=== PATIENT | female | born 1955 | race Caucasian/White ===

== ENCOUNTER → 2018-04-10 14:07 | Outpatient (CLI) | payer BC, SELFPAY ==
--- NOTE | 2018-04-10 14:14 | XR_ITS ---
XR hip LT 2-3V w/pelvis HISTORY: Left hip pain ITS.REASON: LUMBAGO WITH LT SCIATICA ORDERING PHYSICIAN: Todd Peter MD PATIENT AGE: 62 years COMPARISON: 04/30/2013 FINDINGS: There has been prior left hip replacement with a bipolar prosthesis present which is in good position. No evidence of dislocation or acute fracture. There is osteitis pubis and there is incidental note made of mild osteoarthritis of the right hip. 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
--- NOTE | 2018-04-10 14:14 | XR_ITS ---
EXAM: XR lumbar spine min 4V HISTORY: Low back pain ITS.REASON: LUMBAGO WITH LT SCIATICA ORDERING PHYSICIAN: Todd Peter MD PATIENT AGE: 62 years COMPARISON: None FINDINGS: Mild lower lumbar scoliosis convex right. Multilevel degenerative disc disease with endplate hypertrophic changes. There is degenerative disc disease from T9 to L5. There is mild anterolisthesis of L4 on L5 of 4 mm. Endplate osteophytes are present at multiple levels most prominent in the lower thoracic and upper lumbar spine. No fracture or dislocation. No lytic or blastic change. Incidental vascular calcification. Facet arthritic changes noted at L4-5 and L5-S1 IMPRESSION: Multilevel lumbar spondylosis with degenerative disc disease and scoliosis and mild facet arthritic change No acute fracture
== END ==
PROVIDERS: PCP Family Medicine; Visit Provider Family Medicine
DX: M54.42 Lumbago with sciatica, left side (principal)
CPT/HCPCS: 72110; 73502

== ENCOUNTER → 2018-10-21 13:02 | Outpatient (POV) | payer BC, SELFPAY ==
[2018-10-21 13:19] VITALS: BP 180/98; PULSE 87; O2SAT 98
--- NOTE | 2018-10-21 13:51 | HMH.PMCON ---
Assessment and Plan (1) Back pain Current visit: Yes Status: Chronic Category: Medical Code(s): M54.9 - Dorsalgia, unspecified - Assessment and plan all Dx Assessment and Plan for all problems:: Patient is uninterested in any options we can give her. we were unable to obtain an ORT from her. Patient is currently on [place] 7.5 mg 1 p.o. 3 times daily and tramadol 50 mg 1 p.o. 3 times daily. Patient is on a low-dose opioid regimen I do believe that this will be appropriate to continue. If patient has worsening back pains I do believe that an MRI may be warranted. Patient is continuing to work and therefore is staying as functional as possible. This note was dictated using voice recognition software and may contain errors or omissions HPI - Data of Consult Consult date: 10/21/18 Requesting Physician: Monika Hines APRN Primary Care Provider: Todd Peter MD - Consult Narrative Reason for consult: Back pain History of present illness: Ms. Muniz is a 62 year old female presents today for consultation in regards to her low back pain and medication management. Patient states she has increased pain and with activity and nothing decreases her pain. She states that every joint and bone hurts in her body. Patient does not have any recent MRI imaging. Patient states that she is on Lortab and tramadol and this is what makes her able to function. States that it takes the edge off. Patient is also on meloxicam. Patient states injections do not help her however she is never had any spinal injections which she states that she is not interested in. patient states she will not participate in physical therapy it is a waste of her time. When asked for medication list patient stated that that is our job to obtain. Patient also did not completely fill out the paperwork. She rates her pain a 5 out of 10. CC: Monika Hines APRN [facility] History I have reviewed the patient's past medical history: Yes Medical History: Reports:: Hypertension - *Social History Smoking Status: Current every day smoker Tobacco Type: cigarettes Alcohol Intake: never Occupational Status: other Housing: house - Psychiatric History Expresses thoughts of harming self/others: None Suicide Plan Description: No Plan *Family Hx:: Unable to obtain Review of Systems - Review of Systems ROS General: no recent weight change, no fever, no sleep disturbances Respiratory: no cough, no shortness of air, no recurring pulmonary infections Cardiovascular/Peripheral Vascular: No chest pain, No palpitations, no edema, no shortness of breath. Gastrointestinal: no incontinence, normal bowel movements reported Genitourinary: no incontinence Musculoskeletal: Back pain Psychiatric: normal mood/ affect Neurological: [denies weakness in extremities], [denies balance issues] Meds Allergies Allergy/AdvReac Type Severity Reaction Status Date / Time No Known Allergies Allergy Unverified 10/09/17 14:28 Objective Vital signs: Pulse BP Pulse Ox 87 180/98 H 98 10/21/18 13:19 10/21/18 13:19 10/21/18 13:19 Narrative: Physical Exam General: Alert and oriented x3, no acute distress, pleasant and cooperative, [on room air] Lungs: Resps E/U, Symmetrical chest expansion, Eyes: PERRL Musculoskeletal: Flexion and extension of lumbar spine somewhat guarded secondary to pain, deep tendon reflexes normal, strength in upper and lower extremities [5/5], slightly antalgic gait noted Neurological: speech clear, riprap placer equal, no gross sensory deficits
--- NOTE | 2018-10-21 13:55 | P.CONS_ITS ---
Assessment and Plan (1) Back pain Current visit: Yes Status: Chronic Category: Medical Code(s): M54.9 - Dorsalgia, unspecified - Assessment and plan all Dx Assessment and Plan for all problems:: Patient is uninterested in any options we can give her. we were unable to obtain an ORT from her. Patient is currently on [place] 7.5 mg 1 p.o. 3 times daily and tramadol 50 mg 1 p.o. 3 times daily. Patient is on a low-dose opioid regimen I do believe that this will be appropriate to continue. If patient has worsening back pains I do believe that an MRI may be warranted. Patient is continuing to work and therefore is staying as functional as possible. This note was dictated using voice recognition software and may contain errors or omissions HPI - Data of Consult Consult date: 10/21/18 Requesting Physician: Monika Hines APRN Primary Care Provider: Todd Peter MD - Consult Narrative Reason for consult: Back pain History of present illness: Ms. Muniz is a 62 year old female presents today for consultation in regards to her low back pain and medication management. Patient states she has increased pain and with activity and nothing decreases her pain. She states that every joint and bone hurts in her body. Patient does not have any recent MRI imaging. Patient states that she is on Lortab and tramadol and this is what makes her able to function. States that it takes the edge off. Patient is also on meloxicam. Patient states injections do not help her however she is never had any spinal injections which she states that she is not interested in. patient states she will not participate in physical therapy it is a waste of her time. When asked for medication list patient stated that that is our job to obtain. Patient also did not completely fill out the paperwork. She rates her pain a 5 out of 10. CC: Monika Hines APRN [facility] History I have reviewed the patient's past medical history: Yes Medical History: Reports:: Hypertension - *Social History Smoking Status: Current every day smoker Tobacco Type: cigarettes Alcohol Intake: never Occupational Status: other Housing: house - Psychiatric History Expresses thoughts of harming self/others: None Suicide Plan Description: No Plan *Family Hx:: Unable to obtain Review of Systems - Review of Systems ROS General: no recent weight change, no fever, no sleep disturbances Respiratory: no cough, no shortness of air, no recurring pulmonary infections Cardiovascular/Peripheral Vascular: No chest pain, No palpitations, no edema, no shortness of breath. Gastrointestinal: no incontinence, normal bowel movements reported Genitourinary: no incontinence Musculoskeletal: Back pain Psychiatric: normal mood/ affect Neurological: [denies weakness in extremities], [denies balance issues] Meds Allergies Allergy/AdvReac Type Severity Reaction Status Date / Time No Known Allergies Allergy Unverified 10/09/17 14:28 Objective Vital signs: Pulse BP Pulse Ox 87 180/98 H 98 10/21/18 13:19 10/21/18 13:19 10/21/18 13:19 Narrative: Physical Exam General: Alert and oriented x3, no acute distress, pleasant and cooperative, [on room air] Lungs: Resps E/U, Symmetrical chest expansion, Eyes: PERRL Musculoskeletal: Flexion and extension of lumbar spine antelmo
== END ==
PROVIDERS: PCP Family Medicine; Visit Provider Clinical Nurse Specialist Family Health
DX: M54.9 Dorsalgia, unspecified (principal)
CPT/HCPCS: 99202

== ENCOUNTER → 2019-06-04 08:11 | Outpatient (CLI) | payer BC, SELFPAY ==
--- NOTE | 2019-06-04 08:30 | CA_ITS ---
APPROVED REPORT EXAM: Comprehensive 2D, Doppler, and color-flow Echocardiogram Horticultural Farmer: Valencia Stock RDCS Ht: 5 ft 7 in Wt: 205lbs BSA: 2.04 BP: 130/80 mmHg Indications: Chest Pain, Murmur, Shortness of Breath Left Ventricle Left atrium is mildly enlarged, left ventricle is normal size, mild concentric left ventricular hypertrophy, visually estimated ejection fraction of 55% with no regional wall motion abnormality grade 1 diastolic dysfunction seen without tissue Doppler evidence of raise left atrial pressure. Right Ventricle Right atrium and right ventricular normal size and contractility. Aortic Valve Aortic valve is thickened and calcified, leaflet continue to display mobility, there is no aortic stenosis or aortic insufficiency. Mitral Valve Mitral valve leaflets are minimally thickened, there is no mitral stenosis, there is mild mitral regurgitation. Tricuspid Valve Cuspid valve is grossly normal, there is mild tricuspid regurgitation, tricuspid dilatation jet velocity is inadequate for calculation of the right ventricular systolic pressure. Pulmonic Valve Pulmonic valve is grossly normal. Great Vessels Aortic root is normal size. Pericardium No significant pericardial effusion noted. 2D Dimensions LVOT 1.60 cm (M/F) 1.5-2.5 M-Mode Dimensions RVDd 3.40 cm (0.9-2.6) LA Diam 2.70 cm (1.9-4.0) LVDd 4.30 cm (3.5-5.7) Ao Diam 3.30 cm (2.0-3.7) LVDs 3.00 cm (3.5-5.7) AV Cusp 1.30 cm (1.5-2.6) IVSd 1.30 cm (0.6-1.1) PWd 1.30 cm (0.6-1.1) EF (Teich) 57.90% FS 30.20% EDV (Teich) 83.10 mL ESV (Teich) 35.00 mL LV Diastology E/A Ratio 0.5 MED E' 4.00 (< 7 cm/sec) E'/MED E' Ratio 9.00 (>14) LAT E' 7.12 (<10 cm/sec) E/LAT E' Ratio 5.10 (>14) Aortic Valve LVOT Max 122.00 (70-110 cm/s) LVOT VTI 28.50 cm AoV Peak Avery. 162.00 (50-130 cm/s) AO Peak GR. 10.00 mmHg AO Mean GR. 7.00 (<5 mmHg) AO VTI 36.50 (18-25 cm) DONALD (VTI) 1.57 (2.5-4.5 cm2) Mitral Valve MV E Max Avery. 36.00 (40-130 cm/s) MV A Velocity 73.10 (40-130 cm/s) E/A Ratio 0.50 Tricuspid Valve TR P. Velocity 274.00 cm/s RAP Estimate 10.00 mmHg RVSP 40.00 mmHg Conclusion 1. Mildly enlarged left atrium, normal left ventricular size, mild concentric left ventricular hypertrophy, visually estimated ejection fraction 55% with no regional wall motion abnormality, grade 1 diastolic dysfunction seen without tissue Doppler evidence of raise left atrial pressure. 2. Thickened and calcified aortic valve without aortic stenosis or aortic insufficiency. 3. Mild mitral and tricuspid regurgitation 4. No significant pericardial effusion noted. Electronically signed by : John Shah, 06/06/2019 13:39:56
[2019-06-04 08:38] LABS: Blood Urea Nitrogen 32 mg/dL (7-18); Creatinine,Serum 1.15 mg/dL (0.55-1.02); Estimated Glomerular Filt Rate 47 ml/min (>60); GFR (African American) 57 ML/MIN (>60)
--- NOTE | 2019-06-04 08:57 | CT_ITS ---
PROCEDURE: CT CHEST W CON CLINCAL INDICATION: ABNORMAL CHEST CT Shortness of air, follow-up abnormal chest CT COMPARISON: [facility] CT CHEST W/WO CONTRAST from 03/20/2017 TECHNIQUE: IV Contrast: 75ml Optiray 350 Axial images obtained with sagittal and coronal reformats. All CT scans at the facility use one or more dose reduction, viz: automated exposure control, ma/kV adjustment per patient size (including targeted exams where dose is matched to indication, i.e. head), or iterative reconstruction technique. FINDINGS: No evidence of pulmonary embolus or aortic aneurysm or dissection. There are coronary artery calcifications. There is a noncalcified 7 mm nodule in the right upper lobe unchanged. Multiple smaller nodules are once again noted some which are calcified. Noted nodules are evident. No effusions or infiltrates. No acute bony findings. Upper abdominal images show mild prominence of the common hepatic duct through the common bile duct is incompletely image. IMPRESSION: No change with no acute finding. Stable pulmonary nodules Dictated by: Ancelmo Jack MD 06/09/2019 17:48 Signed by: <Electronically signed by Ancelmo Jack MD in [place]> 06/09/2019 17:48
== END ==
PROVIDERS: PCP Family Medicine; Visit Provider Family Medicine
DX: R93.89 Abnormal findings on diagnostic imaging of other specified body structures (principal)
CPT/HCPCS: 36415; 71260; 82565; 84520; 93306; Q9967

== ENCOUNTER → 2019-07-04 06:11 | Outpatient (CLI) | payer BC, SELFPAY ==
--- NOTE | 2019-07-04 06:16 | NM_ITS ---
APPROVED REPORT Exam: Nuclear Stress Test Indication: CAD, 2 STINTS, HTN, D.M., TOB USE, FM HX., FATIQUE Patient Location: Outpatient Stress Tech: Elisa Kwadwo IN Tech:Lacy Edwards, ARRT RT(R)(N) Ht: 5 ft 7 in Wt: 200 lbs BSA: 2.02 m2 HR: 51 bpm BP: 166/67/ mmHg BMI: 31.3 History: CAD, 2 STINTS, HTN, D.M., TOB USE, FM HX., FATIQUE Procedure: Patient received a 0.4 mg of intravenous Lexiscan, resting heart rate 51 bpm, resting blood pressure 166/67 mmHg, with Lexiscan maximum heart rate achived was 79 bpm which is Less than 85 % of the maximum predicted heart rate and blood pressure was 150/86 mmHg. With Lexiscan, patient denied any complaint of chest pain. Electrocardiogram Resting electrocardiogram shows sinus rhythm, with Lexiscan there is less than 1.[address] segment depression noted from the baseline EKG. The EKG portion of the Lexiscan Myoview is nondiagnostic. Cardiac Stress and Resting SPECT Images: Cardiac Stress and Resting SPECT images were obtained using technetium 99m Myoview 32.6 mCi stress and 10.40 mCi at rest. Gated SPECT with analysis of segmental wall motion and calculation of the ejection fraction also done. Cardiac stress and rest SPECT which show decreased tracer activity in the anterolateral wall which improves on the resting images suggestive of reversible ischemia, computer derived ejection fraction is over 65% with no regional wall motion abnormality, right ventricle is normal size and contractility. Conclusion: 1. The EKG portion of the Lexiscan Myoview is nondiagnostic. 2. Scintigraphic evidence of mild reversible ischemia involving the anterolateral wall. Computer derived ejection fraction is over 65% with no regional wall motion abnormality, right ventricle is normal size and contractility. This is study is technically limited due to patient's body habitus. 3. Abnormal Lexiscan Myoview study. Electronically signed by : John Shah, 07/04/2019 13:53:04
--- NOTE | 2019-07-04 06:16 | CA_ITS ---
APPROVED REPORT Exam: Pharmacologic Technologist: Johnny Mcdonough, Ht: 5 ft 7 in Wt: 200 lbs BSA: 2.02 m2 HR: 51 bpm BP: 166/67 mmHg Indications: Fatigue Medical History Medical History: FATIGUE Medications: Lisinopril,,,,, Metoprolol,,,,, Asa,,,,, Glimepiride,,,,, XaRELTO,,,,, MeLOXICAM,,,,, BusIPIRONE,,,,, LoraTAB,,,,, Omepazole,,,,, Allergies: NKA Cardiac Risk Factors: HTN, DM, FHX of CAD, Smoking Stress Test Details Test: LEXISCAN HR Resting HR: 56 bpm Max Heart Rate (APMHR): 155 bpm Max HR Achieved: 81 bpm Target HR (85% APMHR): 131 bpm % of APMHR: 52 Recovery HR: 69 bpm BP Resting BP: 166.0/67.0 mmHg Max BP: 170.0/85.0 mmHg Recovery BP: 168.0/89.0 mmHg ECG Resting ECG: SINUS RHYTHM Clinical Exercise duration: 04:01 min Highest Stage Achieved: Exercise capacity: 1.0 METs Stress ECG Conclusion LEXISCAN PORTION COMPLETED. C/O NECK PRESSURE AT PEAK INFUSION. RESOLVED IN RECOVERY. NO CHEST PAIN OR SOA. POSITIVE NECK PRESSURE DURING PEAK INFUSION. RESOLVED IN RECOVERY. OCCASIONAL PAC. LESS THAN 1.5MM ST DEPRESSION. IMAGES TO FOLLOW. Electronically signed by : John Shah, 07/04/2019 13:54:53
--- NOTE | 2019-07-04 09:55 | HMH.ITSHM ---
Current Home Medications as stated by this patient Ana Muniz or senior sales representative. []metoprolol loratab omeprazole meloxicam lisinopril glimepiride buspirone asa xarelto
== END ==
PROVIDERS: PCP Family Medicine; Visit Provider Family Medicine
DX: Z95.5 Presence of coronary angioplasty implant and graft (principal); E78.5 Hyperlipidemia, unspecified; I10 Essential (primary) hypertension; I20.9 Angina pectoris, unspecified; I25.119 Atherosclerotic heart disease of native coronary artery with unspecified angina pectoris; R06.00 Dyspnea, unspecified
CPT/HCPCS: 78452; 93017; A9502; J2785

== ENCOUNTER → 2020-06-07 14:35 | Outpatient (CLI) | payer BC, SELFPAY ==
--- NOTE | 2020-06-07 14:38 | US_ITS ---
PROCEDURE: US KIDNEY CLINICAL INDICATION: DM II,PROTEINURIA COMPARISON: No exams were available for comparison FINDINGS: The right kidney is [id number]. No hydronephrosis, cortical thinning, or renal mass or perinephric fluid collection is evident. The left kidney is [id number]. No hydronephrosis, cortical thinning, or renal mass or perinephric fluid collection is evident. IMPRESSION: Unremarkable bilateral renal ultrasound Dictated by: Ancelmo Jack MD 06/07/2020 15:28 Ancelmo Jack MD in [place] 06/07/2020 15:28
== END ==
PROVIDERS: PCP Family Medicine; Visit Provider Family Medicine
DX: E11.9 Type 2 diabetes mellitus without complications (principal); R80.9 Proteinuria, unspecified; Z79.899 Other long term (current) drug therapy
CPT/HCPCS: 76770

== ENCOUNTER → 2020-08-16 10:23 | Outpatient (CLI) | payer BC, SELFPAY ==
--- NOTE | 2020-08-16 10:38 | ECG_ITS ---
APPROVED REPORT Exam: Resting ECG HR:65 bpm ECG Measurements Heart Rate 65 AXES ND 170 P 17 QRSd 86 QRS -7 QT 416 T 54 QTc 432 Conclusion Normal sinus rhythm Delayed R-wave progression, unchanged since 2016 Abnormal ECG Electronically signed by : Marcelo Rai, 08/16/2020 17:36:28
== END ==
PROVIDERS: PCP Family Medicine; Visit Provider Family Medicine
DX: I49.8 Other specified cardiac arrhythmias (principal)
CPT/HCPCS: 93005

== ENCOUNTER 2021-02-18 16:16 | Emergency (ER) | payer BC, SELFPAY ==
--- NOTE | 2021-02-18 16:07 | ECG_ITS ---
APPROVED REPORT Exam: Resting ECG HR:48 bpm ECG Measurements Heart Rate 48 AXES MA 176 P 53 QRSd 84 QRS 10 QT 498 T 83 QTc 444 Conclusion Marked sinus bradycardia Left atrial abnormality Nonspecific T wave abnormality Abnormal ECG Electronically signed by : Marcelo Rai, 02/19/2021 08:45:25
[2021-02-18 16:17] VITALS: BP 181/96; PULSE 48; RESP 18; O2SAT 95; BMI 32.3
--- NOTE | 2021-02-18 16:28 | HMH.EDGENADL ---
ED Disposition Clinical Impression: Headache Qualifiers: Headache type: unspecified Headache chronicity pattern: acute headache Intractability: intractable Qualified Code(s): R51.9 - Headache, unspecified Disposition: Home, Self-Care Condition on Discharge: Good Instructions: DI for Headache, DI for Atypical Chest Pain Additional Instructions: Take Lortab as needed for pain. Follow-up with your primary care doctor next week for your blood pressure. Take your blood pressure every day and record it and bring to your primary care doctor. Additional instructions for HEADACHE: See your physician as soon as possible for further evaluation. Return immediately if worsening headache, vomiting, problems with vision or speech, fever, numbness or weakness of the extremities, neck pain or stiffness. Referrals: Provider,Referral, [Referring] - - Critical Care Critical Care Time: No Attestation: On 02/18/21, the high probability of a clinically significant, sudden or life threatening deterioration of the following system(s) required my full and direct attention, intervention and personal management. The time I documented below is in addition to time spent performing reported procedures but includes the following listed in this critical care notation. Medical Decision Making - Edwardo Inquiry Pt receiving controlled substance: Yes Edwardo was queried for this patient: Yes Risks and benefits of using a controlled substance: were not discussed with pt by me Vital Signs: 02/18/21 16:17 02/18/21 17:00 02/18/21 17:15 Temperature Temperature Source Pulse Rate 47 L 48 L Pulse Rate [Left Radial] 48 L Respiratory Rate 18 18 14 Blood Pressure 152/79 H 152/79 H Blood Pressure [Right Arm] 181/96 H Blood Pressure Mean [Right Arm] 124 Blood Pressure Source [Right Arm] Automatic Cuff Blood Pressure Position Sitting Blood Pressure Position [Right Arm] Sitting 02 Sat by Pulse Oximetry 95 93 L 96 Oxygen Delivery Method Room Air Room Air 02/18/21 19:13 Temperature 97.6 F Temperature Source Oral Pulse Rate Pulse Rate [Left Radial] Respiratory Rate Blood Pressure Blood Pressure [Right Arm] Blood Pressure Mean [Right Arm] Blood Pressure Source [Right Arm] Blood Pressure Position Blood Pressure Position [Right Arm] 02 Sat by Pulse Oximetry Oxygen Delivery Method - Lab Data Lab Results 02/18/21 16:18: WBC 6.7, RBC 4.83, Hgb 14.0, Hct 42.9, MCV 89.0, MCH 29.0, MCHC 32.6, RDW 14.7, Plt Count 141 L, MPV 8.3, Neut % (Auto) 60.1, Lymph % (Auto) 29.6, [place] % (Auto) 6.3, Eos % (Auto) 2.8, Baso % (Auto) 1.1, Neut # (Auto) 4.0, Lymph # (Auto) 2.0, [place] # (Auto) 0.4, Eos # (Auto) 0.2, Baso # (Auto) 0.1 02/18/21 16:18: Sodium 138, Potassium 4.0, Chloride 102, Carbon Dioxide 26, Anion Gap 14.0, BUN 18 H, Creatinine 0.90, Estimated Creat Clear 78, Estimated GFR 62, Est GFR ( Amer) 76, Glucose 124 H, Calcium 9.6, Troponin I < 0.01 Result diagrams: 02/18/21 16:18 02/18/21 16:18 Orders (Tests/Meds): ED MEDICATIONS Generic Name Dose Route Start Last Admin Trade Name Freq PRN Reason Stop Dose Admin Sodium Chloride 1,000 mls @ 999 mls/hr 02/18/21 16:45 02/18/21 16:58 Sod Chlor 0.9% 1000ml Bag IV 02/18/21 17:45 999 mls/hr .[id number] EARNEST Administration Discontinued Medications Generic Name Dose Route Start Last Admin Trade Name Freq PRN Reason Stop Dose Admin Acetaminophen 1,000 mg 02/18/21 16:32 02/18/21 16:57 Acetaminophen 500mg Tab PO 02/18/21 16:33 1,000 mg ONCE ONE Administration Hydromorphone HCl 0.5 mg 02/18/21 18:12 02/18/21 18:18 Hydromorphone 2mg/Ml Syringe IV 02/18/21 18:13 0.5 mg ONCE ONE Administration Morphine Sulfate 4 mg 02/18/21 17:17 02/18/21 17:19 Morphine 4mg/Ml Syringe IV 02/18/21 17:18 4 mg ONCE ONE Administration Ondansetron HCl 4 mg 02/18/21 17:17 02/18/21 17:19 Ondansetron 4mg/2ml Vial IV 02/18/21 17:18 4 mg ON
--- NOTE | 2021-02-18 16:29 | XR_ITS ---
PROCEDURE INFORMATION: Exam: XR Chest Exam date and time: 02/18/2021 4:29 PM Age: 65 years old Clinical indication: Patient HX: Chest pain, HTN TECHNIQUE: Imaging protocol: XR of the chest. Views: 2 views. COMPARISON: CT CHEST W CON 06/04/2019 10:32 AM FINDINGS: Lungs: The lungs are hyperinflated, consistent with underlying small airways disease. Pleural spaces: Unremarkable. No pleural effusion. No pneumothorax. Heart/Mediastinum: Unremarkable. No cardiomegaly. Bones/joints: Unremarkable. IMPRESSION: The lungs are hyperinflated, consistent with underlying small airways disease.
[2021-02-18 16:36] LABS: Basophils # 0.1 K/mm3 (0-0.2); Basophils % 1.1 % (0.1-2.0); Eosinophils # 0.2 K/mm3 (0.0-0.4); Eosinophils % 2.8 % (0.1-12.0); Hematocrit 42.9 % (37.0-47.0); Lymphocytes % 29.6 % (10-50); Mean Corpuscular HGB Conc 32.6 g/dL (31.8-35.4); Mean Platelet Volume 8.3 fl (7.4-10.4); Monocytes # 0.4 K/mm3 (0.1-1.0); Monocytes % 6.3 % (1.7-9.3); Neutrophils % 60.1 % (37.0-80.0); Platelet Count 141 K/mm3 (142-424); Red Blood Count 4.83 M/mm3 (4.20-5.40); Red Cell Distribution Width 14.7 % (11.5-17.5); White Blood Count 6.7 K/mm3 (4.8-10.8)
[2021-02-18 16:38] LABS: Chloride 102 mmol/L (98-107); Sodium 138 mmol/L (136-145)
[2021-02-18 16:41] LABS: Blood Urea Nitrogen 18 mg/dl (7-17); Carbon Dioxide 26 mmol/L (22.0-30.0); Creatinine Clearance Estimated 78 mL/min (50-200); Estimated Glomerular Filt Rate 62 ml/min (>60); GFR (African American) 76 ML/MIN (>60)
[2021-02-18 16:42] LABS: Calcium 9.6 mg/dl (8.4-10.2); Glucose 124 mg/dl (74-100)
[2021-02-18 16:57] LABS: Troponin I < 0.01 ng/ml (0.00-0.034)
[2021-02-18 17:00] VITALS: BP 152/79; PULSE 47; RESP 18; O2SAT 93
--- NOTE | 2021-02-18 17:09 | PC.NURSE ---
Patients [facility] report for Chest Xray given to
[2021-02-18 17:15] VITALS: BP 152/79; PULSE 48; RESP 14; O2SAT 96
--- NOTE | 2021-02-18 17:16 | CT_ITS ---
PROCEDURE INFORMATION: Exam: CT Head Without Contrast Exam date and time: 02/18/2021 5:16 PM Age: 65 years old Clinical indication: Headache not specified; Patient HX: Headache x 1 week; . Chest pain TECHNIQUE: Imaging protocol: Computed tomography of the head without contrast. Radiation optimization: All CT scans at this facility use at least one of these dose optimization techniques: automated exposure control; mA and/or kV adjustment per patient size (includes targeted exams where dose is matched to clinical indication); or iterative reconstruction. COMPARISON: No relevant prior studies available. FINDINGS: Brain: Normal. No hemorrhage. Unremarkable white matter. No mass effect. Cerebral ventricles: No ventriculomegaly. Bones/joints: No acute fracture. Paranasal sinuses: Visualized sinuses are unremarkable. No fluid levels. Mastoid air cells: Visualized mastoid air cells are well aerated. Soft tissues: No acute changes IMPRESSION: No acute intracranial abnormality.
--- NOTE | 2021-02-18 17:24 | PC.NURSE ---
pt going to rad. at this time.
--- NOTE | 2021-02-18 18:09 | PC.NURSE ---
at bedside updating pt.
[2021-02-18 19:13] VITALS: TEMP 36.4
[2021-02-18 19:58] VITALS: BP 158/72; PULSE 61; RESP 14; TEMP 36.4; O2SAT 97
[2021-02-18 19:58] LABS: Troponin I < 0.01 ng/ml (0.00-0.034)
== END 2021-02-18 20:00 | disposition home or self-care (01) ==
PROVIDERS: Emergency Provider Emergency Medicine; PCP Family Medicine
DX: R51.9 Headache, unspecified (principal); I10 Essential (primary) hypertension; J44.9 Chronic obstructive pulmonary disease, unspecified; I25.10 Atherosclerotic heart disease of native coronary artery without angina pectoris; F41.8 Other specified anxiety disorders; K21.9 Gastro-esophageal reflux disease without esophagitis; F17.210 Nicotine dependence, cigarettes, uncomplicated; Z79.899 Other long term (current) drug therapy
CPT/HCPCS: 70450; 71046; 80048; 84484; 85025; 93005; 96375; 99282; J2405

== ENCOUNTER → 2023-02-28 14:25 | Outpatient (CLI) | payer MEDICARE, SELFPAY | PROVIDERS: PCP Family Medicine; Visit Provider Family Medicine | DX: D50.0 Iron deficiency anemia secondary to blood loss (chronic) (principal) | CPT/HCPCS: 36415; 86850 ==

== ENCOUNTER 2023-03-01 08:29 | Outpatient (CLI) | payer MEDICARE, SELFPAY ==
[2023-03-01] VITALS (18 sets, daily range): BP systolic 103–180; BP diastolic 43–74; PULSE 61–69; RESP 16; TEMP 36.3–36.9; O2SAT 97–98; BMI 32.3
[2023-03-01 08:52] LABS: Hematocrit 25.4 % (37.0-47.0); Hemoglobin 7.9 g/dL (12.2-16.2)
--- NOTE | 2023-03-01 10:39 | PC.NURSE ---
1022-INCREASED RATE TO 200 ML/HR AT THIS TIME.
--- NOTE | 2023-03-01 12:32 | PC.NURSE ---
1230-INCREASED RATE TO 200ML/HR AT THIS TIME.
--- NOTE | 2023-03-01 14:35 | PC.NURSE ---
0855-PT STATES THAT SHE HAS HAD INCREASED WEAKNESS, ESPECIALLY IN HER LEGS, OVER THE PAST MONTH. STATES THAT SHE HAS ALSO BEEN MORE TIRED WITH DECREASED ENERGY.
== END 2023-03-01 14:20 | disposition home or self-care (01) ==
LOC: INF 08:30
PROVIDERS: PCP Family Medicine; Visit Provider Family Medicine
DX: D50.0 Iron deficiency anemia secondary to blood loss (chronic) (principal)
CPT/HCPCS: 36430; 85014; 85018; P9016

== ENCOUNTER → 2023-03-14 08:52 | Outpatient (CLI) | payer MEDICARE, SELFPAY ==
--- NOTE | 2023-03-14 09:04 | CT_ITS ---
FINAL REPORT TECHNIQUE: Axial CT images of the abdomen and pelvis were obtained before and after the administration of IV contrast. This study was performed with techniques to keep radiation doses as low as reasonably achievable (ALARA). Individualized dose reduction techniques using automated exposure control or adjustment of mA and/or kV according to the patient''s size were employed. CLINICAL HISTORY: IRON DEFICIENCY,ANEMIA DUE TO CHRONIC BLOOD LOSS COMPARISON: none FINDINGS: Abdomen: There is mild scarring in the lung bases. There are 2 nodules in the lateral right lung base, larger measuring 5 mm. The heart is normal in size. The liver is irregular in contour, worrisome for cirrhosis. There is a mass in the lateral segment of the left hepatic lobe measuring 37 mm with partial wall calcification favored to represent complex cyst over other etiology. There is nonspecific gallbladder wall thickening. There is splenomegaly with the spleen measuring 14 cm in length. No adrenal masses present. The pancreas has an unremarkable appearance. There is a 36 mm contrast enhancing mass in the anterior right kidney most worrisome for neoplasm. There are probable small cysts in the left kidney. The aorta is normal in caliber. There is no free fluid or adenopathy. Precontrast images demonstrate no evidence of nephrolithiasis. Pelvis: The appendix is normal. The urinary bladder is unremarkable. No inflammatory process is seen. There is no evidence of mass or adenopathy. There is no evidence of bowel obstruction. There are postoperative changes from left hip arthroplasty. IMPRESSION: Anterior right renal mass most worrisome for neoplasm. Findings of cirrhosis with portal hypertension. Reviewed, Interpreted and Dictated by Carlos Kirkpatrick III, MD Transcribed by Bri Stone Authenticated and [facility][1]
[2023-03-14 09:41] LABS: Blood Urea Nitrogen 21 mg/dl (7-17); Estimated Glomerular Filt Rate 41 ml/min (>60); GFR (African American) 49 ML/MIN (>60)
== END ==
LOC: RAD 08:52
PROVIDERS: PCP Family Medicine; Visit Provider Family Medicine
DX: D50.0 Iron deficiency anemia secondary to blood loss (chronic) (principal)
CPT/HCPCS: 36415; 74178; 82565; 84520; Q9967

== ENCOUNTER 2023-04-02 12:32 | Observation (INO) | payer MEDICARE, SELFPAY ==
[2023-04-02] VITALS (13 sets, daily range): BP systolic 116–157; BP diastolic 57–87; PULSE 64–83; RESP 16–20; TEMP 36.6–36.8; O2SAT 96–100; BMI 31.3; BMI 31.9
--- NOTE | 2023-04-02 13:16 | CT_ITS ---
FINAL REPORT TECHNIQUE: Axial images through the abdomen and pelvis were performed without contrast.This study was performed with techniques to keep radiation doses as low as reasonably achievable, (ALARA). Individualized dose reduction techniques using automated exposure control or adjustment of mA and/or kV according to the patient's size were employed. CLINICAL HISTORY: abd pain andh/o cancer COMPARISON: 03/14/2023 FINDINGS: ABDOMEN: Scarring is seen at the lung bases. The heart size is normal. Liver has an irregular contour consistent with cirrhosis. There is a small amount of ascites, worse from prior exam. A partially calcified mass is seen in the lateral segment of the left hepatic lobe measuring 33 mm which may represent complex cyst. There is nonspecific gallbladder wall thickening. The spleen is enlarged. No adrenal mass is identified. The aorta is normal in caliber. There is no nephrolithiasis. There is no hydronephrosis. Again seen a lateral right renal mass, not as well visualized than on prior exam, but is most worrisome for neoplasm. PELVIS: There are postoperative changes of left hip arthroplasty. The appendix is not identified. The urinary bladder is unremarkable. There is no significant free fluid or adenopathy. IMPRESSION: Findings of cirrhosis with portal hypertension. Right renal mass worrisome for neoplasm. Small amount of ascites, worse from prior exam. Reviewed, Interpreted and Dictated by Carlos Kirkpatrick III, MD Transcribed by Michelle Bernard Authenticated and [facility]
--- NOTE | 2023-04-02 13:18 | HMH.EDGENADL ---
Discharge Plan Disposition Patient Disposition: Admitted Condition: Fair Chief Complaint: PAIN Prescriptions Prescriptions: No Action Prilosec OTC 20 mg tablet,delayed release (DR/EC) 20 mg PO DAILY buspirone 7.5 mg tablet 7.5 mg PO BID cyclobenzaprine 10 mg tablet 5 mg PO TID triamterene-hydrochlorothiazid [Maxzide] 75-50 mg tablet 1 tab PO DAILY aspirin [Adult Low Dose Aspirin] 81 mg tablet,delayed release (DR/EC) 81 mg PO DAILY glimepiride 2 mg tablet 2 mg PO DAILY meloxicam 15 mg tablet 15 mg PO DAILY Invokamet 50-500 mg tablet 1 tab PO ONCE metoprolol succinate [Toprol XL] 100 mg tablet extended release 24 hr 100 mg PO DAILY lisinopril 5 mg tablet 5 mg PO DAILY temazepam 30 mg capsule 30 mg PO QHS PRN (Reason: Sleep) sertraline [Zoloft] 50 mg tablet 50 mg PO BID Symbicort 80-4.5 mcg/actuation HFA aerosol inhaler 2 puff INHALATION BID Ventolin HFA 90 mcg/actuation HFA aerosol inhaler 1 puff INHALATION Q6H PRN (Reason: Dyspnea) tramadol 50 MG tablet 50 mg PO TID PRN (Reason: Moderate Pain) hydrocodone-acetaminophen 1 EACH tablet 7.5 mg PO TID rivaroxaban 2.5 MG tablet 2.5 mg PO DAILY isosorbide mononitrate 30 mg tablet extended release 24 hr 30 mg PO DAILY Lantus U-100 Insulin 100 unit/mL Cartridge 15 unit SQ DAILY Referrals Follow up/Referrals: Todd Peter MD [Primary Care Provider] - See instructions Clinical Impressions Clinical Impression: Abdominal pain, Hyperglycemia, Acute lactic acidosis Discharge ED Provider: Leonidas Tapia Adult [facility] General Chief complaint: PAIN Stated complaint: weak, has kidney CA, can't walk, pain Time Seen by Provider: 04/02/23 13:00 Mode of Arrival: Ambulatory Source of Information: Patient Limitations: No Limitations Description of Symptoms (Recalled from ER Triage Doc. by RN): pt to ED with bilateral groin pain and incontinence throughout the night x 2 weeks. pt reports she has been diagnosed with kidney cancer and is due to have surgery on 04/17 and has been taking hydrocodone for pain but stated it has only taken the edge off pt denies any chest pain, SOB, recent illness or urinary pain History of Present Illness HPI narrative: This 67-year-old white female with a history of renal cancer who presents with increasing incontinence for 2 weeks and abdominal pain and distention. No vomiting or diarrhea no dysuria pyuria hematuria patient states that her pain medicine is not cutting it . She also states that a few weeks ago her doctor had to give her a couple pints of blood. Related Data Home Medications Medication Instructions Recorded Confirmed hydrocodone 7.5 mg-acetaminophen 7.5 mg PO TID Pain 10/21/18 03/01/23 325 mg tablet rivaroxaban 2.5 mg tablet 2.5 mg PO DAILY Blood thinner 10/21/18 03/01/23 tramadol 50 mg tablet 50 mg PO TID PRN Moderate Pain 10/21/18 03/01/23 albuterol sulfate 90 mcg/actuation 1 puff inhalation Q6H PRN Dyspnea 06/05/19 03/01/23 aerosol inhaler (Ventolin HFA) aspirin 81 mg tablet,delayed 81 mg PO DAILY Heart disease 06/05/19 03/01/23 release (Adult Low Dose Aspirin) budesonide-formoterol HFA 80 2 puff inhalation BID DYSPNEA 06/05/19 03/01/23 mcg-4.5 mcg/actuation aerosol inhaler (Symbicort) buspirone 7.5 mg tablet 7.5 mg PO BID ANXIETY 06/05/19 03/01/23 canagliflozin 50 mg-metformin 500 1 tab PO ONCE UNKNOWN 06/05/19 03/01/23 mg tablet (Invokamet) cyclobenzaprine 10 mg tablet 5 mg PO TID MUSCLE SPASMS 06/05/19 03/01/23 glimepiride 2 mg tablet 2 mg PO DAILY Diabetes 06/05/19 03/01/23 lisinopril 5 mg tablet 5 mg PO DAILY Hypertension 06/05/19 03/01/23 meloxicam 15 mg tablet 15 mg PO DAILY Pain 06/05/19 03/01/23 metoprolol succinate 100 mg 100 mg PO DAILY Hypertension 06/05/19 03/01/23 tablet,extended release 24 hr (Toprol XL) omeprazole magnesium 20 mg 20 mg PO DAILY GERD 06/05
--- NOTE | 2023-04-02 14:00 | PC.NURSE ---
PATIENT ASSISTED TO BATHROOM
[2023-04-02 14:12] LABS: Alanine Aminotransferase 31 U/L (12-78); Albumin Level 2.9 g/dl (3.5-5.0); Albumin/Globulin Ratio 0.6 (1.1-1.8); Alkaline Phosphatase 137 U/L (38-126); Anion Gap 16.7 mEq/L (5-15); Aspartate Amino Transferase 45 U/L (14-36); Bilirubin,Total 1.7 mg/dl (0.2-1.3); Blood Urea Nitrogen 35 mg/dl (7-17); Carbon Dioxide 24 mmol/L (22.0-30.0); Chloride 97 mmol/L (98-107); Creatinine Clearance Estimated 51 mL/min (50-200); Estimated Glomerular Filt Rate 34 ml/min (>60); GFR (African American) 42 ML/MIN (>60); Globulin 4.7 g/dL (1.3-3.2); Glucose 370 mg/dl (74-100); Lipase 129 U/L (23-300); Potassium 4.7 mmoL/L (3.5-5.1); Sodium 133 mmol/L (136-145); Total Protein,Serum 7.6 g/dl (6.3-8.2)
[2023-04-02 14:14] LABS: Activated Partial Thrombo Time 33.6 seconds (22.8-30.6); INR 1.27 (0.9-1.1); Prothrombin Time 13.5 seconds (10.1-12.5)
[2023-04-02 14:27] LABS: Basophils % 0.2 % (0.1-2.0); Eosinophils % 0.4 % (0.1-12.0); Hematocrit 29.7 % (37.0-47.0); Hemoglobin 8.6 g/dL (12.2-16.2); Lymphocytes # 1.1 K/mm3 (0.7-4.5); Lymphocytes % 11.1 % (10-50); Mean Corpuscular Hemoglobin 23.9 pg (27.0-31.2); Mean Corpuscular Volume 82.2 fl (81-99); Mean Platelet Volume 10.5 fl (7.4-10.4); Monocytes # 0.5 K/mm3 (0.1-1.0); Monocytes % 4.5 % (1.7-9.3); Neutrophils # 8.7 K/mm3 (1.8-7.8); Neutrophils % 83.9 % (37.0-80.0); Platelet Count 107 K/mm3 (142-424); Red Blood Count 3.61 M/mm3 (4.20-5.40); Red Cell Distribution Width 24.6 % (11.5-17.5); White Blood Count 10.3 K/mm3 (4.8-10.8)
[2023-04-02 14:34] LABS: Lactic Acid 3.6 mmol/L (0.7-2.1)
--- NOTE | 2023-04-02 15:40 | PC.NURSE ---
pt up to restroom
[2023-04-02 15:55] LABS: Microscopic, Urine URINE MICROSCOPIC (MICROSCOPIC)
[2023-04-02 15:57] LABS: Appearance,Urine CLEAR (Clear); Bilirubin,Urine Negative (Negative); Blood, Urine 1+ (Negative); Color,Urine YELLOW (Yellow); Glucose,Urine (UA) 3+ (Negative); Ketones,Urine Negative (Negative); Leukocyte Esterase,Urine Negative (Negative); Nitrate,Urine Negative (Negative); PH,Urine 5.5 (5.0-8.5); Protein,Urine Negative (Negative); Specific Gravity, Urine <= 1.005 (1.005-1.030); Urobilinogen,Urine 0.2 EU/dl (0.2)
[2023-04-02 16:16] LABS: Bacteria,Urine 1+ /lpf
--- NOTE | 2023-04-02 17:05 | PC.NURSE ---
CRISTAL FUNEZ states wants to hydrate pt and redraw lactic acid
--- NOTE | 2023-04-02 18:03 | PC.NURSE ---
pt to restroom and back to room 8 - IVF infusing, call frank in reach
[2023-04-02 18:24] LABS: Reflex Lactic Add Lactic Reflex
[2023-04-02 19:39] LABS: Lactic Acid Follow Up (RFLX 1) 3.2 mmol/L (0.7-2.1)
--- NOTE | 2023-04-02 19:48 | PC.NURSE ---
Dr. Navid pichardo for ER MD
--- NOTE | 2023-04-02 19:53 | PC.NURSE ---
CRISTAL FUNEZ speaking with Dr. Shoemaker
[2023-04-02 19:58] LABS: Coronavirus 19, PCR Not Detected (NotDetected); Influenza A, PCR Not Detected (NotDetected); Influenza B, PCR Not Detected (NotDetected)
--- NOTE | 2023-04-02 19:59 | PC.NURSE ---
district supervisor notified of need for bed
--- NOTE | 2023-04-02 20:33 | PC.NURSE ---
pt arrived to floor at this time
[2023-04-02 21:10] LABS: Reflex Lactic (2 hrs) Add Lactic Reflex
[2023-04-02 22:02] LABS: Lactic Acid Follow up (RFLX 2) 3.4 mmol/L (0.7-2.1)
[2023-04-02 23:01] LABS: POC Glucose,Bedside 282 (70-110)
--- NOTE | 2023-04-02 23:05 | PC.NURSE ---
2226: SPOKE WITH DR. MENDOZA TO GET ORDERS ON PATIENT. TELEPHONE ORDERS REPEATED AND VERIFIED. NOTIFIED MUSTAPHA, PRIMARY RN, OF NEW ORDERS.
[2023-04-03] VITALS: BP 126/70; PULSE 78; RESP 18; TEMP 37.3; O2SAT 90
[2023-04-03 04:00] VITALS: BP 133/67; PULSE 75; RESP 18; TEMP 37.7; O2SAT 93; BMI 31.9
[2023-04-03 05:24] LABS: POC Glucose,Bedside 245 (70-110)
[2023-04-03 08:00] VITALS: BP 128/67; PULSE 70; RESP 18; TEMP 36.8; O2SAT 96
--- NOTE | 2023-04-03 08:29 | EXP.HP ---
History of Present Illness *Admission Date: 04/02/23 *Reason for visit:: Abdominal pain *History of present illness: Ms. Cary is a 67-year-old female with a history of coronary artery disease with LAD stents x2 in 2017, hypertension, arthritis, hyperlipidemia, tobacco use disorder, type 2 diabetes mellitus, chronic back pain with degenerative disc disease, and COPD, depression with anxiety disorder and kidney cancer..,She presented to the emergency room with bilateral groin pain and incontinence of urine for the last 2 weeks. She noted that she had kidney cancer with plans to have surgery on 04/17/2023. She was taking hydrocodone for pain but states it only took the edge off. In the ER she denied diarrhea and has not had a stool for about 3 days. She did receive 2 pints of blood a few weeks ago. With evaluation in the emergency room hemoglobin was noted to be 8.6 with a hematocrit of 29.7. Blood sugar was 370 with liver function studies showing a total bilirubin of 1.7 and an AST of 45 and alkaline phosphatase of 137. BUN was 25 and creatinine was 1.50. Lactate was elevated at 3.6 and decreased to 3.[address] of the abdomen was abnormal and revealed partially calcified, left hepatic cystic lesion, cirrhosis, portal hypertension and ascites. She did receive 2 L of IV fluids. Due to all these complicating factors she was admitted for further evaluation and treatment. [facility] Disclaimer: The information contained in this section may have been updated after the patient was seen, as this information can be updated by other users. Medical History (Updated 04/03/23 @ 08:54 by Angelic Thompson APRN) CAD (coronary artery disease) Depression GERD (gastroesophageal reflux disease) HLD (hyperlipidemia) HTN (hypertension) Insulin dependent diabetes mellitus Type 2 diabetes mellitus Surgical History (Updated 03/01/23 @ 11:01 by Gwen Jara RN) History of left hip replacement History of tonsillectomy and adenoidectomy Hx of cardiac catheterization Hx of heart artery stent Family History (Updated 04/03/23 @ 08:41 by Angelic Thompson APRN) Coronary artery disease Social History (Updated 04/03/23 @ 08:42 by Angelic Thompson APRN) Smoking Status: Current every day smoker tobacco type: cigarettes alcohol intake: never substance use type: denies use current occupational status: other Travel in the last 8 weeks: Inside the [place] housing: house current occupational exposures/hazards: No Review of Systems Constitutional Constitutional: Reports difficulty sleeping, Reports fever(s) and Reports poor appetite Eyes Eyes: Denies change in vision ENT Ears, Nose, Mouth, and Throat: Denies otalgia, Denies post nasal drip and Denies sore throat *Cardiovascular Cardiovascular: Denies chest pain and Denies dyspnea *Respiratory Respiratory: Denies cough and Denies dyspnea *Gastrointestinal Gastrointestinal: Reports abdominal pain, Reports constipation, Denies nausea and Denies vomiting *Genitourinary Genitourinary: Reports urinary incontinence *Musculoskeletal Musculoskeletal: Reports abnormal gait (States she can barely walk) and Reports muscle weakness *Neurologic Neurologic: Reports abnormal gait (States she can barely walk) Psychiatric Psychiatric: Reports anxiety (States she is most anxious) and Reports depression Meds Home Medications and Allergies Home Medications Medication Instructions Recorded Confirmed Type hydrocodone 7.5 mg-acetaminophen 7.5 mg PO TID Pain 10/21/18 04/02/23 History 325 mg tablet rivaroxaban 2.5 mg tablet 2.5 mg PO DAILY Blood thinner 10/21/18 04/02/23 History tramadol 50 mg tablet 50 mg PO TID PRN Moderate Pain 10/21/18 04/02/23 History albuterol sulfate 90 mcg/actuation 1 puff inhalation Q6H PRN Dyspnea 06/05/19 04/02/23 History aerosol inhaler (Ventolin HFA) aspirin 81 mg tablet,delayed 81 mg PO DAILY Heart disease 06/05/19 04/02/23 History release (Adult Low Dose A
--- NOTE | 2023-04-03 09:38 | HMH.PHAINT1 ---
Pharmacy Intervention Comments: Home medication list verified using external fill history from outside pharmacy.
[2023-04-03 12:00] VITALS: BP 136/80; PULSE 75; RESP 18; TEMP 37.2; O2SAT 94
[2023-04-03 16:00] VITALS: BP 107/56; PULSE 69; RESP 18; TEMP 36.6; O2SAT 94
[2023-04-03 16:36] LABS: POC Glucose,Bedside 213 (70-110)
[2023-04-03 16:36] LABS: POC Glucose,Bedside 348 (70-110)
--- NOTE | 2023-04-03 17:18 | PC.NURSE ---
PAGED ONCALL REGARDING PTS IVMF. PT NOW EATING ADN DRINKING, FSBG REMAIN HIGH. PER VIBHA CRISTINA IVMF AND ARLIN IV.
[2023-04-03 17:35] LABS: MANUAL DIFFERENTIAL MANUAL DIFFERENTIAL (MANUAL DIFF)
[2023-04-03 17:54] LABS: Chloride 102 mmol/L (98-107); Potassium 4.3 mmoL/L (3.5-5.1); Sodium 133 mmol/L (136-145)
[2023-04-03 17:55] LABS: Basophils % 0.1 % (0.1-2.0); Eosinophils # 0.1 K/mm3 (0.0-0.4); Eosinophils % 1.5 % (0.1-12.0); Hematocrit 28.7 % (37.0-47.0); Hemoglobin 8.3 g/dL (12.2-16.2); Lymphocytes # 0.9 K/mm3 (0.7-4.5); Lymphocytes % 11.7 % (10-50); Mean Corpuscular HGB Conc 28.9 g/dL (31.8-35.4); Mean Corpuscular Hemoglobin 23.4 pg (27.0-31.2); Mean Platelet Volume 8.4 fl (7.4-10.4); Monocytes # 0.3 K/mm3 (0.1-1.0); Monocytes % 3.8 % (1.7-9.3); Neutrophils # 6.7 K/mm3 (1.8-7.8); Neutrophils % 82.9 % (37.0-80.0); Platelet Count 131 K/mm3 (142-424); Red Blood Count 3.54 M/mm3 (4.20-5.40)
[2023-04-03 17:57] LABS: Alanine Aminotransferase 42 U/L (12-78); Albumin Level 2.6 g/dl (3.5-5.0); Albumin/Globulin Ratio 0.6 (1.1-1.8); Alkaline Phosphatase 146 U/L (38-126); Anion Gap 14.3 mEq/L (5-15); Aspartate Amino Transferase 116 U/L (14-36); Bilirubin,Total 1.3 mg/dl (0.2-1.3); Blood Urea Nitrogen 27 mg/dl (7-17); Carbon Dioxide 21 mmol/L (22.0-30.0); Creatinine Clearance Estimated 64 mL/min (50-200); Estimated Glomerular Filt Rate 45 ml/min (>60); GFR (African American) 54 ML/MIN (>60); Globulin 4.7 g/dL (1.3-3.2); Total Protein,Serum 7.3 g/dl (6.3-8.2)
[2023-04-03 17:58] LABS: Calcium 8.5 mg/dl (8.4-10.2); Glucose 293 mg/dl (74-100)
[2023-04-03 19:34] LABS: Eosinophils % 1 % (0-3); Hypochromasia 2+; Lymphocytes % 15 % (10-50); Microcytosis 1+; Monocytes % 2 % (2-9); Neutrophils % 82 % (42-76); Platelet Estimate Slight Decrease; Target Cells 1+; Total Cells Counted 100
[2023-04-03 20:00] VITALS: BP 116/57; PULSE 69; RESP 18; TEMP 36.9; O2SAT 94
--- NOTE | 2023-04-03 20:02 | PC.NURSE ---
verbal order for ns 100ml/hr
[2023-04-03 22:05] LABS: POC Glucose,Bedside 253 (70-110)
[2023-04-04] VITALS (7 sets, daily range): BP systolic 114–157; BP diastolic 68–85; PULSE 65–105; RESP 16–20; TEMP 36.6–37.9; O2SAT 93–97; BMI 32.0
--- NOTE | 2023-04-04 03:41 | PC.NURSE ---
NO ACUTE CHANGES THIS SHIFT PT HAS RESTED INTERMITTENTLY THIS SHIFT. VSS. NO C/O N/V/D. REMAINS ON ROOM AIR. TURNING IN BED INDEPENDENTLY. CALL CORNEJO WITHIN REACH.
[2023-04-04 06:18] LABS: Basophils % 0.2 % (0.1-2.0); Eosinophils # 0.1 K/mm3 (0.0-0.4); Eosinophils % 1.2 % (0.1-12.0); Hematocrit 27.9 % (37.0-47.0); Hemoglobin 8.4 g/dL (12.2-16.2); Lymphocytes % 11.1 % (10-50); Mean Corpuscular Hemoglobin 24.1 pg (27.0-31.2); Mean Corpuscular Volume 80.6 fl (81-99); Mean Platelet Volume 11.2 fl (7.4-10.4); Monocytes # 0.4 K/mm3 (0.1-1.0); Monocytes % 4.5 % (1.7-9.3); Neutrophils # 7.5 K/mm3 (1.8-7.8); Platelet Count 102 K/mm3 (142-424); Red Blood Count 3.46 M/mm3 (4.20-5.40); White Blood Count 9.1 K/mm3 (4.8-10.8)
--- NOTE | 2023-04-04 06:26 | PC.NURSE ---
[place] PLACED AT 0615 PER MD [employer] SPECIALIST VIBHA FOR URINARY RETENTION. UPON PLACING [place] PT HAS APPROX. 300ML OUT IN URINE.
[2023-04-04 06:27] LABS: Anion Gap 16.1 mEq/L (5-15); Blood Urea Nitrogen 24 mg/dl (7-17); Calcium 8.5 mg/dl (8.4-10.2); Carbon Dioxide 20 mmol/L (22.0-30.0); Chloride 104 mmol/L (98-107); Creatinine Clearance Estimated 65 mL/min (50-200); Estimated Glomerular Filt Rate 45 ml/min (>60); GFR (African American) 54 ML/MIN (>60); Glucose 120 mg/dl (74-100); Potassium 4.1 mmoL/L (3.5-5.1); Sodium 136 mmol/L (136-145)
--- NOTE | 2023-04-04 08:11 | EXP.ACUTE.PN ---
Subjective *Date: 04/04/23 *Time: 08:15 Interval history: Patient is still not feeling well this morning. She was able to tolerate breakfast without any nausea or vomiting. She is hurting in her lower abdomen and her right mid quadrant. She is having some right leg pain and swelling. Medical Exam Vital signs and Labs for Last 24 Hours: Vital Signs Temp Pulse Resp BP Pulse Ox 04/04/23 05:18 99.4 F 04/04/23 04:00 100.3 F H 101 H 20 157/85 H 96 04/04/23 00:00 99.0 F 80 18 148/77 H 97 04/03/23 20:00 98.4 F 69 18 116/57 L 94 L 04/03/23 16:00 97.8 F 69 18 107/56 L 94 L 04/03/23 12:00 98.9 F 75 18 136/80 94 L Intake and Output 04/03/23 04/04/23 04/04/23 19:59 03:59 11:59 Intake Total 720 / 720 Output Total 0 / 0 Balance 720 / 720 Intake: Intake, Oral Amount 720 / 720 Output: Output, Urine Amount 0 / 0 Other: Number of Unmeasured Voids 1 Number of Bowel Movements 1 Weight 204 lb Patient Weight 04/04/23 11:59 Weight 204 lb Laboratory Results - last 24 hr 04/03/23 12:00: POC Glucose 213 H 04/03/23 16:28: POC Glucose 348 H* 04/03/23 17:29: Sodium 133 L, Potassium 4.3, Chloride 102, Carbon Dioxide 21 L, Anion Gap 14.3, BUN 27 H, Creatinine 1.20 H, Estimated Creat Clear 64, Estimated GFR 45 L, Est GFR ( Amer) 54 L D, Glucose 293 H, Calcium 8.5, Total Bilirubin 1.3, AST 116 H D, ALT 42 D, Alkaline Phosphatase 146 H, Total Protein 7.3, Albumin 2.6 L D, Globulin 4.7 H, Albumin/Globulin Ratio 0.6 L 04/03/23 17:29: WBC 8.0, RBC 3.54 L, Hgb 8.3 L, Hct 28.7 L, MCV 81.0, MCH 23.4 L, MCHC 28.9 L, RDW 25.0 H, Plt Count 131 L, MPV 8.4, Neut % (Auto) 82.9 H, Lymph % (Auto) 11.7, Nicholas % (Auto) 3.8, Eos % (Auto) 1.5, Baso % (Auto) 0.1, Neut # (Auto) 6.7, Lymph # (Auto) 0.9, Nicholas # (Auto) 0.3, Eos # (Auto) 0.1, Baso # (Auto) 0.0, Total Counted 100, Neutrophils % (Manual) 82 H, Lymphocytes % (Manual) 15, Monocytes % (Manual) 2, Eosinophils % (Manual) 1, Platelet Estimate Slight decrease, Hypochromasia 2+, Microcytosis 1+, Target Cells 1+ 04/03/23 20:18: POC Glucose 253 H 04/04/23 05:46: WBC 9.1, RBC 3.46 L, Hgb 8.4 L, Hct 27.9 L, MCV 80.6 L, MCH 24.1 L, MCHC 30.0 L, RDW 25.0 H, Plt Count 102 L, MPV 11.2 H, Neut % (Auto) 83.0 H, Lymph % (Auto) 11.1, Nicholas % (Auto) 4.5, Eos % (Auto) 1.2, Baso % (Auto) 0.2, Neut # (Auto) 7.5, Lymph # (Auto) 1.0, Nicholas # (Auto) 0.4, Eos # (Auto) 0.1, Baso # (Auto) 0.0 04/04/23 05:46: Sodium 136, Potassium 4.1, Chloride 104, Carbon Dioxide 20 L, Anion Gap 16.1 H, BUN 24 H, Creatinine 1.20 H, Estimated Creat Clear 65, Estimated GFR 45 L, Est GFR ( Amer) 54 L, Glucose 120 H D, Calcium 8.5 I & O for Labs for Last 24 Hours: Intake & Output 04/01/23 04/02/23 04/03/23 04/04/23 11:59 11:59 11:59 11:59 Intake Total 3000 / 3000 720 / 720 Output Total 300 / 300 0 / 0 Balance 2700 / 2700 720 / 720 Weight 203 lb 8 oz 204 lb Constitutional: Present no acute distress (does not appear to feel well) Respiratory: Present CTA bilaterally Cardiac: Present Reg Rate and Rhythm GI: Present soft and tenderness (bilateral lower quadrants, RMQ) Extremities: Present edema (right lower leg edematous with tenderness in the calf) Skin: Absent cyanosis or erythema Neuro: Present alert, awake and oriented x 3 Assessment and Plan *Assessment and plan (1) Kidney malignancy: Status: Acute Category: Medical Code(s): C64.9 - Malignant neoplasm of unspecified kidney, except renal pelvis (2) Acute lactic acidosis: Status: Acute Category: Medical Code(s): E87.21 - Acute metabolic acidosis (3) Cirrhosis of liver with ascites: Status: Acute Category: Medical Code(s): K74.60 - Unspecified cirrhosis of liver; R18.8 - Other ascites (4) Type 2 diabetes mellitus: Status: Acute Category: Medical Code(s): E11.9 - Type 2 diabetes mellitus without complications (5) Hyperglycemia:
[2023-04-04 08:12] LABS: Microscopic, Urine URINE MICROSCOPIC (MICROSCOPIC)
--- NOTE | 2023-04-04 08:14 | CA_ITS ---
FINAL REPORT TECHNIQUE: Color Doppler, duplex Doppler and compression sonography of the right lower extremity venous system was performed. CLINICAL HISTORY: EDEMA,TENDERNESS RLE,CIRRHOSIS FINDINGS: There is no evidence of deep venous thrombosis from the level of the groin to the calf. The veins are patent and compressible. IMPRESSION: No evidence of deep venous thrombosis right lower extremity. Reviewed, Interpreted and Dictated by Carlos Kirkpatrick III, MD Transcribed by Marie Jorgensen Authenticated and [facility]
[2023-04-04 08:20] LABS: Appearance,Urine SL CLOUDY (Clear); Bilirubin,Urine Negative (Negative); Blood, Urine 2+ (Negative); Color,Urine YELLOW (Yellow); Glucose,Urine (UA) 2+ (Negative); Ketones,Urine Negative (Negative); Leukocyte Esterase,Urine 1+ (Negative); Nitrate,Urine Negative (Negative); Protein,Urine 1+ (Negative); Specific Gravity, Urine 1.015 (1.005-1.030); Urobilinogen,Urine 0.2 EU/dl (0.2)
[2023-04-04 08:39] LABS: WBC,Urine 20-50 #/hpf (0-3)
[2023-04-04 08:40] LABS: Bacteria,Urine 2+ /lpf; Mucus,Urine 1+ /lpf
[2023-04-04 12:14] LABS: POC Glucose,Bedside 214 (70-110)
--- NOTE | 2023-04-04 16:12 | HMH.PTEV ---
Physical Therapy Evaluation Rehab PT IP Evaluation Start: 04/04/23 13:57 Freq: ONCE Status: Active Protocol: Document 04/04/23 16:05 PHORSHAWNA (Rec: 04/04/23 16:12 PHORNE [id number]) Subjective/History History History 67 yowf adm to [facility] with hyperglycemia, ABD pain, and cirrhosis. Hx of CAD, HTN, HLD , OA, DM, COPD, Anxiety, and kidney cancer. US shows no DVT in the R LE. Pt reports she lives with her spouse, 1-2 steps to enter the home, and she is generally independent with all ambulation. SHe reports over the past 2-3 wks she has felt worse in general and been less mobile as well. Subjective Subjective I'm not gonna move at home if I don't have any pain pills, they help me feel well enough to get up. Otherwise I'm just gonna lay in bed, because ot hurts too much to move. Agrees to mobility assessment at this time. Rehab PT IP Eval Objective Appearance Patient Behavior Appropriate Patient Orientation Person,Place,Time Difficulty following instructions none Speech Pattern Clear Ambulation Patient Able to Ambulate Yes Ambulation Observation IP General Gait Pattern Observation Shuffling Step Ambulation Distance (feet) 20 Ambulation Assistive Device Rolling Walker Ambulation Ability Supervision/Stand by Balance Ability to Arise Able, uses arms to help Sitting Balance Steady, safe Standing Balance Steady, wide stance Dynamic Sitting Balance Ability Good Dynamic Standing Balance Ability Fair Transfers Bed Transfer Ability Minimal x 1 (25% assist) Chair Transfer Ability Supervision/Stand by Sit to Stand Bed Transfer Ability Supervision/Stand by Sit to Stand Chair Transfer Ability Supervision/Stand by ROM All Extremities PT ROM Status WFL MMT All Extremities PT MMT WFL Rehab PT IP prob,goals,plan Problems Date of Evaluation: 04/04/23 PT IP Problems Bed Mobility,Transfers,Gait Rehab Potential Rehab Potential Good Plan PT Intervention Plan Bed Mobility,Transfers,Gait, Therapeutic Exercise PT Plan Frequency Daily Duration
[2023-04-04 21:51] LABS: POC Glucose,Bedside 221 (70-110)
[2023-04-04 21:51] LABS: POC Glucose,Bedside 194 (70-110)
[2023-04-05] VITALS: BP 133/73; PULSE 69; RESP 18; TEMP 36.9; O2SAT 94
[2023-04-05 04:00] VITALS: BP 145/80; PULSE 82; RESP 20; TEMP 37.2; O2SAT 95; BMI 33.1
--- NOTE | 2023-04-05 04:10 | PC.NURSE ---
NO ACUTE CHANGES. VSS. PT HAS RESTED BETTER THIS SHIFT. C/O PAIN X1 THIS SHIFT AND HAS BEEN MEDICATED PER MAR FOR ABDOMINAL PAIN. TURNING IN BED INDEPENDENTLY. NO C/O N/V/D. CALL CORNEJO WITHIN REACH.
[2023-04-05 06:06] LABS: POC Glucose,Bedside 72 (70-110)
[2023-04-05 06:43] LABS: Basophils % 0.4 % (0.1-2.0); Eosinophils # 0.2 K/mm3 (0.0-0.4); Eosinophils % 1.3 % (0.1-12.0); Hemoglobin 9.5 g/dL (12.2-16.2); Lymphocytes # 1.1 K/mm3 (0.7-4.5); Lymphocytes % 9.3 % (10-50); Mean Corpuscular HGB Conc 28.7 g/dL (31.8-35.4); Mean Corpuscular Hemoglobin 23.6 pg (27.0-31.2); Mean Corpuscular Volume 82.1 fl (81-99); Mean Platelet Volume 10.6 fl (7.4-10.4); Monocytes # 0.5 K/mm3 (0.1-1.0); Monocytes % 3.8 % (1.7-9.3); Neutrophils # 10.1 K/mm3 (1.8-7.8); Neutrophils % 85.2 % (37.0-80.0); Platelet Count 127 K/mm3 (142-424); Red Blood Count 4.02 M/mm3 (4.20-5.40); Red Cell Distribution Width 24.8 % (11.5-17.5); White Blood Count 11.8 K/mm3 (4.8-10.8)
[2023-04-05 06:49] LABS: Chloride 105 mmol/L (98-107); Potassium 4.7 mmoL/L (3.5-5.1); Sodium 135 mmol/L (136-145)
[2023-04-05 06:50] LABS: MANUAL DIFFERENTIAL MANUAL DIFFERENTIAL (MANUAL DIFF)
[2023-04-05 06:51] LABS: Alanine Aminotransferase 35 U/L (12-78); Alkaline Phosphatase 173 U/L (38-126); Aspartate Amino Transferase 79 U/L (14-36); Bilirubin,Total 1.5 mg/dl (0.2-1.3); Blood Urea Nitrogen 24 mg/dl (7-17); Creatinine Clearance Estimated 67 mL/min (50-200); Estimated Glomerular Filt Rate 45 ml/min (>60); GFR (African American) 54 ML/MIN (>60)
[2023-04-05 06:52] LABS: Albumin Level 2.9 g/dl (3.5-5.0); Albumin/Globulin Ratio 0.6 (1.1-1.8); Anion Gap 14.7 mEq/L (5-15); Calcium 8.6 mg/dl (8.4-10.2); Carbon Dioxide 20 mmol/L (22.0-30.0); Globulin 5.2 g/dL (1.3-3.2); Glucose 69 mg/dl (74-100); Total Protein,Serum 8.1 g/dl (6.3-8.2)
[2023-04-05 07:57] VITALS: BP 140/72; PULSE 89; RESP 17; TEMP 37.6; O2SAT 99
[2023-04-05 08:17] LABS: Eosinophils % 1 % (0-3); Lymphocytes % 17 % (10-50); Neutrophils % 82 % (42-76); Total Cells Counted 100
[2023-04-05 08:18] LABS: Hypochromasia 2+; Platelet Estimate Slight Decrease
--- NOTE | 2023-04-05 08:26 | EXP.ACUTE.PN ---
Subjective *Date: 04/05/23 *Time: 08:49 Interval history: Patient states she is feeling about the same today. She denies any nausea and is trying to eat. She still has pain in her right middle quadrant. Nursing checked her sugar this morning while I was in the room and it was 60. She is currently drinking juice and it will be rechecked again. Medical Exam Vital signs and Labs for Last 24 Hours: Vital Signs Temp Pulse Resp BP Pulse Ox 04/05/23 07:57 99.6 F 89 17 140/72 99 04/05/23 04:00 99.0 F 82 20 145/80 H 95 04/05/23 00:00 98.5 F 69 18 133/73 94 L 04/04/23 20:00 98.7 F 65 18 120/68 93 L 04/04/23 16:00 97.9 F 69 20 114/73 94 L 04/04/23 11:55 98.1 F 81 16 130/78 93 L Intake and Output 04/04/23 04/05/23 04/05/23 19:59 03:59 11:59 Intake Total 480 / 720 240 / 720 Output Total 0 / 0 0 / 0 Balance 480 / 720 0 / 720 240 / 720 Intake: Intake, Oral Amount 480 / 720 240 / 720 Output: Output, Urine Amount 0 / 0 0 / 0 Other: Number of Unmeasured Voids 1 1 Weight 203 lb 14.841 oz 211 lb 5 oz Patient Weight 04/05/23 11:59 Weight 211 lb 5 oz Laboratory Results - last 24 hr 04/04/23 06:15: Urine RBC 5-10, Urine WBC 20-50, Ur Squamous Epith Cells 5-10, Urine Bacteria 2+, Urine Mucus 1+ 04/04/23 12:06: POC Glucose 214 H 04/04/23 16:34: POC Glucose 221 H 04/04/23 20:13: POC Glucose 194 H 04/05/23 05:59: POC Glucose 72 04/05/23 06:23: WBC 11.8 H D, RBC 4.02 L, Hgb 9.5 L, Hct 33.0 L, MCV 82.1, MCH 23.6 L, MCHC 28.7 L, RDW 24.8 H, Plt Count 127 L, MPV 10.6 H, Neut % (Auto) 85.2 H, Lymph % (Auto) 9.3 L, [place] % (Auto) 3.8, Eos % (Auto) 1.3, Baso % (Auto) 0.4, Neut # (Auto) 10.1 H, Lymph # (Auto) 1.1, [place] # (Auto) 0.5, Eos # (Auto) 0.2, Baso # (Auto) 0.0, Total Counted 100, Neutrophils % (Manual) 82 H, Lymphocytes % (Manual) 17, Eosinophils % (Manual) 1, Platelet Estimate Slight decrease, Hypochromasia 2+ 04/05/23 06:23: Sodium 135 L, Potassium 4.7, Chloride 105, Carbon Dioxide 20 L, Anion Gap 14.7, BUN 24 H, Creatinine 1.20 H, Estimated Creat Clear 67, Estimated GFR 45 L, Est GFR ( Amer) 54 L, Glucose 69 L, Calcium 8.6, Total Bilirubin 1.5 H, AST 79 H D, ALT 35, Alkaline Phosphatase 173 H, Total Protein 8.1, Albumin 2.9 L, Globulin 5.2 H, Albumin/Globulin Ratio 0.6 L I & O for Labs for Last 24 Hours: Intake & Output 04/02/23 04/03/23 04/04/23 04/05/23 11:59 11:59 11:59 11:59 Intake Total 3000 / 3000 1460 / 1460 720 / 720 Output Total 300 / 300 0 / 0 0 / 0 Balance 2700 / 2700 1460 / 1460 720 / 720 Weight 203 lb 8 oz 204 lb 211 lb 5 oz Microbiology Reports for the Last 24 Hours: Microbiology 04/04/23 06:15 Urine,Clean Catch Urine Culture - Preliminary NO GROWTH AFTER 24 HOURS Constitutional: Present no acute distress (does not appear to feel well) Respiratory: Present CTA bilaterally Cardiac: Present Reg Rate and Rhythm GI: Present soft and tenderness (bilateral lower quadrants, RMQ) Extremities: Present edema (right lower leg edematous with tenderness in the calf) Skin: Absent cyanosis or erythema Neuro: Present alert, awake and oriented x 3 Assessment and Plan *Assessment and plan (1) Kidney malignancy: Status: Acute Category: Medical Code(s): C64.9 - Malignant neoplasm of unspecified kidney, except renal pelvis (2) Acute lactic acidosis: Status: Acute Category: Medical Code(s): E87.21 - Acute metabolic acidosis (3) Cirrhosis of liver with ascites: Status: Acute Category: Medical Code(s): K74.60 - Unspecified cirrhosis of liver; R18.8 - Other ascites (4) Type 2 diabetes mellitus: Status: Acute Category: Medical Code(s): E11.9 - Type 2 diabetes mellitus without complications (5) Hyperglycemia: Status: Acute Category: Medical Code(s): R73.9 - Hyperglycemia, unspecified (6) HTN (hypertension): Status: Chronic
[2023-04-05 08:38] LABS: Hemoglobin A1C 10.4 % (4.0-6.0)
--- NOTE | 2023-04-05 09:33 | HMH.PHAINT1 ---
Pharmacy Intervention Comments: Discharge medication counseling completed. There were no changes to the patients home med list and she had no questions about any of her current meds.
--- NOTE | 2023-04-05 10:57 | PC.NURSE ---
COURTESY TECH NOTE; ROUNDED ON PT 0850, PT DENIED NEED FOR DRINK, ASSISTANCE WITH RESTROOM, NEED TO REPOSITION. CALL LIGHT WITHIN REACH, NO FURTHER REQUESTS AT THIS TIME Jimi LY, KYLE
[2023-04-05 10:58] LABS: POC Glucose,Bedside 66 (70-110)
--- NOTE | 2023-04-06 13:24 | CARE MANAGER ---
Spoke with patient for post-discharge phone interview, no issues noted.
--- NOTE | 2023-04-10 15:48 | EXP.DC.SUM ---
General Admission date:: 04/02/23 Discharge date: 04/05/23 HPI HPI HPI: Ms. Cary is a 67-year-old female with a history of coronary artery disease with LAD stents x2 in 2017, hypertension, arthritis, hyperlipidemia, tobacco use disorder, type 2 diabetes mellitus, chronic back pain with degenerative disc disease, and COPD, depression with anxiety disorder and kidney cancer..,She presented to the emergency room with bilateral groin pain and incontinence of urine for the last 2 weeks. She noted that she had kidney cancer with plans to have surgery on 04/17/2023. She was taking hydrocodone for pain but states it only took the edge off. In the ER she denied diarrhea and has not had a stool for about 3 days. She did receive 2 pints of blood a few weeks ago. With evaluation in the emergency room hemoglobin was noted to be 8.6 with a hematocrit of 29.7. Blood sugar was 370 with liver function studies showing a total bilirubin of 1.7 and an AST of 45 and alkaline phosphatase of 137. BUN was 25 and creatinine was 1.50. Lactate was elevated at 3.6 and decreased to 3.[address] of the abdomen was abnormal and revealed partially calcified, left hepatic cystic lesion, cirrhosis, portal hypertension and ascites. She did receive 2 L of IV fluids. Due to all these complicating factors she was admitted for further evaluation and treatment. Hospital Course Hospital Course Hospital Course: The patient was admitted and given IV fluids. She was started on Zofran for nausea and sliding scale insulin. It was unclear about the details of her upcoming surgery for kidney malignancy. Her diet was advanced. By 04/04/2023, she was able to tolerate breakfast without any nausea or vomiting. She continued with pain in her lower abdomen and right mid quadrant. She was also having some right leg pain and swelling. A Doppler was ordered of her leg and it was negative for DVT. Her glucose did improve. By 04/05/2023, she denied any nausea and was trying to eat. She continued with pain from her kidney malignancy. Her sugar was checked during rounds and was 60. She was then given breakfast and was instructed to drink 2 things of juice. Her glucose was rechecked again and had improved and she felt better. Physical therapy was consulted and she was able to work with therapy. They felt she should go home with home health once medically stable. She has a follow-up scheduled with urology in [place] later this months to address the right renal mass. She refused home health physical therapy and was stable to discharged home on 04/05/2023. Exam Data for Last 24 hours Vital signs and Labs for Last 24 Hours: Temp Pulse Resp BP Pulse Ox 99.6 F 89 17 140/72 99 04/05/23 07:57 04/05/23 07:57 04/05/23 07:57 04/05/23 07:57 04/05/23 07:57 Narrative: Constitutional Constitutional: no acute distress Comments: Awakened for assessment.? Patient appears lethargic. *Routine HEENT Exam Head: Present normocephalic and atraumatic Eye: Present PERRL; Absent conjunctival icterus, scleral injection or conjunctivae pink ENT: Present mucous membranes moist and oropharynx clear *Routine Neck Exam Neck: Present supple; Absent carotid bruit, lymphadenopathy or thyromegaly *Routine Respiratory Exam Respiratory: Present CTA bilaterally *Routine Cardiovascular Exam Cardiovascular: Present RRR *Routine Abdominal Exam Abdominal: Present soft, normoactive bowel sounds and tenderness (Right upper quadrant); Absent distended *Routine Rectal Exam Rectal:: deferred *Routine Genitalia Exam Genitalia:: deferred *Routine Extremities Exam Extremities: Present edema and pulses intact; Absent calf tenderness *Routine Neurological Exam Neurological: Present alert, oriented X3 and normal speech Comments: Patient is lethargic and slow with responses Routine Psychiatric Exam Psychiatric: Present cooperative (She has difficulty with turning and will not sit up due to causing
--- NOTE | 2023-04-16 22:56 | EXP.DC.SUM ---
General Admission date:: 04/08/23 Discharge date: 04/11/23 HPI HPI HPI: 67-year-old female presented to the emergency department with generalized weakness, nausea, diarrhea, urinary incontinence.? Discharged from [facility] three days ago.? She states that her symptoms of weakness and pain have gotten worse since discharge.? She is too weak to stand and walk on her own and her is having difficulty managing her.? She feels that both of her legs are swollen, right worse than left.? She c/o tenderness and pain in the left groin. She has occasional lower abdominal pain.? Has been incontinent of urine, feels like she has to urinate frequently.? HER URINE CULTURE RETURNED AFTER HER RECENT DISCHARGE SHOWING E.COLI WITH MULTIPLE SENSITIVITIES. She also has had diarrhea.? No recent antibiotic use.? She has a recent diagnosis of renal cancer.? She is scheduled for preop testing, but does not think he will be able to get her to [place].? She is too weak to get in the car on her own.? She denies fevers, chills, cough, shortness of breath. Hospital Course Hospital Course Hospital Course: The patient was admitted and started on IV Levaquin for UTI. A duplex of her lower extremities was ordered due to swelling. She was started on Lovenox 40 mg daily and elastic wraps were applied to the lower legs. Her pain medication was continued. She continued with some abdominal pain and her leg hurt whenever she moved. She was unable to walk. She was able to eat a small amount of breakfast. Physical and Occupational Therapy were ordered and case management was consulted. A CPK and a repeat echo were ordered due to extreme weakness. Her CPK was normal. Venous Dopplers of both right and left legs were negative. She was able to work with physical therapy and did walk. She continued with pain in the left leg. She had some decrease of her glucose level which corrected when she ate. Dr. Peter was contacted by Dr. Aaron Kwok Jr. who planned to surgically address the renal lesion. He was amendable to transferring the patient to [facility] for preliminary evaluations. Dr. Madan Renteria, the hospitalist who works with Dr. Kwok was put in contact with Dr. Peter the details of the case were discussed. The patient was to be transferred to [facility] on 04/11/2023. Her glucose did drop on 04/11/2023 but improved with breakfast. She was stable to be transferred for surgical evaluation of her renal mass. Exam Data for Last 24 hours Vital signs and Labs for Last 24 Hours: Temp Pulse Resp BP Pulse Ox 99.6 F 89 17 140/72 99 04/05/23 07:57 04/05/23 07:57 04/05/23 07:57 04/05/23 07:57 04/05/23 07:57 Narrative: Constitutional Constitutional: mild distress *Routine HEENT Exam Head: Present normocephalic Eye: Present EOMI and PERRL; Absent conjunctival icterus or scleral injection ENT: Present mucous membranes moist *Routine Neck Exam Neck: Present full ROM; Absent carotid bruit or lymphadenopathy Routine Chest/Breast/Axilla Exam Chest wall: Absent tenderness Breast: Absent tenderness *Routine Respiratory Exam Respiratory: Present CTA bilaterally *Routine Cardiovascular Exam Cardiovascular: Present RRR, Normal S1, Normal S2 and murmur (2/6 LSB) *Routine Abdominal Exam Abdominal: Present soft; Absent tenderness *Routine Rectal Exam Rectal:: deferred *Routine Genitalia Exam Genitalia:: deferred *Routine Extremities Exam Extremities: Present edema (Bilateral pitting edema.? Skin is erythematous at right pretibial area.? No open wounds.) and tenderness (Left groin area); Absent calf tenderness Routine Back/Spine/Pelvis Exam Back/Spine: Absent CVA tenderness *Routine Skin Exam Skin: Present intact; Absent lesions or jaundice *Routine Neurological Exam Neurological: Present alert, oriented X3 and motor deficit (Weakness of the legs); Absent sensory deficit or tremors Routine Psychiatric Exam Psychiatric: Present depressed and anxious
== END 2023-04-05 11:17 | disposition home or self-care (01) ==
LOC: ER 20:01 → 2ND 21:07
PROVIDERS: Internal Medicine Adolescent Medicine; Admitting Provider Family Medicine; Emergency Provider Emergency Medicine; PCP Family Medicine; Visit Provider Family Medicine
DX: E87.21 Acute metabolic acidosis; E11.65 Type 2 diabetes mellitus with hyperglycemia; I10 Essential (primary) hypertension; I25.10 Atherosclerotic heart disease of native coronary artery without angina pectoris; F41.9 Anxiety disorder, unspecified; F17.210 Nicotine dependence, cigarettes, uncomplicated; Z79.4 Long term (current) use of insulin; Z79.899 Other long term (current) drug therapy; Z95.5 Presence of coronary angioplasty implant and graft; Z79.01 Long term (current) use of anticoagulants; C64.1 Malignant neoplasm of right kidney, except renal pelvis; K74.69 Other cirrhosis of liver; R18.8 Other ascites; R10.31 Right lower quadrant pain
CPT/HCPCS: G0378; 36415; 74176; 80048; 80053; 81001; 82962; 83036; 83605; 83690; 85007; 85014; 85018; 85025; 85048; 85049; 85610; 85730; 86850; 87086; 87186; 87635; 87636; 93971; 97116; 97163; 99285; C9803; U0003; U0005

== ENCOUNTER 2023-04-08 10:42 | Observation (INO) | payer MEDICARE, SELFPAY ==
[2023-04-08] VITALS (10 sets, daily range): BP systolic 139–186; BP diastolic 69–93; PULSE 105–114; RESP 18–24; TEMP 36.5–37.1; O2SAT 94–98; BMI 31.3; BMI 31.6
--- NOTE | 2023-04-08 11:05 | PC.NURSE ---
blanket offered to patient, no needs
--- NOTE | 2023-04-08 11:12 | PC.NURSE ---
ED MD AT BEDSIDE TO EVALUATE
--- NOTE | 2023-04-08 11:18 | HMH.EDGENADL ---
Discharge Plan Disposition Patient Disposition: Admitted Condition: Fair Prescriptions Prescriptions: No Action triamterene-hydrochlorothiazid [Maxzide] 75-50 mg tablet 1 tab PO DAILY aspirin [Adult Low Dose Aspirin] 81 mg tablet,delayed release (DR/EC) 81 mg PO DAILY meloxicam 15 mg tablet 15 mg PO DAILY metoprolol succinate [Toprol XL] 100 mg tablet extended release 24 hr 100 mg PO DAILY temazepam 30 mg capsule 30 mg PO QHS PRN (Reason: Sleep) Ventolin HFA 90 mcg/actuation HFA aerosol inhaler 1 puff INHALATION Q6H PRN (Reason: Shortness Of Breath) insulin glargine 100 unit/mL Cartridge 15 unit SQ DAILY hydrocodone-acetaminophen 7.5-325 mg tablet 1 tab PO TID PRN (Reason: Pain) Label Comments: TAKE ONE TABLET BY MOUTH THREE TIMES DAILY NEEDED MAY CAUSE DROWSINESS glimepiride 4 mg tablet 4 mg PO DAILY Label Comments: TAKE ONE TABLET BY MOUTH EVERY DAY duloxetine 30 mg capsule,delayed release(DR/EC) 30 mg PO DAILY Qty: 90 0RF Referrals Follow up/Referrals: Todd Peter MD [Primary Care Provider] - See instructions Clinical Impressions Clinical Impression: Dehydration, Generalized weakness, Decreased oral intake, Incontinence of urine Discharge ED Provider: Luisana Fernández Adult HPI General Chief complaint: Recheck/Abnormal Lab/Rx Stated complaint: LEGS SWOLLEN, SOA, DIARRHEA Time Seen by Provider: 04/08/23 10:48 Mode of Arrival: Wheelchair Source of Information: Patient Limitations: No Limitations Description of Symptoms (Recalled from ER Triage Doc. by RN): Pt reports progressive weakness since d/c from hospital on . Pt recent diagnosis of kidney cancer to have surgery next week. Pt reports pt has had some incontinence of bowel and bladder. Pt reports continued pain and redness in RLE-states was evaluated for dvt while in the hospital was told it is negative. History of Present Illness HPI narrative: 67-year-old female presenting to the emergency department with generalized weakness, nausea, diarrhea, urinary incontinence. Symptoms of gotten worse over the last few days. She is too weak to stand and walk on her own. She feels that both of her legs are swollen, right worse than left. She has occasional lower abdominal pain. Has been incontinent of urine, feels like she has to urinate frequently. She also has had diarrhea. No recent antibiotic use. She was admitted to our hospital last week, discharged on . She has a recent diagnosis of kidney cancer. Scheduled for preop testing, but does not think he will be able to get her to [place]. She is too weak to get in the car on her own. She denies fevers, chills, cough, shortness of breath. Related Data Home Medications Medication Instructions Recorded Confirmed albuterol sulfate 90 mcg/actuation 1 puff inhalation Q6H PRN 06/05/19 04/02/23 aerosol inhaler (Ventolin HFA) Shortness Of Breath aspirin 81 mg tablet,delayed 81 mg PO DAILY Heart disease 06/05/19 04/08/23 release (Adult Low Dose Aspirin) meloxicam 15 mg tablet 15 mg PO DAILY Pain 06/05/19 04/08/23 metoprolol succinate 100 mg 100 mg PO DAILY High blood pressure 06/05/19 04/08/23 tablet,extended release 24 hr (Toprol XL) temazepam 30 mg capsule 30 mg PO QHS PRN Sleep 06/05/19 04/08/23 triamterene 75 1 tab PO DAILY Fluid 06/05/19 04/02/23 mg-hydrochlorothiazide 50 mg tablet (Maxzide) insulin glargine 100 unit/mL 15 unit SQ DAILY Diabetes 03/01/23 04/08/23 subcutaneous cartridge glimepiride 4 mg tablet 4 mg PO DAILY Diabetes 04/02/23 04/08/23 hydrocodone 7.5 mg-acetaminophen 1 tab PO TID PRN Pain 04/02/23 04/08/23 325 mg tablet Previous Rx's Medication Instructions Recorded duloxetine 30 mg capsule,delayed 30 mg PO DAILY Mood #90 caps 04/05/23 release Allergies Allergy/AdvReac Type Severity Reaction Status Date / Time No Known Allergies Allerg
--- NOTE | 2023-04-08 11:28 | PC.NURSE ---
LAB AT BEDSIDE
--- NOTE | 2023-04-08 11:39 | ECG_ITS ---
APPROVED REPORT Exam: Resting ECG HR:108 bpm ECG Measurements Heart Rate 108 AXES DC 150 P 19 QRSd 86 QRS -2 QT 316 T 35 QTc 380 Conclusion SINUS TACHYCARDIA Late R wave progression ABNORMAL RHYTHM ECG UNCONFIRMED REPORT Electronically signed by : Marcelo Rai MD 04/09/2023 07:49:11
[2023-04-08 11:40] LABS: Basophils % 0.2 % (0.1-2.0); Eosinophils # 0.1 K/mm3 (0.0-0.4); Eosinophils % 0.7 % (0.1-12.0); Hematocrit 31.6 % (37.0-47.0); Hemoglobin 9.2 g/dL (12.2-16.2); Lymphocytes # 0.8 K/mm3 (0.7-4.5); Lymphocytes % 6.5 % (10-50); Mean Corpuscular Hemoglobin 24.2 pg (27.0-31.2); Mean Corpuscular Volume 83.5 fl (81-99); Mean Platelet Volume 9.8 fl (7.4-10.4); Monocytes # 0.5 K/mm3 (0.1-1.0); Monocytes % 3.5 % (1.7-9.3); Neutrophils # 11.3 K/mm3 (1.8-7.8); Platelet Count 170 K/mm3 (142-424); Red Blood Count 3.78 M/mm3 (4.20-5.40); Red Cell Distribution Width 25.2 % (11.5-17.5); White Blood Count 12.7 K/mm3 (4.8-10.8)
[2023-04-08 11:41] LABS: MANUAL DIFFERENTIAL MANUAL DIFFERENTIAL (MANUAL DIFF)
[2023-04-08 11:47] LABS: Chloride 102 mmol/L (98-107); Sodium 134 mmol/L (136-145)
[2023-04-08 11:50] LABS: Alanine Aminotransferase 38 U/L (12-78); Albumin Level 2.8 g/dl (3.5-5.0); Albumin/Globulin Ratio 0.5 (1.1-1.8); Alkaline Phosphatase 196 U/L (38-126); Aspartate Amino Transferase 72 U/L (14-36); Bilirubin,Total 1.7 mg/dl (0.2-1.3); Blood Urea Nitrogen 21 mg/dl (7-17); Calcium 8.8 mg/dl (8.4-10.2); Carbon Dioxide 19 mmol/L (22.0-30.0); Creatinine Clearance Estimated 54 mL/min (50-200); Estimated Glomerular Filt Rate 37 ml/min (>60); GFR (African American) 45 ML/MIN (>60); Globulin 5.2 g/dL (1.3-3.2); Glucose 238 mg/dl (74-100); Magnesium 1.6 mg/dl (1.6-2.3)
[2023-04-08 11:53] LABS: Lymphocytes % 6 % (10-50); Monocytes % 1 % (2-9); Neutrophils % 93 % (42-76); Total Cells Counted 100
[2023-04-08 11:54] LABS: Burr Cells 1+; Hypochromasia 1+; Ovalocytes 1+; Platelet Estimate Normal; Target Cells 1+
[2023-04-08 12:17] LABS: Ammonia 15 umol/L (9-30)
--- NOTE | 2023-04-08 12:50 | PC.NURSE ---
pt resting in bed in bed, at , pt given water okayed per ER M D
--- NOTE | 2023-04-08 13:00 | PC.NURSE ---
pt incontinent of urine, states couldn't hold it. Bed changed, pt in a gown and cleaned up.
--- NOTE | 2023-04-08 13:03 | PC.NURSE ---
CRISTAL FUNEZ at discussing lab results with pt and
--- NOTE | 2023-04-08 13:06 | PC.NURSE ---
rotary drill operator paging dr. donahue
--- NOTE | 2023-04-08 13:16 | PC.NURSE ---
DR CALVO SPEAKING WITH DR MELARA FOR ADMISSION
[2023-04-08 13:19] LABS: Coronavirus 19, PCR Not Detected (NotDetected); Influenza A, PCR Not Detected (NotDetected); Influenza B, PCR Not Detected (NotDetected)
--- NOTE | 2023-04-08 13:20 | PC.NURSE ---
notified housekeeping cleaner of admission
--- NOTE | 2023-04-08 14:05 | PC.NURSE ---
REPORT GIVEN TO CORAL RN
--- NOTE | 2023-04-08 14:08 | PC.NURSE ---
PT TO [facility] AT THIS TIME VIA STRETCHER
--- NOTE | 2023-04-08 15:07 | EXP.HP ---
History of Present Illness *History of present illness: 67-year-old female presented to the emergency department with generalized weakness, nausea, diarrhea, urinary incontinence.? Discharged from [facility] three days ago. She states that her symptoms of weakness and pain have gotten worse since discharge.? She is too weak to stand and walk on her own and her is having difficulty managing her.? She feels that both of her legs are swollen, right worse than left.? She c/o tenderness and pain in the left groin. She has occasional lower abdominal pain.? Has been incontinent of urine, feels like she has to urinate frequently.? HER URINE CULTURE RETURNED AFTER HER RECENT DISCHARGE SHOWING E.COLI WITH MULTIPLE SENSITIVITIES. She also has had diarrhea.? No recent antibiotic use.? She has a recent diagnosis of renal cancer.? She is scheduled for preop testing, but does not think he will be able to get her to [place].? She is too weak to get in the car on her own.? She denies fevers, chills, cough, shortness of breath. [facility] Disclaimer: The information contained in this section may have been updated after the patient was seen, as this information can be updated by other users. Medical History (Updated 04/08/23 @ 15:25 by Todd Peter MD) CAD (coronary artery disease) Depression E. coli infect GERD (gastroesophageal reflux disease) HLD (hyperlipidemia) HTN (hypertension) Insulin dependent diabetes mellitus Left leg pain Type 2 diabetes mellitus UTI (urinary tract infection) Surgical History (Updated 04/08/23 @ 15:25 by Todd Peter MD) History of left hip replacement History of tonsillectomy and adenoidectomy Hx of cardiac catheterization Hx of heart artery stent Family History (Updated 04/03/23 @ 08:41 by Angelic Thompson APRN) Coronary artery disease Social History (Updated 04/03/23 @ 08:42 by Angelic hTompson APRN) Smoking Status: Current every day smoker tobacco type: cigarettes alcohol intake: never substance use type: denies use current occupational status: other Travel in the last 8 weeks: Inside the [facility] housing: house current occupational exposures/hazards: No Review of Systems Constitutional Constitutional: Reports body ache(s), Reports fatigue, Denies fever(s), Denies headache(s), Reports lethargy and Reports weakness Eyes Eyes: Reports system reviewed and no additional complaints, except as documented ENT Ears, Nose, Mouth, and Throat: Reports system reviewed and no additional complaints, except as documented, Denies dizziness and Denies headache(s) *Cardiovascular Cardiovascular: Reports system reviewed and no additional complaints, except as documented, Denies chest pain, Reports claudication, Denies dyspnea and Reports leg edema *Respiratory Respiratory: Reports system reviewed and no additional complaints, except as documented and Denies dyspnea *Gastrointestinal Gastrointestinal: Denies abdominal pain *Genitourinary Genitourinary: Reports system reviewed and no additional complaints, except as documented *Musculoskeletal Musculoskeletal: Reports abnormal gait, Reports muscle weakness and Denies numbness Integumentary/Breasts Skin/Breast: Reports system reviewed and no additional complaints, except as documented *Neurologic Neurologic: Reports abnormal gait, Denies abnormal movements, Denies abnormal speech, Denies convulsions, Denies dizziness, Denies headache(s), Denies memory loss, Denies numbness and Reports weakness Psychiatric Psychiatric: Reports anxiety, Reports depression and Denies memory loss Endocrine Endocrine: Reports fatigue and Denies flushing Hematologic/Lymphatic Hematologic/Lymphatic: Reports system reviewed and no additional complaints, except as documented Allergic/Immunologic Allergic/Immunologic: Reports system reviewed and no additional complaints, except as documented Meds Home Medications and Allergies Home Medications Medication Instructi
--- NOTE | 2023-04-08 17:59 | PC.NURSE ---
PT IS A&OX4, HOWEVER HAS BOUTS OF CONFUSION. PT IS VERY MONOTONE AND BLANK FACE. PT IS X2 ASSIST IN BED. DOES NOT HAVE A GREAT APPETITE. PURE WICK IN PLACE D/T SOME INCONTINENCE AND WEAKNESS. +2 PITTING EDEMA PRESENT TO BLE, RIGHT LEG WORSE THAN LEFT WITH WARMTH AND REDNESS NOTED. BLE WRAPPED IN DAVID BANDAGE. ABD TENDER TO TOUCH IN RIGHT UPPER AND LOWER QUADRANTS. PT ALSO C/O LEFT HIP PAIN. TX PER DEC. EFFECTIVENESS NOTED. NO OTHER NEEDS OR C/O THUS FAR, VSS.
[2023-04-08 18:15] LABS: Microscopic, Urine URINE MICROSCOPIC (MICROSCOPIC)
[2023-04-08 18:19] LABS: Appearance,Urine CLEAR (Clear); Bilirubin,Urine Negative (Negative); Blood, Urine 1+ (Negative); Color,Urine YELLOW (Yellow); Glucose,Urine (UA) 3+ (Negative); Ketones,Urine TRACE (Negative); Leukocyte Esterase,Urine Negative (Negative); Nitrate,Urine Negative (Negative); Protein,Urine Negative (Negative); Urobilinogen,Urine 0.2 EU/dl (0.2)
[2023-04-08 18:32] LABS: Bacteria,Urine 2+ /lpf
[2023-04-09 04:00] VITALS: BP 154/76; PULSE 100; RESP 18; TEMP 36.6; O2SAT 98; BMI 32.2
[2023-04-09 05:31] LABS: POC Glucose,Bedside 125 (70-110)
[2023-04-09 06:17] LABS: Basophils % 0.1 % (0.1-2.0); Eosinophils # 0.1 K/mm3 (0.0-0.4); Eosinophils % 0.9 % (0.1-12.0); Lymphocytes # 1.3 K/mm3 (0.7-4.5); Lymphocytes % 10.9 % (10-50); Mean Corpuscular HGB Conc 30.1 g/dL (31.8-35.4); Monocytes # 0.5 K/mm3 (0.1-1.0)
[2023-04-09 06:20] LABS: Chloride 101 mmol/L (98-107); Sodium 133 mmol/L (136-145)
[2023-04-09 06:21] LABS: Potassium 4.4 mmoL/L (3.5-5.1)
[2023-04-09 06:23] LABS: Blood Urea Nitrogen 20 mg/dl (7-17); Creatinine Clearance Estimated 65 mL/min (50-200); Estimated Glomerular Filt Rate 45 ml/min (>60); GFR (African American) 54 ML/MIN (>60)
[2023-04-09 06:24] LABS: Anion Gap 15.4 mEq/L (5-15); Calcium 8.3 mg/dl (8.4-10.2); Carbon Dioxide 21 mmol/L (22.0-30.0); Glucose 121 mg/dl (74-100)
[2023-04-09 06:28] LABS: Hematocrit 26.6 % (37.0-47.0); Mean Corpuscular Hemoglobin 23.8 pg (27.0-31.2); Mean Corpuscular Volume 79.1 fl (81-99); Mean Platelet Volume 8.4 fl (7.4-10.4); Neutrophils # 9.6 K/mm3 (1.8-7.8); Neutrophils % 84.1 % (37.0-80.0); Platelet Count 215 K/mm3 (142-424); Red Blood Count 3.36 M/mm3 (4.20-5.40); White Blood Count 11.4 K/mm3 (4.8-10.8)
[2023-04-09 06:31] LABS: Red Cell Distribution Width 25.1 % (11.5-17.5)
--- NOTE | 2023-04-09 07:21 | HMH.PHAINT1 ---
Pharmacy Intervention Comments: MEDICATION RECONCILIATION COMPLETED ON PATIENT USING EXTERNAL FILL HISTORY FROM PHARMACY. -ANGELIKA MURILLO, CAROLINED
[2023-04-09 08:00] VITALS: BP 143/73; PULSE 110; RESP 18; TEMP 36.9; O2SAT 95
--- NOTE | 2023-04-09 08:54 | EXP.ACUTE.PN ---
Subjective *Date: 04/09/23 *Time: 08:54 Interval history: Patient generally does not feel well. She continues to have abdominal pain. Her left leg hurts whenever she moves it. She states she cannot walk. She did eat some breakfast this morning. She has a pure wick in place. Medical Exam Vital signs and Labs for Last 24 Hours: Vital Signs Temp Pulse Pulse Resp BP BP Pulse Ox 04/09/23 08:00 98.5 F 110 H 18 143/73 H 95 04/09/23 04:00 97.9 F 100 H 18 154/76 H 98 04/08/23 19:58 97.7 F 105 H 18 139/76 95 04/08/23 15:55 98.4 F 106 H 20 146/75 H 95 04/08/23 14:11 98.7 F 107 H 18 143/69 H 95 04/08/23 14:05 98.3 F 109 H 20 171/93 H 04/08/23 13:19 108 H 22 151/76 H 97 04/08/23 12:30 114 H 24 169/83 H 96 04/08/23 12:00 112 H 22 153/77 H 94 L 04/08/23 11:36 111 H 167/80 H 98 04/08/23 10:50 114 H 156/88 H 98 04/08/23 10:43 98.3 F 114 H 24 186/88 H 98 Intake and Output 04/08/23 04/09/23 04/09/23 19:59 03:59 11:59 Intake Total 180 / 180 2509 / 2689 Output Total 250 / 250 700 / 950 Balance -70 / -70 1809 / 1739 Intake: Intake, Oral Amount 180 / 180 120 / 300 Intake, Total IV Amount 2024 0.9 % Sodium Chloride 1000ML 2024 000 ml @ 125 mls/hr IV .Q8H EARNEST Rx#:[id number] Infusion Intake 364 / 364 0.9 % Sodium Chloride 1000ML 1, 364 / 364 000 ml @ 125 mls/hr IV .Q8H EARNEST Rx#:[id number] Output: Output, Urine Amount 250 / 250 700 / 950 Other: Number of Unmeasured Voids 0 Weight 201 lb 6 oz 205 lb 3 oz Patient Weight 04/09/23 11:59 Weight 205 lb 3 oz Laboratory Results - last 24 hr 04/08/23 11:17: WBC 12.7 H, RBC 3.78 L, Hgb 9.2 L, Hct 31.6 L, MCV 83.5, MCH 24.2 L, MCHC 29.0 L, RDW 25.2 H*, Plt Count 170 D, MPV 9.8, Neut % (Auto) 89.0 H, Lymph % (Auto) 6.5 L, [place] % (Auto) 3.5, Eos % (Auto) 0.7, Baso % (Auto) 0.2, Neut # (Auto) 11.3 H, Lymph # (Auto) 0.8, [place] # (Auto) 0.5, Eos # (Auto) 0.1, Baso # (Auto) 0.0, Total Counted 100, Neutrophils % (Manual) 93 H, Lymphocytes % (Manual) 6 L, Monocytes % (Manual) 1 L, Platelet Estimate Normal, Hypochromasia 1+, Target Cells 1+, Ovalocytes 1+, Burchard Cells 1+ 04/08/23 11:17: Sodium 134 L, Potassium 5.0, Chloride 102, Carbon Dioxide 19 L, Anion Gap 18.0 H, BUN 21 H, Creatinine 1.40 H, Estimated Creat Clear 54, Estimated GFR 37 L, Est GFR ( Amer) 45 L, Glucose 238 H, Calcium 8.8, Total Bilirubin 1.7 H, AST 72 H, ALT 38, Alkaline Phosphatase 196 H, Total Protein 8.0, Albumin 2.8 L, Globulin 5.2 H, Albumin/Globulin Ratio 0.5 L 04/08/23 11:17: Magnesium 1.6 04/08/23 12:05: Ammonia 15 04/08/23 13:07: SARS-CoV-2 (PCR) Not detected, Influenza A Untype (PCR) Not detected, Influenza Type B (PCR) Not detected 04/08/23 18:10: Urine Color Yellow, Urine Appearance Clear, Urine pH 6.0, Ur Specific Only 1.010, Urine Protein Negative, Urine Glucose (UA) 3+, Urine Ketones Trace, Urine Blood 1+, Urine Nitrate Negative, Urine Bilirubin Negative, Urine Urobilinogen 0.2, Ur Leukocyte Esterase Negative, Urine RBC 10-20, Urine WBC 3-5, Ur Squamous Epith Cells 3-5, Urine Bacteria 2+ 04/09/23 05:17: POC Glucose 125 H 04/09/23 05:52: WBC 11.4 H, RBC 3.36 L, Hgb 8.0 L D, Hct 26.6 L, MCV 79.1 L, MCH 23.8 L, MCHC 30.1 L, RDW 25.1 H*, Plt Count 215 D, MPV 8.4, Neut % (Auto) 84.1 H, Lymph % (Auto) 10.9, [place] % (Auto) 4.0, Eos % (Auto) 0.9, Baso % (Auto) 0.1, Neut # (Auto) 9.6 H, Lymph # (Auto) 1.3, [place] # (Auto) 0.5, Eos # (Auto) 0.1, Baso # (Auto) 0.0 04/09/23 05:52: Sodium 133 L, Potassium 4.4, Chloride 101, Carbon Dioxide 21 L, Anion Gap 15.4 H, BUN 20 H, Creatinine 1.20 H, Estimated Creat Clear 65, Estimated GFR 45 L, Est GFR ( Amer) 54 L, Glucose 121 H D, Calcium 8.3 L I & O for Labs for Last 24 Hours: Intake & Output 04/06/23 04/07/23 04/08/23 04/09/23 11:59 11:59 11:59 11:59 Intake Total 2689 / 2689 Output Total 950 / 950 [place]
[2023-04-09 09:25] LABS: Creatine Kinase < 20 U/L (30-135)
--- NOTE | 2023-04-09 10:43 | HMH.OTEV ---
OT Inpatient Evaluation Rehab OT IP Evaluation Start: 04/09/23 08:49 Freq: ONCE Status: Active Protocol: Document 04/09/23 10:24 MARIUSZ (Rec: 04/09/23 10:43 MARIUSZ [id number]) Rehab OT IP Assessment Subjective History 67-year-old female presented to the emergency department with generalized weakness, nausea, diarrhea, urinary incontinence.? Discharged from [facility] three days ago. She states that her symptoms of weakness and pain have gotten worse since discharge.? She is too weak to stand and walk on her own and her is having difficulty managing her.? She feels that both of her legs are swollen, right worse than left.? She c/o tenderness and pain in the left groin. She has occasional lower abdominal pain.? Has been incontinent of urine, feels like she has to urinate frequently.? HER URINE CULTURE RETURNED AFTER HER RECENT DISCHARGE SHOWING E.COLI WITH MULTIPLE SENSITIVITIES. She also has had diarrhea.? No recent antibiotic use.? She has a recent diagnosis of renal cancer.? She is scheduled for preop testing, but does not think he will be able to get her to [place].? She is too weak to get in the car on her own.? She denies fevers, chills, cough, shortness of breath. Subjective I need help to get up. Patient lives at home with who provides care of ADLs and fx'l mobility. Patient uses a RW to ambulate throughout the home. Objective Patient Orientation Person,Place,Name Upper Extremity Gross ROM WFL Bed Mobility bed mobility - supine/sit Assist Level Maximum x 2 (75% assist) Transfer Traini
--- NOTE | 2023-04-09 11:35 | HMH.PTEV ---
Physical Therapy Evaluation Rehab PT IP Evaluation Start: 04/08/23 13:22 Freq: ONCE Status: Active Protocol: Document 04/09/23 11:14 TALIPATY (Rec: 04/09/23 11:34 TALIADE [id number]) Subjective/History History History Pt is a 67 year old female that presented to [facility] ED with generalized weakness, nausea, diarrhea, urinary incontinence .?Pt was recently discharged from [facility]. Pt stated that her symptoms of weakness and pain have gotten worse since discharge and she is too weak to stand and walk on her own and her is having difficulty managing her.? Pt felt that both of her legs are swollen, right worse than left.? She c/o tenderness and pain in the left groin. She has occasional lower abdominal pain.? Has been incontinent of urine, feels like she has to urinate frequently.? Urine culture from recent discharge revealed e. coli with multiple sensitivities. Pt has a recent diagnosis of renal cancer. PMH: CAD (coronary artery disease), Depression, E. coli infect, GERD, HLD, HTN, DM UTI (urinary tract infection) Subjective Subjective Pt presents supine in bed, requesting to use bed champagne, with encouragement pt is agreeable to use BSC. Pt reports she is having some stomach pain at rest. Pt reports that she lives at home with her in a multi- level home with 3 BRIANA. Pt reports that he assists with all tasks and she uses a RW at baseline. Pt performed supine to sit on EOB with max A x2. Pt performed sit to stand transfer with the use of a RW and mod A x1. Pt performed SPT
--- NOTE | 2023-04-09 11:58 | SW/DCPLANNER ---
I spoke with this patient and her regarding discharge plans. PT/OT evaluated patient and recommended SNF level of care. stated that he would like to speak with Dr Peter prior to making any decisions regarding discharge. I have relayed message to Dr Peter and he is going to call and speak with . I will continue to follow up with MD and patient/family.
[2023-04-09 12:35] LABS: POC Glucose,Bedside 194 (70-110)
--- NOTE | 2023-04-09 14:59 | CA_ITS ---
FINAL REPORT TECHNIQUE: Bilateral lower extremity venous duplex was performed with augmentation and compression. CLINICAL HISTORY: swelling, pain, kidney cancer, smoker, HTN, CAD, HLD. Recent hospitalization, receiving Lovenox injections. FINDINGS: Proper flow is seen throughout the deep venous systems bilaterally. There is no evidence of deep venous thrombosis. IMPRESSION: No evidence of deep venous thrombosis. Reviewed, Interpreted and Dictated by Qamar Lane MD Transcribed by Marie Jorgensen Authenticated and [facility]
[2023-04-09 16:00] VITALS: BP 119/71; PULSE 76; RESP 18; TEMP 36.4; O2SAT 96
[2023-04-09 16:57] LABS: POC Glucose,Bedside 163 (70-110)
[2023-04-09 20:00] VITALS: BP 120/73; PULSE 75; RESP 18; TEMP 37.2; O2SAT 96
[2023-04-09 20:31] LABS: POC Glucose,Bedside 109 (70-110)
--- NOTE | 2023-04-09 21:15 | PC.NURSE ---
pt refused DAVID wrap on right lower leg, she stated it wont help anyways . warmth and redness noted with 2+ pitting edema in RLE
--- NOTE | 2023-04-10 02:51 | PC.NURSE ---
pt had c/o leg pain. verbalized 8 out of 10. RLE has noted redness and warmth with 2+ pitting edema. administer norco.
[2023-04-10 04:00] VITALS: BP 141/59; PULSE 74; RESP 18; TEMP 36.8; O2SAT 93; BMI 32.9
--- NOTE | 2023-04-10 05:08 | PC.NURSE ---
glucose was 60. pt is drinking 8oz OJ with 1 sugar packet. will reassess glucose in 15 minutes
--- NOTE | 2023-04-10 05:24 | PC.NURSE ---
rechecked glucose, was 58. pt now eating nayana crackers with peanut butter. will reassess glucose in 15 minutes.
[2023-04-10 06:07] LABS: POC Glucose,Bedside 90 (70-110)
[2023-04-10 06:07] LABS: POC Glucose,Bedside 60 (70-110)
[2023-04-10 06:07] LABS: POC Glucose,Bedside 58 (70-110)
[2023-04-10 07:19] VITALS: BP 135/85; PULSE 74; RESP 16; TEMP 36.7; O2SAT 96
--- NOTE | 2023-04-10 07:59 | EXP.ACUTE.PN ---
Subjective *Date: 04/10/23 *Time: 08:09 Interval history: Patient states she may be a little bit better. She is voiding without difficulty. She did work with physical therapy yesterday and did walk. She states her legs were weak. She still has pain in the left leg. She states her blood sugar did drop this morning. She is eating a little. She denies nausea and has no diarrhea. She denies chest pain and shortness of breath. Venous Doppler studies of both right and left legs were negative.CPK was noted to be less than 20 Medical Exam Vital signs and Labs for Last 24 Hours: Vital Signs Temp Pulse Resp BP Pulse Ox 04/10/23 07:19 98.1 F 74 16 135/85 96 04/10/23 04:00 98.2 F 74 18 141/59 H 93 L 04/09/23 20:00 98.9 F 75 18 120/73 96 04/09/23 16:00 97.5 F L 76 18 119/71 96 04/09/23 08:00 98.5 F 110 H 18 143/73 H 95 Intake and Output 04/09/23 04/10/23 04/10/23 19:59 03:59 11:59 Intake Total 1028 / 1028 2445 / 3473 Output Total 0 / 0 0 / 0 Balance 1028 / 1028 0 / 1028 2445 / 3473 Intake: Intake, Oral Amount 360 / 360 780 / 1140 Intake, Total IV Amount 1665 / 1665 0.9 % Sodium Chloride 1000ML 1, 1665 / 1665 000 ml @ 125 mls/hr IV .Q8H EARNEST Rx#:[id number] Infusion Intake 668 / 668 0.9 % Sodium Chloride 1000ML 1, 668 / 668 000 ml @ 125 mls/hr IV .Q8H EARNEST Rx#:[id number] Output: Output, Urine Amount 0 / 0 0 / 0 Other: Number of Unmeasured Voids 1 1 Weight 210 lb Patient Weight 04/10/23 11:59 Weight 210 lb Laboratory Results - last 24 hr 04/09/23 05:52: Total Creatine Kinase < 20 L 04/09/23 12:26: POC Glucose 194 H 04/09/23 16:46: POC Glucose 163 H 04/09/23 20:19: POC Glucose 109 04/10/23 05:00: POC Glucose 60 L 04/10/23 05:22: POC Glucose 58 L 04/10/23 05:46: POC Glucose 90 I & O for Labs for Last 24 Hours: Intake & Output 04/07/23 04/08/23 04/09/23 04/10/23 11:59 11:59 11:59 11:59 Intake Total 2689 / 2689 3473 / 3473 Output Total 950 / 950 0 / 0 Balance 1739 / 1739 3473 / 3473 Weight 200 lb 205 lb 3 oz 210 lb Microbiology Reports for the Last 24 Hours: Microbiology 04/08/23 18:10 Urine,Clean Catch Urine Culture - Preliminary Comment:: She is awake and alert and eating breakfast. She is eating very little. Respiratory: Present CTA bilaterally Cardiac: Present Reg Rate and Rhythm GI: Present soft and normal bowel sounds; Absent distention, tenderness or guarding Extremities: Present edema (Trace bilateral) Comment:: Erythema on the anterior right lower leg. Good pedal pulses on the right. Unable to feel on the left. Left foot is cool to touch. Cannot lift her left leg. Right leg movement is good. Neuro: Present alert and oriented x 3 Assessment and Plan *Assessment and plan (1) E. coli infect: Status: Acute Category: Medical Code(s): A49.8 - Other bacterial infections of unspecified site (2) UTI (urinary tract infection): Status: Acute Category: Medical Code(s): N39.0 - Urinary tract infection, site not specified (3) Generalized weakness: Status: Acute Category: Medical Code(s): R53.1 - Weakness (4) Right leg pain: Status: Acute Category: Medical Code(s): M79.604 - Pain in right leg (5) Left leg pain: Status: Acute Category: Medical Code(s): M79.605 - Pain in left leg (6) Type 2 diabetes mellitus: Status: Acute Category: Medical Code(s): E11.9 - Type 2 diabetes mellitus without complications (7) Kidney malignancy: Status: Acute Category: Medical Code(s): C64.9 - Malignant neoplasm of unspecified kidney, except renal pelvis (8) Edema of both lower extremities: Status: Acute Category: Medical Code(s): R60.0 - Localized edema (9) HTN (hypertension): Status: Chronic Qualifiers: Hypertension type
--- NOTE | 2023-04-10 08:12 | CA_ITS ---
FINAL REPORT TECHNIQUE: Ultrasound images of the lower extremity arterial system were performed bilaterally. Spectral analysis and ABIs were also performed. CLINICAL HISTORY: decreased circulation worse on the left, CELLULITIS OF RT WOODS FINDINGS: Right lower extremity: Wave forms are triphasic throughout. No elevated velocities are identified. Left lower extremity: Wave forms are triphasic throughout. No elevated velocities are identified. IMPRESSION: No significant peripheral vascular disease. Reviewed, Interpreted and Dictated by Qamar Lane MD Transcribed by Marie Jorgensen Authenticated and [facility]
[2023-04-10 08:33] LABS: POC Glucose,Bedside 109 (70-110)
--- NOTE | 2023-04-10 08:40 | SW/DCPLANNER ---
Addendum entered by Ya Dean 04/10/23 12:55: [facility] stated that she is unable to accept this patient due to upcoming surgery and unknown treatment afterwards. I informed patient's and offered to look for other SNF level of care facilities. stated that he prefers to take patient home w/ home health services and prepare for surgery next week. I have updated Dr Peter. Original Note: Patient and are agreeable to placement and prefer that patient information be faxed to [facility]. Patient information will be faxed this AM to [facility].
[2023-04-10 09:28] VITALS: BMI 32.9
[2023-04-10 11:36] LABS: POC Glucose,Bedside 117 (70-110)
--- NOTE | 2023-04-10 13:37 | CARE MANAGER ---
Addendum entered by Kylah Costa RN 04/12/23 07:34: Patient was transferred on 04/11/23 to [facility]. Original Note: Patient unable to ambulate per self with rolling walker, and will require a wheel chair upon discharge.
[2023-04-10 14:39] VITALS: BP 126/77; PULSE 72; RESP 16; TEMP 37; O2SAT 96
[2023-04-10 17:20] LABS: POC Glucose,Bedside 71 (70-110)
--- NOTE | 2023-04-10 18:19 | PC.NURSE ---
PT IS A&OX4 BUT DOES HAVE INTERMITTENT SHORT TERM MEMORY LOSS AND CONFUSION. HAS BEEN AT BEDSIDE MAJORITY OF SHIFT. PT HAS BEEN DOWN THIS SHIFT, STATING THERE IS NO POINT IN DOING ANYTHING, I'LL JUST LAY HERE AND . PT ENCOURAGED ON TURNING, ACTIVITY AND PARTICIPATING WITH PT, BUT PT CONTINUES TO REFUSE. TOLERATING RA, INCONTINENT TO BLADDER THUS FAR. PT C/O L HIP PAIN, TX PER DEC. EFFECTIVENESS NOTED. NO OTHER NEEDS THUS FAR, VSS.
[2023-04-10 20:00] VITALS: BP 114/65; PULSE 70; RESP 16; TEMP 36.9; O2SAT 96
--- NOTE | 2023-04-10 20:03 | PC.NURSE ---
pt c/o left hip pain 7 out of 10. gave thu
[2023-04-10 21:19] LABS: POC Glucose,Bedside 82 (70-110)
--- NOTE | 2023-04-10 21:24 | PC.NURSE ---
spoke with FERMÍN Wolfe on Medsurg at [facility] r/t placement on [facility]. relayed most recent VS. Yaneth stated another nursing would call in the morning to confirm VS again prior to transfer.
[2023-04-11 04:00] VITALS: BP 132/81; PULSE 75; RESP 16; TEMP 36.8; O2SAT 95; BMI 33.7
--- NOTE | 2023-04-11 05:57 | PC.NURSE ---
report called to kennedi at [facility]
--- NOTE | 2023-04-11 07:22 | EXP.ACUTE.PN ---
Subjective *Date: 04/11/23 *Time: 09:31 Interval history: She has been accepted for transfer to [facility], Dr. Madan Winter/ Dr. da Kwok Jr. Medical Exam Vital signs and Labs for Last 24 Hours: Vital Signs Temp Pulse Resp BP Pulse Ox 04/11/23 04:00 98.3 F 75 16 132/81 95 04/10/23 20:00 98.5 F 70 16 114/65 96 04/10/23 14:39 98.6 F 72 16 126/77 96 Intake and Output 04/10/23 04/11/23 04/11/23 19:59 03:59 11:59 Intake Total 420 / 1045 625 / 1045 Output Total 0 / 300 100 / 300 200 / 300 Balance 420 / 745 525 / 745 -200 / 745 Intake: Intake, Oral Amount 420 / 420 Intake, Total IV Amount 625 / 625 0.9 % Sodium Chloride 1000ML 1, 625 / 625 000 ml @ 125 mls/hr IV .Q8H [facility] Rx#:[id number] Output: Output, Urine Amount 0 / 300 100 / 300 200 / 300 Other: Number of Unmeasured Voids 1 1 1 Number of Bowel Movements 1 Weight 215 lb 1.6 oz Patient Weight 04/11/23 11:59 Weight 215 lb 1.6 oz Laboratory Results - last 24 hr 04/10/23 08:10: POC Glucose 109 04/10/23 11:28: POC Glucose 117 H 04/10/23 17:12: POC Glucose 71 04/10/23 21:10: POC Glucose 82 I & O for Labs for Last 24 Hours: Intake & Output 04/08/23 04/09/23 04/10/23 04/11/23 11:59 11:59 11:59 11:59 Intake Total 2689 / 2689 3473 / 3473 1045 / 1045 Output Total 950 / 950 0 / 0 300 / 300 Balance 1739 / 1739 3473 / 3473 745 / 745 Weight 200 lb 205 lb 3 oz 209 lb 15.845 oz 215 lb 1.6 oz Microbiology Reports for the Last 24 Hours: Microbiology 04/08/23 18:10 Urine,Clean Catch Urine Culture - Preliminary Assessment and Plan *Assessment and plan (1) Kidney malignancy: Status: Acute Category: Medical Code(s): C64.9 - Malignant neoplasm of unspecified kidney, except renal pelvis (2) Generalized weakness: Status: Acute Category: Medical Code(s): R53.1 - Weakness (3) UTI (urinary tract infection): Status: Acute Category: Medical Code(s): N39.0 - Urinary tract infection, site not specified (4) E. coli infect: Status: Acute Category: Medical Code(s): A49.8 - Other bacterial infections of unspecified site (5) Right leg pain: Status: Acute Category: Medical Code(s): M79.604 - Pain in right leg (6) Left leg pain: Status: Acute Category: Medical Code(s): M79.605 - Pain in left leg (7) Hx of heart artery stent: Status: Acute Category: Surgical Code(s): Z95.5 - Presence of coronary angioplasty implant and graft (8) Renal insufficiency: Status: Acute Category: Medical Code(s): N28.9 - Disorder of kidney and ureter, unspecified (9) Type 2 diabetes mellitus: Status: Acute Category: Medical Code(s): E11.9 - Type 2 diabetes mellitus without complications (10) Physical debility: Status: Acute Category: Medical Code(s): R53.81 - Other malaise (11) Edema of both lower extremities: Status: Acute Category: Medical Code(s): R60.0 - Localized edema (12) HTN (hypertension): Status: Chronic Qualifiers: Hypertension type: essential hypertension Qualified Code(s): I10 - Essential (primary) hypertension Category: Medical Code(s): I10 - Essential (primary) hypertension (13) CAD (coronary artery disease): Status: Chronic Qualifiers: Coronary Disease-Associated Artery/Lesion type: [place] artery [place] vs. transplanted heart: [place] heart Associated angina: angina presence unspecified Qualified Code(s): I25.10 - Atherosclerotic heart disease of [place] coronary artery without angina pectoris Category: Medical Code(s): I25.10 - Atherosclerotic heart disease of [place] coronary artery without angina pectoris Plan Transfer to [facility].
[2023-04-11 07:27] LABS: POC Glucose,Bedside 71 (70-110)
[2023-04-11 07:29] VITALS: BP 133/71; PULSE 76; RESP 17; TEMP 36.6; O2SAT 96
--- NOTE | 2023-04-11 08:11 | EXP.ACUTE.PN ---
Subjective *Date: 04/11/23 *Time: 08:11 Interval history: Patient did not feel well this am and her glucose was low. She did eat breakfast and felt better. She is still having pain near her right kidney. She has a bed and will be transferred this am. Medical Exam Vital signs and Labs for Last 24 Hours: Vital Signs Temp Pulse Resp BP Pulse Ox 04/11/23 07:29 97.9 F 76 17 133/71 96 04/11/23 04:00 98.3 F 75 16 132/81 95 04/10/23 20:00 98.5 F 70 16 114/65 96 04/10/23 14:39 98.6 F 72 16 126/77 96 Intake and Output 04/10/23 04/11/23 04/11/23 19:59 03:59 11:59 Intake Total 420 / 1285 625 / 1285 240 / 1285 Output Total 0 / 300 100 / 300 200 / 300 Balance 420 / 985 525 / 985 40 / 985 Intake: Intake, Oral Amount 420 / 660 240 / 660 Intake, Total IV Amount 625 / 625 0.9 % Sodium Chloride 1000ML 1, 625 / 625 000 ml @ 125 mls/hr IV .Q8H [facility] Rx#:[id number] Output: Output, Urine Amount 0 / 300 100 / 300 200 / 300 Other: Number of Unmeasured Voids 1 1 1 Number of Bowel Movements 1 Weight 215 lb 1.6 oz Patient Weight 04/11/23 11:59 Weight 215 lb 1.6 oz Laboratory Results - last 24 hr 04/10/23 08:10: POC Glucose 109 04/10/23 11:28: POC Glucose 117 H 04/10/23 17:12: POC Glucose 71 04/10/23 21:10: POC Glucose 82 04/11/23 06:09: POC Glucose 71 I & O for Labs for Last 24 Hours: Intake & Output 04/08/23 04/09/23 04/10/23 04/11/23 11:59 11:59 11:59 11:59 Intake Total 2689 / 2689 3473 / 3473 1285 / 1285 Output Total 950 / 950 0 / 0 300 / 300 Balance 1739 / 1739 3473 / 3473 985 / 985 Weight 200 lb 205 lb 3 oz 209 lb 15.845 oz 215 lb 1.6 oz Microbiology Reports for the Last 24 Hours: Microbiology 04/08/23 18:10 Urine,Clean Catch Urine Culture - Preliminary Constitutional: Present no acute distress Respiratory: Present CTA bilaterally Cardiac: Present Reg Rate and Rhythm GI: Present soft, distention and tenderness (RMQ) Extremities: Present edema (RLE with some erythema) Skin: Present erythema (right lower extremity) Neuro: Present alert and awake Assessment and Plan *Assessment and plan (1) E. coli infect: Status: Acute Category: Medical Code(s): A49.8 - Other bacterial infections of unspecified site (2) UTI (urinary tract infection): Status: Acute Category: Medical Code(s): N39.0 - Urinary tract infection, site not specified (3) Generalized weakness: Status: Acute Category: Medical Code(s): R53.1 - Weakness (4) Right leg pain: Status: Acute Category: Medical Code(s): M79.604 - Pain in right leg (5) Left leg pain: Status: Acute Category: Medical Code(s): M79.605 - Pain in left leg (6) Type 2 diabetes mellitus: Status: Acute Category: Medical Code(s): E11.9 - Type 2 diabetes mellitus without complications (7) Kidney malignancy: Status: Acute Category: Medical Code(s): C64.9 - Malignant neoplasm of unspecified kidney, except renal pelvis (8) Edema of both lower extremities: Status: Acute Category: Medical Code(s): R60.0 - Localized edema (9) HTN (hypertension): Status: Chronic Qualifiers: Hypertension type: essential hypertension Qualified Code(s): I10 - Essential (primary) hypertension Category: Medical Code(s): I10 - Essential (primary) hypertension (10) CAD (coronary artery disease): Status: Chronic Qualifiers: Coronary Disease-Associated Artery/Lesion type: [place] artery [place] vs. transplanted heart: [place] heart Associated angina: angina presence unspecified Qualified Code(s): I25.10 - Atherosclerotic heart disease of [place] coronary artery without angina pectoris Category: Medical Code(s): I25.10 - Atherosclerotic heart disease of [place] coronary artery without angina pectoris (11) Heart murm
[2023-04-11 08:34] LABS: POC Glucose,Bedside 137 (70-110)
--- NOTE | 2023-04-11 09:09 | HMH.PHAINT1 ---
Pharmacy Intervention Comments: Patient home medication reviewed with patient for discharge: - Ferrous Sulfate (take tablet with food, may cause nausea) -Meloxicam (stop taking) patient stated they did not have any questions at this time. -Reginaldo Sales, Pharm Student
== END 2023-04-11 09:36 | disposition short-term general hospital (02) ==
LOC: ER 13:21 → 2ND 15:01
PROVIDERS: Admitting Provider Family Medicine; Emergency Provider Emergency Medicine; PCP Family Medicine; Visit Provider Family Medicine
DX: C64.1 Malignant neoplasm of right kidney, except renal pelvis (principal); N39.0 Urinary tract infection, site not specified; E11.9 Type 2 diabetes mellitus without complications; B96.20 Unspecified Escherichia coli [E. coli] as the cause of diseases classified elsewhere; I10 Essential (primary) hypertension; I25.10 Atherosclerotic heart disease of native coronary artery without angina pectoris; Z95.5 Presence of coronary angioplasty implant and graft; F17.210 Nicotine dependence, cigarettes, uncomplicated; Z79.4 Long term (current) use of insulin; Z79.899 Other long term (current) drug therapy; M79.604 Pain in right leg; M79.605 Pain in left leg
CPT/HCPCS: G0378; 36415; 80048; 80053; 81001; 82140; 82550; 82962; 83735; 85007; 85025; 87086; 87088; 87186; 87635; 87636; 93005; 93306; 93925; 93970; 97162; 97165; 97530; 99285; C9803; J1956; U0003; U0005

== ENCOUNTER → 2023-06-07 12:11 | Outpatient (CLI) | payer MEDICARE, SELFPAY ==
--- NOTE | 2023-06-07 12:25 | XR_ITS ---
FINAL REPORT CLINICAL HISTORY: ULCER OF RT LOWER EXT WITH FAT LAYER EXPOSED FINDINGS: Right tibia fibula Two views were obtained. There is no acute fracture or dislocation. The joint spaces appear normal. There is mild irregularity of the anterior soft tissues. IMPRESSION: Mild irregularity of the anterior soft tissues. Reviewed, Interpreted and Dictated by Carlos Kirkpatrick III, MD Transcribed by Angelic Ren Authenticated and [facility]
== END ==
PROVIDERS: PCP Family Medicine; Visit Provider Family Medicine
DX: L97.912 Non-pressure chronic ulcer of unspecified part of right lower leg with fat layer exposed (principal)
CPT/HCPCS: 73590

== ENCOUNTER 2023-07-11 14:30 | Outpatient (RCR) | payer MEDICARE, SELFPAY ==
--- NOTE | 2023-05-31 16:08 | HMH.PTOPWND ---
Rehab Outpt Wound Evaluation Rehab OP Wound Evaluation Start: 05/31/23 14:48 Freq: Status: Active Protocol: Document 05/31/23 15:47 PHOTIEN (Rec: 05/31/23 16:08 [email or web address] [id number]) E-signed By Gary Ann, PT Subjective/History History History This is the initial PT eval for Ana Muniz, 67 yowf who presents with multiple R arnold wounds x ~ 6 wks with insidious onset of symptoms. She was recently hospitalized with UTI (e-coli) and found to have renal cancer. She was transferred to an outside hospital where a R nephrectomy was performed. She reports increased edema in B LE after returning home beginning shortly before her wounds appeared. She reports significant amounts of drainage and increasing size of the wounds over the past several weeks. She has hx of DM, HTN, CAD. Subjective Subjective Pt reports pain 7/10 in the R LE at this time. 2+ pitting edema noted to R lower leg with SEVERE non-blanchable erythema. 2/4 TTP noted in the shira-wound skin. Significant purulent drainage expressed from both SUP and INF wounds. Tunnelling at 6 o'clock of the superior wound connects to the 12 o'clock of the inferior wound. Undermining in the superior wound from 3-5 o' clock to 2,1 cm. Wound cleansed with skintegrity wound cleanser and swab culture obtained and sent to the lab. Wound then flushed with half strength daikin's solution, even through the tunnelled area. Wound Eval Wound Right Lower Arnold Wound Type cellulitis Is This a Chronic Wound Yes Wound Length (cm) 2.8 Wound Width (cm) 2.4 Wound Depth (cm) 0.2 Wound Bed Appearance [place]
--- NOTE | 2023-06-28 15:57 | HMH.RHREAS ---
Rehab Reassessment Rehab OP Re-assessment Start: 05/31/23 14:48 Freq: Status: Active Protocol: Document 06/28/23 15:51 [email or web address] (Rec: 06/28/23 15:57 PHOTIEN [id number]) E-signed By Gary Ann, PT Rehab Re-assessment Subjective Subjective Pt reports much less pain overall and feels much better with walking. Pt reports pain at worst is 3/10 now. Objective Objective Notes R anterior arnold wound: L= 11.0 cm, W= 1.5 cm, D= 0.2 cm. 99% granulation tissue at this time. TTP: 1/4 in the shira-wound skin. Cardona-Herb Wound Assessment Tool (BWAT) score: 29 ( initially was 55) Assessment Progress Assessment Progressing as Expected Assessment Notes Pt has shown significant improvement in R arnold wound surface area, granulation tissue, and overall healing. She initially had 100% of the wound bed covered in slough and large areas of tunnelling and undermining in multiple directions. She continues to need skilled intervention to return to prior level of function. Patient goals met ST,2,3,4,5 Goals Not Met LT,2,3,4,5,6,7,8,9 Plan Plan Continue per initial POC. Frequency of Therapy 1-2 x/wk Duration of therapy 2-3 wks Time and Billing Re-Eval Time 16 Re-Eval Billing Units 1 PHYSICIAN CERTIFICATION: I certify the specified therapy services for Ana Muniz are required, authorized, and reviewed every 30 days.
== END 2023-07-11 14:35 | disposition home or self-care (01) ==
LOC: PT 14:30
PROVIDERS: PCP Family Medicine; Visit Provider Family Medicine
DX: L97.912 Non-pressure chronic ulcer of unspecified part of right lower leg with fat layer exposed (principal)
CPT/HCPCS: 87070; 87077; 87186; 87205; 97163; 97164; 97597; 97598

== ENCOUNTER 2023-12-31 08:55 | Outpatient (CLI) | payer MEDICARE, SELFPAY ==
--- NOTE | 2023-12-31 09:01 | XR_ITS ---
FINAL REPORT TECHNIQUE: Bone mineral density was calculated of the lumbar spine and hip. CLINICAL HISTORY: OSTEOPENIA COMPARISON: None FINDINGS: Using L1-4, the bone mineral density of the spine is 1.07 g/cm2, corresponding to T-score of 0.2. Using the right hip, the bone mineral density of the femoral neck is 0.68 g/cm2, corresponding to a T-score of -1.5. Using the left forearm, the bone mineral density of the left forearm is 0.45 g/cm?, corresponding to a T-score of -2.3. NOTE: T-score: Standard deviation compared with peak bone mass of young adult mean. *Following the recommendations of the International Society of Bone densitometry, classification of hip BMD is based on the lower of two T-scores; total hip or femoral neck. IMPRESSION: Diminished bone mineral density of the left wrist and right hip, consistent with low bone density. Normal bone mineral density of the lumbar spine, although this may be falsely elevated due to hypertrophic changes in the lower lumbar spine. Reviewed, Interpreted and Dictated by Carlos Kirkpatrick III, MD Transcribed by Marie Jorgensen Authenticated and [facility]
== END 2023-12-31 23:59 ==
LOC: RAD 08:56
PROVIDERS: PCP Family Medicine; Visit Provider Family Medicine
DX: M85.89 Other specified disorders of bone density and structure, multiple sites (principal)
CPT/HCPCS: 77080

== ENCOUNTER 2024-02-05 13:04 | Outpatient (POV) | payer MEDICARE, SELFPAY | END 2024-02-05 23:59 | disposition home or self-care (01) | LOC: SC 13:04 | PROVIDERS: Visit Provider Nurse Practitioner | DX: Z00.00 Encounter for general adult medical examination without abnormal findings (principal) ==

== ENCOUNTER 2024-04-03 12:23 | Outpatient (CLI) | payer MEDICARE, SELFPAY ==
[2024-04-03 12:32] LABS: Microscopic, Urine URINE MICROSCOPIC (MICROSCOPIC)
[2024-04-03 13:08] LABS: Appearance,Urine CLEAR (Clear); Bilirubin,Urine Negative (Negative); Blood, Urine Negative (Negative); Color,Urine YELLOW (Yellow); Glucose,Urine (UA) Negative (Negative); Ketones,Urine Negative (Negative); Leukocyte Esterase,Urine Negative (Negative); Nitrate,Urine Negative (Negative); Protein,Urine Negative (Negative); Urobilinogen,Urine 0.2 EU/dl (0.2)
[2024-04-03 13:14] LABS: Basophils # 0.1 K/mm3 (0-0.2); Basophils % 1.2 % (0.1-2.0); Eosinophils # 0.1 K/mm3 (0.0-0.4); Eosinophils % 2.2 % (0.1-12.0); Hematocrit 22.7 % (37.0-47.0); Lymphocytes # 1.5 K/mm3 (0.7-4.5); Lymphocytes % 23.4 % (10-50); Mean Corpuscular HGB Conc 28.2 g/dL (31.8-35.4); Mean Corpuscular Volume 70.9 fl (81-99); Mean Platelet Volume 8.7 fl (7.4-10.4); Monocytes # 0.3 K/mm3 (0.1-1.0); Monocytes % 4.3 % (1.7-9.3); Neutrophils # 4.4 K/mm3 (1.8-7.8); Neutrophils % 68.8 % (37.0-80.0); Platelet Count 217 K/mm3 (142-424); Red Blood Count 3.21 M/mm3 (4.20-5.40); Red Cell Distribution Width 19.1 % (11.5-17.5); White Blood Count 6.4 K/mm3 (4.8-10.8)
[2024-04-03 13:24] LABS: Creatinine,Urine Random 70 mg/dL (Not Estab.)
[2024-04-03 13:29] LABS: Bacteria,Urine Trace /lpf; Squamous Epithelial Cell,Urine Occasional #/hpf (0-5)
[2024-04-03 13:51] LABS: Hemoglobin 6.4 g/dL (12.2-16.2)
[2024-04-03 14:07] LABS: Albumin Level 4.3 g/dl (3.5-5.0); Anion Gap 19.4 mEq/L (5-15); Blood Urea Nitrogen 51 mg/dl (7-17); Carbon Dioxide 21 mmol/L (22.0-30.0); Chloride 104 mmol/L (98-107); Estimated Glomerular Filt Rate 21 ml/min (>60); GFR (African American) 25 ML/MIN (>60); Glucose 190 mg/dl (74-100); Potassium 5.4 mmoL/L (3.5-5.1); Sodium 139 mmol/L (136-145)
[2024-04-03 14:19] LABS: Intact Parathyroid Hormone 129.2 pg/mL (7.5-53.5)
[2024-04-03 14:24] LABS: 25-OH Vitamin D, Total 57.9 ng/mL (30-100)
== END 2024-04-03 23:59 | disposition home or self-care (01) ==
LOC: LAB 12:25
PROVIDERS: PCP Family Medicine; Visit Provider Nurse Practitioner
DX: N18.30 Chronic kidney disease, stage 3 unspecified (principal)
CPT/HCPCS: 36415; 80069; 81001; 82043; 82306; 82570; 83970; 84156; 85025

== ENCOUNTER 2024-04-07 11:25 | Outpatient (POV) | payer MEDICARE, SELFPAY | END 2024-04-07 23:59 | disposition home or self-care (01) | LOC: SC 11:25 | PROVIDERS: Visit Provider Nurse Practitioner | DX: Z00.00 Encounter for general adult medical examination without abnormal findings (principal) ==

== ENCOUNTER 2024-04-17 09:16 | Outpatient (CLI) | payer MEDICARE, SELFPAY ==
[2024-04-17] VITALS (10 sets, daily range): BP systolic 115–159; BP diastolic 53–81; PULSE 62–67; RESP 14–18; TEMP 36.5–37.1; O2SAT 98–100; BMI 29.0
--- OUTSIDE RECORDS SUMMARY | 2024-04-17 09:19 | XMS_ITS | Clinical Summary ---
Author Name Unknown Address [address] [place] [address] Phone Organization [facility] Address [address] [place] [address] Phone Care Team Providers Care Sewer Digger Name Role Phone Unavailable Unavailable Conditions or Problems No information available. Medications No information available. Medications Administered No information available. Allergies, Adverse Reactions, Alerts No information available. Results No information available. Plan of Care No information available. Procedures No information available. Vital Signs No information available. Immunizations No information available. Advance Directives No information available.
[2024-04-17 10:22] LABS: Hematocrit 22.3 % (37.0-47.0)
[2024-04-17 10:36] LABS: Hemoglobin 6.4 g/dL (12.2-16.2)
[2024-04-17] MEDS: ACETAMINOPHEN 325MG TAB 650 MG PO (10:50)
[2024-04-17] MEDS: HYDROCORTISONE SOD SUCCINATE 100MG VIAL 100 MG IV (10:51)
[2024-04-17] MEDS: diphenhydrAMINE 25MG CAPSULE 25 MG PO (10:51)
[2024-04-17] MEDS: 0.9 % SODIUM CHLORIDE 250 ML 25 ML IV (10:51)
== END 2024-04-17 14:50 | disposition home or self-care (01) ==
LOC: INF 09:17
PROVIDERS: PCP Family Medicine; Visit Provider Nurse Practitioner
DX: D50.9 Iron deficiency anemia, unspecified (principal); N18.4 Chronic kidney disease, stage 4 (severe); D63.1 Anemia in chronic kidney disease
CPT/HCPCS: 36430; 85014; 85018; 86850; P9016

== ENCOUNTER 2024-04-25 11:39 | Outpatient (CLI) | payer MEDICARE, SELFPAY ==
--- OUTSIDE RECORDS SUMMARY | 2024-04-25 11:41 | XMS_ITS | Clinical Summary ---
Author Name Unknown Address [address] [place] [address] Phone Organization [facility] Address [address] [place] [address] Phone Care Team Providers Care Balance And Hairspring Assembler Name Role Phone Unavailable Unavailable Conditions or Problems No information available. Medications No information available. Medications Administered No information available. Allergies, Adverse Reactions, Alerts No information available. Results No information available. Plan of Care No information available. Procedures No information available. Vital Signs No information available. Immunizations No information available. Advance Directives No information available.
== END 2024-04-25 23:59 | disposition home or self-care (01) ==
LOC: LAB 11:40
PROVIDERS: PCP Family Medicine; Visit Provider Family Medicine
DX: N18.4 Chronic kidney disease, stage 4 (severe) (principal); D63.8 Anemia in other chronic diseases classified elsewhere; D64.9 Anemia, unspecified
CPT/HCPCS: 36415; 86850

== ENCOUNTER 2024-04-28 10:20 | Outpatient (CLI) | payer MEDICARE, SELFPAY ==
[2024-04-28] VITALS (12 sets, daily range): BP systolic 109–140; BP diastolic 58–76; PULSE 64–69; RESP 14–18; TEMP 36.3–36.6; O2SAT 97–99; BMI 28.1
--- OUTSIDE RECORDS SUMMARY | 2024-04-28 10:22 | XMS_ITS | Clinical Summary ---
Author Name Unknown Address [address] [place] [address] Phone Organization [facility] Address [address] [place] [address] Phone Care Team Providers Care Septic Tank Setter Name Role Phone Unavailable Unavailable Conditions or Problems No information available. Medications No information available. Medications Administered No information available. Allergies, Adverse Reactions, Alerts No information available. Results No information available. Plan of Care No information available. Procedures No information available. Vital Signs No information available. Immunizations No information available. Advance Directives No information available.
[2024-04-28] MEDS: SODIUM CHLORIDE 0.9% 10ML FLUSH SYRINGE 10 ML IV (11:15)
[2024-04-28] MEDS: SODIUM CHLORIDE 0.9% 250ML BAG 250 ML IV (11:15)
[2024-04-28 12:35] LABS: Hematocrit 25.4 % (37.0-47.0); Hemoglobin 7.5 g/dL (12.2-16.2)
== END 2024-04-28 14:15 | disposition home or self-care (01) ==
LOC: INF 10:21
PROVIDERS: PCP Family Medicine; Visit Provider Family Medicine
DX: D64.9 Anemia, unspecified (principal); N18.4 Chronic kidney disease, stage 4 (severe)
CPT/HCPCS: 36430; 85014; 85018; P9016

== ENCOUNTER 2024-05-07 09:08 | Outpatient (CLI) | payer MEDICARE, SELFPAY ==
--- OUTSIDE RECORDS SUMMARY | 2024-05-07 09:11 | XMS_ITS | Clinical Summary ---
Author Name Unknown Address [address] [place] [address] Phone Organization [facility] Address [address] [place] [address] Phone Care Team Providers Care General Operations Agent Name Role Phone Unavailable Unavailable Conditions or Problems No information available. Medications No information available. Medications Administered No information available. Allergies, Adverse Reactions, Alerts No information available. Results No information available. Plan of Care No information available. Procedures No information available. Vital Signs No information available. Immunizations No information available. Advance Directives No information available.
[2024-05-07 09:31] VITALS: BMI 29.0
[2024-05-07 09:48] LABS: Hematocrit 28.2 % (37.0-47.0); Hemoglobin 8.3 g/dL (12.2-16.2)
--- NOTE | 2024-05-07 10:01 | PC.NURSE ---
pt presented to infusion this am. pt states she received a call yesterday stating to come for a blood transfusion this date. labs drawn to check pt's h/h. results 8.3. Dr. Peter office called and relayed message thru Emilia who states Dr. Peter does not want the patient to have a transfusion this am. Called lab to notify Lashawn. Pt updated of lab results and Dr. Peetr not wanting transfusion at this time. pt instructed to return to PCP or ED with any worsening symptoms.
== END 2024-05-07 10:07 | disposition home or self-care (01) ==
LOC: INF 09:10
PROVIDERS: PCP Psychiatry & Neurology Sleep Medicine; Visit Provider Family Medicine
DX: D64.9 Anemia, unspecified (principal); N18.4 Chronic kidney disease, stage 4 (severe)
CPT/HCPCS: 36415; 85014; 85018

== ENCOUNTER 2024-07-11 13:14 | Outpatient (CLI) | payer MEDICARE, SELFPAY ==
[2024-07-11 13:42] LABS: Hematocrit 33.5 % (37.0-47.0); Hemoglobin 9.9 g/dL (12.2-16.2); Mean Corpuscular HGB Conc 29.5 g/dL (31.8-35.4); Mean Corpuscular Hemoglobin 24.5 pg (27.0-31.2); Mean Corpuscular Volume 82.8 fl (81-99); Platelet Count 163 K/mm3 (142-424); Red Blood Count 4.04 M/mm3 (4.20-5.40); Red Cell Distribution Width 21.5 % (11.5-17.5); White Blood Count 5.3 K/mm3 (4.8-10.8)
[2024-07-11 14:27] LABS: Albumin Level 4.1 g/dl (3.5-5.0); Anion Gap 15.5 mEq/L (5-15); Blood Urea Nitrogen 44 mg/dl (7-17); Calcium 9.5 mg/dl (8.4-10.2); Carbon Dioxide 25 mmol/L (22.0-30.0); Chloride 96 mmol/L (98-107); Estimated Glomerular Filt Rate 18 ml/min (>60); GFR (African American) 22 ML/MIN (>60); Phosphorous 3.8 mg/dl (2.5-4.5); Potassium 4.5 mmoL/L (3.5-5.1); Sodium 132 mmol/L (136-145)
[2024-07-11 15:21] LABS: Iron 56 ug/dL (37-170)
[2024-07-11 15:30] LABS: Total Iron Binding Capacity 457 ug/dL (265-497)
[2024-07-11 15:58] LABS: Ferritin 15.3 ng/ml (11.1-264)
[2024-07-11 16:03] LABS: Glucose 433 mg/dl (74-100)
== END 2024-07-11 23:59 | disposition home or self-care (01) ==
LOC: LAB 13:16
PROVIDERS: PCP Family Medicine; Visit Provider Nurse Practitioner
DX: N18.4 Chronic kidney disease, stage 4 (severe) (principal)
CPT/HCPCS: 36415; 80069; 82728; 83540; 83550; 85027

== ENCOUNTER 2025-05-22 12:10 | Outpatient (CLI) | payer MEDICARE, SELFPAY ==
--- OUTSIDE RECORDS SUMMARY | 2025-02-23 07:00 | XMS_ITS ---
Author Organization [facility] Address [address] [facility] [address] [place] Garcia [id number] Care Team Providers Care Fondant Cooker Name Role Phone Canelo Peter Primary Care [...] 22 Performing Lab: Notes/Report: Test performed by [facility] [address] [place] [address] , [address], [place] [address] Angel Craig MD, Preparator CLIA: [id number] Sodium 138 135-145 mmol/L Potassium 4.3 3.5-5.3 [...] 30 days 01/07/2025 Active FreeStyle Blair 3 [place] - as directed 01/07/2025 Active Metoprolol Succinate [...] Duration: 90 days 04/25/2024 Active Nystatin-Triamcinolo ne 584485-9.1 UNIT/GM 1 application Externally Twice a day [...] 02/23/2025 Encounters Encounter Location Date Provider Diagnosis [facility]Radha 12[address] [facility] 36 [facility] [address] [place] [phone] 02/23/2025 Canelo Peter Type 2 diabetes with [...] 2 Months, Reason: Provider Name:Canelo Rojas er, 07/02/2025 01:45:00 PM, [address] [facility] 36 [facility], [address], [place], [id number], Progress Notes * FRANCIS MULLEN LDOB:[birth year] (69 yo F)Acc No.[id number]:02/23/2025 Progress Notes Patient: FRANCIS WOODS Provider: Canelo Peter M.D. :1955 A ge:69 Y S ex:Female Date:02/23/2025 Address:[address], [place], [id number] Subjective: * Chief Complaints: * 1 . 2 month f/u. 2. Needs labs, mammogram, low dose chest CT, colon cancer screening, & diabetic eye exam. * HPI: C ardiology: The patient is here for a check up on Hypertension and Diabetes. Pt states she saw the Nurse Reviewer February 13 and is scheduled to have [...] right kidney due to carcinoma, Dr. Kwok, [facility] 05/12/2023. * Hospitalization/Major Diagno stic Procedure: [...] Orally Once a day , Taking Nystatin-Triamcinolone 611397-2.1 UNIT/GM Cream 1 application Externally Twice a [...] 14 days , Taking FreeStyle Blair 3 [place] - Device as directed , Taking Admelog [...] G 2211 Complex e/[place], [address] GLYCATED HEMOGLOBIN TEST, Modifiers: QW , G8752 MOST RECENT SYSTOLIC BP < 140MM HG, G8754 MOST RECENT DIASTOLIC BP < 90MM HG, 3046F HEMOGLOBIN A1C LEVEL > 9.0% * Follow Up: 2 Months * Images: Billing Information: * Visit Code: 92051 Office Visit, Est Pt., Level 4. * Procedure Codes: G2211 Complex e/[place]. [address] GLYCATED HEMOGLOBIN TEST. Modifiers: QW G8752 MOST RECENT SYSTOLIC BP < 140MM HG. G8754 MOST RECENT DIASTOLIC BP < 90MM HG. 3046F HEMOGLOBIN A1C LEVEL > 9.0%. * Electronic signature of Canelo Peter MD on 05/22/2025 at 12:16 PM EDT Sign off status: Pending * Provider: Canelo Peter M.D. Date: 0 02/23/2025 Generated for Sherron mendez/Luis/Mariliaitting on: 0 05/22/2025 12:16 PM EDT History and Physical Notes * [...]
--- OUTSIDE RECORDS SUMMARY | 2025-04-30 09:30 | XMS_ITS ---
Author Organization [facility] Address [address] [place] [phone] Care Team Providers Care Store Deli Manager Name Role Phone Canelo Peter Primary Care Provider Allergies Allergen (clinical drug ingredient) Drug/Non Drug Allergy documented on EMR Reaction Allergy Type Onset Date Status allopurinol Allopurinol hives, eye swelling Drug Allergy Active Results Component Value Reference Range Notes P-Comprehensive Metabolic Pa elizabeth (CMP) (Not yet reviewed by provider) Interpretation:gluc 189, bun 48, Cr 2.69, gfr 18, alk phos 131, a/g 1- 05/22/25 OV Performing Lab: Notes/Report: Test performed by [facility] [address] [place] [address] , [address], [place] [address] Angel Craig MD, Yard Hostler CLIA: [id number] Sodium 137 135-145 mmol/L Potassium 5.0 3.5-5.3 [...] 0.7 <0.2-1.2 mg/dL A/G Ratio 1.0 1.1-2.5 Glycohemoglobin A1c (in hous e) Reviewed date:04/30/2025 05:45:37 PM Interpretation: Performing Lab: Notes/Report: glycohemoglobin 8.1% 5 - 6.5 % REASON FOR VISIT 2 months, Needs labs, [...] 30 days 01/07/2025 Active FreeStyle Blair 3 [place] - as directed 01/07/2025 Active FreeStyle Blair [...] ML MIS 2-42 Unit Active Nystatin-Triamcinolo ne 628233-6.1 UNIT/GM 1 application Externally Twice a day [...] 04/30/2025 Encounters Encounter Location Date Provider Diagnosis [facility]10 [facility] 36 [facility] [address] [place] [phone] 04/30/2025 Canelo Peter Type 2 diabetes mellitus [...] insulin (ICD-10 - Z79.4) Plan Of Treatment Pending Test Test Name Order Date P-Comprehensive Metabolic Panel (CMP) Next Appt Details Follow Up: 2 Months, Reason: Provider Name:Canelo Rojas er, 07/02/2025 01:45:00 PM, 1210 [facility] 36 [facility], [address], [place], [phone], Progress Notes * FRANCIS MULLEN LDOB:[birth year] (69 yo F)Acc No.[id number]:04/30/2025 Progress Notes Patient: FRANCIS WOODS Provider: Canelo Peter M.D. :1955 A ge:69 Y S ex:Female Date:04/30/2025 Address:[address] [place], [id number] Subjective: * Chief Complaints: * 1 . 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 Kwok, [facility] 05/12/2023. * Hospitalization/Major Diagno stic Procedure: H [...] orally once a day , Taking Nystatin-Triamcinolone 247480-3.1 UNIT/GM Cream 1 application Externally Twice a [...] 14 days , Taking FreeStyle Blair 3 [place] - Device as directed , Taking Admelog [...] gfr 18, alk phos 131, a/g 1- 05/22/25 OV* Value Reference Range A /G [...] G 2211 Complex e/[place], [address] GLYCATED HEMOGLOBIN TEST, Modifiers: QW , 3052F HG A1C>EQUAL 8.0%<EQUAL 9.0%, G8950 PREHTN/HTN BP DOC INDCD F/U DOC, G8752 MOST RECENT SYSTOLIC BP < 140MM HG, G8754 MOST RECENT DIASTOLIC BP < 90MM HG * Follow Up: 2 Months * Images: Billing Information: * Visit Code: 56642 Office Visit, Est Pt., Level 4. * Procedure Codes: G2211 Complex e/[place]. [address] GLYCATED HEMOGLOBIN TEST. Modifiers: QW 3052F HG A1C>EQUAL 8.0%<EQUAL 9.0%. G8950 PREHTN/HTN BP DOC INDCD F/U DOC. G8752 MOST RECENT SYSTOLIC BP < 140MM HG. G8754 MOST RECENT DIASTOLIC BP < 90MM HG. * Electronic signature of Canelo Peter MD on 05/22/2025 at 12:17 PM EDT Sign off status: Pending * Provider: Canelo Peter M.D. Date: 04/30/2025 Generated for Sherrii ng/Fajoshuag/eTransmitting on: 05/22/2025 12:17 PM EDT History and Physical Notes * [...]
--- OUTSIDE RECORDS SUMMARY | 2025-05-22 12:15 | XMS_ITS | Clinical Summary ---
Author Organization [facility] Address [address] [place] [address] Care Team Providers Care Junior Designer Name Role Phone Enrique Peter MD Primary Care Provider [phone] Allergies No known active allergies Medications busPIRone (Buspar) 7.5 MG tablet Take 1 tablet (7.5 mg) by mouth 2 (two) times a day. 3 Active DULoxetine (Cymbalta) [address] capsule Take 1 capsule (30 mg) by mouth daily. 3 Active furosemide (Lasix) 40 MG tablet Take 1 tablet (40 mg) by mouth daily. 3 Active glimepiride (Amaryl) 4 MG tablet Take 1 tablet (4 mg) by mouth daily. 3 Active HYDROcodone-xenia taminophen (Bertram) 7.5-325 MG tablet TAKE ONE TABLET BY MOUTH THREE TIMES DAILY NEEDED MAY CAUSE DROWSINESS 3 Active Lantus SoloStar 100 UNIT/ML injection pen 20 Units 3 (three) times a day. 3 Active lactulose (Chronulac) 10 GM/15ML oral solution Take 30 mL (20 g) by mouth 1 (one) time each day. 3 Active lisinopril 10 MG tablet Take 1 tablet (10 mg) by mouth daily. 3 Active metOLazone (Zaroxolyn) 2.5 MG tablet Take 1 tablet (2.5 mg) by mouth daily. 3 Active metoprolol succinate XL (Toprol-XL) 100 MG 24 hr tablet Take 1 tablet (100 mg) by mouth daily. 3 Active temazepam (Restoril) 30 MG capsule TAKE 1 CAPSULE BY MOUTH ONCE DAILY AT BEDTIME 3 Active triamterene-hyd rochlorothiazid e (Maxzide) 75-50 MG tablet Take 1 tablet by mouth daily. 3 Active Insulin Lispro (Admelog, HumaLOG) 100 UNIT/ML injection vial Inject 0.2 mL (20 Units) under the skin 3 (three) times a day with meals. Active diazePAM (Valium) 5 MG tablet Take 1 tablet (5 mg) by mouth every 8 hours as needed for anxiety. Active lisinopril 5 MG tablet Take 1 tablet (5 mg) by mouth daily. Active Insulin Glargine (BASAGLAR KWIKPEN SC) Inject 20 Units under the skin daily. Active Active Problems Problem Noted Date Diagnosed Date CKD (chronic kidney disease) stage 4, GFR 15-29 ml/min 08/25/2024 Anemia due to chronic kidney disease 08/25/2024 Iron deficiency anemia 07/18/2024 Anemia of chronic disease 04/07/2024 Overview (04/07/2024): Hgb 6.4 on OSH labs, To be completed at [facility] Encounters Date Type Department Care Team Description 05/04/2025 Telephone [facility] [address], [address] [place] [address] None, None 05/04/2025 Telephone [facility] [address], [address] [place] [address] None, None 04/27/2025 Telephone [facility] [address], [address] [place] [address] None, None 04/20/2025 Orders Only [facility] Nephrology [address] [address] Meenakshi Martin APRN CKD (chronic kidney disease) stage 4, GFR 15-29 ml/min ([facility]/HCC) (Primary Dx); Encounter for other preprocedural examination 03/31/[address] [facility] [address] [facility] 5th Floor Wing D, [address] [place] [address] Yaneli Hayes RN 03/30/[address] [facility] [address] [facility] 5th Floor Wing [address], [address] [place] [address] Yaneli Hayes RN 03/30/2025 Telephone [facility] Nephrology [address] [place] [address] Meenakshi Martin APRN from Last 3 Months Immunizations Immunization Administration Dates Next Due Influenza, High-dose, Split Virus, Trivalent, Injectable, preservative free 08/16/2020,08/26/2019 Influenza, high-dose, quadrivalent 08/16/2020, Pneumococcal Conjugate PCV 13 01/08/2019 Pneumococcal Polysaccharide PPV23 08/16/2020 Tdap 01/08/2019 Social History Tobacco Use Types Packs/Day Years Used Date Smoking Tobacco: Every Day Cigarettes Smokeless Tobacco: Never Tobacco Cessation:Ready to Q uit: Not Asked; Counseling Given: Not Answered Alcohol Use Standard Drinks/Week Comments Not Currently 0 (1 standard drink = 0.6 oz pur e alcohol) PHQ-2 Answer Date Recorded Patient Health Questionnaire-2 Score 2 02/05/2024 Comments No Sex and Gender Information Value Date Recorded Sex Assigned at Not on file Legal Sex Female 8:50 PM EDT Gender Identity Not on file Sexual Orientation Not on file Last Filed Vital Signs Vital Sign Reading Time Taken Comments Blood Pressure 125/75 02/13/2025 10:19 AM EDT Pulse 80 02/13/2025 10:19 AM EDT Temperature 36.5 C (97.7 F) 12/19/2024 10:21 AM EST Respiratory Rate 18 02/13/2025 10:19 AM EDT Oxygen Saturation 97% 02/13/2025 10:19 AM EDT Inhaled Oxygen Concentration - - Weight 93 kg (205 lb) 02/13/2025 10:19 AM EDT Height 172.7 cm (5' 8 ) 02/13/2025 10:19 AM EDT Body Mass Index 31.17 02/13/2025 10:19 AM EDT Plan of Treatment Upcoming Encounters Date Type Department Care Team (Late st Contact Info) Description 05/29/2025 12:20 PM EDT Office Visit [facility] [address] [place] [address] Meenakshi Martin, MIXING ENGINEER [address] [facility] [address] [place] [address] 06/08/2025 10:[address] [facility] [address] 5th Floor [address], [address] [place] [address] 06/08/2025 11:20 AM EDT Office Visit [facility] [address] 5th Floor [address] [place] [address] Ina Prasad MD [address] [place] [address] Health Maintenance Due Date Last Done Comments [facility]-Bone Density Scan 1955 [facility]-Diabetes: Hemoglobin A1C 1953 [facility]-Hepatitis C Screening 1955 [facility]-Medicare Annual Wellness (AWV) 1955 [facility]-/Child/Adol SDOH Screenings 1953 Diabetes: Dental Exam 1963 [facility]- SDOH Screenings 1971 [facility]-Adult SDOH Screenings 1971 CT Colonography 1998 Colonoscopy 1998 FIT-DNA 1998 FIT 1998 FOBT 1998 Sigmoidoscopy 1998 [facility]-Colorectal Cancer Screening 1998 [facility]-Breast Cancer Screening 2003 [facility]-Zoster Vaccines (1 of 2) 2003 [facility]-RSV Vaccine: 60+ Years or (1 - Risk 60-74 years 1-dose series) 2013 [id number]-RUBFL-38 Vaccine (2 - 2023- season) 2024 06/17/2021 [facility]-Depression Screening 02/04/2025 02/05/2024 [facility]-Influenza Vaccine (#1) 06/22/202508/16, 08/16/2020, 08/26/2019, Additional history exists [facility]-DTaP,Tdap,and Td Vaccines (3 - Td or Tdap) 01/08/2029 01/08/2019, 10/27/2008 [facility]-Pneumococcal Vaccine: 50+ Years Completed 08/16/2020, 01/08/2019 [facility]-Obesity Intervention Completed 025, 12/19/2024, 07/18/2024, Additional history exists HPV Vaccines Aged Out No longer eligi ble based on patient's age to complete this topic [facility]-HIB Vaccines Aged Out No longer e ligible based on patient's age to complete this topic [facility]-Hepatitis A Vaccines Aged Out No longer eligible based on patient's age to complete this topic [facility]-IPV Vaccines Aged Out No longer e ligible based on patient's age to complete this topic [facility]-Rotavirus Vaccines Aged Out No lo nger eligible based on patient's age to complete this topic Insurance GENERIC MEDICARE ADVANTAGE Care Teams Junior Designer Relationship Specialty Start Date End Date Enrique Peter MD [address] [place] [address] PCP - General 08/27/23
--- OUTSIDE RECORDS SUMMARY | 2025-05-22 12:15 | XMS_ITS | Clinical Summary ---
Author Organization [facility] Address [address] [facility] [address] [place] [address] Phone Care Team Providers Care Slab Off Mill Tender Name Role Phone Unavailable Unavailable Conditions or Problems No information available. Medications No information available. Medications Administered No information available. Allergies, Adverse Reactions, Alerts No information available. Results No information available. Plan of Care No information available. Procedures No information available. Vital Signs No information available. Immunizations No information available. Advance Directives No information available.
--- OUTSIDE RECORDS SUMMARY | 2025-05-22 12:15 | XMS_ITS | Encounter Summary ---
Author Organization Healthcare Address [address] [place] [address] Care Team Providers Care Social Work Lecturer Name Role Phone Enrique Peter MD Primary Care Provider [phone] Reason for Referral * Consultation (Urgent) - Authorized Specialty Diagnoses / Procedures Referred By Contact Referred To Contact Vascular Surgery / Comprehensive Vascular Clinic Diagnoses CKD (chronic kidney disease) stage 4, GFR 15-29 ml/min ([facility]) Encounter for other preprocedural examination Meenakshi Martin APRN [address] [address] Phone: tel:[phone] fax:[phone] [facility] [address] [facility] 5th Floor [address], [address] [place] [address] Phone: tel: fax: Referral ID Status Reason Start Date Expiration Date Visits Requested Visits Authorized [id number] Authorized Specialty Services Required 04/20/2025 10/20/2026 1 1 Scheduling Instructions Patient needs consult for dialysis access placement; mapping ordered Encounter Details Date Type Department Care Team (Late st Contact Info) Description 04/20/2025 Orders Only [facility] Nephrology [address] [place] [address] Meenakshi Martin APRN [address] [facility] [address] [place] [address] CKD (chronic kidney disease) stage 4, GFR 15-29 ml/min (CMS/HCC) (Primary Dx); Encounter for other preprocedural examination Social History Tobacco Use Types Packs/Day Years Used Date Smoking Tobacco: Every Day Cigarettes Smokeless Tobacco: Never Alcohol Use Standard Drinks/Week Comments Not Currently 0 (1 standard drink = 0.6 oz pur e alcohol) PHQ-2 Answer Date Recorded Patient Health Questionnaire-2 Score 2 02/05/2024 Comments No Sex and Gender Information Value Date Recorded Sex Assigned at Not on file Legal Sex Female 8:50 PM EDT Gender Identity Not on file Sexual Orientation Not on file documented as of this encounter Plan of Treatment Upcoming Encounters Date Type Department Care Team (Late st Contact Info) Description 05/29/2025 12:20 PM EDT Office Visit [facility] [address] [facility] [address] [place] [address] Meenakshi Martin, DEPUTY CLERK [address] [facility] [address] [place] [address] 06/08/2025 10:00 AM EDT Appointment [facility] Lab [address] [place] [address] 06/08/2025 11:20 AM EDT Office Visit [facility] [address] [facility] 5th Floor [address], [address] [place] [address] Ina Prasad MD [address] [facility] [address] [place] [address] Scheduled Referrals Name Type Priority Associated Diagnoses Orde r Schedule Ambulatory referral to Vascular Surgery Outpatient Referral Routine CKD (chronic kidney disease) stage 4, GFR 15-29 ml/min (CMS/HCC) Encounter for other preprocedural examination Expected: 04/20/2025, Expires: 10/22/2026 documented as of this encounter Visit Diagnoses Diagnosis CKD (chronic kidney disease) stage 4, GFR 15-29 ml/min (CMS/HCC)- Primary Chronic kidney disease, Stage IV (severe) Encounter for other preprocedural examination documented in this encounter Additional Health Concerns Assessment Noted Time A fall risk assessment has been complete d for the patient 02/05/2024 12:22 PM EDT A Body Mass Index follow-up plan has been documented for the patient 02/13/2025 10:53 AM EDT documented as of this encounter Care Teams Social Work Lecturer Relationship Specialty Start Date End Date Enrique Peter MD [address] [place] [address] PCP - General 08/27/23 documented as of this encounter
--- OUTSIDE RECORDS SUMMARY | 2025-05-22 12:16 | XMS_ITS | Encounter Summary ---
Author Organization Healthcare Address [address] [place] [address] Care Team Providers Care Fittings Tightener Name Role Phone Enrique Peter MD Primary Care Provider [phone] Encounter Details Date Type Department Care Team (Late Contact Info) Description 04/27/2025 Telephone [facility] [address] [facility] 5th Floor Wing [address], [address] [place] [address] None, None [address] [phone] Social History Tobacco Use Types Packs/Day Years [...] on file documented as of this encounter Miscellaneous Notes * Telephone Encounter - Carmen Cruz - 04/27/2025 2:22 PM EDT Lvm for pt to call and schedule. Left clinic number documented in this encounter Plan of Treatment Upcoming Encounters Date Type Department Care Team (Late st Contact Info) Description 05/29/2025 12:20 PM EDT Office Visit [facility] [address] [place] [address] Meenakshi Martin, PILL MAKER [address] [facility] [address] [place] [address] 06/08/2025 10:00 AM EDT Appointment [facility] Vascular Lab [address] [facility] 5th Floor Wing [address], [address] [place] [address] 06/08/2025 11:20 AM EDT Office Visit [facility] [address] Floor [address] [place] [address] Ina Prasad MD [address] [facility] [address] [place] [address] documented as of this encounter Visit Diagnoses Not on filedocumented in this encounter Additional Health Concerns Assessment Noted Time A fall risk assessment has been complete d for the patient 02/05/2024 12:22 PM EDT A Body Mass Index follow-up plan has been documented for the patient 02/13/2025 10:53 AM EDT documented as of this encounter Care Teams Fittings Tightener Relationship Specialty Start Date End Date Enrique Peter MD [address] [facility] [address] [place] [address] PCP - General 08/27/23 documented as of this encounter
--- OUTSIDE RECORDS SUMMARY | 2025-05-22 12:16 | XMS_ITS | Encounter Summary ---
Author Organization Healthcare Address [address] [place] [address] Care Team Providers Care Text Transcriber Name Role Phone Enrique Peter MD Primary Care Provider [phone] Encounter Details Date Type Department Care Team (Late Contact Info) Description 03/31/2025 Telephone [facility] [facility] [address] [facility] 5th Floor Wing [address], [address] [place] [address] Yaneli Hayes RN PROGRESSIVE-ACUTE UNIT 9-T1 AND T2 Social History Tobacco Use Types Packs/Day Years [...] encounter Miscellaneous Notes * Telephone Encounter - Yaneli Hayes RN - 03/31/2025 8:20 AM EDT Attempted call to patient to confirm appointment, Appointment time, date, locations left in VM. Clinic number given for call back. documented in this encounter Plan of Treatment Upcoming Encounters Date Type Department Care Team (Late Contact Info) Description 05/29/2025 12:20 PM EDT Office Visit [facility] [address] [place] [phone] Meenakshi Martin FARMER DIVERSIFIED CROPS [address] [facility] [address] [place] [phone] 06/08/2025 10:00 AM EDT Appointment [facility] Vascular Lab [address] [facility] 5th Floor [address], [address] [place] [address] 06/08/2025 11:20 AM EDT Office Visit [facility] [address] [place] [address] Ina Prasad MD [address] [facility] [address] [place] [address] documented as of this encounter Visit Diagnoses Not on filedocumented in this encounter Additional Health Concerns Assessment Noted Time A fall risk assessment has been complete d for the patient 02/05/2024 12:22 PM EDT A Body Mass Index follow-up plan has been documented for the patient 02/13/2025 10:53 AM EDT documented as of this encounter Care Teams Text Transcriber Relationship Specialty Start Date End Date Enrique Peter MD [address] [facility] [address] [place] [address] PCP - General 08/27/23 documented as of this encounter
--- OUTSIDE RECORDS SUMMARY | 2025-05-22 12:16 | XMS_ITS | Encounter Summary ---
Author Organization Healthcare Address [address] [place] [address] Care Team Providers Care Tug Boat Captain Name Role Phone Enrique Peter MD Primary Care Provider [phone] Encounter Details Date Type Department Care Team (Late Contact Info) Description 05/04/2025 Telephone [facility] [address] [facility] 5th Floor [address], [address] [place] [address] None, None [address] [phone] Social History Tobacco Use Types Packs/Day Years [...] * Telephone Encounter - Carmen Cruz - 05/04/2025 1:56 PM EDT Lvm for pt to call and schedule appt. Left clinic number documented in this encounter Plan of Treatment Upcoming Encounters Date Type Department Care Team (Late st Contact Info) Description 05/29/2025 12:20 PM EDT Office Visit [facility] [address] [place] [address] Meenakshi Martin, FUSION OPERATOR [address] [facility] [address] [place] [address] 06/08/2025 10:00 AM EDT Appointment [facility] Vascular Lab [address] [facility] 5th Floor [address], [address] [place] [address] 06/08/2025 11:20 AM EDT Office Visit [facility] [address] [place] [address] Ina Prasad MD [address] [facility] [address] [place] [address] documented as of this encounter Visit Diagnoses Not on filedocumented in this encounter Additional Health Concerns Assessment Noted Time A fall risk assessment has been complete d for the patient 02/05/2024 12:22 PM EDT A Body Mass Index follow-up plan has been documented for the patient 02/13/2025 10:53 AM EDT documented as of this encounter Care Teams Tug Boat Captain Relationship Specialty Start Date End Date Enrique Peter MD [address] [place] [address] PCP - General 08/27/23 documented as of this encounter
--- OUTSIDE RECORDS SUMMARY | 2025-05-22 12:16 | XMS_ITS | Encounter Summary ---
Author Organization Healthcare Address [address] [place] [address] Care Team Providers Care Hammer Smith Name Role Phone Enrique Peter MD Primary Care Provider [phone] Encounter Details Date Type Department Care Team (Late Contact Info) Description 05/04/2025 Telephone [place] [facility] [address] [facility] 5th Floor [address], [address] [place] [address] None, None [address] [phone] Social History Tobacco Use Types Packs/Day Years [...] Telephone Encounter - Carmen Cruz - 05/04/2025 2:14 PM EDT Spoke with the patient's spouse about setting up an appt. Scheduled with the and they are aware and agreeable to the time/date/location and does not have questions at this time documented in this encounter Plan of Treatment Upcoming Encounters Date Type Department Care Team (Late Contact Info) Description 05/29/2025 12:20 PM EDT Office Visit [facility] [address] [place] [address] Meenakshi Martin, SPECIAL SKILLS OFFICER [address] [facility] [address] [place] [address] 06/08/2025 10:00 AM EDT Appointment [facility] Lab [address] [facility] 5th Floor [address] [place] [address] 06/08/2025 11:20 AM EDT Office Visit [facility] [address] [facility] 5th Floor [address] [place] [address] Ina Prasad MD [address] [facility] [address] [place] [address] documented as of this encounter Visit Diagnoses Not on filedocumented in this encounter Additional Health Concerns Assessment Noted Time A fall risk assessment has been complete d for the patient 02/05/2024 12:22 PM EDT A Body Mass Index follow-up plan has been documented for the patient 02/13/2025 10:53 AM EDT documented as of this encounter Care Teams Hammer Smith Relationship Specialty Start Date End Date Enrique Peter MD [address] [place] [address] PCP - General 08/27/23 documented as of this encounter
--- OUTSIDE RECORDS SUMMARY | 2025-05-22 12:16 | XMS_ITS | Encounter Summary ---
Author Organization Healthcare Address [address] [place] [address] Care Team Providers Care Tree Planter Name Role Phone Enrique Peter MD Primary Care Provider [phone] Encounter Details Date Type Department Care Team (Late Contact Info) Description 03/30/2025 Telephone [facility] [address] [facility] 5th Floor [address], [address] [place] [address] Yaneli Hayes RN PROGRESSIVE-ACUTE UNIT 9-T1 AND [...] Telephone Encounter - Yaneli Hayes RN - 03/30/2025 2:53 PM EDT Attempted call to patient to confirm time, date, location. [facility] with [facility], [facility] Bishop [facility]. Left clinic number for call back. documented in this encounter Plan of Treatment Upcoming Encounters Date Type Department Care Team (Late Contact Info) Description 05/29/2025 12:20 PM EDT Office Visit [facility] [address] [place] [address] Meenakshi Martin, BATTERY MECHANIC [address] [facility] [address] [place] [address] 06/08/2025 10:00 AM EDT Appointment [facility] Lab [address] [facility] 5th Floor [address] [place] [address] 06/08/2025 11:20 AM EDT Office Visit [facility] [address] [place] [address] Ina Prasad MD [address] [facility] [address] [place] [address] documented as of this encounter Visit Diagnoses Not on filedocumented in this encounter Additional Health Concerns Assessment Noted Time A fall risk assessment has been complete d for the patient 02/05/2024 12:22 PM EDT A Body Mass Index follow-up plan has been documented for the patient 02/13/2025 10:53 AM EDT documented as of this encounter Care Teams Tree Planter Relationship Specialty Start Date End Date Enrique Peter MD [address] [place] [address] PCP - General 08/27/23 documented as of this encounter
--- OUTSIDE RECORDS SUMMARY | 2025-05-22 12:16 | XMS_ITS | Encounter Summary ---
Author Organization Healthcare Address [address] [place] [address] Care Team Providers Care Security Officers And Guards Name Role Phone Enrique Peter MD Primary Care Provider [phone] Reason for Referral * Imaging (Routine) - Authorized Specialty Diagnoses / Procedures Referred By Real farrell Referred To Contact Cardiology Diagnoses CKD (chronic kidney disease) stage 4, GFR 15-29 ml/min (CMS/HCC) Procedures VAS US Hemodialysis Mapping Artery Vein Bilateral Meenakshi Martin APRN [address] [address] Phone: tel: fax: Referral ID Status Reason Start Date Expiration Date Visits Requested Visits Authorized [id number] Authorized Perform Procedure 03/30/2025 09/29/2026 1 1 Encounter Details Date Type Department Care Team (Late st Contact Info) Description 03/30/2025 Telephone [facility] Nephrology [address] [place] [address] Meenakshi Martin APRN [address] [address] Social History Tobacco Use Types Packs/Day Years [...] 05/29/2025 12:20 PM EDT Office Visit [facility] [address] [place] [phone] Meenakshi Martin, QUALITY CONTROL ASSISTANT [address] [facility] [address] [place] [id number] 06/08/2025 10:00 AM EDT Appointment [facility] Vascular Lab [address] [facility] 5th Floor [address] [place] [address] 06/08/2025 11:20 AM EDT Office Visit [facility] [address] [facility] 5th Floor [address] [place] [address] Ina Prasad MD [address] [facility] [address] [place] [address] Scheduled Orders Name Type Priority Associated Diagnoses Orde r Schedule VAS US Hemodialysis Mapping Artery Vein Bilateral Vascular Ultrasound Routine CKD (chronic kidney disease) stage 4, GFR 15-29 ml/min (CMS/HCC) Ordered: 03/30/2025 documented as of this encounter Visit Diagnoses Diagnosis CKD (chronic kidney disease) stage 4, GFR 15-29 ml/min (CMS/HCC)- Primary Chronic kidney disease, Stage IV (severe) documented in this encounter Additional Health Concerns Assessment Noted Time A fall risk assessment has been complete d for the patient 02/05/2024 12:22 PM EDT A Body Mass Index follow-up plan has been documented for the patient 02/13/2025 10:53 AM EDT documented as of this encounter Care Teams Security Officers And Guards Relationship Specialty Start Date End Date Enrique Peter MD [address] [place] [phone] PCP - General 08/27/23 documented as of this encounter
--- OUTSIDE RECORDS SUMMARY | 2025-05-22 12:17 | XMS_ITS | Referral Summary ---
Author Organization [employer] ([place], [place], [place], [place]) Address [address] [place] [address] Care Team Providers Care City Detective Name Role Phone Provider Not In System, [facility] Primary Care Provide r Unavailable Allergies No known active allergies Medications metoprolol succinate (TOPROL-XL) 100 MG 24 hr tabletIndicati ons:hypertensi on Take 1 tablet (100 mg total) by mouth daily. Active insulin glargine (LANTUS, SEMGLEE) 100 unit/mL injectionIndic ations:type 1 diabetes mellitus Inject 15 Units subcutaneously every morning Use as directed. Active lactulose (CHRONULAC) 20 gram/30 mL solution Take 30 mLs (20 g total) by mouth daily. 200 mL Active Active Problems Problem Noted Date Diagnosed Date Tobacco abuse 04/17/2023 Renal mass, left 04/17/2023 Robotic assisted laparoscopi c radical right nephrectomy with intraoperative ultrasound 04/17/2023 Lung nodules 04/13/2023 Liver lesion 04/13/2023 Cholelithiasis 04/13/2023 Right lower lobe lung consolidation 04/13/2023 Renal mass, right 04/13/2023 Liver cirrhosis 04/12/2023 Splenomegaly 04/12/2023 Ascites 04/12/2023 Left hip pain with a h/o L ANANTH 04/12/2023 Rt leg Cellulitis 04/11/2023 Severe Protein calorie malnutrition (HCC), 04/11 Diarrhea 04/11/2023 Hypoalbuminemia 04/11/2023 Elevated AST (SGOT) 04/11/2023 UTI (urinary tract infection) 04/11/2023 LOYD (acute kidney injury) 04/11/2023 Muscle weakness (generalized) 04/11/2023 Anemia 04/11/2023 Tobacco use disorder, continuous 04/11/2023 Obesity (BMI 30.0-34.9) 04/11/2023 CAD (coronary artery disease) with a h/o 2 stent placement 04/11/2023 Diabetes mellitus (HCC) , type 2 04/11/2023 HTN (hypertension) 04/11/2023 Hypercholesterolemia 04/11/2023 GERD (gastroesophageal reflux disease) Bilateral LEsEdema 04/11/2023 S/P total hip arthroplasty Left 04/11/2023 Glossitis 04/11/2023 Iron deficiency 04/11/2023 Social History Tobacco Use Types Packs/Day Years Used Date Smoking Tobacco: Former Cigarettes 1 20 0 04/01/2003 - 04/01/2023 Tobacco Cessation:Counseling Given: Not Answered Alcohol Use Standard Drinks/Week Comments Never 0 (1 standard drink = 0.6 oz pur e alcohol) PRAPARE - Transportation Answer Date Re corded In the past 12 months, has l ack of transportation kept you from medical appointments or from getting medications? Patient declined 04/11/2023 Lack of Transportation (Non-Medical) Not on file 04/11/2023 Food Insecurity Answer Date Recorded Food run out past 12 months Not on file 10/22 Food did not last past 12 months Not on file 11/02/2023 Employment Answer Date Recorded Help finding and keeping a job Not on file 0 11/02/2023 Family and Community Support Answer Kwasi e Recorded Help with Day to Day Activities Not on file 11/02/2023 Feeling Lonely or Isolated Not on file 11/02 Educational Attainment Answer Date Renny rded Speak language other than Georgian at home Not on file 11/02/2023 Want help with school or training Not on file 11/02/2023 Substance Use Answer Date Recorded Used prescription meds for non-medical reasons N ot on file 11/02/2023 Used illegal drugs past 12 months Not on file 11/02/2023 Comments Unknown Sex and Gender Information Value Date Recorded Sex Assigned at Not on file Legal Sex Female 8:34 AM CDT Gender Identity Not on file Sexual Orientation Not on file Last Filed Vital Signs Vital Sign Reading Time Taken Comments Blood Pressure 131/60 04/22/2023 12:25 PM EDT Pulse 65 04/22/2023 12:25 PM EDT Temperature 36.8 C (98.2 F) 04/22/2023 12:25 PM EDT Respiratory Rate 17 04/22/2023 12:2 5 PM EDT Oxygen Saturation 98% 04/22/2023 12: 25 PM EDT Inhaled Oxygen Concentration - - Weight 99.3 kg (218 lb 14.7 oz) 023 11:00 AM EDT Height 170.2 cm (5' 7 ) 04/11/2023 11:0 0 AM EDT Body Mass Index 34.29 04/11/2023 11:00 AM EDT Plan of Treatment Not on file Procedures Procedure Name Priority Date/Time Associated Diagnosis Comments HEPATITIS PANEL, ACUTE Routine 04/13/2023 3:29 AM EDT HEMOGLOBIN A1C Add-On 04/11/2023 12:14 PM EDT from Last 3 Months or Most Recently Relevant to Health Maintenance Results * Hepatitis panel, acute (04/13/2023 3:29 AM EDT) Hep A IgM Nonreactive Nonreactive, Equivocal 04/13/2023 5:34 AM EDT [facility] Hep B C IgM Nonreactive Nonreactive 04/13/2023 5:34 AM EDT [facility] Hepatitis B surface antigen Nonreactive Nonreactive, Equivocal 04/13/2023 5:34 AM EDT [facility] Hepatitis C Ab Nonreactive Nonreactive, Equivocal 04/13/2023 5:34 AM EDT [facility] Blood Venipuncture / Unknown 04/13/2023 3:29 AM EDT 04/13/2023 3:55 AM EDT [facility] - 04/13/2023 5:34 AM EDT Hepatitis A Antibody IgM: (a) A negative test result does not exclude the possibility of exposure to the hepatitis A virus. (b) This test can be used to determine if a patient has or recently had an acute or asymptomatic hepatitis A infection. (c) A reactive result does not exclude co-infection by another hepatitis virus. Biotin supplements can cause clinically significant incorrect lab results. The FDA has seen an increase in the number of adverse events related to biotin interference with lab tests. Hepatitis B Core Antibody IgM: A reactive anti-HBc IgM result does not exclude co-infection by another hepatitis virus. Biotin supplements can cause clinically significant incorrect lab results. The FDA has seen an increase in the number of adverse events related to biotin interference with lab tests. Hepatitis B Surface Antibody Qual: This test does not differentiate between a vaccine induced immune response and an immune response induced by infection with HBV. Individuals that have received blood component therapies, (e.g. whole blood, plasma, immunoglobulin) administered during the previous 3 to 6 months may have a false reactive anti HBs due to passive transfer of anti HBs. A positive anti HBs result does not exclude co infection by another hepatitis virus. Biotin supplements can cause clinically significant incorrect lab results. The FDA has seen an increase in the number of adverse events related to biotin interference with lab tests. Hepatitis B Surface Antigen: This test may not detect all HBV mutants. If acute or chronic HBV infection is suspected and this test is non-reactive other HBV markers should be tested. Biotin supplements can cause clinically significant incorrect lab results. The FDA has seen an increase in the number of adverse events related to biotin interference with lab tests. Hepatitis C Antibody: A negative test result does not exclude the possibility of exposure to the hepatitis C virus and a reactive result does not exclude co-infection by another hepatitis virus. Biotin supplements can cause clinically significant incorrect lab results. The FDA has seen an increase in the number of adverse events related to biotin interference with lab tests. Brian Gandara MD LAB BLOOD ORDERABLES Final Res ult [facility] [address] [phone] * (ABNORMAL) Hemoglobin A1c (04/11/2023 12:14 PM EDT) Hemoglobin A1C 8.7(H) 4.2 - 6.3 % 04/11/2023 4:30 PM EDT [facility] Comment: Hemoglobin A1C levels are related to mean glucose during the preceding 2-3 months. Less than 7% demonstrates glycemic control in diabetic patients. Hemoglobin AlC % Suggested Diagnosis > or = 6.5 Diabetic 5.7 - 6.4 Prediabetic <5.7 Non-diabetic eAVG Glucose 202.99 mg/dL 04/11/2023 4:30 PM EDT [facility] Blood ANTECUBITAL REGION STRUCTURE / Unknown Venipuncture / Unknown 04/11/2023 12:14 PM EDT 04/11/2023 12:20 PM EDT us Madan Winter MD LAB BLOOD ORDERABLES Final Resul t [facility] [address] [phone] from Last 3 Months or Most Recently Relevant to Health Maintenance Insurance [employer] MEDICARE PPO Advance Directives For more information, please contact: [phone] * Full Code (Latest Code Status on File) Date Activated Date Inactivated Comments 04/11/2023 10:31 AM 04/22/2023 5:15 PM Care Teams City Detective Relationship Specialty Start Date End Date Provider Not In System, McT PCP - General 04/11/23
--- OUTSIDE RECORDS SUMMARY | 2025-05-22 12:17 | XMS_ITS | Clinical Summary ---
Author Organization [facility] [place] [address] Care Team Providers Care Currency Machine Operator Name Role Phone Unavailable Primary Care Provider Unavailabl e Social History Tobacco Use Types Packs/Day Years Used Date Smoking Tobacco: Never Assessed Comments Unknown Sex and Gender Information Value Date Recorded Sex Assigned at Not on file Legal Sex Female 7:47 AM EDT Gender Identity Not on file Sexual Orientation Not on file Plan of Treatment Health Maintenance Due Date Last Done Comments Annual Wellness Exam 1956 Hepatitis C Screening 1971 DTaP/TDaP/Td (1 - Tdap) 1972 Cologuard 1998 Colon Cancer Screening 1998 Colonoscopy 1998 FIT 1998 Sigmoidoscopy 1998 Virtual Colonography 1998 Pneumococcal Vaccine 50+ (1 of 1 - PCV) 2003 Zoster (1 of 2) 2003 Bone Density Screening 2018 COVID-19 Vaccine ( - 2023-2 5 season) 2024 Influenza Vaccine (#1) 2025 Hepatitis B Vaccine Aged Out No longe r eligible based on patient's age to complete this topic Meningococcal B Vaccine Aged Out No l onger eligible based on patient's age to complete this topic
--- OUTSIDE RECORDS SUMMARY | 2025-05-22 12:17 | XMS_ITS | Clinical Summary ---
Author Organization [employer] ([place], [place], [place], [place]) Address [address] [place] [address] Care Team Providers Care Cleat Layer Name Role Phone Provider Not In System, [facility] Primary Care Provide r Unavailable Allergies No [...] Left 04/11/2023 Glossitis 04/11/2023 Iron deficiency 04/11/2023 Family History Medical History Relation Name Comments Diabetes Maternal Grandfather Diabetes Maternal Grandmother Diabetes Paternal Grandfather Diabetes Paternal Grandmother Relation Name Status Comments Maternal Grandfather Maternal Grandmother Paternal Grandfather Paternal Grandmother Social History Tobacco Use Types Packs/Day Years [...] Date Renny rded Speak language other than Paraguayan at home Not on file 11/02/2023 Want [...] 04/11/2023 11:00 AM EDT Plan of Treatment Health Maintenance Due Date Last Done Comments CT Colonography 1953 Colonoscopy 1953 Colorectal Cancer Screening 1953 DXA SCAN 1953 Diabetic Kidney Health Evaluation (KED) 1953 FOBT/FIT 1953 Fit-DNA (Cologuard) 1953 Sigmoidoscopy 1953 Diabetic Eye Exam 1963 Depression Screening (12+) 1965 Tobacco Cessation Counseling and Screening (12+) 1965 Breast Cancer Screening 1993 Shingles Vaccine (Zoster) (1 of 2) 2003 Respiratory Syncytial Virus (RSV) Adult or (1 - Risk 60-74 years 1-dose series) 2013 Hemoglobin A1C 10/11/2023 04/11/2023 Medicare Initial AWV [id number] 10/23/2023 COVID-19 VACCINE (2 - 2023- season) 2024 Falls Risk Screening 10/22/2024 Influenza Vaccine (#1) 2025 08/16/2020, 2018 DTAP/TDAP/TD VACCINES (2 - Td or Tdap) 01/08/2029 Pneumococcal 50+ years Completed 08/16/2020, 2018 Hepatitis C Screening Completed 04/13/2023 Procedures Procedure Name Priority Date/Time Associated Diagnosis Comments HEPATITIS PANEL, ACUTE Routine 04/13/2023 3:29 AM EDT HEMOGLOBIN A1C Add-On 04/11/2023 12:14 PM EDT from Last 3 Months or Most Recently Relevant to Health Maintenance Results * Hepatitis panel, acute (04/13/2023 3:29 AM EDT) Hep A IgM Nonreactive Nonreactive, Equivocal 04/13/2023 5:34 AM EDT [facility] Hep B C IgM Nonreactive Nonreactive 04/13/2023 5:34 AM EDT [facility] Hepatitis B surface antigen Nonreactive Nonreactive, Equivocal 04/13/2023 5:34 AM EDT [facility] Hepatitis C Ab Nonreactive Nonreactive, Equivocal 04/13/2023 5:34 AM EDT [facility] Blood Venipuncture / Unknown 04/13/2023 3:29 AM EDT 04/13/2023 3:55 AM EDT Narrative [facility] - 04/13/2023 5:34 AM EDT Hepatitis [...] MD LAB BLOOD ORDERABLES Final Res ult Performing Organization Address [facility] de Phone Number [facility] [address] [phone] * (ABNORMAL) Hemoglobin A1c (04/11/2023 12:14 PM EDT) Hemoglobin A1C 8.7(H) 4.2 - 6.3 % 04/11/2023 4:30 PM EDT [facility] Comment: Hemoglobin A1C levels are related to mean glucose during the preceding 2-3 months. Less than 7% demonstrates glycemic control in diabetic patients. Hemoglobin AlC % Suggested Diagnosis > or = 6.5 Diabetic 5.7 - 6.4 Prediabetic <5.7 Non-diabetic eAVG Glucose 202.99 mg/dL 04/11/2023 4:30 PM EDT [facility] Blood ANTECUBITAL REGION STRUCTURE / Unknown Venipuncture / Unknown 04/11/2023 12:14 PM EDT 04/11/2023 12:20 PM EDT Madan Winter MD LAB BLOOD ORDERABLES Final Resul t Performing Organization Address [facility] de Phone Number [facility] [address] [phone] from Last 3 Months or Most Recently Relevant to Health Maintenance Insurance [employer] MEDICARE PPO Advance Directives For more information, please contact: [phone] * Full Code (Latest Code Status on File) Date Activated Date Inactivated Comments 04/11/2023 10:31 AM 04/22/2023 5:15 PM Care Teams Cleat Layer Relationship Specialty Start Date End Date Provider Not In System, McT PCP - General 04/11/23
--- NOTE | 2025-05-22 12:19 | XR_ITS ---
FINAL REPORT CLINICAL HISTORY: LT HIP PAIN FINDINGS: An AP view of the pelvis and a frog leg view of the left hip were obtained. There are postoperative changes from hip arthroplasty. The hardware is intact. There is no acute fracture or dislocation. Remaining osseous pelvis is without acute abnormality. Soft tissues are unremarkable. IMPRESSION: Postoperative changes without acute osseous abnormality of the left hip. Reviewed, Interpreted and Dictated by Stephanie Lea MD Transcribed by Bri Stone Authenticated and [facility]
== END 2025-05-22 23:59 | disposition home or self-care (01) ==
LOC: RAD 12:14
PROVIDERS: PCP Family Medicine; Visit Provider Family Medicine
DX: M25.552 Pain in left hip (principal); Z96.642 Presence of left artificial hip joint
CPT/HCPCS: 73502

== ENCOUNTER 2025-05-29 12:29 | Outpatient (CLI) | payer MEDICARE, SELFPAY ==
--- OUTSIDE RECORDS SUMMARY | 2025-02-23 07:00 | XMS_ITS ---
Author Organization [facility] Address [address] [facility] [address] [place] Garcia [id number] Care Team Providers Care Crushing Machine Operator Name Role Phone Canelo Peter [...] 22 Performing Lab: Notes/Report: Test performed by [facility] [address] [place] [address] , [address], [place] [address] Angel Craig MD, Coding Support Specialist CLIA: [id number] Sodium 138 135-145 mmol/L Potassium 4.3 3.5-5.3 [...] 30 days 01/07/2025 Active FreeStyle Blair 3 [place] - as directed 01/07/2025 Active Metoprolol Succinate [...] Duration: 90 days 04/25/2024 Active Nystatin-Triamcinolo ne 430336-7.1 UNIT/GM 1 application Externally Twice a day [...] Encounter Location Date Provider Diagnosis SHERMANA-Radha 1210 [facility] 36 [facility] [address] [place], [place] [phone] 02/23/2025 Canelo Peter Type 2 diabetes with [...] Name:Canelo Rojas er, 07/02/2025 01:45:00 PM, 1210 [facility] 36 [facility], [address], [place], [phone], Progress Notes * FRANCIS MULLEN LDOB:[birth year] (69 yo F)Acc No.[id number]:02/23/2025 Progress Notes Patient: FRANCIS WOODS Provider: Canelo Peter M.D. :1955 A ge:69 Y S ex:Female Date:02/23/2025 Address:[address], [place], [id number] Subjective: * Chief Complaints: * 1 . 2 month f/u. 2. Needs labs, mammogram, low dose chest CT, colon cancer screening, & diabetic eye exam. * HPI: C ardiology: The patient is here for a check up on Hypertension and Diabetes. Pt states she saw the Agricultural Equipment Operator February 13 and is scheduled to have [...] right kidney due to carcinoma, Dr. Kwok, [facility] 05/12/2023. * Hospitalization/Major Diagno stic Procedure: [...] Orally Once a day , Taking Nystatin-Triamcinolone 560456-9.1 UNIT/GM Cream 1 application Externally Twice a [...] 14 days , Taking FreeStyle Blair 3 [place] - Device as directed , Taking Admelog [...] G 2211 Complex e/[place], [address] GLYCATED HEMOGLOBIN TEST, Modifiers: QW , G8752 MOST RECENT SYSTOLIC BP < 140MM HG, G8754 MOST RECENT DIASTOLIC BP < 90MM HG, 3046F HEMOGLOBIN A1C LEVEL > 9.0% * Follow Up: 2 Months * Images: Billing Information: * Visit Code: 53824 Office Visit, Est Pt., Level 4. * Procedure Codes: G2211 Complex e/[place]. [address] GLYCATED HEMOGLOBIN TEST. Modifiers: QW G8752 MOST RECENT SYSTOLIC BP < 140MM HG. G8754 MOST RECENT DIASTOLIC BP < 90MM HG. 3046F HEMOGLOBIN A1C LEVEL > 9.0%. * Electronic signature of Canelo Peter MD on 05/29/2025 at 12:32 PM EDT Sign off status: Pending * Provider: Canelo Peter M.D. Date: 0 02/23/2025 Generated for Sherron mendez/Luis/Mariliaitting on: 0 05/29/2025 12:32 PM EDT History and Physical Notes * [...]
--- OUTSIDE RECORDS SUMMARY | 2025-04-30 09:30 | XMS_ITS ---
Author Organization [facility] Address [address] [place] [id number] Care Team Providers Care Accounting Bookkeeper Name Role Phone Canelo Peter Primary Care Provider [phone] Allergies Allergen (clinical drug ingredient) Drug/Non Drug [...] OV Performing Lab: Notes/Report: Test performed by Suda, KDS [facility] , [address], [place] [address] Angel Craig MD, Integration Engineer CLIA: [id number] Sodium 137 135-145 mmol/L Potassium 5.0 3.5-5.3 [...] 30 days 01/07/2025 Active FreeStyle Blair 3 [place] - as directed 01/07/2025 Active FreeStyle Blair [...] ML MIS 2-42 Unit Active Nystatin-Triamcinolo ne 194708-2.1 UNIT/GM 1 application Externally Twice a day [...] 04/30/2025 Encounters Encounter Location Date Provider Diagnosis [facility] [address] [facility] [address] [facility] [address] [place], [place] [id number] 04/30/2025 Canelo Peter Type 2 diabetes mellitus [...] Name:Canelo Rojas er, 07/02/2025 01:45:00 PM, [address] [facility] [address] [facility], [address], [place], [place], [phone], Progress Notes * FRANCIS MULLEN LDOB:[birth year] (69 yo F)Acc No.[id number]:04/30/2025 Progress Notes Patient: Charlie ROMANSTARLAFRANCIS Provider: Canelo Peter M.D. :1955 A ge:69 Y S ex:Female Date:04/30/2025 Address:[address] [place] [address], [place], [id number] Subjective: * Chief Complaints: * 1 . 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 Kwok, [facility] 05/12/2023. * Hospitalization/Major Diagno stic Procedure: H [...] orally once a day , Taking Nystatin-Triamcinolone 014815-4.1 UNIT/GM Cream 1 application Externally Twice a [...] 14 days , Taking FreeStyle Blair 3 [place] - Device as directed , Taking Admelog [...] G 2211 Complex e/[place], [address] GLYCATED HEMOGLOBIN TEST, Modifiers: QW , 3052F HG A1C>EQUAL 8.0%<EQUAL 9.0%, G8950 PREHTN/HTN BP DOC INDCD F/U DOC, G8752 MOST RECENT SYSTOLIC BP < 140MM HG, G8754 MOST RECENT DIASTOLIC BP < 90MM HG * Follow Up: 2 Months * Images: Billing Information: * Visit Code: 38187 Office Visit, Est Pt., Level 4. * Procedure Codes: G2211 Complex e/[place]. [address] GLYCATED HEMOGLOBIN TEST. Modifiers: QW 3052F HG [...] 04/30/2025 Generated for Sherron mendez/Luis/eTransmitting on: 0 05/29/2025 12:32 PM EDT History [...]
--- OUTSIDE RECORDS SUMMARY | 2025-05-22 07:15 | XMS_ITS ---
[facility] [address] [place] [phone] Care Team Providers Care Manager Emergency Department Name Role Phone Canelo Peter Primary Care [...] Left hip pain (M25.5 52) [facility] Referring Provider First Name Canelo Lewis Referring Provider Last Name oRme Referring Provider Speciality Family [facility] ctice Referral Priority Routine REASON FOR VISIT [...] 30 days 01/07/2025 Active FreeStyle Blair 3 [place] - as directed 01/07/2025 Active Admelog SoloStar [...] times a day 05/22/2025 Active Nystatin-Triamcinolo ne 900400-4.1 UNIT/GM 1 application Externally Twice a day 11/20/2024 Active Problems Problem Type SNOMED Code ICD Code Onset Dates Problem Status W/U Status Risk Notes Problem History of prosthetic arthroplasty of left hip (079835132431844 7) Status post left hip replacement (Z96.642) Active confirmed Vital Signs Blood pressure systolic 130 mm Hg 05/22/20 25 Blood pressure diastolic 70 mm Hg 025 Heart Rate 54 /min 05/22/2025 Height 65 in 05/22/2025 Weight 211.8 lbs 05/22/2025 BMI 35.24 kg/m2 05/22/2025 Encounters Encounter Location Date Provider Diagnosis [facility] [address] [facility] [address] [place] [phone] 05/22/2025 Canelo Peter Left hip pain M25.55 [...] 4 Weeks, Reason: Provider Name:Canelo Rojas er, 07/02/2025 01:45:00 PM, [address] [facility] [address] [facility], [address], [place], [place], [phone], Progress Notes * FRANCIS MULLEN LDOB:[birth year] (69 yo F)Acc No.[id number]:05/22/2025 Progress Notes Patient: FRANCIS WOODS Provider: Canelo Peter M.D. :1955 A ge:69 Y S ex:Female Date:05/22/2025 Address:[facility] [place], [id number] Subjective: * Chief Complaints: * 1 . 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 Kwok, [facility] 05/12/2023. * Hospitalization/Major Diagno stic Procedure: [...] orally once a day , Taking Nystatin-Triamcinolone 204393-5.1 UNIT/GM Cream 1 application Externally Twice a [...] 14 days , Taking FreeStyle Blair 3 [place] - Device as directed , Taking Admelog [...] H eart: R SR , aortic murmur. Lungs: c lear to auscultation. A bdomen: soft [...] Dr. Aguilar's office 1:00 PM 05/25/25 * Follow Up: 4 Weeks * Images: Billing Information: * Visit Code: 89601 Office Visit, Est Pt., Level 4. * Procedure Codes: * Electronic signature of Canelo Peter MD on 05/29/2025 at 12:32 PM EDT Sign off status: Pending * Provider: Canelo Peter M.D. Date: 0 05/22/2025 Generated for Sherrii vanessa/Luis/eTransmitting on: 0 05/29/2025 12:32 PM EDT History [...]
--- OUTSIDE RECORDS SUMMARY | 2025-05-29 12:20 | XMS_ITS | Encounter Summary ---
Author Organization [facility] Address [address] [place] [address] Care Team Providers Care Geospatial Specialist Name Role Phone Enrique Peter MD Primary Care Provider [phone] Reason for Visit * Reason Comments Follow-up Pt is a 69 year old female that presents to the clinic on this date for a follow up for CKD. Pt denies pain at the current moment. Encounter Details Date Type Department Care Team ([facility] st Contact Info) Description 05/29/2025 12:20 PM EDT Office Visit [facility] [address] [place] [address] Meenakshi Martin, TACTICAL DECEPTION PLANS OFFICER [address] [address] CKD (chronic kidney disease) stage [...] Miscellaneous Notes * Progress Notes - Meenakshi Martin, ARNEL - 05/29/2025 12:20 PM EDT Nephrology [...] Daily glimepiride (AMARYL) 4 mg, Daily HYDROcodone-acetaminophen (Canby) 7.5-325 MG tablet TAKE ONE TABLET BY [...] Labs scanned in to media tab of [employer] from an outside facility. Labs completed on [...] imminent renal failure in great detail. Discussed PRODUCTION COORDINATOR and potential options Home hemo, PD, ICHD [...] Care Team (Late st Contact Info) Description 06/08/2025 10:00 AM EDT Appointment [facility] [address] [place] [address] 06/08/2025 11:20 AM EDT Office Visit [facility] [address] [place] [address] Ina Prasad MD [address] [facility] [address] [place] [address] Scheduled Orders Name Type Priority Associated Diagnoses [...] kidney disease) stage 4, GFR 15-29 ml/min ([facility]) Expected: 05/29/2025 (Approximate), Expires: 11/29/2026 Urinalysis with reflex microscopic (Culture NOT Included) Lab Routine CKD (chronic kidney disease) stage 4, GFR 15-29 ml/min ([facility]) Expected: 05/29/2025 (Approximate), Expires: 11/29/2026 Vitamin D 25 Hydroxy Lab Routine CKD (chronic kidney disease) stage 4, GFR 15-29 ml/min ([facility]) Expected: 05/29/2025 (Approximate), Expires: 11/29/2026 documented as of this encounter Visit Diagnoses Diagnosis CKD (chronic kidney disease) stage 4, GFR 15-29 ml/min ([facility])- Primary Chronic kidney disease, Stage IV (severe) Type 2 diabetes mellitus with stage 2 chronic kidney disease, with long-term current use of insulin ([facility]) Essential hypertension Unspecified essential hypertension Chronic kidney [...] documented as of this encounter Care Teams Geospatial Specialist Relationship Specialty Start Date End Date Enrique Peter MD [address] [place] [address] PCP - General 08/27/23 documented as of this encounter
--- OUTSIDE RECORDS SUMMARY | 2025-05-29 12:31 | XMS_ITS | Encounter Summary ---
Author Organization Healthcare Address [address] [place] [address] Care Team Providers Care Institute Director Name Role Phone Enrique Peter MD Primary Care Provider [phone] Encounter Details Date Type Department Care Team (Late Contact Info) Description 04/27/2025 Telephone [facility] [address] [place] [address] None, None [address] [place] [address] Social History Tobacco Use Types Packs/Day Years [...] Info) Description 06/08/2025 10:00 AM EDT Appointment [facility] [address] [place] [address] 06/08/2025 11:20 AM EDT Office Visit [facility] [address] [facility] 5th Floor [address] [place] [address] Ina Prasad MD [address] [facility] [address] [place] [address] documented as of this encounter Visit Diagnoses Not on filedocumented in this encounter Additional Health Concerns Assessment Noted Time A fall risk assessment has been complete d for the patient 02/05/2024 12:22 PM EDT A Body Mass Index follow-up plan has been documented for the patient 02/13/2025 10:53 AM EDT documented as of this encounter Care Teams Institute Director Relationship Specialty Start Date End Date Enrique Peter MD [address] [place] [address] PCP - General 08/27/23 documented as of this encounter
--- OUTSIDE RECORDS SUMMARY | 2025-05-29 12:31 | XMS_ITS | Encounter Summary ---
Author Organization Healthcare Address [address] [place] [address] Care Team Providers Care Personal Attendant Name Role Phone Enrique Peter MD Primary Care Provider [phone] Reason for Referral * Consultation (Urgent) - Authorized Specialty Diagnoses / Procedures Referred By Contact Referred To Contact Vascular Surgery / Comprehensive Vascular Clinic Diagnoses CKD (chronic kidney disease) stage 4, GFR 15-29 ml/min ([facility]) Encounter for other preprocedural examination Meenakshi Martin APRN [address] [address] Phone: tel:[phone] fax:[phone] [facility] [address] [facility] 5th Floor [address] [place] [address] Phone: tel: fax: Referral ID Status Reason Start Date Expiration Date Visits Requested Visits Authorized [id number] Authorized Specialty Services Required 04/20/2025 10/20/2026 1 1 Scheduling Instructions Patient needs consult for dialysis access placement; mapping ordered Encounter Details Date Type Department Care Team (Late st Contact Info) Description 04/20/2025 Orders Only [facility] [address] [address] Meenakshi Martin APRN [address] [facility] [address] [place] [address] CKD (chronic kidney disease) stage [...] Info) Description 06/08/2025 10:00 AM EDT Appointment [facility] [address] [place] [address] 06/08/2025 11:20 AM EDT Office Visit [facility] [address] [place] [address] Ina Prasad MD [address] [facility] [address] [place] [address] Scheduled Referrals Name Type Priority Associated Diagnoses [...] documented as of this encounter Care Teams Personal Attendant Relationship Specialty Start Date End Date Enrique Pteer MD [address] [place] [address] PCP - General 08/27/23 documented as of this encounter
--- OUTSIDE RECORDS SUMMARY | 2025-05-29 12:31 | XMS_ITS | Encounter Summary ---
Author Organization Healthcare Address [address] [place] [address] Care Team Providers Care Cable Strander Name Role Phone Enrique Peter MD Primary Care Provider [phone] Encounter Details Date Type Department Care Team (Late Contact Info) Description 05/04/[address] [facility] [address] [facility] 5th Floor [address] [place] [address] None, None [address] [place] [phone] Social History Tobacco Use Types Packs/Day Years [...] Department Care Team (Late Contact Info) Description 06/08/2025 10:[address] [facility] [address] [place] [address] 06/08/2025 11:20 AM EDT Office Visit [facility] [address] [place] [address] Ina Prasad MD [address] [facility] [address] [place] [address] documented as of this encounter Visit Diagnoses Not on filedocumented in this encounter Additional Health Concerns Assessment Noted Time A fall risk assessment has been complete d for the patient 02/05/2024 12:22 PM EDT A Body Mass Index follow-up plan has been documented for the patient 02/13/2025 10:53 AM EDT documented as of this encounter Care Teams Cable Strander Relationship Specialty Start Date End Date Enrique Peter MD [address] [place] [address] PCP - General 08/27/23 documented as of this encounter
--- OUTSIDE RECORDS SUMMARY | 2025-05-29 12:31 | XMS_ITS | Encounter Summary ---
Author Organization Healthcare Address [address] [place] [address] Care Team Providers Care Bench Mechanic Name Role Phone Enrique Peter MD Primary Care Provider [phone] Encounter Details Date Type Department Care Team (Late Contact Info) Description 03/30/2025 Telephone [facility] [address] [address] Yaneli Hayes RN PROGRESSIVE-ACUTE UNIT 9-T1 AND [...] encounter Miscellaneous Notes * Telephone Encounter - Yanlei Hayes RN - 03/30/2025 2:53 PM EDT Attempted call to patient to confirm time, date, location. [facility] with times, dates, [facility]. Bishop [facility]. Left clinic number for call back. documented in this encounter Plan of Treatment Upcoming Encounters Date Type Department Care Team (Late Contact Info) Description 06/08/2025 10:00 AM EDT Appointment [facility] [address] [place] [address] 06/08/2025 11:20 AM EDT Office Visit [facility] [address] [facility] 5th Floor [address] [place] [address] Ina Prasad MD [address] [facility] [address] [place] [address] documented as of this encounter Visit Diagnoses Not on filedocumented in this encounter Additional Health Concerns Assessment Noted Time A fall risk assessment has been complete d for the patient 02/05/2024 12:22 PM EDT A Body Mass Index follow-up plan has been documented for the patient 02/13/2025 10:53 AM EDT documented as of this encounter Care Teams Bench Mechanic Relationship Specialty Start Date End Date Enrique Peter MD [address] [place] [address] PCP - General 08/27/23 documented as of this encounter
--- OUTSIDE RECORDS SUMMARY | 2025-05-29 12:31 | XMS_ITS | Encounter Summary ---
Author Organization Healthcare Address [address] [place] [address] Care Team Providers Care Vehicle Detailer Name Role Phone Enrique Peter MD Primary Care Provider [phone] Reason for Referral * Imaging (Routine) - Authorized Specialty Diagnoses / Procedures Referred By Real farrell Referred To Contact Cardiology Diagnoses CKD (chronic kidney disease) stage 4, GFR 15-29 ml/min (CMS/HCC) Procedures VAS US Hemodialysis Mapping Artery Vein Bilateral Meenakshi Martin APRN [address] [address] Phone: tel: fax: Referral ID Status Reason Start Date Expiration Date Visits Requested Visits Authorized [id number] Authorized Perform Procedure 03/30/2025 09/29/2026 1 1 Encounter Details Date Type Department Care Team (Late st Contact Info) Description 03/30/2025 Telephone [facility] [address] [place] [address] Meenakshi Martin APRN [address] [address] Social History Tobacco Use Types [...] Info) Description 06/08/2025 10:00 AM EDT Appointment [facility] [address] [facility] 5th Floor [address] [place] [address] 06/08/2025 11:20 AM EDT Office Visit [facility] [address] [facility] 5th Floor [address] [place] [address] Ina Prasad MD [address] [facility] [address] [place] [address] Scheduled Orders Name Type Priority Associated Diagnoses [...] documented as of this encounter Care Teams Vehicle Detailer Relationship Specialty Start Date End Date Enrique Peter MD [address] [place] [address] PCP - General 08/27/23 documented as of this encounter
--- OUTSIDE RECORDS SUMMARY | 2025-05-29 12:31 | XMS_ITS | Encounter Summary ---
Author Organization Healthcare Address [address] [place] [address] Care Team Providers Care Seed Collector Name Role Phone Enrique Peter MD Primary Care Provider [phone] Encounter Details Date Type Department Care Team (Late Contact Info) Description 03/31/2025 Telephone [facility] [address] [place] [address] Yaneli Hayes RN PROGRESSIVE-ACUTE UNIT 9-T1 AND [...] appointment, Appointment time, date, locations left in . Clinic number given for call back. documented in this encounter Plan of Treatment Upcoming Encounters Date Type Department Care Team (Late Contact Info) Description 06/08/2025 10:00 AM EDT Appointment [facility] [address] [place] [address] 06/08/2025 11:20 AM EDT Office Visit [facility] [address] [facility] 5th Floor [address] [place] [address] Ina Prasad MD [address] [facility] [address] [place] [address] documented as of this encounter Visit Diagnoses Not on filedocumented in this encounter Additional Health Concerns Assessment Noted Time A fall risk assessment has been complete d for the patient 02/05/2024 12:22 PM EDT A Body Mass Index follow-up plan has been documented for the patient 02/13/2025 10:53 AM EDT documented as of this encounter Care Teams Seed Collector Relationship Specialty Start Date End Date Enrique Peter MD [address] [place] [address] PCP - General 08/27/23 documented as of this encounter
--- OUTSIDE RECORDS SUMMARY | 2025-05-29 12:31 | XMS_ITS | Clinical Summary ---
Author Organization [facility] Address [address] [place] [address] Care Team Providers Care Cyber Operator Name Role Phone Enrique Peter MD Primary Care Provider [phone] Allergies No known active allergies Medications busPIRone [...] by mouth daily. 3 Active HYDROcodone-xenia taminophen ([place]) 7.5-325 MG tablet TAKE ONE TABLET BY [...] on OSH labs, To be completed at [facility] Encounters Date Type Department Care Team Description 05/29/2025 12:20 PM EDT Office Visit [facility] [address] [place] [address] Meenakshi Martin APRN CKD (chronic kidney disease) stage 4, GFR 15-29 ml/min (CMS/HCC) (Primary Dx); Type 2 diabetes mellitus with stage 2 chronic kidney disease, with long-term current use of insulin ([facility]/HCC); Essential hypertension; Chronic kidney disease-mineral and bone disorder; Iron deficiency anemia, unspecified iron deficiency anemia type; History of right radical nephrectomy 05/29/2025 Travel 05/04/2025 Telephone [facility] [address] [place] [address] None, None 05/04/2025 Telephone [facility] [address] [place] [address] None, None 04/27/2025 Telephone [facility] [address] [place] [address] None, None 04/20/2025 Orders Only [facility] [address] [place] [address] Meenakshi Martin APRN CKD (chronic kidney disease) stage 4, GFR 15-29 ml/min ([facility]) (Primary Dx); Encounter for other preprocedural examination 03/31/2025 Telephone [facility] [address] [place] [address] Yaneli Hayes RN 03/30/2025 Telephone [facility] [address] [place] [address] Yaneli Hayes RN 03/30/2025 Telephone [facility] [address] [place] [address] Meenakshi Martin APRN from Last 3 Months Immunizations Immunization Administration Dates Next Due Influenza, High-dose, Split Virus, Trivalent, Injectable, preservative free 08/16/2020,08/26/2019 Influenza, high-dose, quadrivalent 07/28,07/02/2023,08/16/2020,08/26 Pneumococcal Conjugate PCV 13 01/08/2019 Pneumococcal Polysaccharide PPV23 08/16/2020 Tdap 01/08/2019,10/27/2008 Social History Tobacco Use Types Packs/Day Years [...] Pulse 76 05/29/2025 11:55 AM EDT Temperature 36.5 C (97.7 F) 12/19/2024 10:21 AM EST Respiratory Rate 18 05/29/2025 11:55 AM EDT Oxygen Saturation 97% 05/29/2025 11:55 AM EDT Inhaled Oxygen Concentration - - Weight 91.2 kg (201 lb) 05/29/2025 11:55 AM EDT Height 170.2 cm (5' 7 ) 05/29/2025 11:55 AM EDT Body Mass Index 31.48 05/29/2025 11:55 AM EDT Plan of Treatment Upcoming Encounters Date Type Department Care Team (Late st Contact Info) Description 06/08/2025 10:00 AM EDT Appointment [facility] [address] [facility] 5th Floor Wing [address] [place] [address] 06/08/2025 11:20 AM EDT Office Visit [facility] [address] [facility] [address] [facility] Wing [address] [place] [address] Ina Prasad MD [address] [facility] [address] [place] [address] Health Maintenance Due Date Last Done Comments [facility]-Bone Density Scan 1955 [facility]-Diabetes: Hemoglobin A1C 1953 [facility]-Hepatitis C Screening 1955 [facility]-Medicare Annual Wellness (AWV) 1955 [facility]-/Child/Adol SDOH Screenings 1953 Diabetes: Dental Exam 1963 [facility]- SDOH Screenings 1971 [facility]-Adult SDOH Screenings 1971 CT Colonography 1998 Colonoscopy 1998 [facility]-DNA 1998 FIT 1998 FOBT 1998 Sigmoidoscopy 1998 [facility]-Colorectal Cancer Screening 1998 [facility]-Breast Cancer Screening 2003 [facility]-Zoster Vaccines (1 of 2) 2003 [facility]-RSV Vaccine: 60+ Years or (1 - Risk 60-74 years 1-dose series) 2013 [facility]-PJRLN-70 Vaccine (2 - season) 2024 06/17/2021 [facility]-Depression Screening 02/04/2025 02/05/2024 [facility]-Influenza Vaccine (#1) 06/22/202507/28, 07/02/2023, 08/16/2020, Additional history exists [facility]-DTaP,Tdap,and Td Vaccines (3 - Td or Tdap) 01/08/2029 01/08/2019, 10/27/2008 [facility]-Pneumococcal Vaccine: 50+ Years Completed 08/16/2020, 01/08/2019 [facility]-Obesity Intervention Completed 025, 02/13/2025, 12/19/2024, Additional history exists HPV Vaccines Aged Out [...] topic Insurance GENERIC MEDICARE ADVANTAGE Care Teams Cyber Operator Relationship Specialty Start Date End Date Enrique Peter MD [address] [place] [id number] PCP - General 08/27/23
--- OUTSIDE RECORDS SUMMARY | 2025-05-29 12:31 | XMS_ITS | Clinical Summary ---
Author Organization [facility] Address [address] [facility] [address] [place] [address] Phone Care Team Providers Care Studio Owner Name Role Phone Unavailable Unavailable Conditions or Problems No information available. Medications No information available. Medications Administered No information available. Allergies, Adverse Reactions, Alerts No information available. Results No information available. Plan of Care No information available. Procedures No information available. Vital Signs No information available. Immunizations No information available. Advance Directives No information available.
--- OUTSIDE RECORDS SUMMARY | 2025-05-29 12:31 | XMS_ITS | Encounter Summary ---
Author Organization [facility] Address [address] [place] [address] Care Team Providers Care R Programmer Name Role Phone Enrique Peter MD Primary Care Provider [phone] Encounter Details Date Type Department Care Team (Late Contact Info) Description 05/04/2025 Telephone [facility] [address] [place] [address] None, None [address] [place] [address] Social History Tobacco Use Types [...] Info) Description 06/08/2025 10:00 AM EDT Appointment [facility] [address] [place] [address] 06/08/2025 11:20 AM EDT Office Visit [facility] [address] [facility] 5th Floor Wing [address] [place] [address] Ina Prasad MD [address] [facility] [address] [place] [address] documented as of this encounter Visit Diagnoses Not on filedocumented in this encounter Additional Health Concerns Assessment Noted Time A fall risk assessment has been complete d for the patient 02/05/2024 12:22 PM EDT A Body Mass Index follow-up plan has been documented for the patient 02/13/2025 10:53 AM EDT documented as of this encounter Care Teams R Programmer Relationship Specialty Start Date End Date Enrique Peter MD [address] [place] [address] PCP - General 08/27/23 documented as of this encounter
--- OUTSIDE RECORDS SUMMARY | 2025-05-29 12:32 | XMS_ITS | Clinical Summary ---
Author Organization [facility] ([place], [place], [place], [place]) Address [address] [place] [address] Care Team Providers Care Machine Stone Polisher Name Role Phone Provider Not In System, [facility] Primary Care Provide r Unavailable Allergies No [...] Date Renny rded Speak language other than Afghan at home Not on file 11/02/2023 Want [...] ORDERABLES Final Res ult Performing Organization Address [facility] de Phone Number [facility] [address] [phone] * (ABNORMAL) Hemoglobin A1c (04/11/2023 12:14 PM [...] ORDERABLES Final Resul t Performing Organization Address [facility] de Phone Number [facility] [address] [phone] from Last 3 Months or Most Recently Relevant to Health Maintenance Insurance [employer] MEDICARE PPO Advance Directives For more information, please contact: [phone] * Full Code (Latest Code Status on File) Date Activated Date Inactivated Comments 04/11/2023 10:31 AM 04/22/2023 5:15 PM Care Teams Machine Stone Polisher Relationship Specialty Start Date End Date Provider Not In System, [facility] PCP - General 04/11/23
--- OUTSIDE RECORDS SUMMARY | 2025-05-29 12:32 | XMS_ITS | Patient Health Record ---
Author Organization [facility] Address [address] [facility] [address] [place] [id number] Care Team Providers Care Disability Insurance Hearing Officer Name Role Phone Canelo Peter Primary Care Provider [phone] Nany Mcdonald Unavailable [phone] Umesh Shoemaker Unavailable [phone] Allergies Allergen (clinical drug ingredient) Drug/Non Drug [...] 1 Performing Lab: Notes/Report: Test performed by [facility] , [address], [place] [address] Angel Craig MD, Aircraft Maintenance Technician CLIA: [id number] Sodium 133 135-145 mmol/L Potassium 4.9 3.5-5.3 [...] 0.6 <0.2-1.2 mg/dL A/G Ratio 1.0 1.1-2.5 CBC Venipuncture (in house) Reviewed date:12/30/2024 08:19:33 [...] 1.1 Performing Lab: Notes/Report: Test performed by [facility] [address] [place] [address] , [address], [place] [address] Angel Craig MD, Aircraft Maintenance Technician CLIA: [id number] Sodium 132 135-145 mmol/L Potassium 5.3 3.5-5.3 [...] 0.6 <0.2-1.2 mg/dL A/G Ratio 1.1 1.1-2.5 CBC Fingerstick (in house) Reviewed date:02/24/2025 02:05:37 [...] 22 Performing Lab: Notes/Report: Test performed by [facility] [address] [place] [address] , [address], [place] [address] Angel Craig MD, Aircraft Maintenance Technician CLIA: [id number] Sodium 138 135-145 mmol/L Potassium 4.3 3.5-5.3 mmol/L Chloride 100 97-108 mmol/L CO2 23 22-32 mmol/L Glucose 219 65-99 mg/dL BUN 42 8-23 mg/dL Creatinine 2.33 0.50-1.00 mg/dL Calcium 9.6 8.6-10.4 mg/dL eGFR by Creatinine 22 >59 mL/min/1.73m2 X ray : Hip, left Reviewed date:05/26/2025 11:15:22 AM Interpretation:nothing acute Performing Lab: Notes/Report: nothing acute P-Comprehensive Metabolic Pa elizabeth (CMP) Reviewed date:05/22/2025 12:36:30 PM Interpretation:gluc 189, bun 48, Cr 2.69, gfr 18, alk phos 131, a/g 1- see 05/22/25 OV Performing Lab: Notes/Report: Test performed by [facility] [address] [place] [address] , [address], [place] [address] Angel Craig MD, Aircraft Maintenance Technician CLIA: [id number] Sodium 137 135-145 mmol/L Potassium 5.0 3.5-5.3 [...] Notes/Report: glycohemoglobin 8.1% 5 - 6.5 % P-Basic Metabolic Panel (BMP ) Reviewed date:06/12/2024 09:10:53 AM Interpretation:Na 129, K+ 6.1, chlor 93, gluc 594, bun 52, Cr 2.52, gfr 20 Performing Lab: Notes/Report: Test performed by [facility] [address] [place] [address] , [address], [place] [address] Angel Craig MD, Aircraft Maintenance Technician CLIA: [id number] Sodium 129 135-145 mmol/L Potassium 6.1 3.5-5.3 mmol/L Chloride 93 97-108 mmol/L CO2 22 22-32 mmol/L Glucose 594 65-99 mg/dL ALERT VALUE Results were repeated and confirmed. BUN 52 8-23 mg/dL Creatinine 2.52 0.50-1.00 mg/dL Calcium 9.6 8.6-10.4 mg/dL eGFR by Creatinine 20 >59 mL/min/1.73m2 CBC Fingerstick (in house) Reviewed date:06/09/2024 11:42:57 [...] date:06/11/2024 11:06:25 AM Interpretation: Performing Lab: Notes/Report: Urinalysis - Inhouse Reviewed date:11/21/2024 10:06:28 AM [...] 159 Performing Lab: Notes/Report: Test performed by [facility] [address] [place] [address] , [address], [place] [address] Angel Craig MD, Aircraft Maintenance Technician CLIA: [id number] Sodium 133 135-145 mmol/L Potassium 5.7 3.5-5.3 [...] growth Performing Lab: Notes/Report: Test performed by [facility] [address] [place] [address] , [address], [place] [address] Angel Craig MD, Aircraft Maintenance Technician CLIA: [id number] Specimen Source Urine - Void Culture, Urine See Below Final Report : No growth Medications Medication SIG (Take, Route, Frequency, Duration) Notes Start Date End Date Status diazePAM 2 MG 1 tablet as needed Orally at bedtime as needed 11/20/2024 Active metOLazone 2.5 MG 1 tablet Orally daily; Duration: 30 days Active Autopen 3 ml MIS 2-42 Units 10 units three times daily; Duration: 30 days Autopen 3 ML MIS 2-42 Unit Active Lisinopril 5 MG 1 tablet Orally Once a day; Duration: 90 days Active oxyCODONE-Acetaminop hen 7.5-325 MG 1 tablet as needed Orally 4 times a day 05/22/2025 Active Nystatin-Triamcinolo ne 653419-9.1 UNIT/GM 1 application Externally Twice a day 11/20/2024 Active Glimepiride 4 MG Take 1 tablet by mouth once daily; Duration: 90 Active Ferrous Gluconate 324 (38 Fe) MG 1 tablet Orally Two times a day; Duration: 60 day(s) 06/09/2024 Active HYDROcodone-Acetamin ophen 7.5-325 MG 1 tab(s) orally 3 times a day as needed; Duration: 30 day(s) 05/06/2025 Active DULoxetine HCl 30 MG 1 cap(s) orally onc e daily; Duration: 90 days Active PriLOSEC OTC 20 MG 1 tab(s) orally once a day Active Pioglitazone HCl 15 MG 1 tablet Orally Once a day Active Temazepam 30 MG 1 cap(s) orally once a day (at bedtime); Duration: 30 day(s) 01/28/2025 Active Vitamin C 500 MG 1 tablet Orally Once a day Active Basaglar KwikPen 100 UNIT/ML 20 units Subcutaneous once a day; Duration: 30 days 01/07/2025 Active FreeStyle Blair 3 [place] - as directed 01/07/2025 Active Admelog SoloStar 100 UNIT/ML 10 units Subcutaneous three times daily before meals; Duration: 30 days 01/07/2025 Active Metoprolol Succinate ER 100 mg 1 tablet Orally Once a day; Duration: 90 days Active Trulance 3 MG 1 tablet Orally Once a day 10/31/2023 Not-Taking FreeStyle Blair 3 Sensor - as directed replace every 14 days; Duration: 30 days 01/07/2025 Active Immunizations Vaccine Route Administration Date Status Comme nts Fluzone High Dose (65yr and older) IM Intramuscular 07/02/2023 Administered COVID 19 Moderna Unknown 06/17/2021 Administered Tetanus Tdap-Adacel (over 7yrs) IM Intramuscular 10/27/2008 Administered Fluzone High Dose (65yr and older) IM Intramuscular 07/28/2024 Administered Fluzone High Dose (65yr and older) IM Intramuscular 08/16/2020 Administered PNEUMOVAX 23 VACCINE IM Intramuscular 08/16/2020 Administe red Fluzone High Dose (65yr and older) IM Intramuscular 08/26/2019 Administered Tetanus Tdap-Adacel (over 7yrs) IM Intramuscular 01/08/2019 Administered Prevnar (PCV13) IM Intramuscular 01/08/2019 Administered Problems Problem Type SNOMED Code ICD Code Onset Dates Problem Status W/U Status Risk Notes Problem Gastro-esophageal reflux disease without esophagitis (091937750) Gastro-esophageal reflux disease without esophagitis (K21.9) Active confirmed Problem Essential hypertension (88789297) Essential (primary) hypertension (I10) Active confirmed Problem Hyperlipidemia (94221490) Hyperlipidemia (E78.5) Active confirmed Problem Vitamin D deficiency (10190845) Vitamin D deficiency (E55.9) Active confirmed Problem Essential hypertension (44673591) Essential hypertension (I10) Active confirmed Problem Vitamin B12 deficiency (non anemic) (85872395) B12 deficiency (E53.8) Active confirmed Problem Hypoglycemia (896079890) Hypoglycemia (E16.2) Active confirmed Problem Arthritis (8911724) Arthritis (M19.90) Active c onfirmed Problem Renal failure (48653771) Renal failure (N19) Active confirmed Problem Hyperuricemia (44711581) Hyperuricemia (E79.0) Active confirmed Problem Arthropathy of lumbar facet joint (088438008) Lumbar facet arthropathy (M47.816) Active confirmed Problem Mixed anxiety and depressive disorder (313788411) Depression with anxiety (F41.8) Active confirmed Problem Localized edema (2290703) Localized edema (R60.0) Active confirmed Problem Sciatica (87094619) Lumbago with sciatica, right side (M54.41) Active confirmed Problem Mixed hyperlipidemia (845716193) Mixed hyperlipidemia (E78.2) Active confirmed Problem Anxiety disorder (408933721) Anxiety disorder, unspecified (F41.9) Active confirmed Problem Primary insomnia (2508678) Primary insomnia (F51.01) Active confirmed Problem Chronic pain (77025773) Other chronic pain (G89.29) Active confirmed Problem Chronic pain syndrome (234860720) Chronic pain syndrome (G89.4) Active confirmed Problem Cirrhosis of liver (98873921) Unspecified cirrhosis of liver (K74.60) Active confirmed Problem Sciatica (91600871) Lumbago with sciatica, left side (M54.42) Active confirmed Problem Acute renal failure syndrome (76571218) Acute kidney failure, unspecified (N17.9) Active confirmed Problem Chronic kidney disease stage 4 (613788276) Chronic kidney disease, stage 4 (severe) (N18.4) Active confirmed Problem Ascites (261970040) Other ascite s (R18.8) Active confirmed Problem Microalbuminuria (582683203) Microalbuminuria (R80.9) Active confirmed Problem Coronary arteriosclerosis (56889157) Coronary arteriosclerosis (I25.10) Active confirmed Problem Diabetes mellitus (18539024) Diabetes mellitus (E11.9) Active confirmed Problem Degeneration of lumbar intervertebral disc (43321247) Lumbar degenerative disc disease (M51.36) Active confirmed Problem Type II diabetes mellitus without complication (464123876) Type 2 diabetes mellitus without complication (E11.9) Active confirmed Problem Reactive depression (situational) (20457351) Situational depression (F43.21) Active confirmed Problem Low back pain (588923414) Left-sided low back pain without sciatica (M54.5) Active confirmed Problem COPD - Chronic obstructive pulmonary disease (84826785) Chronic obstructive pulmonary disease, unspecified COPD type (J44.9) Active confirmed Problem Iron deficiency anemia due to chronic blood loss (901501332) Iron deficiency anemia due to chronic blood loss (D50.0) Active confirmed Problem Long-term current use of insulin (621228063) Current use of insulin (Z79.4) Active confirmed Problem Tobacco user (174410052) Cigarette nicotine dependence without complication (F17.210) Active confirmed Problem Anemia of chronic disease (610906649) Anemia of chronic disease (D63.8) Active confirmed Problem Stented coronary artery (779153787) Stented coronary artery (Z95.5) Active confirmed Problem Obese class I (finding) (206181005671545) Obesity (BMI 30.0-34.9) (E66.9) Active confirmed Problem History of prosthetic arthroplasty of left hip (0470303148661939) Status post left hip replacement (Z96.642) Active confirmed Problem Atherosclerotic heart disease of [place] coronary artery without angina pectoris (710267815327012) Atherosclerosis of [place] coronary artery without angina pectoris, unspecified whether [place] or transplanted heart (I25.10) Active confirmed Problem Cardiac function test abnormal (509618925) Abnormal cardiac function test (R94.30) Active confirmed Problem Hyperglycemia due to type 2 diabetes mellitus (919682689166610) Poorly controlled type 2 diabetes mellitus (E11.65) Active confirmed Problem Headache (24862180) Other vascul ar headache (G44.1) Active confirmed Problem Fibrocystic breast changes (15913251) Fibrocystic breast disease (FCBD), unspecified laterality (N60.19) Active confirmed Problem Aortic diastolic murmur (609621549) Aortic diastolic murmur (I35.8) Active confirmed Problem Absent kidney (173185190) Status post nephrectomy (Z90.5) Active confirmed Problem Primary malignant neoplasm of kidney (66786502) Malignant neoplasm of kidney, unspecified laterality (C64.9) Active confirmed Problem Type II diabetes mellitus without complication (583886780) Type 2 diabetes mellitus without complication, unspecified whether emt intermediate insulin use (E11.9) Active confirmed Problem Cardiac arrhythmia (768787916) Bigeminy (I49.8) Active confirmed Problem Disorder due to type 2 diabetes mellitus (231806208) Type 2 diabetes with complication (E11.8) Active confirmed Problem Malignant tumor of kidney (364567565) 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) Active confirmed Problem Ulcer of right lower extremity with fat layer exposed (L97.912) Active confirmed Vital Signs Heart Rate 54 /min 05/22/2025 Blood pressure diastolic 70 mm Hg 05/22/2025 Height 65 in 05/22/2025 Blood pressure systolic 130 mm Hg 05/22/2025 Weight 211.8 lbs 05/22/2025 BMI 35.24 kg/m2 05/22/2025 Encounters Encounter Location Date Provider Diagnosis [facility] [address] [place] [id number] 06/09/2024 Canelo Peter Anemia of chronic disease D63.8 ; Type 2 diabetes with complication E11.8 ; Chronic kidney disease, stage 4 (severe) N18.4 and 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 [facility] [address] [facility] [address] [place], [place] [id number] 07/28/2024 Canelo Peter Essential hypertensi on I10 ; Type 2 diabetes with complication E11.8 ; Current use of insulin Z79.4 ; Anemia of chronic disease D63.8 ; 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 and Encounter for immunization Z23 [facility] [address] [id number] 11/20/2024 Canelo Peter Dysuria R30.0 ; Poor ly controlled type 2 diabetes mellitus E11.65 ; Unspecified cirrhosis of liver K74.60 ; 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 ; Chronic kidney disease, stage 4 (severe) N18.4 ; Anemia of chronic disease D63.8 ; Current use of insulin Z79.4 and Primary insomnia F51.01 [facility] [address] [id number] 12/29/2024 Canelo Peter Type 2 diabetes with complication E11.8 ; Current use of insulin Z79.4 ; Renal failure N19 ; Chronic kidney disease, stage 4 (severe) N18.4 ; Anemia of chronic disease D63.8 and Chronic pain syndrome G89.4 [facility] [address] [id number] 02/23/2025 Canelo Peter Type 2 diabetes with complication E11.8 ; Current use of insulin Z79.4 ; Renal failure N19 ; Chronic kidney disease, stage 4 (severe) N18.4 and 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 [facility] [address] [id number] 04/30/2025 Canelo Peter Type 2 diabetes mellitus without complication E11.9 ; Essential hypertension I10 ; Chronic kidney disease, stage 4 (severe) N18.4 and Current use of insulin Z79.4 [facility] [address] [id number] 05/22/2025 Canelo Peter Left hip pain M25.55 2 ; Status post left hip replacement Z96.642 ; Type 2 diabetes with complication E11.8 ; Chronic kidney disease, stage 4 (severe) N18.4 ; 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 ; Essential (primary) hypertension I10 ; Depression with anxiety F41.8 and Stented coronary artery Z95.5 [facility] [address] [place] [id number] 06/03/2024 Umesh [place] Chronic pain syndrom e G89.4 [facility] [address] [place], [place] [id number] 06/10/2024 Canelo Peter [facility] [address] [place] [id number] 06/12/2024 Canelo Peter [facility] [address] [place] [id number] 06/16/2024 J Joshua Peter [facility] [address] [place] [id number] 06/24/2024 Canelo Peter Poorly controlled ty pe 2 diabetes mellitus E11.65 and Primary insomnia F51.01 [facility] [address] [place], [place] [id number] 07/02/2024 Canelo Peter Chronic pain syndrom e G89.4 [facility] [address] [place] [id number] 07/29/2024 Canelo Peter Depression with anxi ety F41.8 [facility] [address] [place] [id number] 07/30/2024 Canelo Peter [facility] [address] [place] [id number] 08/01/2024 Canelo Peter Chronic pain syndrom e G89.4 [facility] [address] [place] [id number] 08/27/2024 Umesh [place] Chronic pain syndrom e G89.4 [facility] [address] [place] [id number] 08/28/2024 Nany Mcdonald Primary insomnia F51 .01 [facility] [address] [place] [id number] 09/15/2024 Canelo Peter [facility] [address] [place] [id number] 09/23/2024 Canelo Peter Poorly controlled ty pe 2 diabetes mellitus E11.65 [facility] [address] [place] [id number] 09/29/2024 Umesh [place] Primary insomnia F51 .01 and Chronic pain syndrome G89.4 [facility] [address] [place] [id number] 10/06/2024 J Joshua Peter Poorly controlled ty pe 2 diabetes mellitus E11.65 [facility] [address] [place] [id number] 10/16/2024 J Joshua Peter Poorly controlled ty pe 2 diabetes mellitus E11.65 [facility] [address] [place] [id number] 10/28/2024 J Joshua Peter Depression with anxi ety F41.8 [facility] [address] [place] [id number] 10/29/2024 J Joshua Peter Primary insomnia F51 .01 and Chronic pain syndrome G89.4 [facility] [address] [place] [id number] 11/14/2024 J Joshua Peter [facility] [address] [place] [id number] 11/23/2024 Canelo Peter [facility] [address] [place] [id number] 11/24/2024 J Joshua Peter [facility] [address] [place] [id number] 11/25/2024 J Joshua Peter [facility] [address] [place] [id number] 11/26/2024 J Joshua Peter Essential hypertensi on I10 [facility] [address] [place] [id number] 11/27/2024 J Joshua Peter [facility] [address] [place] [id number] 11/28/2024 J Joshua Peter Chronic pain syndrom e G89.4 [facility] [address] [place] [id number] 12/15/2024 J Joshua Peter [facility] [address] [place] [id number] 12/29/2024 J Joshua Peter [facility] [address] [place] [id number] 12/30/2024 J Joshua Peter [facility] [address] [place] [id number] 12/30/2024 J Joshua Peter [facility] [address] [place] [id number] 12/31/2024 J Joshua Peter Type 2 diabetes with complication E11.8 and Poorly controlled type 2 diabetes mellitus E11.65 [facility] [address] [place] [id number] 01/06/2025 J Joshua Peter [facility] [address] [place] [id number] 01/07/2025 J Joshua Peter [facility] [address] [place] [id number] 01/26/2025 J Joshua Peter Depression with anxi ety F41.8 [facility] [address] [place] [id number] 01/26/2025 Umesh [place] Chronic pain syndrom e G89.4 and Primary insomnia F51.01 [facility] [address] [place] [id number] 02/10/2025 J Joshua Peter [facility] [address] [place] [id number] 02/26/2025 J Joshua Peter Chronic pain syndrom e G89.4 [facility] [address] [place] [id number] 03/06/2025 J Joshua Peter [facility] [address] [place] [id number] 03/31/2025 J Joshua Peter Chronic pain syndrom e G89.4 [facility] [address] [place], [place] [id number] 05/04/2025 Umesh Shoemaker Chronic pain syndrom e G89.4 [facility] [address] [place], [place] [id number] 05/19/2025 Canelo Peter Assessments Encounter Date Diagnosis (ICD Code) Assessment Notes Treatment Notes Treatment Clinical Notes Section Notes 06/03/2024 Chronic pain syndrome (ICD-10 - G89.4) 06/09/2024 Anemia of chronic disease (ICD-10 - D63.8) 06/09/2024 Type 2 diabetes with complication (ICD-10 - E11.8) 06/24/2024 Poorly controlled type 2 diabetes mellitus (ICD-10 - E11.65) 07/02/2024 Chronic pain syndrome (ICD-10 - G89.4) 07/28/2024 Essential hypertension (ICD-10 - I10) 07/28/2024 Type 2 diabetes with complication (ICD-10 - E11.8) 07/29/2024 Depression with anxiety (ICD-10 - F41.8) 08/01/2024 Chronic pain syndrome (ICD-10 - G89.4) 08/27/2024 Chronic pain syndrome (ICD-10 - G89.4) 08/28/2024 Primary insomnia (ICD-10 - F51.01) 09/23/2024 Poorly controlled type 2 diabetes mellitus (ICD-10 - E11.65) 09/29/2024 Primary insomnia (ICD-10 - F51.01) 10/06/2024 Poorly controlled type 2 diabetes mellitus (ICD-10 - E11.65) 10/16/2024 Poorly controlled type 2 diabetes mellitus (ICD-10 - E11.65) 10/28/2024 Depression with anxiety (ICD-10 - F41.8) 10/29/2024 Primary insomnia (ICD-10 - F51.01) 11/26/2024 Essential hypertension (ICD-10 - I10) 12/29/2024 Current use of insulin (ICD-10 - Z79.4) 01/26/2025 Chronic pain syndrome (ICD-10 - G89.4) 02/26/2025 Chronic pain syndrome (ICD-10 - G89.4) 03/31/2025 Chronic pain syndrome (ICD-10 - G89.4) 04/30/2025 Essential hypertension (ICD-10 - I10) 12/29/2024 Type 2 diabetes with complication (ICD-10 - E11.8) 01/26/2025 Depression with anxiety (ICD-10 - F41.8) 04/30/2025 Type 2 diabetes mellitus without complication (ICD-10 - E11.9) 05/04/2025 Chronic pain syndrome (ICD-10 - G89.4) 05/22/2025 Left hip pain (ICD-10 - M25.552) 05/22/2025 Status post left hip replacement (ICD-10 - Z96.642) 02/23/2025 Current use of insulin (ICD-10 - Z79.4) 12/31/2024 Type 2 diabetes with complication (ICD-10 - E11.8) 11/28/2024 Chronic pain syndrome (ICD-10 - G89.4) 11/20/2024 Dysuria (ICD-10 - R30.0) 02/23/2025 Type 2 diabetes with complication (ICD-10 - E11.8) 11/20/2024 Poorly controlled type 2 diabetes mellitus (ICD-10 - E11.65) 12/31/2024 Poorly controlled type 2 diabetes mellitus (ICD-10 - E11.65) 11/20/2024 Unspecified cirrhosis of liver (ICD-10 - K74.60) 02/23/2025 Renal failure (ICD-10 - N19) 05/22/2025 Type 2 diabetes with complication (ICD-10 - E11.8) 01/26/2025 Primary insomnia (ICD-10 - F51.01) 04/30/2025 Chronic kidney disease, stage 4 (severe) (ICD-10 - N18.4) 12/29/2024 Renal failure (ICD-10 - N19) 07/28/2024 Current use of insulin (ICD-10 - Z79.4) 10/29/2024 Chronic pain syndrome (ICD-10 - G89.4) 09/29/2024 Chronic pain syndrome (ICD-10 - G89.4) 06/24/2024 Primary insomnia (ICD-10 - F51.01) 06/09/2024 Chronic kidney disease, stage 4 (severe) (ICD-10 - N18.4) 06/09/2024 Status post nephrectomy (ICD-10 - Z90.5) 07/28/2024 Anemia of chronic disease (ICD-10 - D63.8) Encouraged to take occasional doses of Iron 12/29/2024 Chronic kidney disease, stage 4 (severe) (ICD-10 - N18.4) 04/30/2025 Current use of insulin (ICD-10 - Z79.4) 05/22/2025 Chronic kidney disease, stage 4 (severe) (ICD-10 - N18.4) 02/23/2025 Chronic kidney disease, stage 4 (severe) (ICD-10 - N18.4) 11/20/2024 Status post nephrectomy (ICD-10 - Z90.5) 11/20/2024 Chronic kidney disease, stage 4 (severe) (ICD-10 - N18.4) 02/23/2025 Status post nephrectomy (ICD-10 - Z90.5) 05/22/2025 Status post nephrectomy (ICD-10 - Z90.5) 12/29/2024 Anemia of chronic disease (ICD-10 - D63.8) 07/28/2024 Status post nephrectomy (ICD-10 - Z90.5) 07/28/2024 Encounter for immunization (ICD-10 - Z23) 12/29/2024 Chronic pain syndrome (ICD-10 - G89.4) 05/22/2025 Essential (primary) hypertension (ICD-10 - I10) 11/20/2024 Anemia of chronic disease (ICD-10 - D63.8) 11/20/2024 Current use of insulin (ICD-10 - Z79.4) 05/22/2025 Depression with anxiety (ICD-10 - F41.8) 05/22/2025 Stented coronary artery (ICD-10 - Z95.5) 11/20/2024 Primary insomnia (ICD-10 - F51.01) Plan Of Treatment Pending Test Test Name Order Date Mammogram 11/27/2022 CT Scan : Chest, low dose 11/27/2022 Next Appt Details Provider Name:Canelo Rojas , 07/02/2025 01:45:00 PM, [address], [place], [id number], Insurance Providers Payer Name Payer Address Payer Phone Subscriber Number Group Number Insured Name Patient Relationship to Insured Coverage Start Date Coverage End Date [employer] Kayla O GABRIELA [id number] TASHA MCGUIRE [id number] FRANCIS LAN Self - patient is the insured Medications Administered Medication Instructions Date of Administration Dosage Notes epinephrine 11/29/2015 0.15 mL epinephrine 11/29/2015 0.15 mg Dexamethasone 11/29/2015 1 mL Dexamethasone 11/22/2016 1 mL Dexamethasone 06/06/2016 1 mL Dexamethasone 03/23/2016 1 mL celestone 11/17/2015 1 mL Medical (General) History Medical History History ICD Code Coronary Artery Disease Hypertension Arthritis hyperlipidemia partial Achilles tendon rupture right Gets yearly eye exams tobacco abuse, 40 pack year history as o f 2018 LAD stents x2, 02/28/17 type 2 diabetes chronic back pain Degenerative Disc Disease Lumbar facet arthropathy COPD, Dx 2016 depression Anxiety disorder Surgical History Surgery Date(Month/Year) LT Hip Replacement 08/01/2010 Tooth Extraction 07/2012 Stent Placed x2 in LAD, by Dr. Huitron 02/28/2017 Resection of right kidney du e to carcinoma, Dr. Kwok, [facility] 05/12/2023 Hospitalization History Reason Date(Month/Year) [facility] 02/19/2021
--- OUTSIDE RECORDS SUMMARY | 2025-05-29 12:32 | XMS_ITS | Clinical Summary ---
Author Organization [facility] [place] [address] Care Team Providers Care Staff Submarine Warfare Officer Name Role Phone Unavailable Primary Care Provider [...]
--- OUTSIDE RECORDS SUMMARY | 2025-05-29 12:32 | XMS_ITS | Referral Summary ---
Author Organization [facility] ([place], [place], [place], [place]) Address [address] [place] [address] Care Team Providers Care Finishing Operator Name Role Phone Provider Not In System, [facility] Primary Care Provide r Unavailable Allergies [...] Date Renny rded Speak language other than Moldovan at home Not on file 11/02/2023 Want [...] Nonreactive Nonreactive, Equivocal 04/13/2023 5:34 AM EDT [facility] Hep B C IgM Nonreactive Nonreactive 04/13/2023 5:34 AM EDT [facility] Hepatitis B surface antigen Nonreactive Nonreactive, Equivocal 04/13/2023 5:34 AM EDT [facility] Hepatitis C Ab Nonreactive Nonreactive, Equivocal 04/13/2023 5:34 AM EDT [facility] Blood Venipuncture / Unknown 04/13/2023 3:29 AM EDT 04/13/2023 3:55 AM EDT [facility] - 04/13/2023 5:34 AM EDT [...] MD LAB BLOOD ORDERABLES Final Res ult [facility] [address] [phone] * (ABNORMAL) Hemoglobin A1c (04/11/2023 12:14 PM EDT) Hemoglobin A1C 8.7(H) 4.2 - 6.3 % 04/11/2023 4:30 PM EDT [facility] Comment: Hemoglobin A1C levels are related to mean glucose during the preceding 2-3 months. Less than 7% demonstrates glycemic control in diabetic patients. Hemoglobin AlC % Suggested Diagnosis > or = 6.5 Diabetic 5.7 - 6.4 Prediabetic <5.7 Non-diabetic eAVG Glucose 202.99 mg/dL 04/11/2023 4:30 PM EDT [facility] Blood ANTECUBITAL REGION STRUCTURE / Unknown Venipuncture / Unknown 04/11/2023 12:14 PM EDT 04/11/2023 12:20 PM EDT us Madan Winter MD LAB BLOOD ORDERABLES Final Resul t [facility] [address] [phone] from Last 3 Months or Most Recently Relevant to Health Maintenance Insurance [employer] MEDICARE PPO Advance Directives For more information, please contact: [phone] * Full Code (Latest Code Status on File) Date Activated Date Inactivated Comments 04/11/2023 10:31 AM 04/22/2023 5:15 PM Care Teams Finishing Operator Relationship Specialty Start Date End Date Provider Not In System, McT PCP - General 04/11/23
--- OUTSIDE RECORDS SUMMARY | 2025-05-29 12:33 | XMS_ITS | Encounter Summary ---
Author Organization Healthcare Address [address] [place] [address] Care Team Providers Care Manager Department Name Role Phone Enrique Peter MD Primary Care Provider [phone] Encounter Details Date Type Department Care Team (Latest Contact Info) Description 05/29/2025 Travel Social History Tobacco Use Types Packs/Day Years [...] Info) Description 06/08/2025 10:00 AM EDT Appointment [facility] [address] [place] [id number] 06/08/2025 11:20 AM EDT Office Visit [facility] [address] [place] [address] Ina Prasad MD [address] [place] [address] [address] [place] [address] documented as of this encounter Visit Diagnoses Not on filedocumented in this encounter Additional Health Concerns Assessment Noted Time A fall risk assessment has been complete d for the patient 02/05/2024 12:22 PM EDT A Body Mass Index follow-up plan has been documented for the patient 05/29/2025 12:28 PM EDT documented as of this encounter Care Teams Manager Department Relationship Specialty Start Date End Date Enrique Peter MD [address] [place] [address] PCP - General 08/27/23 documented as of this encounter
[2025-05-29 13:09] LABS: Albumin Level 4.4 g/dl (3.5-5.0); Anion Gap 14.6 mEq/L (5-15); Blood Urea Nitrogen 54 mg/dl (7-17); Calcium 10.3 mg/dl (8.4-10.2); Carbon Dioxide 28 mmol/L (22.0-30.0); Chloride 105 mmol/L (98-107); Creatinine,Serum 2.90 mg/dl (0.52-1.04); Estimated Glomerular Filt Rate 16 ml/min (>60); GFR (African American) 19 ML/MIN (>60); Glucose 161 mg/dl (74-100); Phosphorous 4.4 mg/dl (2.5-4.5); Potassium 5.6 mmoL/L (3.5-5.1); Sodium 142 mmol/L (136-145)
== END 2025-05-29 23:59 | disposition home or self-care (01) ==
LOC: LAB 12:30
PROVIDERS: PCP Family Medicine; Visit Provider Nurse Practitioner
DX: N18.4 Chronic kidney disease, stage 4 (severe) (principal)
CPT/HCPCS: 36415; 80069

== ENCOUNTER 2025-06-26 13:21 | Outpatient (CLI) | payer MEDICARE, SELFPAY ==
--- OUTSIDE RECORDS SUMMARY | 2024-11-20 11:30 | XMS_ITS ---
Author Organization [facility] Address [address] [facility] [address] [place] [phone] Care Team Providers Care Pre Sales Systems Engineer Name Role Phone Canelo Peter Primary Care Provider Allergies Allergen (clinical drug ingredient) Drug/Non Drug Allergy documented on EMR Reaction Allergy Type Onset Date Status allopurinol Allopurinol hives, eye swelling Drug Allergy Active [...] 159 Performing Lab: Notes/Report: Test performed by [facility] [address] [place] [address] , [address], [place] [address] Angel Craig MD, After School Coordinator CLIA: [id number] Sodium 133 135-145 mmol/L Potassium 5.7 3.5-5.3 [...] growth Performing Lab: Notes/Report: Test performed by [facility] [address] [place] [address] , [address], [place] [address] Angel Craig MD, After School Coordinator CLIA: [id number] Specimen Source Urine - Void Culture, Urine [...] 11/21/19 25 9:58:58 AM > faxed to [facility] Endocrinology Referral Priority Routine REASON FOR VISIT [...] at bedtime as needed 11/20/2024 Active Nystatin-Triamcinolone 802338-4.1 UNIT/GM 1 application Externally Twice a day [...] 11/20/2024 Encounters Encounter Location Date Provider Diagnosis [facility] [address], [place] [id number] 11/20/2024 Canelo Peter Dysuria R30.0 ; Poor [...] rally at bedtime as needed 11/20/2024 Nystatin-Triamcinolone 249709-4.1 UNIT/GM 1 application Externally Twice a day 11/20/2024 Ferrous Gluconate 324 (38 Fe) MG 1 tablet Orally Two times a day; Duration: 60 day(s) 06/09/2024 HumaLOG 100 UNIT/ML 10 units Subcutaneou s Three times a day before meals 11/20/2024 Referrals Referral Date Details 11/20/2024 11/20/2024, RESCHEDU TERRA WITH [facility] Next Appt Details Follow Up: 4 Weeks, Reason: Provider Name:Canelo Rojas er, 07/09/2025 02:00:00 PM, [address], [address], [place], [place], [phone], Progress Notes * FRANCIS MULLEN LDOB:[birth year] (69 yo F)Acc No.[id number]:11/20/2024 Progress Notes Patient: Charlie ROMANSTARLA FRANCIS Delvis Provider: Renetta Veloz:1955 A ge:68 Y S ex:Female Date:11/20/2024 Address:[address], [place], [id number] Subjective: * Chief Complaints: * 1 . [...] E ndocrinology: She was scheduled to see [facility] Endocrinology in April 2024, but this never [...] right kidney due to carcinoma[facility] Kwok[facility] * Hospitalization/Major Diagno stic Procedure: H [...] in office. ? Referral To:Endocrinology ?Reason:RESCHEDULE WITH [facility] 3.?Chronic kidney disease, stage 4 [...] G 2211 Complex e/[place], [address] Urinalysis, no micro, [address] GLYCATED HEMOGLOBIN TEST, Modifiers: QW , 23743 CBC WITH AUTO DIFF, 39096 VENIPUNCT, ROUTINE*, G8752 MOST RECENT SYSTOLIC BP < 140MM HG, G8754 MOST RECENT DIASTOLIC BP < 90MM HG, 3046F HEMOGLOBIN A1C LEVEL > 9.0% * Follow Up: 4 Weeks * Images: Billing Information: * Visit Code: 45845 Office Visit, Est Pt., Level 4. * Procedure Codes: G2211 Complex e/[place]. [address] Urinalysis, no micro. 64943 GLYCATED HEMOGLOBIN TEST. Modifiers: QW 69020 CBC WITH AUTO DIFF. 40617 VENIPUNCT, ROUTINE*. G8752 MOST RECENT SYSTOLIC BP < 140MM HG. G8754 MOST RECENT DIASTOLIC BP < 90MM HG. 3046F HEMOGLOBIN A1C LEVEL > 9.0%. * Electronic signature of Canelo Peter MD on 06/26/2025 at 01:26 PM EDT Sign off status: Pending * Provider: Canelo Peter M.D. Date: 0 11/20/2024 Generated for Sherron mendez/Luis/eTrehanasmitting on: 0 06/26/2025 01:26 PM EDT History and Physical Notes * HPI [...] 11/20/2024 Rome, J Joshua , RESCHEDULE WITH [facility] CRIN[facility]
--- OUTSIDE RECORDS SUMMARY | 2024-12-29 07:30 | XMS_ITS ---
Author Organization [facility] Address [address] [facility] [address] [place] [phone] Care Team Providers Care Sales Technician Home Theater Name Role Phone Canelo Peter Primary Care [...] 1.1 Performing Lab: Notes/Report: Test performed by [facility], [employer] [address] [facility] , [address], [place] [address] Angel Craig MD, Target Protection Specialist CLIA: [id number] Sodium 132 135-145 mmol/L Potassium 5.3 3.5-5.3 [...] Once a day 10/31/2023 Not-Taking Nystatin-Triamcinol one 547854-8.1 UNIT/GM 1 application Externally Twice a day [...] DAY; Duration: 30 days Active Dexcom G7 Carding Machine Operator - as directed 12/29/2024 Active NovoLOG FlexPen [...] 12/29/2024 Encounters Encounter [facility] Date [facility] [address] [phone] 12/29/2024 Canelo Peter Type 2 diabetes with [...] needed; Duration: 30 day(s) 12/29/2024 Dexcom G7 Carding Machine Operator - as directed 12/29/2024 NovoLOG FlexPen 100 UNIT/ML 12 units Sub cutaneous Three times a day 12/29/2024 Dexcom G7 Sensor - as directed 12/29/2024 HumaLOG KwikPen 100 UNIT/ML 10 units Sub cutaneous three times a day 11/24/2024 Next Appt Details Follow Up: 2 Months, Reason: Provider Name:Canelo Rojas er, 07/09/2025 02:00:00 PM, [address], [address] , [place], [place], [phone], Progress Notes * FRANCIS MULLEN LDOB:[birth year] (69 yo F)Acc No.[id number]:12/29/2024 Progress Notes Patient: FRANCIS WOODS Provider: Canelo Peter M.D. :1955 A ge:69 Y S ex:Female Date:12/29/2024 Address:[facility] [address], [place], [id number] Subjective: * Chief Complaints: * 1 . 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 Kwok, [facility] 05/12/2023. * Hospitalization/Major Diagno stic Procedure: [...] a day (at bedtime) , Taking Nystatin-Triamcinolone 722454-9.1 UNIT/GM Cream 1 application Externally Twice a [...] G 2211 Complex e/[place], [address] GLYCATED HEMOGLOBIN TEST, Modifiers: QW , 15635 CBC WITH AUTO DIFF, 58112 VENIPUNCT, ROUTINE*, G8752 MOST RECENT SYSTOLIC BP < 140MM HG, G8754 MOST RECENT DIASTOLIC BP < 90MM HG, 3046F HEMOGLOBIN A1C LEVEL > 9.0% * Follow Up: 2 Months * Images: Billing Information: * Visit Code: 81073 Office Visit, Est Pt., Level 4. * Procedure Codes: G2211 Complex e/[place]. [address] GLYCATED HEMOGLOBIN TEST. Modifiers: QW 86848 CBC WITH AUTO DIFF. 16794 VENIPUNCT, ROUTINE*. G8752 MOST RECENT SYSTOLIC BP < 140MM HG. G8754 MOST RECENT DIASTOLIC BP < 90MM HG. 3046F HEMOGLOBIN A1C LEVEL > 9.0%. * Electronic signature of Canelo Peter MD on 06/26/2025 at 01:27 PM EDT Sign off status: Pending * Provider: Canelo Peter M.D. Date: 0 12/29/2024 Generated for Sherron mendez/Luis/Elizabeth on: 0 06/26/2025 01:27 PM EDT
--- OUTSIDE RECORDS SUMMARY | 2025-02-23 07:00 | XMS_ITS ---
Author Organization [facility] Address [address] [place] [address] [place] [id number] Care Team Providers Care Accounting Manager Assistant Controller Name Role Phone Canelo Peter Primary Care Provider Allergies Allergen (clinical drug ingredient) Drug/Non Drug Allergy documented on EMR Reaction Allergy Type Onset Date Status allopurinol Allopurinol hives, eye swelling Drug Allergy Active Results Component Value Reference Range Notes CBC Fingerstick (in house) Reviewed date:02/24/2025 02:05:37 PM Interpretation: Performing Lab: Notes/Report: wbc 5.8 3.5 - 10 lym 21.8% 15 - 50 mid 5.4% 2 - 15 gran 72.8% 35 - 80 rbc 4.26 3.5 - 5.5 hgb 11.3 11.5 - 16.5 hct 35.5 35 - 55 mcv 83.5 75 - 100 mch 26.6 25 - 35 mchc 31.9 31 - 38 plat 142 100 - 400 Glycohemoglobin A1c (in hous e) Reviewed date:02/24/2025 02:05:48 PM Interpretation: Performing Lab: Notes/Report: glycohemoglobin 10.1% 5 - 6.5 % P-Basic Metabolic Panel (BMP ) Reviewed date:03/06/2025 01:09:15 PM Interpretation:gluc 219, bun 42, Cr 2.33, gfr 22 Performing Lab: Notes/Report: Test performed by [facility] [address] [place] [address] , [address], [place] [address] Angel Craig MD, Radiology Administrator CLIA: [id number] Sodium 138 135-145 mmol/L Potassium 4.3 3.5-5.3 mmol/L Chloride 100 97-108 mmol/L CO2 23 22-32 mmol/L Glucose 219 65-99 mg/dL BUN 42 8-23 mg/dL Creatinine 2.33 0.50-1.00 mg/dL Calcium 9.6 8.6-10.4 mg/dL eGFR by Creatinine 22 >59 mL/min/1.73m2 REASON FOR VISIT 2 month f/u, Needs labs, mammogram, low dose chest CT, colon cancer screening, & diabetic eye exam Medications Medication SIG (Take, Route, Frequency, Duration) Notes Start Date End Date Status DULoxetine HCl 30 MG 1 cap(s) orally onc e daily; Duration: 30 days 11/27/2022 Active HYDROcodone-Acetamin ophen 7.5-325 MG 1 tab(s) orally 3 times a day as needed; Duration: 30 day(s) 01/28/2025 Active Trulance 3 MG 1 tablet Orally Once a day 10/31/2023 Not-Taking Temazepam 30 MG 1 cap(s) orally once a day (at bedtime); Duration: 30 day(s) 01/28/2025 Active Basaglar KwikPen 100 UNIT/ML 20 units Subcutaneous twice daily; Duration: 30 days 01/07/2025 Active FreeStyle Blair 3 Sensor - as directed replace every 14 days; Duration: 30 days 01/07/2025 Active FreeStyle Blair 3 Agenda - as directed 01/07/2025 Active Metoprolol Succinate ER 100 mg 1 tablet Orally Once a day; Duration: 90 days Active Admelog SoloStar 100 UNIT/ML 10 units Subcutaneous three times daily before meals; Duration: 30 days 01/07/2025 Active Glimepiride 4 mg 1 tab(s) Orally Once a day; Duration: 30 days Active diazePAM 2 MG 1 tablet as needed Orally at bedtime as needed 11/20/2024 Active Lisinopril 5 MG 1 tablet Orally Once a day; Duration: 90 days 04/25/2024 Active Nystatin-Triamcinolo ne 476475-1.1 UNIT/GM 1 application Externally Twice a day 11/20/2024 Active Ferrous Gluconate 324 (38 Fe) MG 1 tablet Orally Two times a day; Duration: 60 day(s) 06/09/2024 Active Autopen 3 ml MIS 2-42 Units 10 units three times daily; Duration: 30 days Autopen 3 ML MIS 2-42 Unit Active Pioglitazone HCl 15 MG 1 tablet Orally Once a day Active PriLOSEC OTC 20 MG 1 tab(s) orally once a day Active metOLazone 2.5 mg 1 tablet Orally Once a day; Duration: 30 days Active Vitamin C 500 MG 1 tablet Orally Once a day Active Vital Signs Blood pressure systolic 120 mm Hg 02/24/20 25 Blood pressure diastolic 80 mm Hg 025 Heart Rate 63 /min 02/23/2025 Height 65 in 02/23/2025 Weight 201.6 lbs 02/23/2025 BMI 33.54 kg/m2 02/23/2025 Encounters Encounter Location Date Provider Diagnosis [facility] 1210 [facility] [address] [place], [place] [phone] 02/23/2025 Canelo Peter Type 2 diabetes with complication E11.8 ; Current use of insulin Z79.4 ; Renal failure N19 ; Chronic kidney disease, stage 4 (severe) N18.4 and 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 Assessments Encounter Date Diagnosis (ICD Code) Assessment Notes Treatment Notes Treatment Clinical Notes Section Notes 02/23/2025 Type 2 diabetes with complication (ICD-10 - E11.8) 02/23/2025 Current use of insulin (ICD-10 - Z79.4) 02/23/2025 Renal failure (ICD-10 - N19) 02/23/2025 Chronic kidney disease, stage 4 (severe) (ICD-10 - N18.4) 02/23/2025 Status post nephrectomy (ICD-10 - Z90.5) Plan Of Treatment Next Appt Details Follow Up: 2 Months, Reason: Provider Name:Canelo Rojas er, 07/09/2025 02:00:00 PM, [address] [facility] [address], [address], [place], [phone], Progress Notes * FRANCIS MULLEN LDOB:[birth year] (69 yo F)Acc No.[id number]:02/23/2025 Progress Notes Patient: FRANCIS WOODS Provider: Canelo Peter M.D. :1955 A ge:69 Y S ex:Female Date:02/23/2025 Address:[address], [place], [id number] Subjective: * Chief Complaints: * 1 . 2 month f/u. 2. Needs labs, mammogram, low dose chest CT, colon cancer screening, & diabetic eye exam. * HPI: C ardiology: The patient is here for a check up on Hypertension and Diabetes. Pt states she saw the [employer] February 13 and is scheduled to have a port placed for possible future treatments. Pt states her glucose has been doing better with addition of Pioglitazone. says MUCH BETTER. A1c is 10.1 down from 13.1!!. Denies : Chest Pain. D enies : Short of Breath. D enies : Dizziness. D enies : Palpitations. C onstitutional: See 02/13/2025 note from Nephrology. A dialysis port is planned. E ndocrinology: She and feel that addition of Pioglitazone has helped. She is having regular frequent telephine contacts with Endocrinology through [employer]. * ROS: D ERMATOLOGY: no R steve. 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 Kwok, [facility] 05/12/2023. * Hospitalization/Major Diagno stic Procedure: H MH ER 02/19/2021. * Family History: F ather: [...] years 28 ,determination:. * Medications: T aking Pioglitazone HCl 15 MG Tablet 1 tablet Orally Once a day , Taking Vitamin C 500 MG Tablet 1 tablet Orally Once a day , Taking PriLOSEC OTC 20 MG Tablet Delayed Release 1 tab(s) orally once a day , Taking metOLazone 2.5 mg Tablet 1 tablet Orally Once a day , Taking Nystatin-Triamcinolone 322097-9.1 UNIT/GM Cream 1 application Externally Twice a day , Taking Ferrous Gluconate 324 (38 Fe) MG Tablet 1 tablet Orally Two times a day , Taking diazePAM 2 MG Tablet 1 tablet as needed Orally at bedtime as needed , Taking Lisinopril 5 MG Tablet 1 tablet Orally Once a day , Taking Autopen 3 ml MIS 2-42 Units 10 units three times daily , Notes to Pharmacist: Autopen 3 ML MIS 2-42 Unit, Taking Metoprolol Succinate ER 100 mg Tablet Extended Release 24 Hour 1 tablet Orally Once a day , Taking FreeStyle Blair 3 Sensor - Miscellaneous as directed replace every 14 days , Taking FreeStyle Blair 3 Agenda - Device as directed , Taking Admelog SoloStar 100 UNIT/ML Solution Pen-injector 10 units Subcutaneous three times daily before meals , Taking Glimepiride 4 mg Tablet 1 tab(s) Orally Once a day , Taking DULoxetine HCl 30 MG Capsule Delayed Release Particles 1 cap(s) orally once daily , Taking HYDROcodone-Acetaminophen 7.5-325 MG Tablet 1 tab(s) orally 3 times a day as needed , Taking Temazepam 30 MG Capsule 1 cap(s) orally once a day (at bedtime) , Taking Basaglar KwikPen 100 UNIT/ML Solution Pen-injector 20 units Subcutaneous twice daily , Not-Taking Trulance 3 MG Tablet 1 tablet Orally Once a day , Medication List reviewed and reconciled with the patient * Allergies: A llopurinol: hives, eye swelling. Objective: * Vitals: W t: 201.6, Temp: 98.5, BP: 120/80, HR: 63, Nurse: JAREK, Ht: 65, BMI:33.54. * Examination: G eneral Examination: General Appearance: N AD. H EENT: u nremarkable.?Oral cavity: n o lesions, mucosa moist and WNL, no erythema. N charlie: s upple, no lymphadenopathy. C hest: n ormal shape and expansion. H eart: R SR , aortic murmur. L ungs: c lear to auscultation. A bdomen: soft and nontender. N eurologic Exam:?Intact, gait normal. S kin: n ormal, no rash. P eripheral pulses: n ormal . ?Back: mild dorsal kyphosis. E xtremities: n o leg edema. Assessment: * Assessment: 1. C urrent use of insulin - Z79.4 2 . T ype 2 diabetes with complication - E11.8 3 . R enal failure - N19 4 . C hronic kidney disease, stage 4 (severe) - N18.4 5 . S tatus post nephrectomy - Z90.5 Plan: * Treatment: Value Reference Range g lycohemoglobin 10.1% 5 - 6.5 % * Fay Ness 02/23/2025 11: 30:59 AM > Provider reviewed results while patient in office. 2.?Chronic kidney disease, stage 4 (severe)?LAB: P-Basic Metabolic Panel (BMP) (Collection Date & Time - 02/23/2025 03:05 PM)?gluc 219, bun 42, Cr 2.33, gfr 22* Value Reference Range B UN 42 H 8-23 - mg/dL * C alcium 9.6 8.6-10.4 - mg/dL * C hloride 100 97-108 - mmol/L * C O2 23 22-32 - mmol/L * C reatinine 2.33 H 0.50-1.00 - mg/dL * G lucose 219 H 65-99 - mg/dL * P otassium 4.3 3.5-5.3 - mmol/L * S odium 138 135-145 - mmol/L * e GFR by Creatinine 22 L >59 - mL/min/1.73m2 * Gabi Ware 03/06/2025 01:0 9:08 PM > See phone encounter * Labs: * L ab: CBC Fingerstick (in house) (Collection Date & Time - 02/23/2025) Value Reference Range w bc 5.8 3.5 - 10 * l ym 21.8% 15 - 50 * m id 5.4% 2 - 15 * g ran 72.8% 35 - 80 * r bc 4.26 3.5 - 5.5 * h gb 11.3 11.5 - 16.5 * h ct 35.5 35 - 55 * m cv 83.5 75 - 100 * m ch 26.6 25 - 35 * m chc 31.9 31 - 38 * p lat 142 100 - 400 * Fay Ness L 02/23/2025 12: 26:21 PM > * Procedure Codes: G 2211 Complex e/[place], [address] GLYCATED HEMOGLOBIN TEST, Modifiers: QW , G8752 MOST RECENT SYSTOLIC BP < 140MM HG, G8754 MOST RECENT DIASTOLIC BP < 90MM HG, 3046F HEMOGLOBIN A1C LEVEL > 9.0% * Follow Up: 2 Months * Images: Billing Information: * Visit Code: 41639 Office Visit, Est Pt., Level 4. * Procedure Codes: G2211 Complex e/[place]. [address] GLYCATED HEMOGLOBIN TEST. Modifiers: QW G8752 MOST RECENT SYSTOLIC BP < 140MM HG. G8754 MOST RECENT DIASTOLIC BP < 90MM HG. 3046F HEMOGLOBIN A1C LEVEL > 9.0%. * Electronic signature of Canelo Peter MD on 06/26/2025 at 01:26 PM EDT Sign off status: Pending * Provider: Canelo Peter M.D. Date: 0 02/23/2025 Generated for Sherron mendez/Luis/Mariliaitting on: 0 06/26/2025 01:26 PM EDT History and Physical Notes * HPI (History of Present Illness) Category Sub-Category Detail Notes Category Not es Endocrinology She and tal d feel that addition of Pioglitazone has helped. She is having regular frequent telephine contacts with Endocrinology through [employer]. Cardiology Short of Breath Chest Pain Palpitations Dizziness Constitutional See 02/13/2025 note from Nephrology. A dialysis port is planned. Examination Category Sub-Category Detail Notes Category Not es General Examination HEENT: unremarkable Heart: RSR , aortic murmur Lungs: clear to auscultatio n Abdomen: soft and nontender Extremities: no leg edema General Appearance: NAD Skin: normal, no rash Neurologic Exam: Intact, gait normal Neck: supple, no lymphaden opathy Oral cavity: no lesions, mucosa m oist and WNL, no erythema Peripheral pulses: normal Back: mild dorsal kyphosis Chest: normal shape and exp ansion
--- OUTSIDE RECORDS SUMMARY | 2025-04-30 09:30 | XMS_ITS ---
Author Organization [facility] Address [address] [place] [id number] Care Team Providers Care Adjunct Nursing Faculty Name Role Phone Canelo Peter Primary Care Provider [phone] Allergies Allergen (clinical drug ingredient) Drug/Non Drug Allergy documented on EMR Reaction Allergy Type Onset Date Status allopurinol Allopurinol hives, eye swelling Drug Allergy Active Results Component Value Reference Range Notes Glycohemoglobin A1c (in hous e) Reviewed date:04/30/2025 05:45:37 PM Interpretation: Performing Lab: Notes/Report: glycohemoglobin 8.1% 5 - 6.5 % P-Comprehensive Metabolic Pa elizabeth (CMP) Reviewed date:05/22/2025 12:36:30 PM Interpretation:gluc 189, bun 48, Cr 2.69, gfr 18, alk phos 131, a/g 1- see 05/22/25 OV Performing Lab: Notes/Report: Test performed by [facility] , [address], [place] [address] Angel Craig MD, Customer Sales Advisor CLIA: [id number] Sodium 137 135-145 mmol/L Potassium 5.0 3.5-5.3 mmol/L Chloride 103 97-108 mmol/L CO2 23 20-32 mmol/L Glucose 189 65-99 mg/dL BUN 48 8-23 mg/dL Creatinine 2.69 0.50-1.00 mg/dL Calcium 9.6 8.6-10.4 mg/dL eGFR by Creatinine 18 >59 mL/min/1.73m2 Protein 8.0 6.0-8.3 g/dL Albumin 4.0 3.5-5.3 g/dL Alkaline Phosphatase 131 35-121 IU/L ALT (SGPT) 12 <5-47 IU/L AST (SGOT) 20 <5-40 IU/L Bilirubin, Total 0.7 <0.2-1.2 mg/dL A/G Ratio 1.0 1.1-2.5 REASON FOR VISIT 2 months, Needs labs, mammogram, low dose chest CT, colon cancer screening, & diabetic eye exam Medications Medication SIG (Take, Route, Frequency, Duration) Notes Start Date End Date Status Glimepiride 4 MG Take 1 tablet by mouth once daily; Duration: 90 Active DULoxetine HCl 30 MG 1 cap(s) orally onc e daily; Duration: 90 days Active HYDROcodone-Acetamin ophen 7.5-325 MG 1 tab(s) orally 3 times a day as needed; Duration: 30 day(s) 04/06/2025 Active metOLazone 2.5 MG Take 1 tablet by mouth once daily; Duration: 30 Active Trulance 3 MG 1 tablet Orally Once a day 10/31/2023 Not-Taking Basaglar KwikPen 100 UNIT/ML 20 units Subcutaneous once a day; Duration: 30 days 01/07/2025 Active Temazepam 30 MG 1 cap(s) orally once a day (at bedtime); Duration: 30 day(s) 01/28/2025 Active Admelog SoloStar 100 UNIT/ML 10 units Subcutaneous three times daily before meals; Duration: 30 days 01/07/2025 Active FreeStyle Blair 3 [place] - as directed 01/07/2025 Active FreeStyle Blair 3 Sensor - as directed replace every 14 days; Duration: 30 days 01/07/2025 Active Lisinopril 5 MG 1 tablet Orally Once a day; Duration: 90 days 04/25/2024 Active diazePAM 2 MG 1 tablet as needed Orally at bedtime as needed 11/20/2024 Active Ferrous Gluconate 324 (38 Fe) MG 1 tablet Orally Two times a day; Duration: 60 day(s) 06/09/2024 Active Metoprolol Succinate ER 100 mg 1 tablet Orally Once a day; Duration: 90 days Active Autopen 3 ml MIS 2-42 Units 10 units three times daily; Duration: 30 days Autopen 3 ML MIS 2-42 Unit Active Nystatin-Triamcinolo ne 003308-0.1 UNIT/GM 1 application Externally Twice a day 11/20/2024 Active PriLOSEC OTC 20 MG 1 tab(s) orally once a day Active Vitamin C 500 MG 1 tablet Orally Once a day Active Pioglitazone HCl 15 MG 1 tablet Orally Once a day Active Vital Signs Blood pressure systolic 130 mm Hg 04/30/20 25 Blood pressure diastolic 74 mm Hg 025 Heart Rate 56 /min 04/30/2025 Height 65 in 04/30/2025 Weight 207.2 lbs 04/30/2025 BMI 34.48 kg/m2 04/30/2025 Encounters Encounter Location Date Provider Diagnosis [facility] 1210 [facility] [address] [facility] [address] [place], [place] [phone] 04/30/2025 Canelo Peter Type 2 diabetes mellitus without complication E11.9 ; Essential hypertension I10 ; Chronic kidney disease, stage 4 (severe) N18.4 and Current use of insulin Z79.4 Assessments Encounter Date Diagnosis (ICD Code) Assessment Notes Treatment Notes Treatment Clinical Notes Section Notes 04/30/2025 Type 2 diabetes mellitus without complication (ICD-10 - E11.9) 04/30/2025 Essential hypertension (ICD-10 - I10) 04/30/2025 Chronic kidney disease, stage 4 (severe) (ICD-10 - N18.4) 04/30/2025 Current use of insulin (ICD-10 - Z79.4) Plan Of Treatment Next Appt Details Follow Up: 2 Months, Reason: Provider Name:Canelo Rojas er, 07/09/2025 02:00:00 PM, 1210 [facility] [address] [facility], [address], [place], [place], [id number], Progress Notes * FRANCIS MULLEN LDOB:[birth year] (69 yo F)Acc No.[id number]:04/30/2025 Progress Notes Patient: Charlie ROMANSTARLAFRANCIS Provider: Canelo Peter M.D. :1955 A ge:69 Y S ex:Female Date:04/30/2025 Address:[address] [place] [address], [place], [id number] Subjective: * Chief Complaints: * 1 . 2 months. 2. Needs labs, mammogram, low dose chest CT, colon cancer screening, & diabetic eye exam. * HPI: C ardiology: The pt is here today for a check-up on Hypertension, Renal insufficiency and diabetes. Pt states she doing good and denies any new concerns. Pt states she has cut back on the Insulin due to episodes of hypoglycemia. Pt states she reduced the Basaglar back to 20 units in the morning and 20 units at night, but most n ights she does not take the Basaglar. 69 year old female presents with c/o Dizziness l ightheaded. Denies : Chest Pain. D enies : Short of Breath. D enies : Palpitations. E ndocrinology: Has not received shunt. She feels she is doing better. * ROS: D ERMATOLOGY: no R steve. [...] tab(s) orally once a day , Taking Nystatin-Triamcinolone 818371-4.1 UNIT/GM Cream 1 application Externally Twice a [...] 14 days , Taking FreeStyle Blair 3 [place] - Device as directed , Taking Admelog SoloStar 100 UNIT/ML Solution Pen-injector 10 units Subcutaneous three times daily before meals , Taking Temazepam 30 MG Capsule 1 cap(s) orally once a day (at bedtime) , Taking Basaglar KwikPen 100 UNIT/ML Solution Pen-injector 20 units Subcutaneous once a day , Taking metOLazone 2.5 MG Tablet Take 1 tablet by mouth once daily , Taking HYDROcodone-Acetaminophen 7.5-325 MG Tablet 1 tab(s) orally 3 times a day as needed , Taking DULoxetine HCl 30 MG Capsule Delayed Release Particles 1 cap(s) orally once daily , Taking Glimepiride 4 MG Tablet Take 1 tablet by mouth once daily , Not-Taking Trulance 3 MG Tablet 1 tablet Orally Once a day * Allergies: A llopurinol: hives, eye swelling. Objective: * Vitals: W t: 207.2, Temp: 98.2, BP: 130/74, HR: 56, Nurse: JAREK, Ht: 65, BMI:34.48. * Examination: G eneral Examination: General Appearance: [...] o leg edema. Assessment: * Assessment: 1. T ype 2 diabetes mellitus without complication - E11.9 (Primary) 2 . E ssential hypertension - I10 3 . C hronic kidney disease, stage 4 (severe) - N18.4? 4. C urrent use of insulin - Z79.4 Plan: * Treatment: Value Reference Range g lycohemoglobin 8.1% 5 - 6.5 % * Natalie Overton 04/30/2025 0 2:01:13 PM EDT > Provider reviewed results while patient in office. 2.?Essential hypertension?LAB: P-Comprehensive Metabolic Panel (CMP) (Collection Date & Time - 04/30/2025 01:20 PM)?gluc 189, bun 48, Cr 2.69, gfr 18, alk phos 131, a/g 1- see 05/22/25 OV* Value Reference Range A /G Ratio 1.0 L 1.1-2.5 - * A lbumin 4.0 3.5-5.3 - g/dL * A lkaline Phosphatase 131 H 35-121 - IU/L * A LT (SGPT) 12 <5-47 - IU/L * A ST (SGOT) 20 <5-40 - IU/L * B ilirubin, Total 0.7 <0.2-1.2 - mg/dL * B UN 48 H 8-23 - mg/dL * C alcium 9.6 8.6-10.4 - mg/dL * C hloride 103 97-108 - mmol/L * C O2 23 20-32 - mmol/L * C reatinine 2.69 H 0.50-1.00 - mg/dL * G lucose 189 H 65-99 - mg/dL * P otassium 5.0 3.5-5.3 - mmol/L * S odium 137 135-145 - mmol/L * P rotein 8.0 6.0-8.3 - g/dL * e GFR by Creatinine 18 L >59 - mL/min/1.73m2 * Procedure Codes: G 2211 Complex e/[place], [address] GLYCATED HEMOGLOBIN TEST, Modifiers: QW , 3052F HG A1C>EQUAL 8.0%<EQUAL 9.0%, G8950 PREHTN/HTN BP DOC INDCD F/U DOC, G8752 MOST RECENT SYSTOLIC BP < 140MM HG, G8754 MOST RECENT DIASTOLIC BP < 90MM HG * Follow Up: 2 Months * Images: Billing Information: * Visit Code: 69170 Office Visit, Est Pt., Level 4. * Procedure Codes: G2211 Complex e/[place]. [address] GLYCATED HEMOGLOBIN TEST. Modifiers: QW 3052F HG A1C>EQUAL 8.0%<EQUAL 9.0%. G8950 PREHTN/HTN BP DOC INDCD F/U DOC. G8752 MOST RECENT SYSTOLIC BP < 140MM HG. G8754 MOST RECENT DIASTOLIC BP < 90MM HG. * Electronic signature of Canelo Peter MD on 06/26/2025 at 01:26 PM EDT Sign off status: Pending * Provider: Canelo Peter M.D. Date: 0 04/30/2025 Generated for Sherron mendez/Luis/eTransmitting on: 0 06/26/2025 01:26 PM EDT History and Physical Notes * HPI (History of Present Illness) Category Sub-Category Detail Notes Category Not es Endocrinology Has not receiv ed shunt. She feels she is doing better. Cardiology Short of Breath Chest Pain Palpitations Dizziness lightheaded Examination Category Sub-Category Detail Notes Category Not [...]
--- OUTSIDE RECORDS SUMMARY | 2025-05-22 07:15 | XMS_ITS ---
[facility] Address [address] [place] [phone] Care Team Providers Care Pole Incisor Operator Name Role Phone Canelo Peter Primary [...] Left hip pain (M25.5 52) [facility] Referring Provider First Name Canelo Lewis Referring Provider Last Name [place] Referring Provider Speciality Family [facility] ctice Referral Priority Routine REASON FOR VISIT [...] 30 days 01/07/2025 Active FreeStyle Blair 3 [place] - as directed 01/07/2025 Active Admelog SoloStar [...] times a day 05/22/2025 Active Nystatin-Triamcin[place] 200098-8.1 UNIT/GM 1 application Externally Twice a day 11/20/2024 Active Problems Problem Type SNOMED Code ICD Code Onset Dates Problem Status W/U Status Risk Notes Problem History of prosthetic arthroplasty of left hip (047567730474751 7) Status post left hip replacement (Z96.642) Active confirmed Vital Signs Blood pressure systolic 130 mm Hg 05/22/20 25 Blood pressure diastolic 70 mm Hg 025 Heart Rate 54 /min 05/22/2025 Height 65 in 05/22/2025 Weight 211.8 lbs 05/22/2025 BMI 35.24 kg/m2 05/22/2025 Encounters Encounter Location Date Provider Diagnosis [facility] [address] [facility] [address] [place] [phone] 05/22/2025 Canelo Peter Left hip pain M25.55 [...] Name:Canelo Rojas er, 07/09/2025 02:00:00 PM, [address] [facility] [address] [facility], [address], [place], [place], [phone], Progress Notes * FRANCIS MULLEN LDOB:[birth year] (69 yo F)Acc No.[id number]:05/22/2025 Progress Notes Patient: FRANCIS WOODS Provider: Canelo Peter M.D. :1955 A ge:69 Y S ex:Female Date:05/22/2025 Address:[facility] [place], [id number] Subjective: * Chief Complaints: * 1 . Poss fracture on leg from fall. 2. *Also see lab results from Office Visit. * HPI: Delvis eg: The pt is here today with [...] 2015, Depression, Anxiety disorder. * Surgical History: Delvis Thomas Hip Replacement 08/01/2010, Tooth Extraction 07/2012, Stent Placed x2 in LAD, by Dr. Huitron 02/28/2017, Resection of right kidney due to carcinoma, Dr. Kwok, [facility] 05/12/2023. * Hospitalization/Major Diagno stic [...] orally once a day , Taking Nystatin-Triamcinolone 261157-4.1 UNIT/GM Cream 1 application Externally Twice a [...] 14 days , Taking FreeStyle Blair 3 [place] - Device as directed , Taking Admelog [...] * Images: Billing Information: * Visit Code: 99062 Office Visit, Est Pt., Level 4. * Procedure Codes: G2211 Complex e/m visit add on. G8950 PREHTN/HTN BP DOC INDCD F/U DOC. G8752 MOST RECENT SYSTOLIC BP < 140MM HG. G8754 MOST RECENT DIASTOLIC BP < 90MM HG. * Electronic signature of Canelo Peter MD on 06/26/2025 at 01:26 PM EDT Sign off status: Pending * Provider: Canelo Peter M.D. Date: 05/22/2025 Generated for Sherron mendez/Luis/eTransmitting on: 06/26/2025 01:26 PM EDT History and Physical [...] Provider Not es 05/22/2025 Canelo Peter , To seen at Dr. Aguilar's office 1:00 PM 05/25/25
--- OUTSIDE RECORDS SUMMARY | 2025-05-29 12:20 | XMS_ITS | Encounter Summary ---
Author Organization [facility] Address [address] [place] [address] Care Team Providers Care Aircraft Line Assembler Name Role Phone Enrique Peter MD Primary Care Provider [phone] Reason for Visit * Reason Comments Follow-up Pt is a 69 year old female that presents to the clinic on this date for a follow up for CKD. Pt denies pain at the current moment. Encounter Details Date Type Department Care Team ([facility] st Contact Info) Description 05/29/2025 12:20 PM EDT Office Visit [facility] [address] [place] [address] Meenakshi Martin, BUSINESS SYSTEMS ARCHITECT [address] [address] CKD (chronic kidney disease) stage 4, GFR 15-29 ml/min (CMS/HCC) (Primary Dx); Type 2 diabetes mellitus with stage 2 chronic kidney disease, with long-term current use of insulin (CMS/HCC); Essential hypertension; Chronic kidney disease-mineral and bone disorder; Iron deficiency anemia, unspecified iron deficiency anemia type; History of right radical nephrectomy Social History Tobacco Use Types Packs/Day Years [...] on file documented as of this encounter Last Filed Vital Signs Vital Sign Reading Time Taken Comments Blood Pressure 136/79 05/29/2025 11:55 AM EDT Pulse 76 05/29/2025 11:55 AM EDT Temperature - - Respiratory Rate 18 05/29/2025 11:55 AM EDT Oxygen Saturation 97% 05/29/2025 11:55 AM EDT Inhaled Oxygen Concentration - - Weight 91.2 kg (201 lb) 05/29/2025 11:55 AM EDT Height 170.2 cm (5' 7 ) 05/29/2025 11:55 AM EDT Body Mass Index 31.48 05/29/2025 11:55 AM EDT documented in this encounter Miscellaneous Notes * Progress Notes - Meenakshi Martni, ARNEL - 05/29/2025 12:20 PM EDT Nephrology Clinic Follow up Note Ana Muniz is a 69 y.o. female with PMH of CAD, DM, HTN, DJD s/p LTHA ,Cirrhosis, GERD ,Obesity with BMI 34,2, Renal cell carcinoma s/p right nephrotomy 04/17/23. Patient is a poor historian. HPI and medical history obtained from at chairside and from chart review. Patient underwent radical right nephrectomy 04/17/23. Creatinine prior to sx 1.2, 2.22 onday of discharge. Patient with elevated creatinine to 3.6 in May 2023. Patient no longer takes any NSAIDS. No known family history of renal disease. + Diabetic Neuropathy. taken off due to increased yeast infections. follows with Endocrinology. Interested in home hemo. Denies hematuria, dysuria, abd pain, SOA, CP. No current edema. Had recent reduction in insulin perpatient. Unsure of most recent A1c. States she has been feeling well lately, no new concerns noted. Accompanied today by . Past Medical History: Diagnosis Date Diabetes mellitus (CMS/HCC) Heart disease History of kidney removal Hypertension Current Outpatient Medications Medication Instructions busPIRone (BUSPAR) 7.5 mg, 2 times daily diazePAM (VALIUM) 5 mg, Every 8 hours PRN DULoxetine (CYMBALTA) 30 mg, Daily furosemide (LASIX) 40 mg, Daily glimepiride (AMARYL) 4 mg, Daily HYDROcodone-acetaminophen (Homer) 7.5-325 MG tablet TAKE ONE TABLET BY MOUTH THREE TIMES DAILY NEEDED MAY CAUSE DROWSINESS Insulin Glargine (BASAGLAR KWIKPEN SC) 20 Units, Daily Insulin Lispro (ADMELOG, HUMALOG) 20 Units, 3 times daily with meals lactulose (CHRONULAC) 20 g, ZZ Daily RT Lantus SoloStar 100 UNIT/ML injection pen 20 Units 3 (three) times a day. lisinopril 10 mg, Daily lisinopril 5 mg, Daily metOLazone (ZAROXOLYN) 2.5 mg, Daily metoprolol succinate XL (TOPROL-XL) 100 mg, Daily temazepam (Restoril) 30 MG capsule TAKE 1 CAPSULE BY MOUTH ONCE DAILY AT BEDTIME triamterene-hydrochlorothiazide (Maxzide) 75-50 MG tablet 1 tablet, Daily Physical Exam Visit Vitals BP 136/79 (BP Location: Right arm, Patient Position: Sitting, BP Cuff Size: Adult long) Pulse 76 Ht 1.702 m (5' 7 ) Wt 91.2 kg (201 lb) SpO2 97% BMI 31.48 kg/m?? GEN: NAD, sitting in chair, room air EYES: anicteric, EOMI ENT: MMM, Oropharynx clear RESP: patent airways, CTAB, no rales, rhonchi, wheezes CV: RRR, no appreciable murmurs Abd: soft, NT, ND, NABS MS/EXT: no LE edema, no new rashes PSYCH: mood appropriate, affect normal NEURO: AAOx3, follows commands Labs: I have independently reviewed and interpreted the test results and discussed with patient. Labs scanned in to media tab of [employer] from an outside facility. Labs completed on 12/29/24 Imaging: ASSESSMENT/PLAN #[id number] #Right renal mass: S/p Robotic assisted laparoscopic right radical nephrectomy 04/17/23. Prior to surgery Creatinine ~1.2 Post surgery creatinine her creatinine ws noted to be 2.22 with egfr 23 at discharge Egfr 19 on labs from 12/29/24 #DM- poor controlled, but improving A1c 13-->10-->8 #HTN #Anemia of chronic disease Hx of iron deficiency #CKD/MBD #Cirrhosis Hypoalbuminemia #Tobacco use, daily #hyperkalemia High likelihood of quick disease progression. Discussed imminent renal failure in great detail. Discussed VALVE LINER RUBBER and potential options Home hemo, PD, ICHD with patient and . Considering home hemodialysis. Previously referred to vascular for AV access eval and placement. Labs to be done today. Follow likely 3months however will depend on todays labs. Will call patient with results and needed changes if required RTC in 3 months Meenakshi Martin APRN documented in this encounter Plan of Treatment Upcoming Encounters Date Type Department Care Team (Late st Contact Info) Description 07/16/2025 8:00 AM EDT Appointment [facility] [address] [place] [address] 07/16/2025 9:20 AM EDT Office Visit [facility] [address] [place] [address] Ina Prasad MD [address] [facility] [address] [place] [address] Scheduled Orders Name Type Priority Associated Diagnoses Orde r Schedule Renal Function Panel, Plasma Lab Routine CKD (chronic kidney disease) stage 4, GFR 15-29 ml/min (CMS/HCC) Expected: 05/29/2025, Expires: 11/30/2026 CBC W/O Differential Lab Routine CKD (chronic kidney disease) stage 4, GFR 15-29 ml/min (CMS/HCC) Expected: 05/29/2025 (Approximate), Expires: 11/29/2026 Protein, Random, Urine with Creatinine Lab Routine CKD (chronic kidney disease) stage 4, GFR 15-29 ml/min (CMS/HCC) Expected: 05/29/2025 (Approximate), Expires: 11/29/2026 PTH Intact Total Lab Routine CKD (chronic kidney disease) stage 4, GFR 15-29 ml/min (CMS/HCC) Expected: 05/29/2025 (Approximate), Expires: 11/29/2026 Renal Function Panel, Plasma Lab Routine CKD (chronic kidney disease) stage 4, GFR 15-29 ml/min ([facility]) Expected: 05/29/2025 (Approximate), Expires: 11/29/2026 Urinalysis with reflex microscopic (Culture NOT Included) Lab Routine CKD (chronic kidney disease) stage 4, GFR 15-29 ml/min ([facility]) Expected: 05/29/2025 (Approximate), Expires: 11/29/2026 Vitamin D 25 Hydroxy Lab Routine CKD (chronic kidney disease) stage 4, GFR 15-29 ml/min ([facility]) Expected: 05/29/2025 (Approximate), Expires: 11/29/2026 documented as of this encounter Visit Diagnoses Diagnosis CKD (chronic kidney disease) stage 4, GFR 15-29 ml/min ([facility])- Primary Chronic kidney disease, Stage IV (severe) Type 2 diabetes mellitus with stage 2 chronic kidney disease, with long-term current use of insulin ([facility]) Essential hypertension Unspecified essential hypertension Chronic kidney disease-mineral and bone disorder Iron deficiency anemia, unspecified iron deficiency anemia type History of right radical nephrectomy documented in this encounter Additional Health Concerns Assessment Noted Time A fall risk assessment has been complete d for the patient 02/05/2024 12:22 PM EDT A Body Mass Index follow-up plan has been documented for the patient 05/29/2025 12:28 PM EDT documented as of this encounter Care Teams Aircraft Line Assembler Relationship Specialty Start Date End Date Enrique Peter MD [address] [place] [address] PCP - General 08/27/23 documented as of this encounter
--- OUTSIDE RECORDS SUMMARY | 2025-06-26 13:25 | XMS_ITS | Encounter Summary ---
Author Organization Healthcare Address [address] [place] [address] Care Team Providers Care Labor Crew Supervisor Name Role Phone Enrique Peter MD Primary Care Provider [phone] Encounter Details Date Type Department Care Team (Late Contact Info) Description 05/04/2025 Telephone [facility] [address] [place] [address] None, None 0 [place] [address] Social History Tobacco Use Types [...] Info) Description 07/16/2025 8:00 AM EDT Appointment [facility] [address] [place] [address] 07/16/2025 9:20 AM EDT Office Visit [facility] [address] [facility] 5th Floor [address] [place] [address] Ina Prasad MD [address] [facility] [address] [place] [address] documented as of this encounter Visit Diagnoses Not on filedocumented in this encounter Additional Health Concerns Assessment Noted Time A fall risk assessment has been complete d for the patient 02/05/2024 12:22 PM EDT A Body Mass Index follow-up plan has been documented for the patient 02/13/2025 10:53 AM EDT documented as of this encounter Care Teams Labor Crew Supervisor Relationship Specialty Start Date End Date Enrique Peter MD [address] [place] [address] PCP - General 08/27/23 documented as of this encounter
--- OUTSIDE RECORDS SUMMARY | 2025-06-26 13:25 | XMS_ITS | Encounter Summary ---
Author Organization Healthcare Address [address] [place] [address] Care Team Providers Care Cassandra Developer Name Role Phone Enrique Peter MD Primary Care Provider [phone] Encounter Details Date Type Department Care Team (Late Contact Info) Description 04/27/[address] [facility] [address] [place] [address] None, None 0 [place] [address] Social History Tobacco Use Types [...] Info) Description 07/16/2025 8:[address] [facility] [address] [place] [address] 07/16/2025 9:20 AM EDT Office Visit [facility] [address] [facility] 5th Floor [address] [place] [address] Ina Prasad MD [address] [facility] [address] [place] [address] documented as of this encounter Visit Diagnoses Not on filedocumented in this encounter Additional Health Concerns Assessment Noted Time A fall risk assessment has been complete d for the patient 02/05/2024 12:22 PM EDT A Body Mass Index follow-up plan has been documented for the patient 02/13/2025 10:53 AM EDT documented as of this encounter Care Teams Cassandra Developer Relationship Specialty Start Date End Date Enrique Peter MD [address] [place] [address] PCP - General 08/27/23 documented as of this encounter
--- OUTSIDE RECORDS SUMMARY | 2025-06-26 13:25 | XMS_ITS | Encounter Summary ---
Author Organization Healthcare Address [address] [place] [address] Care Team Providers Care Crane Hoist Or Lift Operator Name Role Phone Enrique Peetr MD Primary Care Provider [phone] Encounter Details Date Type Department Care Team (Late st Contact Info) Description 06/19/2025 Orders Only [facility] [address] [facility] [address] [place] [address] Vanita Carpio CKD (chronic kidney disease) stage 4, GFR 15-29 ml/min (CMS/HCC) (Primary Dx) Social History Tobacco Use Types Packs/Day Years [...] Info) Description 07/16/2025 8:00 AM EDT Appointment [facility] [address] [facility] 5th Floor [address] [place] [address] 07/16/2025 9:20 AM EDT Office Visit [facility] [address] [facility] 5th Floor [address] [place] [address] Ina Prasad MD [address] [facility] [address] [place] [address] Scheduled Orders Name Type Priority Associated Diagnoses Orde r Schedule Renal Function Panel, Plasma Lab Routine CKD (chronic kidney disease) stage 4, GFR 15-29 ml/min ([facility]) Expected: 06/19/2025 (Approximate), Expires: 12/19/2026 documented as of this encounter Visit Diagnoses Diagnosis CKD (chronic kidney disease) stage 4, GFR 15-29 ml/min ([facility])- Primary Chronic kidney disease, Stage IV (severe) documented in this encounter Additional Health Concerns Assessment Noted Time A fall risk assessment has been complete d for the patient 02/05/2024 12:22 PM EDT A Body Mass Index follow-up plan has been documented for the patient 05/29/2025 12:28 PM EDT documented as of this encounter Care Teams Crane Hoist Or Lift Operator Relationship Specialty Start Date End Date Enrique Peter MD [address] [place] [address] PCP - General 08/27/23 documented as of this encounter
--- OUTSIDE RECORDS SUMMARY | 2025-06-26 13:25 | XMS_ITS | Clinical Summary ---
Author Organization [facility] Address [address] [facility] [address] [place] [address] Phone Care Team Providers Care Automatic Maintainer Name Role Phone Unavailable Unavailable Conditions or Problems No information available. Medications No information available. Medications Administered No information available. Allergies, Adverse Reactions, Alerts No information available. Results No information available. Plan of Care No information available. Procedures No information available. Vital Signs No information available. Immunizations No information available. Advance Directives No information available.
--- OUTSIDE RECORDS SUMMARY | 2025-06-26 13:25 | XMS_ITS | Clinical Summary ---
Author Organization [facility] Address [address] [place] [address] Care Team Providers Care Head Of Marketing Adometry Name Role Phone Enrique Peter MD Primary Care Provider [phone] Allergies No known active allergies Medications busPIRone [...] by mouth daily. 3 Active HYDROcodone-xenia taminophen (Ewing) 7.5-325 MG tablet TAKE ONE TABLET BY [...] on OSH labs, To be completed at [facility] Encounters Date Type Department Care Team Description 06/19/2025 Orders Only [facility] [address] [place] [address] Vanita Carpio CKD (chronic kidney disease) stage 4, GFR 15-29 ml/min (CMS/HCC) (Primary Dx) 06/08/2025 Telephone [facility] [address] [facility] 5th Floor [address] [place] [address] Ina Prasad MD 05/29/2025 12:20 PM EDT Office Visit [facility] [address] [place] [address] Meenakshi Martin APRN CKD (chronic kidney disease) stage 4, GFR 15-29 ml/min (CMS/HCC) (Primary Dx); Type 2 diabetes mellitus with stage 2 chronic kidney disease, with long-term current use of insulin (CMS/HCC); Essential hypertension; Chronic kidney disease-mineral and bone disorder; Iron deficiency anemia, unspecified iron deficiency anemia type; History of right radical nephrectomy 05/29/2025 Travel 05/04/2025 Telephone [facility] [address] [facility] 5th Floor [address] [place] [address] None, None 05/04/2025 Telephone [facility] [address] [place] [address] None, None 04/27/2025 Telephone [facility] [address] [place] [address] None, None 04/20/2025 Orders Only [facility] [address] [place] [address] Meenakshi Martin, ARNEL CKD (chronic kidney disease) stage 4, GFR 15-29 ml/min ([facility]) (Primary Dx); Encounter for other preprocedural examination 03/31/2025 Telephone [facility] [address] [place] [address] Yaneli Hayes RN 03/30/2025 Telephone [facility] [address] [place] [address] Yaneli Hayes RN 03/30/2025 Telephone [facility] [address] [address] Meenakshi Martin, INTEGRATION AIDE from Last 3 Months Immunizations Immunization Administration [...] Info) Description 07/16/2025 8:00 AM EDT Appointment [facility] [address] [place] [address] 07/16/2025 9:20 AM EDT Office Visit [facility] [address] [place] [address] Ina Prasad MD [address] [facility] [address] [place] [address] Health Maintenance Due Date Last Done Comments [facility]-Bone Density Scan 1953 [facility]-Diabetes: Hemoglobin A1C 1953 [facility]-Hepatitis C Screening 1953 [facility]-Medicare Annual Wellness (AWV) 1953 [facility]-/Child/Adol SDOH Screenings 1953 Diabetes: Dental Exam 1963 [facility]- SDOH Screenings 1971 [facility]-Adult SDOH Screenings 1971 [facility]-Hepatitis A Vaccines (1 of 2 - Risk 2-dose series) 1972 CT Colonography 1998 Colonoscopy 1998 FIT-DNA 1998 FIT 1998 FOBT 1998 Sigmoidoscopy 1998 [facility]-Colorectal Cancer Screening 1998 [facility]-Breast Cancer Screening 2003 [facility]-Zoster Vaccines (1 of 2) 2003 [facility]-RSV Vaccine: 60+ Years or (1 - Risk 60-74 years 1-dose series) 2013 [id number] Vaccine (2 - season) 2024 06/17/2021 [facility]-Depression [...] topic Insurance GENERIC MEDICARE ADVANTAGE Care Teams Head Of Marketing Adometry Relationship Specialty Start Date End Date Enrique Peter MD [address] [place] [address] PCP - General 08/27/23
--- OUTSIDE RECORDS SUMMARY | 2025-06-26 13:25 | XMS_ITS | Encounter Summary ---
Author Organization Healthcare Address [address] [place] [address] Care Team Providers Care Wedger Machine Name Role Phone Enrique Peter MD Primary Care Provider [phone] Encounter Details Date Type Department Care Team (Late Contact Info) Description 05/04/2025 Telephone [facility] [address] [facility] 5th Floor [address] [place] [address] None, None [address] [place] [id number] Social History Tobacco Use Types Packs/Day Years [...] Department Care Team (Late Contact Info) Description 07/16/2025 8:00 AM EDT Appointment [facility] [address] [place] [address] 07/16/2025 9:20 AM EDT Office Visit [facility] [address] [place] [address] Ina Prasad MD [address] [facility] [address] [place] [address] documented as of this encounter Visit Diagnoses Not on filedocumented in this encounter Additional Health Concerns Assessment Noted Time A fall risk assessment has been complete d for the patient 02/05/2024 12:22 PM EDT A Body Mass Index follow-up plan has been documented for the patient 02/13/2025 10:53 AM EDT documented as of this encounter Care Teams Wedger Machine Relationship Specialty Start Date End Date Enrique Peter MD [address] [place] [address] PCP - General 08/27/23 documented as of this encounter
--- OUTSIDE RECORDS SUMMARY | 2025-06-26 13:26 | XMS_ITS | Patient Health Record ---
Author Organization [facility] Address [address] [place] [id number] Care Team Providers Care Lath Hand Name Role Phone Canelo Peter Primary Care Provider [phone] Nany Mcdonald Unavailable [phone] Umesh Shoemaker Unavailable [phone] Allergies Allergen (clinical drug ingredient) Drug/Non Drug Allergy documented on EMR Reaction Allergy Type Onset Date Status allopurinol Allopurinol hives, eye swelling Drug Allergy Active Results Component Value Reference Range Notes P-Basic Metabolic Panel (BMP ) Reviewed date:03/06/2025 01:09:15 PM Interpretation:gluc 219, bun 42, Cr 2.33, gfr 22 Performing Lab: Notes/Report: CLIA: [id number] Angel Craig MD, Graphic Arts Technician [address] [place] [address] , [address], [place] [address] Test performed by [facility], [facility] Sodium 138 135-145 mmol/L Potassium 4.3 3.5-5.3 [...] 1- see 05/22/25 OV Performing Lab: Notes/Report: CLIA: [id number] Angel Craig MD, Graphic Arts Technician [address] [place] [address] , [address], [place] [address] Test performed by [facility], [facility] Sodium 137 135-145 mmol/L Potassium 5.0 3.5-5.3 [...] Notes/Report: glycohemoglobin 8.1% 5 - 6.5 % CBC Venipuncture (in house) Reviewed date:11/21/2024 10:06:28 [...] 159 Performing Lab: Notes/Report: Test performed by [facility] [address] [place] [address] , [address], [place] [address] Angel Craig MD, Graphic Arts Technician CLIA: [id number] Sodium 133 135-145 mmol/L Potassium 5.7 3.5-5.3 [...] growth Performing Lab: Notes/Report: Test performed by [facility] [address] [place] [address] , [address], [place] [id number] Angel Craig MD, Graphic Arts Technician CLIA: [id number] Specimen Source Urine - Void Culture, Urine See Below Final Report : No growth CBC Fingerstick (in house) Reviewed date:02/24/2025 02:05:37 [...] Notes/Report: glycohemoglobin 10.1% 5 - 6.5 % Urinalysis - Inhouse Reviewed date:11/21/2024 10:06:28 AM Interpretation: Performing Lab: Notes/Report: Color/Clarity yellow/cloudy Leuk 1+ Nitrite Neg Urobili 3.2 Protein 1+ pH 6.0 Blood Trace-Intact Sp. Gr. 1.015 Ketone Neg Bili Neg Gluc 2+ CBC Venipuncture (in house) Reviewed date:07/29/2024 09:22:16 [...] 1 Performing Lab: Notes/Report: Test performed by [facility] [address] [place] [address] , [address], [place] [address] Angel Craig MD, Graphic Arts Technician CLIA: [id number] Sodium 133 135-145 mmol/L Potassium 4.9 3.5-5.3 [...] 1.1 Performing Lab: Notes/Report: Test performed by [facility] [address] [place] [address] , [address], [place] [address] Angel Craig MD, Graphic Arts Technician CLIA: [id number] Sodium 132 135-145 mmol/L Potassium 5.3 3.5-5.3 [...] 0.6 <0.2-1.2 mg/dL A/G Ratio 1.1 1.1-2.5 Medications Medication SIG (Take, Route, Frequency, Duration) [...] Once a day; Duration: 90 days Active Nystatin-Triamcinolo ne 791025-1.1 UNIT/GM 1 application Externally Twice a day [...] 30 days 01/07/2025 Active FreeStyle Blair 3 [place] - as directed 01/07/2025 Active Admelog SoloStar 100 UNIT/ML 10 units Subcutaneous three times daily before meals; Duration: 30 days 01/07/2025 Active Trulance 3 MG 1 tablet Orally Once a day 10/31/2023 Not-Taking FreeStyle Blair 3 Sensor - as directed replace every 14 days; Duration: 30 days 01/07/2025 Active oxyCODONE-Acetaminop hen 7.5-325 MG 1 tablet as needed Orally 3 times a day as needed 06/19/2025 Active Metoprolol Succinate ER 100 MG Take 1 tablet by mouth once daily; Duration: 90 Active Immunizations Vaccine Route Administration Date Status Comme nts Tetanus Tdap-Adacel (over 7yrs) IM Intramuscular 10/27/2008 Administered Tetanus Tdap-Adacel (over 7yrs) IM Intramuscular 01/08/2019 Administered Prevnar (PCV13) IM Intramuscular 01/08/2019 Administered PNEUMOVAX 23 VACCINE IM Intramuscular 08/16/2020 Administe red Fluzone High Dose (65yr and older) IM Intramuscular 08/26/2019 Administered Fluzone High Dose (65yr and older) IM Intramuscular 08/16/2020 Administered Fluzone High Dose (65yr and older) IM Intramuscular 07/02/2023 Administered Fluzone High Dose (65yr and older) IM Intramuscular 07/28/2024 Administered COVID 19 Moderna Unknown 06/17/2021 Administered Problems Problem Type SNOMED Code ICD Code Onset Dates Problem Status W/U Status Risk Notes Problem Gastro-esophageal reflux disease without esophagitis (806078356) Gastro-esophageal reflux disease without esophagitis (K21.9) Active confirmed Problem Essential hypertension (07172072) Essential (primary) hypertension (I10) Active confirmed Problem Hyperlipidemia (43793650) Hyperlipidemia (E78.5) Active confirmed Problem Vitamin D deficiency (67333887) Vitamin D deficiency (E55.9) Active confirmed Problem Essential hypertension (40392950) Essential hypertension (I10) Active confirmed Problem Vitamin B12 deficiency (non anemic) (99539049) B12 deficiency (E53.8) Active confirmed Problem Hypoglycemia (008784167) Hypoglycemia (E16.2) Active confirmed Problem Arthritis (2852088) Arthritis (M19.90) Active c onfirmed Problem Renal failure (15838699) Renal failure (N19) Active confirmed Problem Hyperuricemia (45400670) Hyperuricemia (E79.0) Active confirmed Problem Arthropathy of lumbar facet joint (237944062) Lumbar facet arthropathy (M47.816) Active confirmed Problem Mixed anxiety and depressive disorder (019720264) Depression with anxiety (F41.8) Active confirmed Problem Localized edema (5573882) Localized edema (R60.0) Active confirmed Problem Sciatica (33528011) Lumbago with sciatica, right side (M54.41) Active confirmed Problem Mixed hyperlipidemia (423186421) Mixed hyperlipidemia (E78.2) Active confirmed Problem Anxiety disorder (875107168) Anxiety disorder, unspecified (F41.9) Active confirmed Problem Primary insomnia (8106589) Primary insomnia (F51.01) Active confirmed Problem Chronic pain (65663291) Other chronic pain (G89.29) Active confirmed Problem Chronic pain syndrome (968527564) Chronic pain syndrome (G89.4) Active confirmed Problem Cirrhosis of liver (34250449) Unspecified cirrhosis of liver (K74.60) Active confirmed Problem Sciatica (83099159) Lumbago with sciatica, left side (M54.42) Active confirmed Problem Acute renal failure syndrome (17102037) Acute kidney failure, unspecified (N17.9) Active confirmed Problem Chronic kidney disease stage 4 (934502631) Chronic kidney disease, stage 4 (severe) (N18.4) Active confirmed Problem Ascites (723569416) Other ascite s (R18.8) Active confirmed Problem Microalbuminuria (244717344) Microalbuminuria (R80.9) Active confirmed Problem Coronary arteriosclerosis (98865883) Coronary arteriosclerosis (I25.10) Active confirmed Problem Diabetes mellitus (13355882) Diabetes mellitus (E11.9) Active confirmed Problem Degeneration of lumbar intervertebral disc (84840546) Lumbar degenerative disc disease (M51.36) Active confirmed Problem Type II diabetes mellitus without complication (726153607) Type 2 diabetes mellitus without complication (E11.9) Active confirmed Problem Reactive depression (situational) (51752510) Situational depression (F43.21) Active confirmed Problem Low back pain (503780167) Left-sided low back pain without sciatica (M54.5) Active confirmed Problem COPD - Chronic obstructive pulmonary disease (39503224) Chronic obstructive pulmonary disease, unspecified COPD type (J44.9) Active confirmed Problem Iron deficiency anemia due to chronic blood loss (540608990) Iron deficiency anemia due to chronic blood loss (D50.0) Active confirmed Problem Long-term current use of insulin (845318572) Current use of insulin (Z79.4) Active confirmed Problem Tobacco user (901876858) Cigarette nicotine dependence without complication (F17.210) Active confirmed Problem Anemia of chronic disease (541612614) Anemia of chronic disease (D63.8) Active confirmed Problem Stented coronary artery (091787770) Stented coronary artery (Z95.5) Active confirmed Problem Obese class I (finding) (756004939240289) Obesity (BMI 30.0-34.9) (E66.9) Active confirmed Problem History of prosthetic arthroplasty of left hip (7278078715613232) Status post left hip replacement (Z96.642) Active confirmed Problem Atherosclerotic heart disease of [place] coronary artery without angina pectoris (567743661273991) Atherosclerosis of [place] coronary artery without angina pectoris, unspecified whether [place] or transplanted heart (I25.10) Active confirmed Problem Cardiac function test abnormal (005515201) Abnormal cardiac function test (R94.30) Active confirmed Problem Hyperglycemia due to type 2 diabetes mellitus (607260718109196) Poorly controlled type 2 diabetes mellitus (E11.65) Active confirmed Problem Headache (86027823) Other vascul ar headache (G44.1) Active confirmed Problem Fibrocystic breast changes (57111774) Fibrocystic breast disease (FCBD), unspecified laterality (N60.19) Active confirmed Problem Aortic diastolic murmur (917374528) Aortic diastolic murmur (I35.8) Active confirmed Problem Absent kidney (398445539) Status post nephrectomy (Z90.5) Active confirmed Problem Primary malignant neoplasm of kidney (56261958) Malignant neoplasm of kidney, unspecified laterality (C64.9) Active confirmed Problem Type II diabetes mellitus without complication (324019480) Type 2 diabetes mellitus without complication, unspecified whether web assistant insulin use (E11.9) Active confirmed Problem Cardiac arrhythmia (221534965) Bigeminy (I49.8) Active confirmed Problem Disorder due to type 2 diabetes mellitus (907492738) Type 2 diabetes with complication (E11.8) Active confirmed Problem Malignant tumor of kidney (704254924) 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) Active confirmed Problem Ulcer of right lower extremity with fat layer exposed (L97.912) Active confirmed Vital Signs Heart Rate 54 /min 05/22/2025 Blood pressure diastolic 70 mm Hg 05/22/2025 Height 65 in 05/22/2025 Blood pressure systolic 130 mm Hg 05/22/2025 Weight 211.8 lbs 05/22/2025 BMI 35.24 kg/m2 05/22/2025 Encounters Encounter Location Date [facility] [place] [id number] [facility]/28/2024 Canelo Peter Essential hypertensi on I10 ; Type 2 diabetes with complication E11.8 ; Current use of insulin Z79.4 ; Anemia of chronic disease D63.8 ; 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 and Encounter for immunization Z23 [facility] [address] [id number] 11/20/2024 Canelo Peter Dysuria R30.0 ; Poor ly controlled type 2 diabetes mellitus E11.65 ; Unspecified cirrhosis of liver K74.60 ; 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 ; Chronic kidney disease, stage 4 (severe) N18.4 ; Anemia of chronic disease D63.8 ; Current use of insulin Z79.4 and Primary insomnia F51.01 [facility] [address] [place] [address] [place] [id number] 12/29/2024 Canelo Peter Type 2 diabetes with complication E11.8 ; Current use of insulin Z79.4 ; Renal failure N19 ; Chronic kidney disease, stage 4 (severe) N18.4 ; Anemia of chronic disease D63.8 and Chronic pain syndrome G89.4 [facility] [address] [place] [id number] 02/23/2025 Canelo Peter Type 2 diabetes with complication E11.8 ; Current use of insulin Z79.4 ; Renal failure N19 ; Chronic kidney disease, stage 4 (severe) N18.4 and 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 [facility] [address] [id number] 04/30/2025 Canelo Peter Type 2 diabetes mellitus without complication E11.9 ; Essential hypertension I10 ; Chronic kidney disease, stage 4 (severe) N18.4 and Current use of insulin Z79.4 [facility] [address] [place] [id number] 05/22/2025 Canelo Peter Left hip pain M25.55 2 ; Status post left hip replacement Z96.642 ; Type 2 diabetes with complication E11.8 ; Chronic kidney disease, stage 4 (severe) N18.4 ; 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 ; Essential (primary) hypertension I10 ; Depression with anxiety F41.8 and Stented coronary artery Z95.5 [facility] [address] [place], [place] [id number] 06/16/2025 Canelo Peter Left hip pain M25.55 2 [facility] [address] [place], [place] [id number] 07/02/2024 Canelo Peter Chronic pain syndrom e G89.4 [facility] [address] [place], [place] [id number] 07/29/2024 Canelo Peter Depression with anxi ety F41.8 [facility] [address] [place], [place] [id number] 07/30/2024 Canelo Peter [facility] [address] [place], [place] [id number] 08/01/2024 Canelo Peter Chronic pain syndrom e G89.4 [facility] [address] [place], [place] [id number] 08/27/2024 Umesh [place] Chronic pain syndrom e G89.4 [facility] [address] [place] [id number] 08/28/2024 R Ti Mcdonald Primary insomnia F51 .01 [facility] [address] [place], [place] [id number] 09/15/2024 Canelo Peter [facility] [address] [place], [place] [id number] 09/23/2024 Canelo Peter Poorly controlled ty pe 2 diabetes mellitus E11.65 [facility] [address] [place] [id number] 09/29/2024 Umesh [place] Primary insomnia F51 .01 and Chronic pain syndrome G89.4 [facility] [address] [place] [id number] 10/06/2024 J Joshua Peter Poorly controlled ty pe 2 diabetes mellitus E11.65 [facility] [address] [place], [place] [id number] 10/16/2024 J Joshua Peter Poorly controlled ty pe 2 diabetes mellitus E11.65 [facility] [address] [place] [id number] 10/28/2024 J Joshua Peter Depression with anxi ety F41.8 [facility] [address] [place] [id number] 10/29/2024 J Joshua Peter Primary insomnia F51 .01 and Chronic pain syndrome G89.4 [facility] [address] [place] [id number] 11/14/2024 J Joshua Peter [facility] [address] [place], [place] [id number] 11/23/2024 J Joshua Peter [facility] [address] [place] [id number] 11/24/2024 J Joshua Peter [facility] [address] [place] [id number] 11/25/2024 J Joshua Peter [facility] [address] [place] [id number] 11/26/2024 J Joshua Peter Essential hypertensi on I10 [facility] [address] [place] [id number] 11/27/2024 J Joshua Peter [facility] [address] [place] [id number] 11/28/2024 J Joshua Peter Chronic pain syndrom e G89.4 [facility] [address] [place] [id number] 12/15/2024 J Joshua Peter [facility] [address] [place] [id number] 12/29/2024 J Joshua Peter [facility] [address] [place] [id number] 12/30/2024 Canelo Peter [facility] [address] [place] [id number] 12/30/2024 Canelo Peter [facility] [address] [place] [id number] 12/31/2024 J Joshua Peter Type 2 diabetes with complication E11.8 and Poorly controlled type 2 diabetes mellitus E11.65 [facility] [address] [place] [id number] 01/06/2025 J Joshua Peter [facility] [address] [place] [id number] 01/07/2025 J Joshua Peter [facility] [address] [place] [id number] 01/26/2025 J Joshua Peter Depression with anxi ety F41.8 [facility] [address] [place] [id number] 01/26/2025 Umesh [place] Chronic pain syndrom e G89.4 and Primary insomnia F51.01 [facility] [address] [place] [id number] 02/10/2025 Canelo Peter [facility] [address] [place] [id number] 02/26/2025 Canelo Peter Chronic pain syndrom e G89.4 [facility] [address] [place] [id number] 03/06/2025 Canelo Peter [facility] [address] [place] [id number] 03/31/2025 Canelo Peter Chronic pain syndrom e G89.4 [facility] [address] [place] [id number] 05/04/2025 Umesh [place] Chronic pain syndrom e G89.4 [facility] [address] [place], [place] [id number] 05/19/2025 Canelo Peter Assessments Encounter Date Diagnosis (ICD Code) Assessment Notes Treatment Notes Treatment Clinical Notes Section Notes 07/02/2024 Chronic pain syndrome (ICD-10 - G89.4) 07/28/2024 Essential hypertension (ICD-10 - I10) 07/28/2024 Type 2 diabetes with complication (ICD-10 - E11.8) 08/01/2024 Chronic pain syndrome (ICD-10 - G89.4) [...] F51.01) 11/26/2024 Essential hypertension (ICD-10 - I10) 11/28/2024 Chronic pain syndrome (ICD-10 - G89.4) 12/29/2024 Current use of insulin (ICD-10 - Z79.4) 12/29/2024 Type 2 diabetes with complication (ICD-10 - E11.8) 12/31/2024 Type 2 diabetes with complication (ICD-10 - E11.8) 01/26/2025 Depression with anxiety (ICD-10 - F41.8) 01/26/2025 Chronic pain syndrome (ICD-10 - G89.4) 02/23/2025 Type 2 diabetes with complication (ICD-10 - E11.8) 02/26/2025 Chronic pain syndrome (ICD-10 - G89.4) 03/31/2025 Chronic pain syndrome (ICD-10 - G89.4) 04/30/2025 Essential hypertension (ICD-10 - I10) 02/23/2025 Current use of insulin (ICD-10 - Z79.4) 04/30/2025 Type 2 diabetes mellitus without complication (ICD-10 - E11.9) 05/04/2025 Chronic pain syndrome (ICD-10 - G89.4) 05/22/2025 Left hip pain (ICD-10 - M25.552) 05/22/2025 Status post left hip replacement (ICD-10 - Z96.642) 06/16/2025 Left hip pain (ICD-10 - M25.552) 07/29/2024 Depression with anxiety (ICD-10 - F41.8) 11/20/2024 Dysuria (ICD-10 - R30.0) 11/20/2024 Poorly controlled type 2 diabetes mellitus (ICD-10 - E11.65) 11/20/2024 Unspecified cirrhosis of liver (ICD-10 - K74.60) 05/22/2025 Type 2 diabetes with complication (ICD-10 - E11.8) 04/30/2025 Chronic kidney disease, stage 4 (severe) (ICD-10 - N18.4) 02/23/2025 Renal failure (ICD-10 - N19) 01/26/2025 Primary insomnia (ICD-10 - F51.01) 12/31/2024 Poorly controlled type 2 diabetes mellitus (ICD-10 - E11.65) 12/29/2024 Renal failure (ICD-10 - N19) 07/28/2024 Current use of insulin (ICD-10 - Z79.4) 10/29/2024 Chronic pain syndrome (ICD-10 - G89.4) 09/29/2024 Chronic pain syndrome (ICD-10 - G89.4) 07/28/2024 Anemia of chronic disease (ICD-10 - [...] 05/22/2025 Status post nephrectomy (ICD-10 - Z90.5) 02/23/2025 Status post nephrectomy (ICD-10 - Z90.5) 12/29/2024 Anemia of chronic disease (ICD-10 - D63.8) 07/28/2024 Status post nephrectomy (ICD-10 - Z90.5) 12/29/2024 Chronic pain syndrome (ICD-10 - G89.4) 07/28/2024 Encounter for immunization (ICD-10 - Z23) 05/22/2025 Essential (primary) hypertension (ICD-10 - I10) 11/20/2024 Anemia of chronic disease (ICD-10 - D63.8) 11/20/2024 Current use of insulin (ICD-10 - Z79.4) 05/22/2025 Depression with anxiety (ICD-10 - F41.8) 05/22/2025 Stented coronary artery (ICD-10 - Z95.5) 11/20/2024 Primary insomnia (ICD-10 - F51.01) Plan Of Treatment Next Appt Details Provider Name:Canelo Rojas er, 07/09/2025 02:00:00 PM, [address] [facility] [address] [facility], [address], [place], [place], [id number], Insurance Providers Payer Name Payer Address Payer Phone Subscriber Number Group Number Insured Name Patient Relationship to Insured Coverage Start Date Coverage End Date [employer] Kayla O GABRIELA [id number] TASHA MCGUIRE [id number] FRANCIS LAN Self - patient is the insured Medications Administered Medication Instructions Date of Administration Dosage Notes celestone 11/17/2015 1 mL Dexamethasone 11/29/2015 1 mL Dexamethasone 03/23/2016 1 mL Dexamethasone 06/06/2016 1 mL Dexamethasone 11/22/2016 1 mL epinephrine 11/29/2015 0.15 mg epinephrine 11/29/2015 0.15 mL Medical (General) History Medical History History ICD Code Coronary Artery Disease Hypertension Arthritis hyperlipidemia partial Achilles tendon rupture right Gets yearly eye exams tobacco abuse, 40 pack year history as o f 2017 LAD stents x2, 02/28/17 type 2 diabetes chronic back pain Degenerative Disc Disease Lumbar facet arthropathy COPD, Dx 2016 depression Anxiety disorder Surgical History Surgery Date(Month/Year) LT Hip Replacement 08/01/2010 Tooth Extraction 07/2012 Stent Placed x2 in LAD, by Dr. Huitron 02/28/2017 [facility] of right [facility] Hospitalization History Reason Date(Month/Year) [facility] 02/19/2021
--- OUTSIDE RECORDS SUMMARY | 2025-06-26 13:26 | XMS_ITS | Clinical Summary ---
Author Organization [facility] [address] Care Team Providers Care Clinical Education Coordinator Name Role Phone Unavailable Primary Care Provider [...] COVID-19 Vaccine ( - 2023-2 5 season) 2025 Influenza Vaccine (#1) 2025 Hepatitis B Vaccine Aged Out No longe r eligible based on patient's age to complete this topic Meningococcal B Vaccine Aged Out No l onger eligible based on patient's age to complete this topic
--- OUTSIDE RECORDS SUMMARY | 2025-06-26 13:27 | XMS_ITS | Encounter Summary ---
Author Organization [facility] Address [address] [place] [address] Care Team Providers Care Duplication Specialist Name Role Phone Enrique Peter MD Primary Care Provider [phone] Encounter Details Date Type Department Care Team [...] Description 07/16/2025 8:[address] [facility] [address] [place] [id number] 07/16/2025 9:20 AM EDT Office Visit [facility] [address] [place] [address] Ina Prasad MD [address] [place] [address] [address] [place] [address] documented as of this encounter Visit Diagnoses Not on filedocumented in this encounter Additional Health Concerns Assessment Noted Time A fall risk assessment has been complete d for the patient 02/05/2024 12:22 PM EDT A Body Mass Index follow-up plan has been documented for the patient 05/29/2025 12:28 PM EDT documented as of this encounter Care Teams Duplication Specialist Relationship Specialty Start Date End Date Enrique Peter MD [address] [place] [address] PCP - General 08/27/23 documented as of this encounter
--- OUTSIDE RECORDS SUMMARY | 2025-06-26 13:27 | XMS_ITS | Encounter Summary ---
Author Organization Healthcare Address [address] [place] [address] Care Team Providers Care Salesforce Developer Name Role Phone Enrique Peter MD Primary Care Provider [phone] Encounter Details Date Type Department Care Team (Late st Contact Info) Description 06/08/2025 Telephone [facility] [address] [facility] 5th Floor [address] [place] [address] Ina Prasad MD [address] [facility] [address] [place] [address] Social History Tobacco Use Types Packs/Day Years [...] encounter Miscellaneous Notes * Telephone Encounter - Yessi Toscano Lynn - 06/08/2025 10:00 AM EDT Clinical Concern/Question Reason for Call: Patient is asking for a call back to reschedule appts. Best contact number: [phone] (mobile) Optimal time of day to reach caller: ANYTIME Additional comments/information from caller: None Note: Please do not reply to this message. Follow-up communication and further actions as a result of this message need to be communicated with the patient directly, if the patient is not active onMyChart. If the patient is active on MyChart, they will receive notification of the communication/outcome via MyChart. documented in this encounter Plan of Treatment Upcoming Encounters Date Type Department Care Team (Late st Contact Info) Description 07/16/2025 8:00 AM EDT Appointment [facility] [address] [facility] 5th Floor [address] [place] [id number] 07/16/2025 9:20 AM EDT Office Visit [facility] [address] [place] [address] Ina Prasad MD [address] [place] [address] documented as of this encounter Visit Diagnoses Not on filedocumented in this encounter Additional Health Concerns Assessment Noted Time A fall risk assessment has been complete d for the patient 02/05/2024 12:22 PM EDT A Body Mass Index follow-up plan has been documented for the patient 05/29/2025 12:28 PM EDT documented as of this encounter Care Teams Salesforce Developer Relationship Specialty Start Date End Date Enrique Peter MD [address] [place] [address] PCP - General 08/27/23 documented as of this encounter
[2025-06-26 14:05] LABS: Albumin Level 4.3 g/dl (3.5-5.0); Chloride 104 mmol/L (98-107); Potassium 5.0 mmoL/L (3.5-5.1); Sodium 138 mmol/L (136-145)
[2025-06-26 14:08] LABS: Anion Gap 15.0 mEq/L (5-15); Blood Urea Nitrogen 36 mg/dl (7-17); Carbon Dioxide 24 mmol/L (22.0-30.0); Creatinine,Serum 2.60 mg/dl (0.52-1.04); Estimated Glomerular Filt Rate 18 ml/min (>60); GFR (African American) 22 ML/MIN (>60); Phosphorous 3.8 mg/dl (2.5-4.5)
[2025-06-26 14:09] LABS: Calcium 9.8 mg/dl (8.4-10.2); Glucose 125 mg/dl (74-100)
== END 2025-06-26 23:59 | disposition home or self-care (01) ==
LOC: LAB 13:23
PROVIDERS: PCP Family Medicine; Visit Provider Nurse Practitioner
DX: N18.4 Chronic kidney disease, stage 4 (severe) (principal)
CPT/HCPCS: 36415; 80069

== ENCOUNTER 2025-08-14 12:19 | Outpatient (CLI) | payer MEDICARE, SELFPAY ==
--- OUTSIDE RECORDS SUMMARY | 2024-06-09 06:15 | XMS_ITS ---
Author Organization [facility] Address [address] [facility] [address] [place] [id number] Care Team Providers Care Filbert Grower Name Role Phone Canelo Peter Primary Care Provider Allergies Allergen (clinical drug ingredient) Drug/Non Drug Allergy documented on EMR Reaction Allergy Type Onset Date Status Information temporarily unavailable Allopurinol hives, eye swelling Drug Allergy Active Results Component Value Reference Range Notes CBC Fingerstick (in house) Reviewed date:06/09/2024 11:42:57 AM Interpretation: Performing Lab: Notes/Report: wbc 4.9 3.5 - 10 lym 19.8% 15 - 50 mid 5.0% 2 - 15 gran 75.2% 35 - 80 rbc 4.02 3.5 - 5.5 hgb 9.1 11.5 - 16.5 hct 30.7 35 - 55 mcv 76.3 75 - 100 mch 22.7 25 - 35 mchc 29.8 31 - 38 plat 155 100 - 400 P-Basic Metabolic Panel (BMP ) Reviewed date:06/11/2024 11:06:25 AM Interpretation: Performing Lab: Notes/Report: REASON FOR VISIT 6 weeks Medications Medication SIG (Take, Route, Frequency, Duration) Notes Start Date End Date Status Temazepam 30 MG 1 cap(s) orally once a day (at bedtime); Duration: 30 day(s) 04/25/2024 Active Lisinopril 5 MG 1 tablet Orally Once a day; Duration: 90 days 04/25/2024 Active Glimepiride 4 mg TAKE ONE TABLET BY M OUTH EVERY DAY; Duration: 30 days Active HYDROcodone-Acetaminophen 7.5-325 MG 1 tab(s) orally 3 times a day as needed; Duration: 30 day(s) 06/06/2024 Active DULoxetine HCl 30 MG 1 cap(s) orally onc e daily; Duration: 30 day(s) 11/27/2022 Active Metoprolol Succinate ER 100 mg TAKE ONE TABLET BY MOUTH EVERY DAY; Duration: 30 day(s) Active Insulin Glargine Solostar 100 UNIT/ML 20 units subcutaneously Two times a day 07/31/2022 Active metOLazone 2.5 mg 1 tablet Orally Once a day; Duration: 30 days Active Trulance 3 MG 1 tablet Orally Once a day Active PriLOSEC OTC 20 MG 1 tab(s) orally once a day Active Ferrous Gluconate 324 (38 Fe) MG 1 tablet Orally Two times a day; Duration: 60 day(s) 06/09/2024 Active Vitamin C 500 MG 1 tablet Orally Once a day Active Silvadene 1 % 1 application Clinical Data Programmer ally Once a day 05/10/2023 Active Vital Signs Blood pressure systolic 112 mm Hg 06/09/20 24 Blood pressure diastolic 68 mm Hg 024 Heart Rate 66 /min 06/09/2024 Height 65 in 06/09/2024 Weight 193.4 lbs 06/09/2024 BMI 32.18 kg/m2 06/09/2024 Encounters Encounter [facility] Date [facility] [address] [id number] 06/09/2024 Canelo Peter Anemia of chronic disease D63.8 ; Type 2 diabetes with complication E11.8 ; Chronic kidney disease, stage 4 (severe) N18.4 and 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 Assessments Encounter Date Diagnosis (ICD Code) Assessment Notes Treatment Notes Treatment Clinical Notes Section Notes 06/09/2024 Anemia of chronic disease (ICD-10 - D63.8) 06/09/2024 Type 2 diabetes with complication (ICD-10 - E11.8) 06/09/2024 Chronic kidney disease, stage 4 (severe) (ICD-10 - N18.4) 06/09/2024 Status post nephrectomy (ICD-10 - Z90.5) Plan Of Treatment Medication Medication Name Sig Start Date Stop Date Notes Ferrous Gluconate 324 (38 Fe ) MG 1 tablet Orally Two times a day; Duration: 60 day(s) 06/09/2024 Next Appt Details Follow Up: 2 Months, Reason: Provider Name:Canelo Roajs er, 08/31/2025 02:30:00 PM, [address], [address], [place], [place], [id number], Progress Notes * FRANCIS MULLEN LDOB:[birth year] (69 yo F)Acc No.[id number]:06/09/2024 Progress Notes Patient: FRANCIS WOODS Provider: Canelo Peter M.D. :1955 A ge:68 Y S ex:Female Date:06/09/2024 Address:[address], [place], [id number] Subjective: * Chief Complaints: * 1 . 6 weeks. * HPI: H ematology: The patient is here today for a 6 week follow up on Anemia. Pt states she is still feeling very fatigued. . 68 year old female presents with c/o Anemia. Denies : Bruising. D enies : Bleeding. D enies : hematuria. D enies : epistaxis. * ROS: D ERMATOLOGY: no R steve. n o H maribel. G ASTROENTEROLOGY: no N ausea. n o V omiting. n o D iarrhea.? U ROLOGY: no D ifficulty urinating. n o B lood in urine. * Medical History: C oronary Artery Disease, Hypertension, Arthritis, Hyperlipidemia, partial Achilles tendon rupture right, Gets yearly eye exams, Tobacco abuse, 40 pack year history as of 2018, LAD stents x2, 02/28/17, Type 2 diabetes, Chronic back pain, Degenerative Disc Disease, Lumbar facet arthropathy, COPD, Dx 2016, Depression, Anxiety disorder. * Surgical History: L T Hip Replacement 08/01/2010, Tooth Extraction 07/2012, Stent Placed x2 in LAD, by Dr. Huitron 02/28/2017, Resection of right kidney due to carcinoma, Dr. Kwok, [facility] 05/12/23. * Hospitalization/Major Diagno stic Procedure: H [facility] 02/19/21. * Family History: F ather: . M other: , coronary artery disease,MVA. 2 son(s) - healthy. . no family history of female or colon cancer. * Social History: C URRENT TOBACCO USE S moking Status: Patient does smoke, packs per day: 1, number of cigarettes per day: 10, Since age of: 14, Smoking preference: cigarettes. H ome smoke detector use: yes. Marital Status: . Past smoking status: yes, PPD: 1/2 , years 30 ,determination:. * Medications: T aking Silvadene 1 % Cream 1 application Externally Once a day , Taking Vitamin C 500 MG Tablet 1 tablet Orally Once a day , Taking PriLOSEC OTC 20 MG Tablet Delayed Release 1 tab(s) orally once a day , Taking Trulance 3 MG Tablet 1 tablet Orally Once a day , Taking metOLazone 2.5 mg Tablet 1 tablet Orally Once a day , Taking Insulin Glargine Solostar 100 UNIT/ML Solution Pen-injector 20 units subcutaneously Two times a day , Taking Metoprolol Succinate ER 100 mg Tablet Extended Release 24 Hour TAKE ONE TABLET BY MOUTH EVERY DAY , Taking Lisinopril 5 MG Tablet 1 tablet Orally Once a day , Taking Temazepam 30 MG Capsule 1 cap(s) orally once a day (at bedtime) , Taking Glimepiride 4 mg Tablet TAKE ONE TABLET BY MOUTH EVERY DAY , Taking DULoxetine HCl 30 MG Capsule Delayed Release Particles 1 cap(s) orally once daily , Taking HYDROcodone-Acetaminophen 7.5-325 MG Tablet 1 tab(s) orally 3 times a day as needed , Medication List reviewed and reconciled with the patient * Allergies: A llopurinol: hives, eye swelling. Objective: * Vitals: W t:193.4, Temp:98.3, BP:112/68, HR:66, Nurse:JAREK, Ht: 65, BMI:32.18. * Examination: G eneral Examination: General Appearance: N AD. H EENT: u nremarkable.?Oral cavity: n o lesions, mucosa moist and WNL, no erythema. N charlie: s upple, no lymphadenopathy. C hest: n ormal shape and expansion. H eart: R SR. L ungs: c lear to auscultation. A bdomen: soft and nontender. N eurologic Exam: I ntact, gait normal. . S kin: s ome petichial lesions of forearms. 3 cm flap abrasion of left upper arm, lateral aspect. P eripheral pulses: n ormal . E xtremities: no leg edema, scars of the right pretibial area. Assessment: * Assessment: 1. A nemia of chronic disease - D63.8 (Primary) 2 . T ype 2 diabetes with complication - E11.8 3 . C hronic kidney disease, stage 4 (severe) - N18.4 ? 4 . S tatus post nephrectomy - Z90.5 Plan: * Treatment: Value Reference Range w bc 4.9 3.5 - 10 * l ym 19.8% 15 - 50 * m id 5.0% 2 - 15 * g ran 75.2% 35 - 80 * r bc 4.02 3.5 - 5.5 * h gb 9.1 11.5 - 16.5 * h ct 30.7 35 - 55 * m cv 76.3 75 - 100 * m ch 22.7 25 - 35 * m chc 29.8 31 - 38 * p lat 155 100 - 400 * Fay Ness 06/09/2024 10: 28:42 AM > , Provider reviewed results while patient in office. 2.?Chronic kidney disease, stage 4 (severe)?LAB: P-Basic Metabolic Panel (BMP) (Collection Date & Time - 06/09/2024)* Gabi Ware 06/11/2024 11:06 :16 AM > see duplicate order and TE * Procedure Codes: 3 6416 CAPILLARY BLOOD DRAW, 09053 CBC WITH AUTO DIFF * Follow Up: 2 Months * Images: Billing Information: * Visit Code: 90958 Office Visit, Est Pt., Level 4. * Procedure Codes: 02874 CAPILLARY BLOOD DRAW. 29616 CBC WITH AUTO DIFF. * Electronic signature of Canelo Peter MD on 08/14/2025 at 09:26 AM EDT Sign off status: Pending * Provider: Canelo Peter M.D. Date: 0 06/09/2024 Generated for Sherron mendez/Luis/eTransmitting on: 1 09:26 AM EDT History and Physical Notes * HPI (History of Present Illness) Category Sub-Category Detail Notes Category Not es Hematology epistaxis hematuria Bruising Bleeding Anemia Examination Category Sub-Category Detail Notes Category Not es General Examination HEENT: unremarkable Heart: RSR Lungs: clear to auscultatio n Abdomen: soft and nontender Extremities: no leg edema, scars of the right pretibial area General Appearance: NAD Skin: some petichial lesio ns of forearms. 3 cm flap abrasion of left upper arm, lateral aspect Neurologic Exam: Intact, gait normal. Neck: supple, no lymphaden opathy Oral cavity: no lesions, mucosa m oist and WNL, no erythema Peripheral pulses: normal Chest: normal shape and exp ansion
--- OUTSIDE RECORDS SUMMARY | 2024-07-28 10:50 | XMS_ITS ---
Author Organization [facility] Address [address] [place] [id number] Care Team Providers Care Central Office Equipment Installer Name Role Phone Canelo Petre Primary Care Provider [phone] Allergies Allergen (clinical drug ingredient) Drug/Non Drug Allergy documented on EMR Reaction Allergy Type Onset Date Status Information temporarily unavailable Allopurinol hives, eye swelling Drug Allergy Active Results Component Value Reference Range Notes CBC Venipuncture (in house) Reviewed date:07/29/2024 09:22:16 AM Interpretation: Performing Lab: Notes/Report: wbc 6.9 3.5 - 10 lymph 21.4% 15 - 50 mid 5.6% 2 - 15 gran 73.0% 35 - 80 rbc 4.22 3.5 - 5.5 hgb 10.3 11.5 - 16.5 hct 32.7 35 - 55 mcv 77.3 75 - 100 mch 24.4 25 - 35 mchc 31.5 31 - 38 platlet 150 100 - 400 P-Comprehensive Metabolic Pa elizabeth (CMP) Reviewed date:07/30/2024 08:40:22 AM Interpretation:Na 133, cl 96, gluc 433, bun 48, Cr 2.69, gfr 18, alk phos 152, a/g 1 Performing Lab: Notes/Report: Test performed by [facility], [employer] [address] [place] [address] , [address], [place] [address] Angel Craig MD, Safety Leader CLIA: [id number] Sodium 133 135-145 mmol/L Potassium 4.9 3.5-5.3 mmol/L Chloride 96 97-108 mmol/L CO2 25 22-32 mmol/L Glucose 433 65-99 mg/dL BUN 48 8-23 mg/dL Creatinine 2.69 0.50-1.00 mg/dL Calcium 9.6 8.6-10.4 mg/dL eGFR by Creatinine 18 >59 mL/min/1.73m2 Protein 7.7 6.0-8.3 g/dL Albumin 3.9 3.5-5.3 g/dL Alkaline Phosphatase 152 35-121 IU/L ALT (SGPT) 10 <5-47 IU/L AST (SGOT) 22 <5-40 IU/L Bilirubin, Total 0.6 <0.2-1.2 mg/dL A/G Ratio 1.0 1.1-2.5 REASON FOR VISIT 1 week f/u Medications Medication SIG (Take, Route, Frequency, Duration) Notes Start Date End Date Status Vitamin C 500 MG 1 tablet Orally Once a day Active Silvadene 1 % 1 application Certified Surgical Technician ally Once a day 05/10/2023 Active HYDROcodone-Acetaminophen 7.5-325 MG 1 tab(s) orally 3 times a day as needed; Duration: 30 day(s) 07/03/2024 Active Temazepam 30 MG 1 cap(s) orally once a day (at bedtime); Duration: 30 day(s) 06/25/2024 Active Insulin Glargine Solostar 100 UNIT/ML 20 units subcutaneously Two times a day 07/31/2022 Active Metoprolol Succinate ER 100 mg 1 tablet Orally Once a day; Duration: 30 day(s) Active Ferrous Gluconate 324 (38 Fe) MG 1 tablet Orally Two times a day; Duration: 60 day(s) 06/09/2024 Active DULoxetine HCl 30 MG 1 cap(s) orally onc e daily; Duration: 30 day(s) 11/27/2022 Active Glimepiride 4 mg TAKE ONE TABLET BY M OUTH EVERY DAY; Duration: 30 days Active Lisinopril 5 MG 1 tablet Orally Once a day; Duration: 90 days 04/25/2024 Active metOLazone 2.5 mg 1 tablet Orally Once a day; Duration: 30 days Active Trulance 3 MG 1 tablet Orally Once a day Active PriLOSEC OTC 20 MG 1 tab(s) orally once a day Active Immunizations Vaccine Route Administration Date Status Comme nts Fluzone High Dose (65yr and older) IM Intramuscular 07/28/2024 Administered Vital Signs Blood pressure systolic 130 mm Hg 07/28/20 24 Blood pressure diastolic 74 mm Hg 024 Heart Rate 63 /min 07/28/2024 Height 65 in 07/28/2024 Weight 167.6 lbs 07/28/2024 BMI 27.89 kg/m2 07/28/2024 Encounters Encounter Location Date Provider Diagnosis [facility] [address] [facility] [address] [facility] [address] [place] [phone] 07/28/2024 Canelo Peter Essential hypertensi on I10 ; Type 2 diabetes with complication E11.8 ; Current use of insulin Z79.4 ; Anemia of chronic disease D63.8 ; 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 and Encounter for immunization Z23 Assessments Encounter Date Diagnosis (ICD Code) Assessment Notes Treatment Notes Treatment Clinical Notes Section Notes 07/28/2024 Essential hypertension (ICD-10 - I10) 07/28/2024 Type 2 diabetes with complication (ICD-10 - E11.8) 07/28/2024 Current use of insulin (ICD-10 - Z79.4) 07/28/2024 Anemia of chronic disease (ICD-10 - D63.8) Encouraged to take occasional doses of Iron 07/28/2024 Status post nephrectomy (ICD-10 - Z90.5) 07/28/2024 Encounter for immunization (ICD-10 - Z23) Plan Of Treatment Treatment Notes Assessment Notes Anemia of chronic disease Encouraged to take occasional doses of Iron Next Appt Details Follow Up: 3 Months, Reason: Provider Name:Canelo Rojas er, 08/31/2025 02:30:00 PM, [address] [facility] [address] [facility], [address], [place], [phone], Progress Notes * FRANCIS MULLEN LDOB:[birth year] (69 yo F)Acc No.[id number]:07/28/2024 Patient: Charlie ROMANSTARLAFRANCIS Provider: Canelo Peter M.D. :1955 A ge:68 Y S ex:Female Date:07/28/2024 Address:[address], [id number] Subjective: * Chief Complaints: * 1 . 1 week f/u. * HPI: H ematology: The patient is here for a follow up on Anemia. Pt states she stopped the Ferrous gluconate due to nausea. Pt states she took it for 1 week and was sick for 2 weeks after. Saw Meenakshi Martin, nephrology, several weeks ago. 68 year old female presents with c/o Anemia. Denies : Bruising. D enies : Bleeding. * ROS: D ERMATOLOGY: no R steve. n o H maribel. G ASTROENTEROLOGY: no N ausea. n o V omiting. n o D iarrhea.? U ROLOGY: no D ifficulty urinating. n o B lood in urine. * Medical History: C oronary Artery Disease, Hypertension, Arthritis, Hyperlipidemia, partial Achilles tendon rupture right, Gets yearly eye exams, Tobacco abuse, 40 pack year history as of 2017, LAD stents x2, 02/28/17, Type 2 diabetes, Chronic back pain, Degenerative Disc Disease, Lumbar facet arthropathy, COPD, Dx 2015, Depression, Anxiety disorder. * Surgical History: L T Hip Replacement 08/01/2010, Tooth Extraction 07/2012, Stent Placed x2 in LAD, by Dr. Huitron 02/28/2017, Resection of right kidney due to carcinoma, Dr. Kwok, [facility] 05/12/23. * Hospitalization/Major Diagno stic Procedure: H [facility] 02/19/21. * Family History: F ather: . [...] tablet Orally Once a day , Taking Lisinopril 5 MG Tablet 1 tablet Orally Once a day , Taking Glimepiride 4 mg Tablet TAKE ONE TABLET BY MOUTH EVERY DAY , Taking DULoxetine HCl 30 MG Capsule Delayed Release Particles 1 cap(s) orally once daily , Taking Ferrous Gluconate 324 (38 Fe) MG Tablet 1 tablet Orally Two times a day , Taking Metoprolol Succinate ER 100 mg Tablet Extended Release 24 Hour 1 tablet Orally Once a day , Taking Insulin Glargine Solostar 100 UNIT/ML Solution Pen-injector 20 units subcutaneously Two times a day , Taking Temazepam 30 MG Capsule 1 cap(s) orally once a day (at bedtime) , Taking HYDROcodone-Acetaminophen 7.5-325 MG Tablet 1 tab(s) orally 3 times a day as needed , Medication List reviewed and reconciled with the patient * Allergies: A llopurinol: hives, eye swelling. Objective: * Vitals: W t:167.6, Temp:98.5, BP:130/74, HR:63, Nurse:JAREK, Ht: 65, BMI:27.89. * Examination: G eneral Examination: General Appearance: N AD. H EENT: u nremarkable.?Oral cavity: n o lesions, mucosa moist and WNL, no erythema. N charlie: s upple, no lymphadenopathy. C hest: n ormal shape and expansion. H eart: R SR. L ungs: c lear to auscultation. A bdomen: soft and nontender. N eurologic Exam: I ntact, gait normal. S kin: n ormal, no rash. P eripheral pulses: n ormal (2+) bilaterally. B ack: mild dorsal kyphosis. E xtremities: n o leg edema. Assessment: * Assessment: 1. E ssential hypertension - I10 (Primary) 2 . T ype 2 diabetes with complication - E11.8 3 . C urrent use of insulin - Z79.4 4 . A nemia of chronic disease - D63.8 5 . S tatus post nephrectomy - Z90.5 ?6. E ncounter for immunization - Z23 Plan: * Treatment: Value Reference Range A /G Ratio 1.0 L 1.1-2.5 - * A lbumin 3.9 3.5-5.3 - g/dL * A lkaline Phosphatase 152 H 35-121 - IU/L * A LT (SGPT) 10 <5-47 - IU/L * A ST (SGOT) 22 <5-40 - IU/L * B ilirubin, Total 0.6 <0.2-1.2 - mg/dL * B UN 48 H 8-23 - mg/dL * C alcium 9.6 8.6-10.4 - mg/dL * C hloride 96 L 97-108 - mmol/L * C O2 25 22-32 - mmol/L * C reatinine 2.69 H 0.50-1.00 - mg/dL * G lucose 433 H 65-99 - mg/dL * P otassium 4.9 3.5-5.3 - mmol/L * S odium 133 L 135-145 - mmol/L * P rotein 7.7 6.0-8.3 - g/dL * e GFR by Creatinine 18 L >59 - mL/min/1.73m2 * Gabi Ware 07/30/2024 8:40: 15 AM >See phone encounter 2.?Anemia of chronic disease?LAB: CBC Venipuncture (in house) (Collection Date & Time - 07/28/2024)* Value Reference Range w bc 6.9 3.5 - 10 * l ymph 21.4% 15 - 50 * m id 5.6% 2 - 15 * g ran 73.0% 35 - 80 * r bc 4.22 3.5 - 5.5 * h gb 10.3 11.5 - 16.5 * h ct 32.7 35 - 55 * m cv 77.3 75 - 100 * m ch 24.4 25 - 35 * m chc 31.5 31 - 38 * p latlet 150 100 - 400 * Fay Ness 07/28/2024 6:0 4:28 PM > , Provider reviewed results while patient in office. Notes: Encouraged to take occasional doses of Iron?? * Immunizations: Fluzone High Dose (65yr and older) : 0.5 mL (Route: Intramuscular) given by JAYANT Mistry on Right Deltoid (Encounter for immunization) * Procedure Codes: 8 5025 CBC WITH AUTO DIFF, 62042 VENIPUNCT, ROUTINE* * Follow Up: 3 Months * Images: Billing Information: * Visit Code: 89989 Office Visit, Est Pt., Level 4. * Procedure Codes: 78843 CBC WITH AUTO DIFF. 33028 VENIPUNCT, ROUTINE*. * Electronic signature of Canelo Peter MD on 08/14/2025 at 09:26 AM EDT Sign off status: Pending * Provider: Canelo Peter M.D. Date: Generated for Sherron mendez/Luis/Herosmitting on: 09:26 AM EDT History and Physical Notes * HPI (History of Present Illness) Category Sub-Category Detail Notes Category Not es Hematology Bruising Bleeding Anemia Examination Category Sub-Category Detail Notes Category Not es General Examination HEENT: unremarkable Heart: RSR Lungs: clear to auscultatio n Abdomen: soft and nontender Extremities: no leg edema General Appearance: NAD Skin: normal, no rash Neurologic Exam: Intact, gait normal Neck: supple, no lymphaden opathy Oral cavity: no lesions, mucosa m oist and WNL, no erythema Peripheral pulses: normal (2+) bilatera lly Back: mild dorsal kyphosis Chest: normal shape and exp ansion
--- OUTSIDE RECORDS SUMMARY | 2024-08-11 09:00 | XMS_ITS ---
Author Organization [facility] Address [address] [facility] [address] [facility] [address] [place] [id number] Care Team Providers Care Journeyman Wireman Name Role Phone Canelo Peter Primary Care Provider REASON FOR VISIT 2 month check Encounters Encounter Location Date Provider Diagnosis [facility] [address] [facility] [address] [place] [phone] 08/11/2024 Canelo Peter Plan Of Treatment Next Appt Details Provider Name:Canelo Rojas er, 08/31/2025 02:30:00 PM, [address], [address], [place], [id number], Progress Notes * FRANCIS MULLEN LDOB:[birth year] (69 yo F)Acc No.[id number]:08/11/2024 Progress Notes Patient: FRANCIS WOODS Provider: Canelo Peter M.D. :1955 A ge:68 Y S ex:Female Date:08/11/2024 Address:[address], [place], [id number] Subjective: * Chief Complaints: * 1 . 2 month check. * Medical History: Objective: * Vitals: Assessment: Plan: * Treatment: * Images: Billing Information: * Visit Code: * Procedure Codes: * Electronic signature of Canelo Peter MD on 08/14/2025 at 09:26 AM EDT Sign off status: Pending * Provider: Canelo Peter M.D. Date: Generated for Sherron mendez/Luis/Elizabeth on: 09:26 AM EDT
--- OUTSIDE RECORDS SUMMARY | 2024-11-03 11:00 | XMS_ITS ---
Author Organization [facility] Address [address] [facility] [address] [facility] [address] [place] [phone] Care Team Providers Care Molder Shoulder Pad Name Role Phone Canelo Peter Primary Care Provider Allergies Allergen (clinical drug ingredient) Drug/Non Drug Allergy documented on EMR Reaction Allergy Type Onset Date Status Information temporarily unavailable Allopurinol hives, eye swelling Drug Allergy Active REASON FOR VISIT 3 month check, Needs labs, mammogram, & colon cancer screening Encounters Encounter Location Date Provider Diagnosis [facility] [address] [facility] [address] [place] [phone] 11/03/2024 Canelo Peter Plan Of Treatment Next Appt Details Provider Name:Canelo Rojas er, 08/31/2025 02:30:00 PM, [address] [facility], [address], [place], [id number], Progress Notes * FRANCIS MULLEN LDOB:[birth year] (69 yo F)Acc No.[id number]:11/03/2024 Progress Notes Patient: FRANCIS WOODS Provider: Canelo Peter M.D. :1955 A ge:68 Y S ex:Female Date:11/03/2024 Address:[address], [place], [id number] Subjective: * Chief Complaints: * 1 . 3 month check. 2. Needs labs, mammogram, & colon cancer screening. * ROS: D ERMATOLOGY: no R steve. 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 Kwok, [facility] 05/12/23. * Hospitalization/Major Diagno stic Procedure: H [facility] 02/19/21. * Family History: F ather: [...] PPD: 1/2 , years 30 ,determination:. * Allergies: A llopurinol: hives, eye swelling. Objective: * Vitals: Assessment: Plan: * Treatment: * Procedure Codes: 8 3036 GLYCATED HEMOGLOBIN TEST, Modifiers: QW , G2211 Complex e/[place], [address] CBC WITH AUTO DIFF * Images: Billing Information: * Visit Code: * Procedure Codes: 78776 GLYCATED HEMOGLOBIN TEST. Modifiers: QW G2211 Complex e/[place]. [address] CBC WITH AUTO DIFF. * Electronic signature of Canelo Peter MD on 08/14/2025 at 09:26 AM EDT Sign off status: Pending * Provider: Canelo Peter M.D. Date: 0 11/03/2024 Generated for Sherron mendez/Luis/eTransmitting on: 1 09:26 AM EDT
--- OUTSIDE RECORDS SUMMARY | 2024-11-20 11:30 | XMS_ITS ---
Author Organization [facility] Address [address] [facility] [address] [place] Garcia [id number] Care Team Providers Care Clerical Secretary Name Role Phone Canelo Peter Primary Care Provider Allergies Allergen (clinical drug ingredient) Drug/Non Drug Allergy documented on EMR Reaction Allergy Type Onset Date Status Information temporarily unavailable Allopurinol hives, eye swelling Drug Allergy Active Results Component Value Reference Range Notes Urinalysis - Inhouse Reviewed date:11/21/2024 10:06:28 AM Interpretation: Performing Lab: Notes/Report: Color/Clarity yellow/cloudy Leuk 1+ Nitrite Neg Urobili 3.2 Protein 1+ pH 6.0 Blood Trace-Intact Sp. Gr. 1.015 Ketone Neg Bili Neg Gluc 2+ CBC Venipuncture (in house) Reviewed date:11/21/2024 10:06:28 AM Interpretation: Performing Lab: Notes/Report: wbc 6.0 3.5 - 10 lymph 24.5% 15 - 50 mid 6.6% 2 - 15 gran 68.9% 35 - 80 rbc 3.93 3.5 - 5.5 hgb 9.2 11.5 - 16.5 hct 28.5 35 - 55 mcv 72.6 75 - 100 mch 23.5 25 - 35 mchc 32.4 31 - 38 platlet 138 100 - 400 Glycohemoglobin A1c (in hous e) Reviewed date:11/21/2024 10:06:28 AM Interpretation:13.1 Performing Lab: Notes/Report: 13.1 glycohemoglobin 13.1% 5 - 6.5 % P-Comprehensive Metabolic Pa elizabeth (CMP) Reviewed date:11/23/2024 08:16:55 PM Interpretation:Na 133, K+ 5.7, gluc 350, bun 63, Cr 2.88, gfr 17, alk phos 159 Performing Lab: Notes/Report: Test performed by [facility] [address] [place] [address] , [address], [place] [address] Angel Craig MD, Catalyst Supervisor CLIA: [id number] Sodium 133 135-145 mmol/L Potassium 5.7 3.5-5.3 mmol/L Chloride 97 97-108 mmol/L CO2 22 22-32 mmol/L Glucose 350 65-99 mg/dL BUN 63 8-23 mg/dL Creatinine 2.88 0.50-1.00 mg/dL Calcium 9.6 8.6-10.4 mg/dL eGFR by Creatinine 17 >59 mL/min/1.73m2 Protein 7.5 6.0-8.3 g/dL Albumin 4.1 3.5-5.3 g/dL Alkaline Phosphatase 159 35-121 IU/L ALT (SGPT) 12 <5-47 IU/L AST (SGOT) 20 <5-40 IU/L Bilirubin, Total 0.4 <0.2-1.2 mg/dL A/G Ratio 1.2 1.1-2.5 P-Culture, Urine Reviewed date:11/23/2024 08:16:55 PM Interpretation:No growth Performing Lab: Notes/Report: Test performed by [facility] [address] [place] [address] , [address], [place] [address] Angel Craig MD, Catalyst Supervisor CLIA: [id number] Specimen Source Urine - Void Culture, Urine See Below Final Report : No growth Reason For Referral Reason RESCHEDULE WITH [facility] Diagnosis 1 Poorly controlled ty pe 2 diabetes mellitus (E11.65) Referral Organization [facility] Referring Provider First Name Canelo Lewis Referring Provider Last Name Rome Referring Provider Speciality Family Pra ctice Referred Provider Specialty Endocrinolog y General Notes Maria Luisa Alvarado 11/21/19 25 9:58:58 AM > faxed to [facility]ocrinology Referral Priority Routine REASON FOR VISIT possible UTI Medications Medication SIG (Take, Route, Frequency, Duration) Notes Start Date End Date Status DULoxetine HCl 30 MG 1 cap(s) orally onc e daily; Duration: 30 day(s) 11/27/2022 Active Temazepam 30 MG 1 cap(s) orally once a day (at bedtime); Duration: 30 day(s) 10/30/2024 Active HYDROcodone-Acetaminoph en 7.5-325 MG 1 tab(s) orally 3 times a day as needed; Duration: 30 day(s) 10/30/2024 Active diazePAM 2 MG 1 tablet as needed O rally at bedtime as needed 11/20/2024 Active Nystatin-Triamcinolone 618491-6.1 UNIT/GM 1 application Externally Twice a day 11/20/2024 Active Ferrous Gluconate 324 (38 Fe) MG 1 tablet Orally Two times a day; Duration: 60 day(s) 06/09/2024 Active Glimepiride 4 mg TAKE ONE TABLET BY M OUTH EVERY DAY; Duration: 30 days Active HumaLOG 100 UNIT/ML 10 units Subcutaneou s Three times a day before meals 11/20/2024 Active Insulin Glargine Solostar 100 UNIT/ML 20 units subcutaneously Two times a day 07/31/2022 Active metOLazone 2.5 mg 1 tablet Orally Once a day; Duration: 30 days Active PriLOSEC OTC 20 MG 1 tab(s) orally once a day Active Trulance 3 MG 1 tablet Orally Once a day 10/31/2023 Not-Taking Lisinopril 5 MG 1 tablet Orally Once a day; Duration: 90 days 04/25/2024 Active Vitamin C 500 MG 1 tablet Orally Once a day Active Metoprolol Succinate ER 100 mg 1 tablet Orally Once a day; Duration: 30 day(s) Active Vital Signs Blood pressure systolic 130 mm Hg 11/20/19 25 Blood pressure diastolic 80 mm Hg 025 Heart Rate 68 /min 11/20/2024 Height 65 in 11/20/2024 Weight 203.6 lbs 11/20/2024 BMI 33.88 kg/m2 11/20/2024 Encounters Encounter Location Date Provider Diagnosis [facility] [address], [place] [phone] 11/20/2024 Canelo Peter Dysuria R30.0 ; Poor ly controlled type 2 diabetes mellitus E11.65 ; Unspecified cirrhosis of liver K74.60 ; 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 ; Chronic kidney disease, stage 4 (severe) N18.4 ; Anemia of chronic disease D63.8 ; Current use of insulin Z79.4 and Primary insomnia F51.01 Assessments Encounter Date Diagnosis (ICD Code) Assessment Notes Treatment Notes Treatment Clinical Notes Section Notes 11/20/2024 Dysuria (ICD-10 - R30.0) 11/20/2024 Poorly controlled type 2 diabetes mellitus (ICD-10 - E11.65) 11/20/2024 Unspecified cirrhosis of liver (ICD-10 - K74.60) 11/20/2024 Status post nephrectomy (ICD-10 - Z90.5) 11/20/2024 Chronic kidney disease, stage 4 (severe) (ICD-10 - N18.4) 11/20/2024 Anemia of chronic disease (ICD-10 - D63.8) 11/20/2024 Current use of insulin (ICD-10 - Z79.4) 11/20/2024 Primary insomnia (ICD-10 - F51.01) Plan Of Treatment Medication Medication Name Sig Start Date Stop Date Notes diazePAM 2 MG 1 tablet as needed O rally at bedtime as needed 11/20/2024 Nystatin-Triamcinolone 302201-9.1 UNIT/GM 1 application Externally Twice a day 11/20/2024 Ferrous Gluconate 324 (38 Fe) MG 1 tablet Orally Two times a day; Duration: 60 day(s) 06/09/2024 HumaLOG 100 UNIT/ML 10 units Subcutaneou s Three times a day before meals 11/20/2024 Referrals Referral Date Details 11/20/2024 11/20/2024, RESCHEDU TERRA WITH [facility] Next Appt Details Follow Up: 4 Weeks, Reason: Provider Name:Canelo Rojas er, 08/31/2025 02:30:00 PM, [address], [address], [place], [place], [id number], Progress Notes * FRANCIS MULLEN LDOB:[birth year] (69 yo F)Acc No.[id number]:11/20/2024 Progress Notes Patient: Charlie ROMANSTARLA FRANCIS Delvis Provider: Renetta Veloz:1955 A ge:68 Y S ex:Female Date:11/20/2024 Address:[address], [place], [id number] Subjective: * Chief Complaints: * 1 . possible UTI. * HPI: U rology: 68 year old female presents with c/o burning sensation P t complains of burning with urination for a couple months. Pt states that she has been taking AZO otc but has not had any relief in symptoms. N eurology: Insurance will not cover the Temazepam. Consider Diazepam. E ndocrinology: She was scheduled to see [facility] Endocrinology in April 2024, but this never happened. She is scheduled for follow-up with Nephrology in November. C ardiology: She only takes the iron 2 or 3 times a week. * ROS: D ERMATOLOGY: no R steve. n o H maribel. G ASTROENTEROLOGY: no N ausea. n o V omiting. U ROLOGY: no D ifficulty urinating. 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 Kwok, [facility] 05/12/2023. * Hospitalization/Major Diagno stic Procedure: H ER 02/19/2021. * Family History: F ather: . M [...] years 30 ,determination:. * Medications: T aking Vitamin C 500 MG Tablet 1 tablet Orally Once a day , Taking PriLOSEC OTC 20 MG Tablet Delayed Release 1 tab(s) orally once a day , Taking Lisinopril 5 MG Tablet 1 tablet Orally Once a day , Taking Ferrous Gluconate 324 (38 Fe) [...] subcutaneously Two times a day , Taking Glimepiride 4 mg Tablet TAKE ONE TABLET BY MOUTH EVERY DAY , Taking DULoxetine HCl 30 MG Capsule Delayed Release Particles 1 cap(s) orally once daily , Taking Temazepam 30 MG Capsule 1 cap(s) orally once a day (at bedtime) , Taking HYDROcodone-Acetaminophen 7.5-325 MG Tablet 1 tab(s) orally 3 times a day as needed , Not-Taking Trulance 3 MG Tablet 1 tablet Orally Once a day , Medication List reviewed and reconciled with the patient * Allergies: A llopurinol: hives, eye swelling. Objective: * Vitals: W t:203.6, Temp:97.9, BP:130/80, HR:68, Nurse:demarco, Ht: 65, BMI:33.88. * Examination: G eneral Examination: General Appearance: [...] no rash. P eripheral pulses: n ormal . B ack: mild dorsal kyphosis. E xtremities: n o leg edema. Assessment: * Assessment: 1. D ysuria - R30.0 (Primary) 2 . P oorly controlled type 2 diabetes mellitus - E11.65 3 . U nspecified cirrhosis of liver - K74.60 4 .?Status post nephrectomy - Z90.5 5 . C hronic kidney disease, stage 4 (severe) - N18.4 6 . A nemia of chronic disease - D63.8 7 . C urrent use of insulin - Z79.4 8 . P rimary insomnia - F51.01 Plan: * Treatment: Value Reference Range C ulture, Urine See Below - * S pecimen Source Urine - Void - * Gabi Ware 11/23/2024 8:16:4 7 PM >See phone encounter ?LAB: Urinalysis - Inhouse (Collection Date & Time - 11/20/2024)* Value Reference Range C olor/Clarity yellow/cloudy * L euk 1+ * N itrite Neg * U robili 3.2 * P rotein 1+ * p H 6.0 * B lood Trace-Intact * S p. Gr. 1.015 * K etone Neg * B andrew Neg * G eva 2+ * Ana Alejo 11/20/2024 4:29:27 PM > , Provider reviewed results while patient in office. 2.?Poorly controlled type 2 diabetes mellitus? Start HumaLOG Solution Cartridge, 100 UNIT/ML, 10 units, Subcutaneous, Three times a day before meals, 1, Refills 3.?LAB: Glycohemoglobin A1c (in house) (Collection Date & Time - 11/20/2024)? 13.1* Value Reference Range g lycohemoglobin 13.1% 5 - 6.5 % * Ana Alejo 11/20/2024 4:32:59 PM > , Provider reviewed results while patient in office. ? Referral To:Endocrinology ?Reason:RESCHEDULE WITH [facility] 3.?Chronic kidney disease, stage 4 (severe)?LAB: P-Comprehensive Metabolic Panel (CMP) (Collection Date & Time - 11/20/2024 03:20 PM)?Na 133, K+ 5.7, gluc 350, bun 63, Cr 2.88, gfr 17, alk phos 159* Value Reference Range A /G Ratio 1.2 1.1-2.5 - * A lbumin 4.1 3.5-5.3 - g/dL * A lkaline Phosphatase 159 H 35-121 - IU/L * A LT (SGPT) 12 <5-47 - IU/L * A ST (SGOT) 20 <5-40 - IU/L * B ilirubin, Total 0.4 <0.2-1.2 - mg/dL * B UN 63 H 8-23 - mg/dL * C alcium 9.6 8.6-10.4 - mg/dL * C hloride 97 97-108 - mmol/L * C O2 22 22-32 - mmol/L * C reatinine 2.88 H 0.50-1.00 - mg/dL * G lucose 350 H 65-99 - mg/dL * P otassium 5.7 H 3.5-5.3 - mmol/L * S odium 133 L 135-145 - mmol/L * P rotein 7.5 6.0-8.3 - g/dL * e GFR by Creatinine 17 L >59 - mL/min/1.73m2 * Gabi Ware 11/23/2024 8:16:4 7 PM >See phone encounter 4.?Anemia of chronic disease? Resume Ferrous Gluconate Tablet, 324 (38 Fe) MG, 1 tablet, Orally, Two times a day, 60 day(s), 120 Tablet, Refills 3.?LAB: CBC Venipuncture (in house) (Collection Date & Time - 11/20/2024)* Value Reference Range w bc 6.0 3.5 - 10 * l ymph 24.5% 15 - 50 * m id 6.6% 2 - 15 * g ran 68.9% 35 - 80 * r bc 3.93 3.5 - 5.5 * h gb 9.2 11.5 - 16.5 * h ct 28.5 35 - 55 * m cv 72.6 75 - 100 * m ch 23.5 25 - 35 * m chc 32.4 31 - 38 * p latlet 138 100 - 400 * Ana Alejo 11/20/2024 4:35:59 PM > , Provider reviewed results while patient in office. 5.?Primary insomnia? Start diazePAM Tablet, 2 MG, 1 tablet as needed, Orally, at bedtime as needed, 30, Refills 1.? * Procedure Codes: G 2211 Complex e/[place], [address] Urinalysis, no micro, 96870 GLYCATED HEMOGLOBIN TEST, Modifiers: QW , 01662 CBC WITH AUTO DIFF, 09614 VENIPUNCT, ROUTINE*, G8752 MOST RECENT SYSTOLIC BP < 140MM HG, G8754 MOST RECENT DIASTOLIC BP < 90MM HG, 3046F HEMOGLOBIN A1C LEVEL > 9.0% * Follow Up: 4 Weeks * Images: Billing Information: * Visit Code: 80743 Office Visit, Est Pt., Level 4. * Procedure Codes: G2211 Complex e/[place]. [address] Urinalysis, no micro. 22151 GLYCATED HEMOGLOBIN TEST. Modifiers: QW 25167 CBC WITH AUTO DIFF. 63897 VENIPUNCT, ROUTINE*. G8752 MOST RECENT SYSTOLIC BP < 140MM HG. G8754 MOST RECENT DIASTOLIC BP < 90MM HG. 3046F HEMOGLOBIN A1C LEVEL > 9.0%. * Electronic signature of Canelo Peter MD on 08/14/2025 at 09:26 AM EDT Sign off status: Pending * Provider: Canelo Peter M.D. Date: 0 11/20/2024 Generated for Sherron mendez/Luis/eTrehanasmitting on: 09:26 AM EDT History and Physical Notes * HPI (History of Present Illness) Category Sub-Category Detail Notes Category Not es Urology burning sensation Pt complains o f burning with urination for a couple months. Pt states that she has been taking AZO otc but has not had any relief in symptoms Examination Category Sub-Category Detail Notes Category Not es General Examination HEENT: unremarkable Heart: RSR Lungs: clear to auscultatio n Abdomen: soft and nontender Extremities: no leg edema General Appearance: NAD Skin: normal, no rash Neurologic Exam: Intact, gait normal Neck: supple, no lymphaden opathy Oral cavity: no lesions, mucosa m oist and WNL, no erythema Peripheral pulses: normal Back: mild dorsal kyphosis Chest: normal shape and exp ansion Consultation Request Notes Referral Date Referring Provider Referred Provider Not es 11/20/2024 Rome, J Joshua , RESCHEDULE WITH [facility]
--- OUTSIDE RECORDS SUMMARY | 2024-12-29 07:30 | XMS_ITS ---
Author Organization [facility] Address [address] [facility] [address] [place] [id number] Care Team Providers Care Board Lining Machine Operator Name Role Phone Canelo Peter Primary Care Provider [phone] Allergies Allergen (clinical drug ingredient) Drug/Non Drug Allergy documented on EMR Reaction Allergy Type Onset Date Status Information temporarily unavailable Allopurinol hives, eye swelling Drug Allergy Active Results Component Value Reference Range Notes CBC Venipuncture (in house) Reviewed date:12/30/2024 08:19:33 AM Interpretation:hgb 10.5, hct 32.6 Performing Lab: Notes/Report: hgb 10.5, hct 32.6 wbc 4.6 3.5 - 10 lymph 17.0% 15 - 50 mid 4.6% 2 - 15 gran 78.4% 35 - 80 rbc 4.12 3.5 - 5.5 hgb 10.5 11.5 - 16.5 hct 32.6 35 - 55 mcv 79.1 75 - 100 mch 25.5 25 - 35 mchc 32.3 31 - 38 platlet 125 100 - 400 Glycohemoglobin A1c (in hous e) Reviewed date:12/30/2024 08:19:33 AM Interpretation:10.7% Performing Lab: Notes/Report: 10.7% glycohemoglobin 10.7% 5 - 6.5 % P-Comprehensive Metabolic Pa elizabeth (CMP) Reviewed date:12/30/2024 08:19:33 AM Interpretation:Sod 132, Glu 472, BUN 36, Creat 2.59, GFR 19, ALK 162, A/G 1.1 Performing Lab: Notes/Report: Test performed by [facility], [facility] [address] [facility] , [address], [place] [address] Angel Craig MD, Continuous Miner CLIA: [id number] Sodium 132 135-145 mmol/L Potassium 5.3 3.5-5.3 mmol/L Chloride 97 97-108 mmol/L CO2 23 22-32 mmol/L Glucose 472 65-99 mg/dL BUN 36 8-23 mg/dL Creatinine 2.59 0.50-1.00 mg/dL Calcium 9.7 8.6-10.4 mg/dL eGFR by Creatinine 19 >59 mL/min/1.73m2 Protein 7.7 6.0-8.3 g/dL Albumin 4.0 3.5-5.3 g/dL Alkaline Phosphatase 162 35-121 IU/L ALT (SGPT) 16 <5-47 IU/L AST (SGOT) 30 <5-40 IU/L Bilirubin, Total 0.6 <0.2-1.2 mg/dL A/G Ratio 1.1 1.1-2.5 REASON FOR VISIT 4 week F/U Medications Medication SIG (Take, Route, Frequency, Duration) Notes Start Date End Date Status Metoprolol Succinate ER 100 mg 1 tablet Orally Once a day; Duration: 90 days Active HYDROcodone-Acetami nophen 7.5-325 MG 1 tab(s) orally 3 times a day as needed; Duration: 30 day(s) 12/29/2024 Active Autopen 3 ml MIS 2-42 Units 10 units three times daily; Duration: 30 days Autopen 3 ML MIS 2-42 Unit Active Lisinopril 5 MG 1 tablet Orally Once a day; Duration: 90 days 04/25/2024 Active Trulance 3 MG 1 tablet Orally Once a day 10/31/2023 Not-Taking Nystatin-Triamcinol one 061736-7.1 UNIT/GM 1 application Externally Twice a day 11/20/2024 Active Temazepam 30 MG 1 cap(s) orally once a day (at bedtime); Duration: 30 day(s) 10/30/2024 Active Autopen - as directed Autopen MIS 2E11.9 11/25/2024 Active diazePAM 2 MG 1 tablet as needed Orally at bedtime as needed 11/20/2024 Active Ferrous Gluconate 324 (38 Fe) MG 1 tablet Orally Two times a day; Duration: 60 day(s) 06/09/2024 Active DULoxetine HCl 30 MG 1 cap(s) orally once daily; Duration: 30 day(s) 11/27/2022 Active Glimepiride 4 mg TAKE ONE TABLET BY MOUTH EVERY DAY; Duration: 30 days Active Dexcom G7 Commanding Officer Motorized Squad - as directed 12/29/2024 Active NovoLOG FlexPen 100 UNIT/ML 12 units Subcutaneous Three times a day 12/29/2024 Active Dexcom G7 Sensor - as directed 12/29/2024 Active Vitamin C 500 MG 1 tablet Orally Once a day Active Insulin Glargine Solostar 100 UNIT/ML 20 units subcutaneously Two times a day 07/31/2022 Active metOLazone 2.5 mg 1 tablet Orally Once a day; Duration: 30 days Active PriLOSEC OTC 20 MG 1 tab(s) orally once a day Active Vital Signs Blood pressure systolic 120 mm Hg 12/30/19 25 Blood pressure diastolic 70 mm Hg 025 Heart Rate 63 /min 12/29/2024 Height 65 in 12/29/2024 Weight 198.8 lbs 12/29/2024 BMI 33.08 kg/m2 12/29/2024 Encounters Encounter [facility] Date [facility] [address] [id number] 12/29/2024 Canelo Peter Type 2 diabetes with complication E11.8 ; Current use of insulin Z79.4 ; Renal failure N19 ; Chronic kidney disease, stage 4 (severe) N18.4 ; Anemia of chronic disease D63.8 and Chronic pain syndrome G89.4 Assessments Encounter Date Diagnosis (ICD Code) Assessment Notes Treatment Notes Treatment Clinical Notes Section Notes 12/29/2024 Type 2 diabetes with complication (ICD-10 - E11.8) 12/29/2024 Current use of insulin (ICD-10 - Z79.4) 12/29/2024 Renal failure (ICD-10 - N19) 12/29/2024 Chronic kidney disease, stage 4 (severe) (ICD-10 - N18.4) 12/29/2024 Anemia of chronic disease (ICD-10 - D63.8) 12/29/2024 Chronic pain syndrome (ICD-10 - G89.4) Plan Of Treatment Medication Medication Name Sig Start Date Stop Date Notes HYDROcodone-Acetaminophen 7.5-325 MG 1 tab(s) orally 3 times a day as needed; Duration: 30 day(s) 12/29/2024 Dexcom G7 Commanding Officer Motorized Squad - as directed 12/29/2024 NovoLOG FlexPen 100 UNIT/ML 12 units Sub cutaneous Three times a day 12/29/2024 Dexcom G7 Sensor - as directed 12/29/2024 HumaLOG KwikPen 100 UNIT/ML 10 units Sub cutaneous three times a day 11/24/2024 Next Appt Details Follow Up: 2 Months, Reason: Provider Name:Canelo Rojas er, 08/31/2025 02:30:00 PM, [address], [address] , [place], [place], [id number], Progress Notes * FRANCIS MULLEN LDOB:[birth year] (69 yo F)Acc No.[id number]:12/29/2024 Progress Notes Patient: FRANCIS WOODS Provider: Canelo Peter M.D. :1955 A ge:69 Y S ex:Female Date:12/29/2024 Address:[facility] [address], [place], [id number] Subjective: * Chief Complaints: * 1 . 4 week F/U. * HPI: E ndocrinology: The pt is here for a 4 week follow up on uncontrolled Diabetes. Pt states she is taking the Lantus 20 units twice a day and Humalog 10 units three times a day with meals. Pt states she does not check her glucose at home because her machine is not working. * ROS: D ERMATOLOGY: no R steve. [...] to carcinoma, Dr. Kwok, [facility] 05/12/2023. * Hospitalization/Major Diagno stic Procedure: [...] tab(s) orally once a day , Taking metOLazone 2.5 mg [...] once a day (at bedtime) , Taking Nystatin-Triamcinolone 438258-0.1 UNIT/GM Cream 1 application Externally Twice a day , Taking Ferrous Gluconate 324 (38 Fe) MG Tablet 1 tablet Orally Two times a day , Taking diazePAM 2 MG Tablet 1 tablet as needed Orally at bedtime as needed , Taking HumaLOG KwikPen 100 UNIT/ML Solution Pen-injector 10 units Subcutaneous three times a day , Taking Autopen - Device as directed , Notes to Pharmacist: Autopen MIS 2E11.9, Taking Lisinopril 5 MG Tablet 1 tablet Orally Once a day , Taking Autopen 3 ml MIS 2-42 Units 10 units three times daily , Notes to Pharmacist: Autopen 3 ML MIS 2-42 Unit, Taking HYDROcodone-Acetaminophen 7.5-325 MG Tablet 1 tab(s) orally 3 times a day as needed , Taking Metoprolol Succinate ER 100 mg Tablet Extended Release 24 Hour 1 tablet Orally Once a day , Not-Taking Trulance 3 MG Tablet 1 tablet Orally Once a day , Medication List reviewed and reconciled with the patient * Allergies: A llopurinol: hives, eye swelling. Objective: * Vitals: W t:198.8, Temp:98.6, BP:120/70, HR:63, Nurse:JAREK, Ht: 65, BMI:33.08. Assessment: * Assessment: 1. T ype 2 diabetes with complication - E11.8 (Primary) 2 . C urrent use of insulin - Z79.4 3 . R enal failure - N19 4 . C hronic kidney disease, stage 4 (severe) - N18.4 5 . A nemia of chronic disease - D63.8 & #160; 6 . C hronic pain syndrome - G89.4 Plan: * Treatment: 2. R enal failure L AB: P-Comprehensive Metabolic Panel (CMP) (Collection Date & Time - 12/29/2024 11:07 AM) S od 132, Glu 472, BUN 36, Creat 2.59, GFR 19, ALK 162, A/G 1.1 Value Reference Range A /G Ratio 1.1 L 1.1-2.5 - * A lbumin 4.0 3.5-5.3 - g/dL * A lkaline Phosphatase 162 H 35-121 - IU/L * A LT (SGPT) 16 <5-47 - IU/L * A ST (SGOT) 30 <5-40 - IU/L * B ilirubin, Total 0.6 <0.2-1.2 - mg/dL * B UN 36 H 8-23 - mg/dL * C alcium 9.7 8.6-10.4 - mg/dL * C hloride 97 97-108 - mmol/L * C O2 23 22-32 - mmol/L * C reatinine 2.59 H 0.50-1.00 - mg/dL * G lucose 472 H 65-99 - mg/dL * P otassium 5.3 3.5-5.3 - mmol/L * S odium 132 L 135-145 - mmol/L * P rotein 7.7 6.0-8.3 - g/dL * e GFR by Creatinine 19 L >59 - mL/min/1.73m2 * Aisha Zurita 12/30/2024 08: 19:10 AM > see phone encounter 3.?Anemia of chronic disease?LAB: CBC Venipuncture (in house) (Collection Date & Time - 12/29/2024)?hgb 10.5, hct 32.6* Value Reference Range w bc 4.6 3.5 - 10 * l ymph 17.0% 15 - 50 * m id 4.6% 2 - 15 * g ran 78.4% 35 - 80 * r bc 4.12 3.5 - 5.5 * h gb 10.5 11.5 - 16.5 * h ct 32.6 35 - 55 * m cv 79.1 75 - 100 * m ch 25.5 25 - 35 * m chc 32.3 31 - 38 * p latlet 125 100 - 400 * Ana Alejo 12/29/2024 12:19:2 8 PM > Aisha Zurita 12/30/2024 08:19:10 AM > see phone encounter 4.?Chronic pain syndrome? Refill HYDROcodone-Acetaminophen Tablet, 7.5-325 MG, 1 tab(s), orally, 3 times a day as needed, 30 day(s), 90, Refills 0.?? * Labs: * L ab: Glycohemoglobin A1c (in house) (Collection Date & Time - 12/29/2024) 1 0.7% Value Reference Range g lycohemoglobin 10.7% 5 - 6.5 % * Noreen Garcia 12/29/2024 11:51 :59 AM > Aisha Zurita 12/30/2024 08:19:10 AM > see phone encounter * Procedure Codes: G 2211 Complex e/[place], [address] GLYCATED HEMOGLOBIN TEST, Modifiers: QW , 98683 CBC WITH AUTO DIFF, 46783 VENIPUNCT, ROUTINE*, G8752 MOST RECENT SYSTOLIC BP < 140MM HG, G8754 MOST RECENT DIASTOLIC BP < 90MM HG, 3046F HEMOGLOBIN A1C LEVEL > 9.0% * Follow Up: 2 Months * Images: Billing Information: * Visit Code: 38789 Office Visit, Est Pt., Level 4. * Procedure Codes: G2211 Complex e/[place]. [address] GLYCATED HEMOGLOBIN TEST. Modifiers: QW 13696 CBC WITH AUTO DIFF. 03147 VENIPUNCT, ROUTINE*. G8752 MOST RECENT SYSTOLIC BP < 140MM HG. G8754 MOST RECENT DIASTOLIC BP < 90MM HG. 3046F HEMOGLOBIN A1C LEVEL > 9.0%. * Electronic signature of Canelo Peter MD on 08/14/2025 at 09:26 AM EDT Sign off status: Pending * Provider: Canelo Peter M.D. Date: 0 12/29/2024 Generated for Sherron mendez/Luis/Elizabeth on: 1 09:26 AM EDT
--- OUTSIDE RECORDS SUMMARY | 2025-02-23 07:00 | XMS_ITS ---
Author Organization [facility] Address [address] [facility] [address] [place] Garcia [phone] Care Team Providers Care Shredded Filler Machine Wrapper Layer Name Role Phone Canelo Peter Primary Care Provider [phone] Allergies Allergen (clinical drug ingredient) Drug/Non Drug [...] 22 Performing Lab: Notes/Report: Test performed by [facility] [address] [place] [address] , [address], [place] [address] Angel Craig MD, Health And Wellness Coordinator CLIA: [id number] Sodium 138 135-145 mmol/L Potassium 4.3 3.5-5.3 [...] 30 days 01/07/2025 Active FreeStyle Blair 3 [place] - as directed 01/07/2025 Active Metoprolol Succinate [...] Duration: 90 days 04/25/2024 Active Nystatin-Triamcinolo ne 569465-6.1 UNIT/GM 1 application Externally Twice a day [...] Encounter Location Date Provider Diagnosis SHERMANA-Radha 1210 [facility] 36 [facility] [address] [place], [place] [id number] 02/23/2025 Canelo Peter Type 2 diabetes with [...] Name:Canelo Rojas er, 08/31/2025 02:30:00 PM, 1210 [facility] 36 [facility], [address], [place], [phone], Progress Notes * FRANCIS MULLEN LDOB:[birth year] (69 yo F)Acc No.[id number]:02/23/2025 Progress Notes Patient: FRANCIS WOODS Provider: Canelo Peter M.D. :1955 A ge:69 Y S ex:Female Date:02/23/2025 Address:[address], [place], [id number] Subjective: * Chief Complaints: * 1 . 2 month f/u. 2. Needs labs, mammogram, low dose chest CT, colon cancer screening, & diabetic eye exam. * HPI: C ardiology: The patient is here for a check up on Hypertension and Diabetes. Pt states she saw the Chief Science Officer February 13 and is scheduled to have [...] right kidney due to carcinoma, Dr. Kwok, [facility] 05/12/2023. * Hospitalization/Major Diagno stic Procedure: H [...] Orally Once a day , Taking Nystatin-Triamcinolone 420393-6.1 UNIT/GM Cream 1 application Externally Twice a [...] 14 days , Taking FreeStyle Blair 3 [place] - Device as directed , Taking Admelog [...] G 2211 Complex e/[place], [address] GLYCATED HEMOGLOBIN TEST, Modifiers: QW , G8752 MOST RECENT SYSTOLIC BP < 140MM HG, G8754 MOST RECENT DIASTOLIC BP < 90MM HG, 3046F HEMOGLOBIN A1C LEVEL > 9.0% * Follow Up: 2 Months * Images: Billing Information: * Visit Code: 92505 Office Visit, Est Pt., Level 4. * Procedure Codes: G2211 Complex e/[place]. [address] GLYCATED HEMOGLOBIN TEST. Modifiers: QW G8752 MOST RECENT SYSTOLIC BP < 140MM HG. G8754 MOST RECENT DIASTOLIC BP < 90MM HG. 3046F HEMOGLOBIN A1C LEVEL > 9.0%. * Electronic signature of Canelo Peter MD on 08/14/2025 at 09:26 AM EDT Sign off status: Pending * Provider: Canelo Peter M.D. Date: 0 02/23/2025 Generated for Sherron mendez/Luis/Mariliaitting on: 1 09:26 AM EDT History and [...]
--- OUTSIDE RECORDS SUMMARY | 2025-04-30 09:30 | XMS_ITS ---
Author Organization [facility] Address [address] [place] [id number] Care Team Providers Care Shuttlecock Feather Trimmer Name Role Phone Canelo Peter Primary Care [...] OV Performing Lab: Notes/Report: Test performed by [email or web address], [facility] , [address], [place] [address] Angel Craig MD, Macerator Operator CLIA: [id number] Sodium 137 135-145 mmol/L Potassium 5.0 3.5-5.3 [...] 30 days 01/07/2025 Active FreeStyle Blair 3 [place] - as directed 01/07/2025 Active FreeStyle Blair [...] ML MIS 2-42 Unit Active Nystatin-Triamcinolo ne 992298-9.1 UNIT/GM 1 application Externally Twice a day [...] 04/30/2025 Encounters Encounter Location Date Provider Diagnosis [facility] [address] [place] [address] 36 [facility] [address] [place], [place] [phone] 04/30/2025 Canelo Peter Type 2 diabetes mellitus [...] Name:Canelo Rojas er, 08/31/2025 02:30:00 PM, 1210 [facility] 36 [facility], [address], [place], [place], [phone], Progress Notes * FRANCIS MULLEN LDOB:[birth year] (69 yo F)Acc No.[id number]:04/30/2025 Progress Notes Patient: Charlie ROMANSTARLAFRANCIS Provider: Canelo Peter M.D. :1955 A ge:69 Y S ex:Female Date:04/30/2025 Address:[address] [place] [address], [place], [id number] Subjective: * Chief Complaints: * 1 . 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 Kwok, [facility] 05/12/2023. * Hospitalization/Major Diagno stic Procedure: [...] orally once a day , Taking Nystatin-Triamcinolone 979010-0.1 UNIT/GM Cream 1 application Externally Twice a [...] 14 days , Taking FreeStyle Blair 3 [place] - Device as directed , Taking Admelog [...] G 2211 Complex e/[place], [address] GLYCATED HEMOGLOBIN TEST, Modifiers: QW , 3052F HG A1C>EQUAL 8.0%<EQUAL 9.0%, G8950 PREHTN/HTN BP DOC INDCD F/U DOC, G8752 MOST RECENT SYSTOLIC BP < 140MM HG, G8754 MOST RECENT DIASTOLIC BP < 90MM HG * Follow Up: 2 Months * Images: Billing Information: * Visit Code: 42370 Office Visit, Est Pt., Level 4. * Procedure Codes: G2211 Complex e/[place]. [address] GLYCATED HEMOGLOBIN TEST. Modifiers: QW 3052F HG A1C>EQUAL 8.0%<EQUAL 9.0%. G8950 PREHTN/HTN BP DOC INDCD F/U DOC. G8752 MOST RECENT SYSTOLIC BP < 140MM HG. G8754 MOST RECENT DIASTOLIC BP < 90MM HG. * Electronic signature of Canelo Peter MD on 08/14/2025 at 09:26 AM EDT Sign off status: Pending * Provider: Canelo Peter M.D. Date: 0 04/30/2025 Generated for Sherron mendez/Luis/eTransmitting on: 1 09:26 [...]
--- OUTSIDE RECORDS SUMMARY | 2025-05-22 07:15 | XMS_ITS ---
Author [facility] Address [address] [place] [phone] Care Team Providers Care Global Expansion Sales Director Name Role Phone Canelo Peter Primary Care Provider Allergies Allergen (clinical drug ingredient) Drug/Non Drug Allergy documented on EMR Reaction Allergy Type Onset Date Status Information temporarily unavailable Allopurinol hives, eye swelling Drug Allergy Active Results Component Value Reference Range Notes X ray : Hip, left Reviewed date:05/26/2025 11:15:22 AM Interpretation:nothing acute Performing Lab: Notes/Report: nothing acute Reason For Referral Reason To seen at Dr. Aguilar' s office 1:00 PM 05/25/25 Diagnosis 1 Left hip pain (M25.5 52) [facility] Referring Provider First Name Canelo Lewis Referring Provider Last Name Rome Referring Provider Speciality Family [facility] ctice Referral Priority Routine REASON FOR VISIT poss fracture on leg from fall, *Also see lab results from Office Visit Medications Medication SIG (Take, Route, Frequency, Duration) Notes Start Date End Date Status Trulance 3 MG 1 tablet Orally Once a day 10/31/2023 Not-Taking metOLazone 2.5 MG 1 tablet Orally daily; Duration: 30 days Active Lisinopril 5 MG 1 tablet Orally Once a day; Duration: 90 days Active Glimepiride 4 MG Take 1 tablet by mouth once daily; Duration: 90 Active HYDROcodone-Acetamin ophen 7.5-325 MG 1 tab(s) orally 3 times a day as needed; Duration: 30 day(s) 05/06/2025 Active Temazepam 30 MG 1 cap(s) orally once a day (at bedtime); Duration: 30 day(s) 01/28/2025 Active Basaglar KwikPen 100 UNIT/ML 20 units Subcutaneous once a day; Duration: 30 days 01/07/2025 Active FreeStyle Blair 3 [place] - as directed 01/07/2025 Active Admelog SoloStar 100 UNIT/ML 10 units Subcutaneous three times daily before meals; Duration: 30 days 01/07/2025 Active DULoxetine HCl 30 MG 1 cap(s) orally onc e daily; Duration: 90 days Active Metoprolol Succinate ER 100 mg 1 tablet Orally Once a day; Duration: 90 days Active FreeStyle Blair 3 S[place] - as directed replace every 14 days; Duration: 30 days 01/07/2025 Active diazePAM 2 MG 1 tablet as needed Orally at bedtime as needed 11/20/2024 Active Autopen 3 ml MIS 2-42 Units 10 units three times daily; Duration: 30 days Autopen 3 ML MIS 2-42 Unit Active Ferrous Gluconate 324 (38 Fe) MG 1 tablet Orally Two times a day; Duration: 60 day(s) 06/09/2024 Active PriLOSEC OTC 20 MG 1 tab(s) orally once a day Active Pioglitazone HCl 15 MG 1 tablet Orally Once a day Active Vitamin C 500 MG 1 tablet Orally Once a day Active oxyCODONE-Acetaminop hen 7.5-325 MG 1 tablet as needed Orally 4 times a day 05/22/2025 Active Nystatin-Triamcinolo ne 977250-2.1 UNIT/GM 1 application Externally Twice a day 11/20/2024 Active Problems Problem Type SNOMED Code ICD Code Onset Dates Problem Status W/U Status Risk Notes Problem Information temporarily unavailable Status post left hip replacement (Z96.642) Active confirmed Vital Signs Blood pressure systolic 130 mm Hg 05/22/20 25 Blood pressure diastolic 70 mm Hg 025 Heart Rate 54 /min 05/22/2025 Height 65 in 05/22/2025 Weight 211.8 lbs 05/22/2025 BMI 35.24 kg/m2 05/22/2025 Encounters Encounter Location Date Provider Diagnosis [facility] [address] [facility] [address] [place], [place] [phone] 05/22/2025 Canelo Peter Left hip pain M25.55 2 ; Status post left hip replacement Z96.642 ; Type 2 diabetes with complication E11.8 ; Chronic kidney disease, stage 4 (severe) N18.4 ; 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 ; Essential (primary) hypertension I10 ; Depression with anxiety F41.8 and Stented coronary artery Z95.5 Assessments Encounter Date Diagnosis (ICD Code) Assessment Notes Treatment Notes Treatment Clinical Notes Section Notes 05/22/2025 Left hip pain (ICD-10 - M25.552) 05/22/2025 Status post left hip replacement (ICD-10 - Z96.642) 05/22/2025 Type 2 diabetes with complication (ICD-10 - E11.8) 05/22/2025 Chronic kidney disease, stage 4 (severe) (ICD-10 - N18.4) 05/22/2025 Status post nephrectomy (ICD-10 - Z90.5) 05/22/2025 Essential (primary) hypertension (ICD-10 - I10) 05/22/2025 Depression with anxiety (ICD-10 - F41.8) 05/22/2025 Stented coronary artery (ICD-10 - Z95.5) Plan Of Treatment Medication Medication Name Sig Start Date Stop Date Notes oxyCODONE-Acetaminophen 7.5- 325 MG 1 tablet as needed Orally 4 times a day 05/22/2025 Referrals Referral Date Details 05/22/2025 05/22/2025, To seen at Dr. Aguilar's office 1:00 PM 05/25/25 Next Appt Details Follow Up: 4 Weeks, Reason: Provider Name:Canelo Rojas er, 08/31/2025 02:30:00 PM, [address] [facility], [address] , [place], [place], [phone], Progress Notes * FRANCIS MULLEN LDOB:[birth year] (69 yo F)Acc No.[id number]:05/22/2025 Progress Notes Patient: FRANCIS WOODS Provider: Canelo Peter M.D. :1955 A ge:69 Y S ex:Female Date:05/22/2025 Address:[address] [place], [place] [address], [id number] Subjective: * Chief Complaints: * 1 . Poss fracture on leg from fall. 2. *Also see lab results from Office Visit. * HPI: L eg: The pt is here today with c/o left hip and left thight pain. Pt states she fell about a week ago. Pt states she was standing at the kitchen counter and fell backward and landed on the left hip and hit her head on the cabinet door. Pt had a left hip replacement in 2009. 69 year old female presents with c/o Leg pain. * ROS: D ERMATOLOGY: no R steve. 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 Kwok, [facility] 05/12/2023. * Hospitalization/Major Diagno stic Procedure: H [...] orally once a day , Taking Nystatin-Triamcinolone 075506-9.1 UNIT/GM Cream 1 application Externally Twice a day , Taking Ferrous Gluconate 324 (38 Fe) MG Tablet 1 tablet Orally Two times a day , Taking diazePAM 2 MG Tablet 1 tablet as needed Orally at bedtime as needed , Taking Autopen 3 ml MIS 2-42 Units 10 units three times daily , Notes to Pharmacist: Autopen 3 ML MIS 2-42 Unit, Taking Metoprolol Succinate ER 100 mg Tablet Extended Release 24 Hour 1 tablet Orally Once a day , Taking FreeStyle Blair 3 Sensor - Miscellaneous as directed replace every 14 days , Taking FreeStyle Blair 3 [place] - Device as directed , Taking Admelog SoloStar 100 UNIT/ML Solution Pen-injector 10 units Subcutaneous three times daily before meals , Taking Temazepam 30 MG Capsule 1 cap(s) orally once a day (at bedtime) , Taking Basaglar KwikPen 100 UNIT/ML Solution Pen-injector 20 units Subcutaneous once a day , Taking DULoxetine HCl 30 MG Capsule Delayed Release Particles 1 cap(s) orally once daily , Taking Glimepiride 4 MG Tablet Take 1 tablet by mouth once daily , Taking HYDROcodone-Acetaminophen 7.5-325 MG Tablet 1 tab(s) orally 3 times a day as needed , Taking metOLazone 2.5 MG Tablet 1 tablet Orally daily , Taking Lisinopril 5 MG Tablet 1 tablet Orally Once a day , Not-Taking Trulance 3 MG Tablet 1 tablet Orally Once a day * Allergies: A llopurinol: hives, eye swelling. Objective: * Vitals: W t: 211.8, Temp: 98.2, BP: 130/70, HR: 54, Nurse: JAREK, Ht: 65, BMI:35.24. * Examination: G eneral Examination: General Appearance: [...] . ?Back: mild dorsal kyphosis. E xtremities: a ble to bear weight but with pain in left hip. Pain with passive ROM. Circulation intact.. Assessment: * Assessment: 1. L eft hip pain - M25.552 (Primary) 2 . S tatus post left hip replacement - Z96.642 3 . T ype 2 diabetes with complication - E11.8 4 .?Chronic kidney disease, stage 4 (severe) - N18.4 5 . S tatus post nephrectomy - Z90.5 6 . E ssential (primary) hypertension - I10 7 . D epression with anxiety - F41.8 8 . S tented coronary artery - Z95.5 ? Plan: * Treatment: ? Referral To: ?Reason:To seen at Dr. Aguilar's office 1:00 PM 05/25/25 * Procedure Codes: G 2211 Complex e/m visit add on, G8950 PREHTN/HTN BP DOC INDCD F/U DOC, G8752 MOST RECENT SYSTOLIC BP < 140MM HG, G8754 MOST RECENT DIASTOLIC BP < 90MM HG * Follow Up: 4 Weeks * Images: Billing Information: * Visit Code: 56034 Office Visit, Est Pt., Level 4. * Procedure Codes: G2211 Complex e/m visit add on. G8950 PREHTN/HTN BP DOC INDCD F/U DOC. G8752 MOST RECENT SYSTOLIC BP < 140MM HG. G8754 MOST RECENT DIASTOLIC BP < 90MM HG. * Electronic signature of Canelo Peter MD on 08/14/2025 at 09:26 AM EDT Sign off status: Pending * Provider: Canelo Peter M.D. Date: 0 05/22/2025 Generated for Sherron mendez/Luis/Mariliaitting on: 09:26 AM EDT History and Physical Notes * HPI (History of Present Illness) Category Sub-Category Detail Notes Category Not es Leg Leg pain Examination Category Sub-Category Detail Notes Category Not es General Examination HEENT: unremarkable Heart: RSR , aortic murmur Lungs: clear to auscultatio n Abdomen: soft and nontender Extremities: able to bear weight but with pain in left hip. Pain with passive ROM. Circulation intact. General Appearance: NAD Skin: normal, no rash Neurologic Exam: Intact, gait normal Neck: supple, no lymphaden opathy Oral cavity: no lesions, mucosa m oist and WNL, no erythema Peripheral pulses: normal Back: mild dorsal kyphosis Chest: normal shape and exp ansion Consultation Request Notes Referral Date Referring Provider Referred Provider Not es 05/22/2025 Canelo Peter , Isra seen at Dr. Aguilar's office 1:00 PM 05/25/25
--- OUTSIDE RECORDS SUMMARY | 2025-07-09 10:00 | XMS_ITS ---
Author Organization [facility] Address [facility] [address] [facility] [address] [place] [id number] Care Team Providers Care Servicer Name Role Phone Canelo Peter Primary Care Provider REASON FOR VISIT 2 months, Needs labs, mammogram, & diabetic eye exam, colon cancer screening Encounters Encounter Location Date Provider Diagnosis [place] [address] [facility] [address] [facility] [address] [place] [id number] 07/09/2025 Canelo Peter Plan Of Treatment Next Appt Details Provider Name:Canelo Rojas er, 08/31/2025 02:30:00 PM, [address] [facility] [address] [facility], [address], [place], [id number], Progress Notes * FRANCIS MULLEN LDOB:[birth year] (69 yo F)Acc No.[id number]:07/09/2025 Progress Notes Patient: EMMA WOODSIAN Delvis Provider: Canelo Peter M.D. :1955 A ge:69 Y S ex:Female Date:07/09/2025 Address:[address], [place], [id number] Subjective: * Chief Complaints: * 1 . 2 months. 2. Needs labs, mammogram, & diabetic eye exam, colon cancer screening. * Medical History: Objective: * Vitals: Assessment: Plan: * Treatment: * Images: Billing Information: * Visit Code: * Procedure Codes: * Electronic signature of Canelo Peter MD on 08/14/2025 at 09:26 AM EDT Sign off status: Pending * Provider: Canelo Peter M.D. Date: 0 07/09/2025 Generated for Sherron mendez/Luis/Elizabeth on: 1 09:26 AM EDT
--- OUTSIDE RECORDS SUMMARY | 2025-07-16 07:19 | XMS_ITS | Encounter Summary ---
Author Organization Healthcare Address [address] [place] [address] Care Team Providers Care Trimming Operator Name Role Phone Enrique Peter MD Primary Care Provider [phone] Reason for Visit * Imaging (Routine) - Closed Specialty Diagnoses / Procedures Referred By Real t Referred To Contact Cardiology Diagnoses CKD (chronic kidney disease) stage 4, GFR 15-29 ml/min (CMS/HCC) Procedures VAS US Hemodialysis Mapping Artery Vein Bilateral Meenakshi Martin, DORMITORY SUPERVISOR [address] [facility] [address] [place] [address] Phone: tel: fax: Referral ID Status Reason Start Date Expiration Date V isits Requested Visits Authorized [id number] Closed Perform Procedure 03/30/2025 09/29/2026 1 1 Encounter Details Date Type Department Care Team (Latest Contact Info) Description 07/16/2025 7:19 AM EDT - 07/16/2025 11:59 PM EDT Hospital Encounter [facility] [address] [facility] 5th Floor [address] [place] [address] Discharge Disposition: Home or Self Care Social History Tobacco Use Types Packs/Day Years Used Date Smoking Tobacco: Every Day Cigarettes Passive Smoke Exposure: Current Smokeless Tobacco: Never Alcohol Use Standard Drinks/Week Comments Not Currently 0 (1 standard drink = 0.6 oz pur e alcohol) PHQ-2 Answer Date Recorded Patient Health Questionnaire-2 Score 2 02/05/2024 AUDIT-C Answer Date Recorded Q1: How often do you have a drink containing alcohol? Never 07/16/2025 Q2: How many drinks containi ng alcohol do you have on a typical day when you are drinking? Patient does not drink Q3: How often do you have si x or more drinks on one occasion? Never 07/16/2025 Comments No Sex and Gender Information Value Date Recorded Sex Assigned at Not on file Legal Sex Female 8:50 PM EDT Gender Identity Not on file Sexual Orientation Not on file documented as of this encounter Functional Status * AUDIT-C Score Answer Date of Assessment Author 0 07/16/2025 8:59 AM EDT Charlie Jiang * Question Answer Date of Assessment Author Q1: How often do you have a drink containing alcohol? Never 07/16/2025 8:59 AM EDT Chari Jiang Q2: How many drinks containing alcohol do you have on a typical day when you are drinking? Patient does not drink 07/16/2025 8:59 AM EDT Chari Jiang Q3: How often do you have six or more drinks on one occasion? Never 07/16/2025 8:59 AM EDT Chari Jiang documented as of this encounter Medications at Time of Discharge busPIRone (Buspar) 7.5 MG tablet Take 1 tablet (7.5 mg) by mouth 2 (two) times a day. 12/10/2022 Continuous Glucose Sensor (FreeStyle [place] 3 Plus Sensor) [facility] USE DIRECTED EVERY 15 DAYS TO MONITOR BLOOD SUGAR 06/09/2025 diazePAM (Valium) 5 MG tablet Take 1 tablet (5 mg) by mouth every 8 hours as needed for anxiety. DULoxetine (Cymbalta) [address] capsule Take 1 capsule (30 mg) by mouth daily. 08/06/2023 furosemide (Lasix) 40 MG tablet Take 1 tablet (40 mg) by mouth daily. 08/14/2023 glimepiride (Amaryl) 4 MG tablet Take 1 tablet (4 mg) by mouth daily. 08/06/2023 HYDROcodone-acet aminophen ([place]) 7.5-325 MG tablet TAKE ONE TABLET BY MOUTH THREE TIMES DAILY NEEDED MAY CAUSE DROWSINESS 08/06/2023 insulin aspart (NovoLOG FLEXPEN) 100 UNIT/ML injection pen every 8 hours. 12/29/2024 Insulin Glargine (BASAGLAR KWIKPEN SC) Inject 20 Units under the skin daily. Insulin Lispro (Admelog, HumaLOG) 100 UNIT/ML injection vial Inject 0.2 mL (20 Units) under the skin 3 (three) times a day with meals. lactulose (Chronulac) 10 GM/15ML oral solution Take 30 mL (20 g) by mouth 1 (one) time each day. 04/23/2023 Lantus SoloStar 100 UNIT/ML injection pen 20 Units 3 (three) times a day. 06/18/2023 lisinopril 10 MG tablet Take 1 tablet (10 mg) by mouth daily. 08/22/2023 lisinopril 5 MG tablet Take 1 tablet (5 mg) by mouth daily. metOLazone (Zaroxolyn) 2.5 MG tablet Take 1 tablet (2.5 mg) by mouth daily. 08/22/2023 metoprolol succinate XL (Toprol-XL) 100 MG 24 hr tablet Take 1 tablet (100 mg) by mouth daily. 08/14/2023 oxyCODONE-acetam inophen (Percocet) 7.5-325 MG tablet Take 1 tablet by mouth 3 times a day as needed. 06/19/2025 temazepam (Restoril) 30 MG capsule TAKE 1 CAPSULE BY MOUTH ONCE DAILY AT BEDTIME 08/21/2023 triamterene-hydr ochlorothiazide (Maxzide) 75-50 MG tablet Take 1 tablet by mouth daily. 01/09/2023 documented as of this encounter Plan of Treatment Not on file documented as of this encounter Procedures Procedure Name Priority Date/Time Associated Diagnosis Comments VAS US HEMODIALYSIS MAPPING ARTERY VEIN BILATERAL Routine 07/16/2025 8:26 AM EDT CKD (chronic kidney disease) stage 4, GFR 15-29 ml/min ([facility]) documented in this encounter Results * VAS US Hemodialysis??Mapping??Artery Vein Bilateral (07/16/2025 8:26 AM EDT) Anatomical Region Laterality Modality Upper Extremities Ultrasound Impressions 07/16/2025 4:32 PM EDT No evidence of acute or chronic cephalic or basilic vein thrombosis. The cephalic and basilic vein dimensions are as described above. Left cephalic vein is too small to measure. COMMUNICATION: Per this written report. Preliminary report signed by Maty Santana RVT on 07/16/2025 12:44 PM By electronically signing this report, I, the attending physician, attest that I have personally reviewed the images/data for the above examination(s) and I agree with the final edited report. Drafted by Maty Santana RVT on 07/16/2025 8:39 AM Final report signed by Santino Clark MD on 07/16/2025 4:32 PM Narrative 07/16/2025 4:32 PM EDT CLINICAL INDICATION: CKD, needing dialysis TECHNIQUE: Non-invasive, real time sonographic exam of the upper extremity venous circulation. COMPARISON: None. FINDINGS: Right: A limited scan of the arterial system was performed. The following flow velocities and transverse measurements were recorded: Brachial artery distal: 96 cm/s cm/s; Radial artery distal: 59 cm/s; Ulnar artery distal: 58 cm/s; The jugular, subclavian, and axillary veins are compressible. Cephalic Vein: (transverse measurements): Proximal humerus: 0.18 x 0.30 cm Mid humerus: 0.18 x 0.20 cm Distal humerus: 0.17 x 0.22 cm Antecubital fossa: 0.24 x 0.26 cm Proximal forearm: 0.26 x 0.29 cm Mid forearm: 0.17 x 0.31 cm Distal forearm: 0.17 x 0.22 cm wrist: 0.21 x 0.26 Basilic Vein: (transverse measurements): Proximal humerus: 0.45 x 0.63 cm Mid humerus: 0.34 x 0.42 cm Distal humerus: 0.29 x 0.32 cm Antecubital fossa: 0.30 x 0.35 cm Proximal forearm: 0.17 x 0.24 cm Mid forearm: 0.20 x 0.20 cm Distal forearm: 0.17 x 0.22 cm wrist: 0.14 x 0.25 cm Brachial veins: (transverse measurements): proximal humerus: 0.23 x 0.39 cm, 0.33 x 0.12 cm mid humerus: 0.20 x 0.27 cm, 0.35 x 0.20 cm distal humerus 0.20 x 0.30 cm Left: A limited scan of the arterial system was performed. The following flow velocities and transverse measurements were recorded: Brachial artery distal: 88 cm/s; Radial artery distal: 68 cm/s; Ulnar artery distal: 62 cm/s; The jugular, subclavian, and axillary veins are compressible. Cephalic Vein: (transverse measurements): Mid humerus: 0.08 x 0.11 cm Basilic Vein: (transverse measurements): Proximal humerus: 0.44 x 0.44 cm Mid humerus: 0.30 x 0.38 cm Distal humerus: 0.34 x 0.26 cm Antecubital fossa: 0.24 x 0.31 cm Proximal forearm: 0.16 x 0.18 cm Mid forearm: 0.17 x 0.19 cm Distal forearm: 0.15 x 0.16 cm wrist: 0.18 x 0.15 cm Brachial vein: (transverse measurements): proximal humerus: 0.54 x 0.56 cm, 0.53 x 0.47 cm mid humerus: 0.41 x 0.25 cm, 0.15 x 0.22 cm distal humerus: 0.21 x 0.28 cmm 0.19 x 0.31 cm Procedure Note Santino Clark MD - 07/16/2025 CLINICAL INDICATION: CKD, needing dialysis TECHNIQUE: Non-invasive, real time sonographic exam of the upper extremity venouscirculation. COMPARISON: None. FINDINGS: Right: A limited scan of the arterial system was performed. The following flow velocities and transverse measurements were recorded: Brachial artery distal: 96 cm/s cm/s; Radial artery distal: 59 cm/s; Ulnar artery distal: 58 cm/s; The jugular, subclavian, and axillary veins are compressible. Cephalic Vein: (transverse measurements): Proximal humerus: 0.18 x 0.30 cm Mid humerus: 0.18 x 0.20 cm Distal humerus: 0.17 x 0.22 cm Antecubital fossa: 0.24 x 0.26 cm Proximal forearm: 0.26 x 0.29 cm Mid forearm: 0.17 x 0.31 cm Distal forearm: 0.17 x 0.22 cm wrist: 0.21 x 0.26 Basilic Vein: (transverse measurements): Proximal humerus: 0.45 x 0.63 cm Mid humerus: 0.34 x 0.42 cm Distal humerus: 0.29 x 0.32 cm Antecubital fossa: 0.30 x 0.35 cm Proximal forearm: 0.17 x 0.24 cm Mid forearm: 0.20 x 0.20 cm Distal forearm: 0.17 x 0.22 cm wrist: 0.14 x 0.25 cm Brachial veins: (transverse measurements): proximal humerus: 0.23 x 0.39 cm, 0.33 x 0.12 cm mid humerus: 0.20 x 0.27 cm, 0.35 x 0.20 cm distal humerus 0.20 x 0.30 cm Left: A limited scan of the arterial system was performed. The following flow velocities and transverse measurements were recorded: Brachial artery distal: 88 cm/s; Radial artery distal: 68 cm/s; Ulnar artery distal: 62 cm/s; The jugular, subclavian, and axillary veins are compressible. Cephalic Vein: (transverse measurements): Mid humerus: 0.08 x 0.11 cm Basilic Vein: (transverse measurements): Proximal humerus: 0.44 x 0.44 cm Mid humerus: 0.30 x 0.38 cm Distal humerus: 0.34 x 0.26 cm Antecubital fossa: 0.24 x 0.31 cm Proximal forearm: 0.16 x 0.18 cm Mid forearm: 0.17 x 0.19 cm Distal forearm: 0.15 x 0.16 cm wrist: 0.18 x 0.15 cm Brachial vein: (transverse measurements): proximal humerus: 0.54 x 0.56 cm, 0.53 x 0.47 cm mid humerus: 0.41 x 0.25 cm, 0.15 x 0.22 cm distal humerus: 0.21 x 0.28 cmm 0.19 x 0.31 cm IMPRESSION: No evidence of acute or chronic cephalic or basilic vein thrombosis. Thecephalic and basilic vein dimensions are as described above. Left cephalicvein is too small to measure. COMMUNICATION: Per this written report. Preliminary report signed by Maty Santana RVT on 07/16/2025 12:44 PM By electronically signing this report, I, the attending physician, attestthat I have personally reviewed the images/data for the aboveexamination(s) and I agree with the final edited report. Drafted by Maty Santana RVT on 07/16/2025 8:39 AM Final report signed by Santino Clark MD on 07/16/2025 4:32 PM Meenakshi Byrd Veronica DORMITORY SUPERVISOR CV VASCULAR PROCEDURES Final Result documented in this encounter Visit Diagnoses Not on filedocumented in this encounter Additional Health Concerns Assessment Noted Time A fall risk assessment has been complete d for the patient 07/16/2025 9:07 AM EDT A Body Mass Index follow-up plan has been documented for the patient 07/16/2025 10:34 AM EDT documented as of this encounter Care Teams Trimming Operator Relationship Specialty Start Date End Date Enrique Peter MD [address] [place] [address] PCP - General 08/27/23 documented as of this encounter
--- OUTSIDE RECORDS SUMMARY | 2025-07-16 09:20 | XMS_ITS | Encounter Summary ---
Author Organization [facility] Address [address] [place] [address] Care Team Providers Care Post Doctoral Researcher Name Role Phone Enrique Peter MD Primary Care Provider [phone] Reason for Visit * Reason Comments CKD (chronic kidney disease) stage 4, GF R 15-29 ml/min Encounter for other preprocedural examin ation * Consultation (Urgent) - Closed Specialty Diagnoses / Procedures Referred By Contact Referred To Contact Vascular Surgery / [facility] Diagnoses CKD (chronic kidney disease) stage 4, GFR 15-29 ml/min ([facility]) Encounter for other preprocedural examination Meenakshi Martin, LAY OUT INSPECTOR [address] [facility] [address] [place] [address] Phone: tel:[phone] fax:[phone] [facility] [address] [place] [address] Phone: tel: fax: Referral ID Status Reason Start Date Expiration Date V isits Requested Visits Authorized [id number] Closed Specialty Services Required 04/20/2025 10/20/2026 1 1 Encounter Details Date Type Department Care Team (Latest Contact Info) Description 07/16/2025 9:20 AM EDT Office Visit [facility] [address] [place] [address] Ina Prasad MD [address] [facility] [address] [place] [address] CKD (chronic kidney disease) stage 4, GFR 15-29 ml/min ([facility]) (Primary Dx) Social History Tobacco Use Types Packs/Day Years Used Date Smoking Tobacco: Every Day Cigarettes Passive Smoke Exposure: Current Smokeless Tobacco: Never Tobacco Cessation:Ready to Q [...] Sign Reading Time Taken Comments Blood Pressure 140/81 07/16/2025 9:09 AM EDT Pulse 53 07/16/2025 8:57 AM EDT Temperature 36.4 C (97.6 F) 07/16/2025 8:57 AM EDT Respiratory Rate - - Oxygen Saturation 95% 07/16/2025 8:57 AM EDT Inhaled Oxygen Concentration - - Weight 97.6 kg (215 lb 2.7 oz) 07/16/2025 8:57 A M EDT Height 170.2 cm (5' 7 ) 07/16/2025 8:57 AM EDT Body Mass Index 33.7 07/16/2025 8:57 AM EDT documented in this encounter Functional Status * AUDIT-C Score [...] on one occasion? Never 07/16/2025 8:59 AM Chrai Munguia documented as of this encounter Miscellaneous Notes * Progress Notes - Oleksandr Rausch MD - 07/16/2025 9:20 AM EDT Dear Enrique Peter MD, HPI We had the pleasure of seeing your patient, Ana Muniz, [facility] She is in imminent renal failure per her wire annealer. She is interested in home hemodialysis. She is right handed. She is s/p right nephrectomy for suspected RCC but proven to be abscess on p athology. She is unsure if she wishes to proceed with AVF/AVG creation until next visit with wire annealer. She still makes urine. I personally and independently reviewed the Vascular Lab Images from today's visit which showed: suitable left basilic vein Her chronic comorbid conditions that impact our treatment planning include: Hypertension (HTN) - stable, with a last BP of: BP Readings from Last 3 Encounters: 07/16/25 (!) 140/81 05/29/25 136/79 02/13/25 125/75 Diabetes (DM) - stable, with a last HbA1C of: No results found for requested labs within last 365 days. Obesity - stable, with a last BMI of: Body mass index is 33.7 kg/m??. Chronic Kidney Disease (CKD) - stable, with a last eGFR of: No results found for requested labs within last 365 days.mL/min/1.73 sq meters The following portions of the chart were reviewed this encounter and updated as appropriate: Tobacco Allergies Meds Problems Med Hx Surg Hx Fam Hx Subjective Review of Systems Constitutional: Negative. HENT: Negative. Eyes: Negative. Respiratory: Negative. Cardiovascular: Negative. Gastrointestinal: Negative. Endocrine: Negative. Genitourinary: Negative. Musculoskeletal: Negative. Skin: Negative. Allergic/Immunologic: Negative. Neurological: Negative. Hematological: Negative. Psychiatric/Behavioral: Negative. All other systems reviewed and are negative. Objective Physical Exam Constitutional: well developed, well nourished, and in no acute distress Eye: equal, round, and reactive Ears, Nose, Throat: normal atraumatic, no neck masses Respiratory: Breathing Pattern: regular, no distress Cardiac: Heart regular rate and rhythm Abdomen: Soft, non-tender, normal bowel sounds; no bruits, organomegaly or masses. Musculoskeletal: normal strength, tone, and muscle mass, no deformities Psychiatric: oriented to time, place and person, mood and affect are within normal limits Neurologic: normal sensation and reflexes and motor intact Skin: [place], warm, well perfused Assessment/Plan In Summary: Ana Muniz is a 69 y.o. year old female who we saw today in clinic. She is herefor dialysis access creation due to imminent renal failure. She sees her wire annealer in about one month and would like to discuss with her again before committing to fistula creation. She would alsolike to talk to her about home PD as opposed to home HD. Since she still does not require HD she can see us back in about 6 weeks time to discuss if she would like to proceed with access creation. Based on duplex venous mapping she may require brachiobasilic with secondary transposition vs superficilization or outright AVG. Below is a summary of the diagnoses addressed in today's visit and any associated orders: Problem List Items Addressed This Visit CKD (chronic kidney disease) stage 4, GFR 15-29 ml/min (CMS/HCC) - Primary We will see her back for: Follow up in about 6 weeks (around 08/27/2025). The patient was counseled on the importance of: - strict diabetic glucose control - aspirin therapy for overall cardiovascular health - tobacco avoidance (a total time of 4-10 minutes was undertaken, addressing the role of tobacco incardiovascular disease and disease progression) - blood pressure monitoring - proper nutrition, exercise and maintaining a healthy weight. Cosigned by Ina Prasad MD at 07/16/2025 10:33 AM EDT Associated attestation - Ina Prasad MD - 07/16/2025 10:33 AM EDT I saw and evaluated the patient with the resident/fellow. I discussed the case with the resident/fellow and agree with the findings and plan as documented. documented in this encounter Plan of Treatment Not on file documented as of this encounter Visit Diagnoses Diagnosis CKD (chronic kidney disease) stage 4, GFR 15-29 ml/min ([facility])- Primary Chronic kidney disease, Stage IV (severe) documented in this encounter Additional Health Concerns Assessment Noted Time A fall risk assessment has been complete d for the patient 07/16/2025 9:07 AM EDT A Body Mass Index follow-up plan has been documented for the patient 07/16/2025 10:34 AM EDT documented as of this encounter Care Teams Post Doctoral Researcher Relationship Specialty Start Date End Date Enrique Peter MD [address] [place] [address] PCP - General 08/27/23 documented as of this encounter
--- OUTSIDE RECORDS SUMMARY | 2025-08-14 12:00 | XMS_ITS | Encounter Summary ---
Author Organization [facility] Address [address] [place] [address] Care Team Providers Care Technical Specialist Cytology Name Role Phone Enrique Peter MD Primary Care Provider [phone] Reason for Visit * Reason Comments Follow-up Patient is a 69 year old female that presents to the clinic on this date for a follow up for ckd. Patient denies complaints and concerns at the current moment. Patient denies pain as well. Encounter Details Date Type Department Care Team ([facility] Contact Info) Description 08/14/2025 12:00 PM EDT Office Visit [facility] [address] [place] [address] Meenakshi Martin, PULMONOLOGY PHYSICIAN [address] [address] CKD (chronic kidney disease) stage 4, GFR 15-29 ml/min (CMS/HCC) (Primary Dx); Type 2 diabetes mellitus with stage 2 chronic kidney disease, with long-term current use of insulin; Essential hypertension; Iron deficiency anemia, unspecified iron deficiency anemia type; History of right radical nephrectomy; Chronic kidney disease-mineral and bone disorder; Anemia of chronic disease Social History Tobacco Use Types Packs/Day Years [...] Sign Reading Time Taken Comments Blood Pressure 123/81 08/14/2025 11:36 AM EDT Pulse 57 08/14/2025 11:36 AM EDT Temperature - - Respiratory Rate 16 08/14/2025 11:36 AM EDT Oxygen Saturation 95% 08/14/2025 11:36 AM EDT Inhaled Oxygen Concentration - - Weight 98 kg (216 lb) 08/14/2025 11:36 AM EDT Height 170.2 cm (5' 7 ) 08/14/2025 11:36 AM EDT Body Mass Index 33.83 08/14/2025 11:36 AM EDT documented in this encounter Plan of Treatment Scheduled Orders Name Type Priority Associated Diagnoses Orde r Schedule CBC W/O Differential Lab Routine CKD (chronic kidney disease) stage 4, GFR 15-29 ml/min (CMS/HCC) Expected: 08/14/2025 (Approximate), Expires: 02/12/2027 PTH Intact Total Lab Routine CKD (chronic kidney disease) stage 4, GFR 15-29 ml/min (CMS/HCC) Expected: 08/14/2025 (Approximate), Expires: 02/12/2027 Renal Function Panel, Plasma Lab Routine CKD (chronic kidney disease) stage 4, GFR 15-29 ml/min (CMS/HCC) Expected: 08/14/2025 (Approximate), Expires: 02/12/2027 Urinalysis with reflex microscopic (Culture NOT Included) Lab Routine CKD (chronic kidney disease) stage 4, GFR 15-29 ml/min (CMS/HCC) Expected: 08/14/2025 (Approximate), Expires: 02/12/2027 Vitamin D 25 Hydroxy Lab Routine CKD (chronic kidney disease) stage 4, GFR 15-29 ml/min (CMS/HCC) Expected: 08/14/2025 (Approximate), Expires: 02/12/2027 Protein, Random, Urine with Creatinine Lab Routine CKD (chronic kidney disease) stage 4, GFR 15-29 ml/min ([facility]) Expected: 08/14/2025 (Approximate), Expires: 02/12/2027 documented as of this encounter Visit Diagnoses Diagnosis CKD (chronic kidney disease) stage 4, GFR 15-29 ml/min (CMS/HCC)- Primary Chronic kidney disease, Stage IV (severe) Type 2 diabetes mellitus with stage 2 chronic kidney disease, with long-term current use of insulin Essential hypertension Unspecified essential hypertension Iron deficiency anemia, unspecified iron deficiency anemia type History 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
--- OUTSIDE RECORDS SUMMARY | 2025-08-14 12:21 | XMS_ITS | Clinical Summary ---
Author Organization [facility] Address [address] [place] [address] Care Team Providers Care Helpdesk Manager Name Role Phone Enrique Peter MD Primary Care Provider [phone] Allergies Active Allergy Reactions Criticality Noted Date Comments Allopurinol Other - please docum ent in the comment field Low 07/16/2025 Eye swelling Medications busPIRone (Buspar) 7.5 MG tablet Take [...] by mouth daily. 3 Active HYDROcodone-xenia taminophen ([place]) 7.5-325 MG tablet TAKE ONE TABLET BY [...] 20 Units under the skin daily. Active Continuous Glucose Sensor (FreeStyle [place] 3 Plus Sensor) [facility] USE DIRECTED EVERY 15 DAYS TO MONITOR BLOOD SUGAR 5 Active insulin aspart (NovoLOG FLEXPEN) 100 UNIT/ML injection pen every 8 hours. 5 Active oxyCODONE-aceta minophen (Percocet) 7.5-325 MG tablet Take 1 tablet by mouth 3 times a day as needed. 5 Active Active Problems Problem Noted Date Diagnosed Date CKD (chronic kidney disease) stage 4, GFR 15-29 ml/min 08/25/2024 Anemia due to chronic kidney disease 08/25/2024 Iron deficiency anemia 07/18/2024 Anemia of chronic disease 04/07/2024 Overview (04/07/2024): Hgb 6.4 on OSH labs, To be completed at [facility] Encounters Date Type Department Care Team Description 08/14/2025 12:00 PM EDT Office Visit [facility] [address] [place] [address] Meenakshi Martin APRN CKD (chronic kidney disease) stage 4, GFR 15-29 ml/min (CMS/HCC) (Primary Dx); Type 2 diabetes mellitus with stage 2 chronic kidney disease, with long-term current use of insulin; Essential hypertension; Iron deficiency anemia, unspecified iron deficiency anemia type; History of right radical nephrectomy; Chronic kidney disease-mineral and bone disorder; Anemia of chronic disease 08/14/2025 Travel 07/16/2025 9:20 AM EDT Office Visit [facility] [address] [place] [address] Ina Prasad MD CKD (chronic kidney disease) stage 4, GFR 15-29 ml/min (CMS/HCC) (Primary Dx) 07/16/2025 7:19 AM EDT - 07/16/2025 11:59 PM EDT Hospital Encounter [facility] [address] [place] [address] Discharge Disposition: Home or Self Care 07/16/2025 Travel 06/19/2025 Orders Only [facility] [address] [place] [address] Vanita Carpio CKD (chronic kidney disease) stage 4, GFR 15-29 ml/min (CMS/HCC) (Primary Dx) 06/08/2025 Telephone [facility] [address] [place] [address] Ina Prasad MD 05/29/2025 12:20 PM EDT Office Visit [facility] [address] [place] [address] Meenakshi Martin APRN CKD (chronic kidney disease) stage 4, GFR 15-29 ml/min (CMS/HCC) (Primary Dx); Type 2 diabetes mellitus with stage 2 chronic kidney disease, with long-term current use of insulin (CMS/HCC); Essential hypertension; Chronic kidney disease-mineral and bone disorder; Iron deficiency anemia, unspecified iron deficiency anemia type; History of right radical nephrectomy 05/29/2025 Travel from Last 3 Months Immunizations Immunization Administration [...] Pulse 57 08/14/2025 11:36 AM EDT Temperature 36.4 C (97.6 F) 07/16/2025 8:57 AM EDT Respiratory Rate 16 08/14/2025 11:36 AM EDT Oxygen Saturation 95% 08/14/2025 11:36 AM EDT Inhaled Oxygen Concentration - - Weight 98 kg (216 lb) 08/14/2025 11:36 AM EDT Height 170.2 cm (5' 7 ) 08/14/2025 11:36 AM EDT Body Mass Index 33.83 08/14/2025 11:36 AM EDT Plan of Treatment Health Maintenance Due Date Last Done Comments [facility]-Bone Density Scan 1955 [facility]-Diabetes: Hemoglobin A1C 1955 [facility]-Hepatitis C Screening 1955 [facility]-Medicare Annual Wellness (AWV) 1955 [facility]-Infant/Child/Adol SDOH Screenings 1955 Diabetes: Dental Exam 1963 [...] - Risk 60-74 years 1-dose series) 2013 [facility]-Depression Screening 02/04/2025 02/05/2024 [facility]-RNJPT-15 Vaccine (2 - season) 2025 06/17/2021 [facility]-Influenza Vaccine (#1) 06/22/202507/28, 07/02/2023, 08/16/2020, Additional history exists [facility]-DTaP,Tdap,and Td Vaccines (3 - Td or Tdap) 01/08/2029 01/08/2019, 10/27/2008 [facility]-Pneumococcal Vaccine: 50+ Years Completed 08/16/2020, 01/08/2019 [facility]-Obesity Intervention Completed 025, 05/29/2025, 02/13/2025, Additional history exists HPV Vaccines Aged Out [...] on patient's age to complete this topic Procedures Procedure Name Priority Date/Time Associated Diagnosis Comments VAS US HEMODIALYSIS MAPPING ARTERY VEIN BILATERAL Routine 07/16/2025 8:26 AM EDT CKD (chronic kidney disease) stage 4, GFR 15-29 ml/min ([facility]) from Last 3 Months Results * VAS US Hemodialysis??Mapping??Artery Vein Bilateral [...] Clark MD on 07/16/2025 4:32 PM Meenakshi Martin PIECE JOBBER CV VASCULAR PROCEDURES Final Result from Last 3 Months Insurance GENERIC MEDICARE ADVANTAGE Care Teams Helpdesk Manager Relationship Specialty Start Date End Date Enrique Peter MD [address] [place] [address] PCP - General 08/27/23
--- OUTSIDE RECORDS SUMMARY | 2025-08-14 12:21 | XMS_ITS | Encounter Summary ---
Author Organization [facility] Address [address] [place] [address] Care Team Providers Care Barrel Lapper Name Role Phone Enrique Peter MD Primary Care Provider [phone] Encounter Details Date Type Department Care Team (Late st Contact Info) Description 06/19/2025 Orders Only [facility] [address] [place] [address] Vanita Carpio CKD (chronic kidney [...] as of this encounter Plan of Treatment Scheduled Orders Name Type Priority Associated Diagnoses Orde r Schedule Renal Function Panel, Plasma Lab Routine CKD (chronic kidney disease) stage 4, GFR 15-29 ml/min (CMS/HCC) Expected: 06/19/2025 (Approximate), Expires: 12/19/2026 documented as [...] documented as of this encounter Care Teams Barrel Lapper Relationship Specialty Start Date End Date Enrique Peter MD [address] [place] [address] PCP - General 08/27/23 documented as of this encounter
--- OUTSIDE RECORDS SUMMARY | 2025-08-14 12:21 | XMS_ITS | Clinical Summary ---
Author Organization [facility] Address [address] [place] [address] Phone Care Team Providers Care Supervisor Pipe Joints Name Role Phone Unavailable Unavailable Conditions or Problems No information available. Medications No information available. Medications Administered No information available. Allergies, Adverse Reactions, Alerts No information available. Results No information available. Plan of Care No information available. Procedures No information available. Vital Signs No information available. Immunizations No information available. Advance Directives No information available.
--- OUTSIDE RECORDS SUMMARY | 2025-08-14 12:22 | XMS_ITS | Clinical Summary ---
Author Organization [facility] ([place], [place], [place], [place]) Address [address] [place] [address] Care Team Providers Care Wire Rope Fabrication Supervisor Name Role Phone Provider Not In System, [facility] Primary Care Provide r Unavailable Allergies [...] 10/11/2023 04/11/2023 Medicare Initial AWV [id number] 10/23/2023 Falls Risk Screening 10/22/2024 COVID-19 VACCINE (2 - 2024- season) 2025 Influenza Vaccine (#1) 2025 08/16/2020, 2018 DTAP/TDAP/TD [...] Nonreactive Nonreactive, Equivocal 04/13/2023 5:34 AM EDT [facility] Hep B C IgM Nonreactive Nonreactive 04/13/2023 5:34 AM EDT [facility] Hepatitis B surface antigen Nonreactive Nonreactive, Equivocal 04/13/2023 5:34 AM EDT [facility] Hepatitis C Ab Nonreactive Nonreactive, Equivocal 04/13/2023 5:34 AM EDT [facility] Blood Venipuncture / Unknown 04/13/2023 3:29 AM EDT 04/13/2023 3:55 AM EDT Narrative [facility] - 04/13/2023 5:34 AM EDT [...] ORDERABLES Final Res ult Performing Organization Address [facility] de Phone Number [facility] [address] [phone] * (ABNORMAL) Hemoglobin A1c (04/11/2023 12:14 PM EDT) Hemoglobin A1C 8.7(H) 4.2 - 6.3 % 04/11/2023 4:30 PM EDT [facility] Comment: Hemoglobin A1C levels are related to mean glucose during the preceding 2-3 months. Less than 7% demonstrates glycemic control in diabetic patients. Hemoglobin AlC % Suggested Diagnosis > or = 6.5 Diabetic 5.7 - 6.4 Prediabetic <5.7 Non-diabetic eAVG Glucose 202.99 mg/dL 04/11/2023 4:30 PM EDT [facility] Blood ANTECUBITAL REGION STRUCTURE / Unknown Venipuncture / Unknown 04/11/2023 12:14 PM EDT 04/11/2023 12:20 PM EDT Madan Winter MD LAB BLOOD ORDERABLES Final Resul t Performing Organization Address [facility] de Phone Number [facility] [address] [phone] from Last 3 Months or Most Recently Relevant to Health Maintenance Insurance [employer] MEDICARE PPO Advance Directives For more information, please contact: [phone] * Full Code (Latest Code Status on File) Date Activated Date Inactivated Comments 04/11/2023 10:31 AM 04/22/2023 5:15 PM Care Teams Wire Rope Fabrication Supervisor Relationship Specialty Start Date End Date Provider Not In System, McT PCP - General 04/11/23
--- OUTSIDE RECORDS SUMMARY | 2025-08-14 12:22 | XMS_ITS | Encounter Summary ---
Author Organization [facility] Address [address] [place] [address] Care Team Providers Care Upholsterer Outside Name Role Phone Enrique Peter MD Primary Care Provider [phone] Encounter Details Date Type Department Care Team (Latest Contact Info) Description 08/14/2025 Travel Social History Tobacco Use Types Packs/Day [...] documented as of this encounter Care Teams Upholsterer Outside Relationship Specialty Start Date End Date Enrique Peter MD [address] [place] [address] PCP - General 08/27/23 documented as of this encounter
--- OUTSIDE RECORDS SUMMARY | 2025-08-14 12:22 | XMS_ITS | Data Portability ---
Author Organization [facility] LEONILA Haddad CASAR CLOSED Address [address] [facility] [place] [address] Care Team Providers Care Die Maintenance Technician Name Role Phone XIANG MELARA Primary Care Provider Assessment No assessment recorded. Plan of Treatment Reminders Order Date Submit Date Provider Last Modified By Organization Details Last Modified Time Details Appointments None recorded. Lab urinalysis panel, auto 2022 023 [facility], [address], [place], [address], 3 11:49:11 Referral None recorded. Procedures None recorded. Surgeries partial nephrectom y, robot assisted laparoscop ic, with intra-oper ative ultrasound (SURG) 2022 023 [facility] (Surgery Scheduling), [address], [place], [address], 3 11:55:09 Imaging None recorded. Medication Orders None recorded. Patient TargetsNo targets recorded. Patient Instructions Encounter Date Encounter Id Patient Instructions Last Modified By Organization Details Last Modified Time 03/23/2023 [id number] Renal mass. This mass is concerning for renal malignancy. I discussed the high likelihood of solid masses being malignant, and the curative potential of operative extirpation. We also discussed treatment options of observation and ablation. I then discussed the procedures of radical/partial nephrectomy, open and laparoscopic, and whether he/she is candidate for these. I also discussed the rare benefit vs risk of CT guided percutaneous biopsy of renal masses. Patient educated on treatment and goals of therapy. All questions are answered and will proceed as outlined. We will obtain copies of the CT scan for my review, and I will call the patient regarding whether we can proceed with partial nephrectomy or total nephrectomy meredith Not available 03/25/2023 11:49:01 Reason for Referral None Reported. Results Created Date Observation Date Name Description Value Unit Range Abnormal Flag Note LastModifiedBy Organization Detail LastModifiedTime 03/23/2003/23/2023 urina lysis panel , auto Unknown Analyte Clean Catch Not Available [facility] [address], [place], [address], 03/23/2023 12:05:11 03/23/2003/23/2023 urina lysis panel , auto Unknown Analyte Yellow Not Available [facility] [address] [place] [address] [address], [place], [address], 03/23/2023 12:05:11 03/23/20 23 03/23/2023 urina lysis panel , auto Unknown Analyte Slight ly Hazy Not Available [facility] [address] [place] [address] [address], [place], [address], 03/23/2023 12:05:11 03/23/20 23 03/23/2023 urina lysis panel , auto Unknown Analyte 1.005 Not Available [facility] [address] [place] [address] [address], [place], [address], 03/23/2023 12:05:11 03/23/20 23 03/23/2023 urina lysis panel , auto Unknown Analyte 1.003- 1.035 Not Available [facility] [address] [place] [address] [address], [place], [address], 03/23/2023 12:05:11 03/23/20 03/23/2023 urina lysis panel , auto Unknown Analyte 5.0 Not Available [facility] [address], [place], [address], 03/23/2023 12:05:11 03/23/20 23 03/23/2023 urina lysis panel , auto Unknown Analyte 5.0-8. 0 Not Available [facility] [address], [place], [address], 03/23/2023 12:05:11 03/23/2003/23/2023 urina lysis panel , auto Unknown Analyte Negati ve Not Available [facility] [address], [place], [address], 03/23/2023 12:05:11 03/23/2003/23/2023 urina lysis panel , auto Unknown Analyte Negati ve Not Available [facility] [address], [place], [address], 03/23/2023 12:05:11 03/23/2003/23/2023 urina lysis panel , auto Unknown Analyte Negati ve Not Available [facility] [address], [place], [address], 03/23/2023 12:05:11 03/23/2003/23/2023 urina lysis panel , auto Unknown Analyte Negati ve Not Available [facility] [address], [place], [address], 03/23/2023 12:05:11 03/23/2013 0403/23/2023 urina lysis panel , auto Unknown Analyte Trace Not Available [facility] [address], [place], [address], 03/23/2023 12:05:11 03/23/20 23 03/23/2023 urina lysis panel , auto Unknown Analyte Negati ve Not Available [facility] [address], [place], [address], 03/23/2023 12:05:11 03/23/2003/23/2023 urina lysis panel , auto Unknown Analyte >1000 mg/dl Not Available [facility] [address], [place], [address], 03/23/2023 12:05:11 03/23/2003/23/2023 urina lysis panel , auto Unknown Analyte Normal Not Available [facility] [address], [place], [address], 03/23/2023 12:05:11 03/23/20 23 03/23/2023 urina lysis panel , auto Unknown Analyte Negati ve Not Available [facility] [address], [place], [address], 03/23/2023 12:05:11 03/23/2003/23/2023 urina lysis panel , auto Unknown Analyte Negati ve Not Available [facility] [address], [place], [address], 03/23/2023 12:05:11 03/23/2003/23/2023 urina lysis panel , auto Unknown Analyte Normal Not Available [facility] [address], [place], [address], 03/23/2023 12:05:11 03/23/20 23 03/23/2023 urina lysis panel , auto Unknown Analyte Normal 1 mg/dl Not Available [facility] [address], [place], [address], 03/23/2023 12:05:11 03/23/20 23 03/23/2023 urina lysis panel , auto Unknown Analyte Negati ve Not Available [facility] [address], [place], [address], 03/23/2023 12:05:11 03/23/20 23 03/23/2023 urina lysis panel , auto Unknown Analyte Negati ve Not Available [facility] [address], [place], [address], 03/23/2023 12:05:11 03/23/20 23 03/23/2023 urina lysis panel , auto Unknown Analyte Negati ve Not Available [facility] [address], [place], [address], 03/23/2023 12:05:11 03/23/20 23 03/23/2023 urina lysis panel , auto Unknown Analyte Negati ve Not Available [facility] [address], [place], [address], 03/23/2023 12:05:11 03/15/20 23 03/14/2023 CT, abdom en + pelvi s, w/wo contr ast No observ ation record ed. [facility] [address], [place], [address], 03/16/2023 07:57:56 Result Notes None recorded. Problems Name Problem SNOMED Code Status Onset Date Resolution Date Notes Provider Name and Address Organization Details Recorded Time Renal mass 853479009 Active 023 ARNULFO HECTOR JR, MD [address] [place], [address] , [facility] 03/25/2023 11:47:29 Problem Notes None recorded. Procedures Surgical History Date Name Laterality Status Provider Name and Address Organization Details Recorded Time 3 PARTIAL NEPHRECTOMY, ROBOT ASSISTED LAPAROSCOPIC, WITH INTRA-OPERATIVE ULTRASOUND (SURG) completed Lester Reilly [facility] 04/27/2023 16:16:32 Imaging Results None recorded. Procedure Notes None recorded. Medical Equipment None Reported. Allergies No known drug allergies Medications Not known to be on any medication Vitals Date Recorded Body height Body mass index (BMI) Body weight Provider Name and Address Organization Details Last Updated DateTime 03/23/2023 167.64 cm 32.3 kg/m2 37432.47 g Jacquie Jorgensen [facility] 03/23/2023 12:04:47 Social History None recorded. Functional Status None recorded. Mental Status None recorded. Family History Relationship Description Onset Age of this Age Resolved Age Notes LastModified by Organization Details LastModified Time Father No current problems or disability [email or web address] Not available 03/23 12:04:55 Mother No current problems or disability [email or web address] Not available 03/23 12:04:55 Medical History No medical history recorded. Gynecological HistoryNo gynecological history recorded. Obstetrics History GPAL:G 0 P 0 0 0 0 Past Encounters Encounter ID Performer Location Encounter Start Date Encounter Closed Date Diagnosis/Indication Diagnosis SNOMED-CT Code Diagnosis ICD10 Code Diagnosis IMO Codes Diagnosis Note [id number] ARNULFO HECTOR JR, MD [facility] [address] [place] [address] 03/23/2023 11:17:36 03/23/2023 12:20:40 Renal mass 546648465 N28.89 Health Concerns Section Related Observation LastModified by Organization Detai ls LastModified Time None Recorded Concern Status LastModified by Organization Details LastModified Time None Recorded Advance Directives Directive None Recorded Payers Insurance Date Sequence Insurance Name Policy Number Policy Valles Covered Member ID Valles Member ID Guarantor Name 04/26/2023 1 [employer] (MEDICARE REPLACEMENT/ ADVANTAGE - PPO) [id number] Ana Muniz [id number] Ana Muniz Notes Date Note Type Note Provider Name and Address Organization Details Recorded Time 03/23/2023 text/html Patient is in today for evaluation of right renal mass. She's a pleasant 67 year old female, who was undergoing work up for chronic anemia, and was found to have a 3 cm exophytic anterior enhancing renal mass on the right kidney consistent with renal cell carcinoma. She has occasional right flank pain. She denies gross hematuria. Patient reports urgency, incontinence and fecal incontinence. She's never been treated for urinary leakage or Monalisa leakage. She's interested in medical therapy. She denies dysuria. ARNULFO HECTOR JR, MD [address] [place], [address], [facility] 03/25/2023 11:49:14 OBGyn Episode No OBEpisode recorded.
--- OUTSIDE RECORDS SUMMARY | 2025-08-14 12:22 | XMS_ITS | Encounter Summary ---
Author Organization Healthcare Address [address] [place] [address] Care Team Providers Care Circuitry Negative Inspector Name Role Phone Enrique Peter MD Primary Care Provider [phone] Encounter Details Date Type Department Care Team (Latest Contact Info) Description 07/16/2025 Travel Social History Tobacco Use Types Packs/Day [...] Chari Jiang documented as of this encounter Plan of [...] documented as of this encounter Care Teams Circuitry Negative Inspector Relationship Specialty Start Date End Date Enrique Peter MD [address] [place] [id number] PCP - General 08/27/23 documented as of this encounter
--- OUTSIDE RECORDS SUMMARY | 2025-08-14 12:22 | XMS_ITS | Referral Summary ---
Author Organization [facility] ([place], [place], [place], [place]) Address [address] [place] [address] Care Team Providers Care Agent Contract Clerk Name Role Phone Provider Not In System, [facility] Primary Care Provide r Unavailable Allergies No [...] Date Renny rded Speak language other than Bulgarian at home Not on file 11/02/2023 Want [...] Nonreactive Nonreactive, Equivocal 04/13/2023 5:34 AM EDT [facility] Hep B C IgM Nonreactive Nonreactive 04/13/2023 5:34 AM EDT [facility] Hepatitis B surface antigen Nonreactive Nonreactive, Equivocal 04/13/2023 5:34 AM EDT [facility] Hepatitis C Ab Nonreactive Nonreactive, Equivocal 04/13/2023 5:34 AM EDT [facility] Blood Venipuncture / Unknown 04/13/2023 [...] MD LAB BLOOD ORDERABLES Final Res ult [facility] [address] [phone] * (ABNORMAL) Hemoglobin A1c (04/11/2023 12:14 PM EDT) Hemoglobin A1C 8.7(H) 4.2 - 6.3 % 04/11/2023 4:30 PM EDT [facility] Comment: Hemoglobin A1C levels are related to mean glucose during the preceding 2-3 months. Less than 7% demonstrates glycemic control in diabetic patients. Hemoglobin AlC % Suggested Diagnosis > or = 6.5 Diabetic 5.7 - 6.4 Prediabetic <5.7 Non-diabetic eAVG Glucose 202.99 mg/dL 04/11/2023 4:30 PM EDT [facility] Blood ANTECUBITAL REGION STRUCTURE / Unknown Venipuncture / Unknown 04/11/2023 12:14 PM EDT 04/11/2023 12:20 PM EDT us Madan Winter MD LAB BLOOD ORDERABLES Final Resul t [facility] [address] [phone] from Last 3 Months or Most Recently Relevant to Health Maintenance Insurance [employer] MEDICARE PPO Advance Directives For more information, please contact: [phone] * Full Code (Latest Code Status on File) Date Activated Date Inactivated Comments 04/11/2023 10:31 AM 04/22/2023 5:15 PM Care Teams Agent Contract Clerk Relationship Specialty Start Date End Date Provider Not In System, [facility]T PCP - General 04/11/23
--- OUTSIDE RECORDS SUMMARY | 2025-08-14 12:22 | XMS_ITS | Patient Health Record ---
Author Organization [facility] Address [address] [facility] [address] [place] [address] [place] [id number] Care Team Providers Care Change Room Attendant Name Role Phone Canelo Peter Primary Care Provider Nany Mcdonald Unavailable [phone] Umesh Shoemaker Unavailable [phone] Allergies Allergen (clinical drug ingredient) Drug/Non Drug [...] 159 Performing Lab: Notes/Report: Test performed by [facility] [address] [place] [address] , [address], [place] [address] Angel Craig MD, Palliative Senior Np CLIA: [id number] Sodium 133 135-145 mmol/L Potassium 5.7 3.5-5.3 [...] growth Performing Lab: Notes/Report: Test performed by [facility] [address] [place] [address] , [address], [place] [address] Angel Craig MD, Palliative Senior Np CLIA: [id number] Specimen Source Urine - Void Culture, Urine See Below Final Report : No growth CBC Venipuncture (in house) Reviewed date:12/30/2024 08:19:33 [...] - 6.5 % P-Comprehensive Metabolic Pa elizabeth ([facility]) Reviewed date:12/30/2024 08:19:33 AM Interpretation:Sod 132, Glu 472, BUN 36, Creat 2.59, GFR 19, ALK 162, A/G 1.1 Performing Lab: Notes/Report: Test performed by [facility], [address] , [address], [place] [address] Angel Craig MD, Palliative Senior Np CLIA: [id number] Sodium 132 135-145 mmol/L Potassium 5.3 3.5-5.3 [...] 22 Performing Lab: Notes/Report: Test performed by [facility] [address] [place] [address] , [address], [place] [id number] Angel Craig MD, Palliative Senior Np CLIA: [id number] Sodium 138 135-145 mmol/L Potassium 4.3 3.5-5.3 mmol/L Chloride 100 97-108 mmol/L CO2 23 22-32 mmol/L Glucose 219 65-99 mg/dL BUN 42 8-23 mg/dL Creatinine 2.33 0.50-1.00 mg/dL Calcium 9.6 8.6-10.4 mg/dL eGFR by Creatinine 22 >59 mL/min/1.73m2 Glycohemoglobin A1c (in hous e) Reviewed date:04/30/2025 05:45:37 PM Interpretation: Performing Lab: Notes/Report: glycohemoglobin 8.1% 5 - 6.5 % P-Comprehensive Metabolic Pa elizabeth ([facility]MP) Reviewed date:05/22/2025 12:36:30 PM Interpretation:gluc 189, bun 48, Cr 2.69, gfr 18, alk phos 131, a/g 1- see 05/22/25 OV Performing Lab: Notes/Report: Test performed by [facility] [address] [place], [place] [address] , [address], [place] [address] Angel Craig MD, Palliative Senior Np CLIA: [id number] Sodium 137 135-145 mmol/L Potassium 5.0 3.5-5.3 [...] 0.7 <0.2-1.2 mg/dL A/G Ratio 1.0 1.1-2.5 X ray : Hip, left Reviewed date:05/26/2025 11:15:22 AM Interpretation:nothing acute Performing Lab: Notes/Report: nothing acute Medications Medication SIG (Take, Route, Frequency, Duration) Notes Start Date End Date Status oxyCODONE-Acetaminop hen 7.5-325 MG 1 tablet as needed Orally 3 times a day; Duration: 30 days 07/20/2025 Active DULoxetine HCl 30 MG 1 capsule Orally Once a day; Duration: 90 days Active Glimepiride 4 MG 1 tablet with breakfast or the first main meal of the day Orally Once a day; Duration: 90 days Active diazePAM 2 MG 1 tablet as needed Orally at bedtime as needed 11/20/2024 Active Autopen 3 ml MIS 2-42 Units 10 units three times daily; Duration: 30 days Autopen 3 ML MIS 2-42 Unit Active Lisinopril 5 MG 1 tablet Orally Once a day; Duration: 90 days Active Nystatin-Triamcinolo ne 490691-5.1 UNIT/GM 1 application Externally Twice a day 11/20/2024 Active Ferrous Gluconate 324 (38 Fe) MG 1 tablet Orally Two times a day; Duration: 60 day(s) 06/09/2024 Active HYDROcodone-Acetamin ophen 7.5-325 MG 1 tab(s) orally 3 times a day as needed; Duration: 30 day(s) 05/06/2025 Active FreeStyle Blair 3 Sensor - as directed replace every 14 days; Duration: 30 days 01/07/2025 Active PriLOSEC OTC 20 MG 1 tab(s) [...] a day; Duration: 30 days 01/07/2025 Active metOLazone 2.5 MG Take 1 tablet by mouth once daily; Duration: 30 Active FreeStyle Blair 3 [place] - as directed 01/07/2025 Active Admelog SoloStar 100 UNIT/ML 10 units Subcutaneous three times daily before meals; Duration: 30 days 01/07/2025 Active Trulance 3 MG 1 tablet Orally Once a day 10/31/2023 Not-Taking Metoprolol Succinate ER 100 MG Take 1 tablet by mouth once daily; Duration: 90 Active Immunizations Vaccine Route Administration Date Status Comme nts COVID 19 Moderna Unknown 06/17/2021 Administered Fluzone High Dose (65yr and older) IM Intramuscular 08/26/2019 Administered Fluzone High Dose (65yr and older) IM Intramuscular 08/16/2020 Administered Fluzone High Dose (65yr and older) IM Intramuscular 07/02/2023 Administered Fluzone High Dose (65yr and older) IM Intramuscular 07/28/2024 Administered PNEUMOVAX 23 VACCINE IM Intramuscular 08/16/2020 Administe red Prevnar (PCV13) IM Intramuscular 01/08/2019 Administered Tetanus Tdap-Adacel (over 7yrs) IM Intramuscular 10/27/2008 Administered Tetanus Tdap-Adacel (over 7yrs) IM Intramuscular 01/08/2019 Administered Problems Problem Type SNOMED Code ICD Code Onset Dates Problem Status W/U Status Risk Notes Problem Information temporarily unavailable Gastro-esophageal reflux disease without esophagitis (K21.9) Active confirmed Problem Information temporarily unavailable Essential (primary) hypertension (I10) Active confirmed Problem Information temporarily unavailable Hyperlipidemia (E78.5) Active confirmed Problem Information temporarily unavailable Vitamin D deficiency (E55.9) Active confirmed Problem Information temporarily unavailable Essential hypertension (I10) Active confirmed Problem Information temporarily unavailable B12 deficiency (E53.8) Active confirmed Problem Information temporarily unavailable Hypoglycemia (E16.2) Active confirmed Problem Information temporarily unavailable Arthritis (M19.90) Active confirmed Problem Information temporarily unavailable Renal failure (N19) Active confirmed Problem Information temporarily unavailable Hyperuricemia (E79.0) Active confirmed Problem Information temporarily unavailable Lumbar facet arthropathy (M47.816) Active confirmed Problem Information temporarily unavailable Depression with anxiety (F41.8) Active confirmed Problem Information temporarily unavailable Localized edema (R60.0) Active confirmed Problem Information temporarily unavailable Lumbago with sciatica, right side (M54.41) Active confirmed Problem Information temporarily unavailable Mixed hyperlipidemia (E78.2) Active confirmed Problem Information temporarily unavailable Anxiety disorder, unspecified (F41.9) Active confirmed Problem Information temporarily unavailable Primary insomnia (F51.01) Active confirmed Problem Information temporarily unavailable Other chronic pain (G89.29) Active confirmed Problem Information temporarily unavailable Chronic pain syndrome (G89.4) Active confirmed Problem Information temporarily unavailable Unspecified cirrhosis of liver (K74.60) Active confirmed Problem Information temporarily unavailable Lumbago with sciatica, left side (M54.42) Active confirmed Problem Information temporarily unavailable Acute kidney failure, unspecified (N17.9) Active confirmed Problem Information temporarily unavailable Chronic kidney disease, stage 4 (severe) (N18.4) Active confirmed Problem Information temporarily unavailable Other ascites (R18.8) Active confirmed Problem Information temporarily unavailable Microalbuminuria (R80.9) Active confirmed Problem Information temporarily unavailable Coronary arteriosclerosis (I25.10) Active confirmed Problem Information temporarily unavailable Diabetes mellitus (E11.9) Active confirmed Problem Information temporarily unavailable Lumbar degenerative disc disease (M51.36) Active confirmed Problem Information temporarily unavailable Type 2 diabetes mellitus without complication (E11.9) Active confirmed Problem Information temporarily unavailable Situational depression (F43.21) Active confirmed Problem Information temporarily unavailable Left-sided low back pain without sciatica (M54.5) Active confirmed Problem Information temporarily unavailable Chronic obstructive pulmonary disease, unspecified COPD type (J44.9) Active confirmed Problem Information temporarily unavailable Iron deficiency anemia due to chronic blood loss (D50.0) Active confirmed Problem Information temporarily unavailable Current use of insulin (Z79.4) Active confirmed Problem Information temporarily unavailable Cigarette nicotine dependence without complication (F17.210) Active confirmed Problem Information temporarily unavailable Anemia of chronic disease (D63.8) Active confirmed Problem Information temporarily unavailable Stented coronary artery (Z95.5) Active confirmed Problem Information temporarily unavailable Obesity (BMI 30.0-34.9) (E66.9) Active confirmed Problem Information temporarily unavailable Status post left hip replacement (Z96.642) Active confirmed Problem Information temporarily unavailable Atherosclerosis of [place] coronary artery without angina pectoris, unspecified whether [place] or transplanted heart (I25.10) Active confirmed Problem Information temporarily unavailable Abnormal cardiac function test (R94.30) Active confirmed Problem Information temporarily unavailable Poorly controlled type 2 diabetes mellitus (E11.65) Active confirmed Problem Information temporarily unavailable Other vascular headache (G44.1) Active confirmed Problem Information temporarily unavailable Fibrocystic breast disease (FCBD), unspecified laterality (N60.19) Active confirmed Problem Information temporarily unavailable Aortic diastolic murmur (I35.8) Active confirmed Problem Information temporarily unavailable Status post nephrectomy (Z90.5) Active confirmed Problem Information temporarily unavailable Malignant neoplasm of kidney, unspecified laterality (C64.9) Active confirmed Problem Information temporarily unavailable Type 2 diabetes mellitus without complication, unspecified whether rodent exterminator insulin use (E11.9) Active confirmed Problem Information temporarily unavailable Bigeminy (I49.8) Active confirmed Problem Information temporarily unavailable Type 2 diabetes with complication (E11.8) Active confirmed Problem Information temporarily unavailable 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) Active confirmed Problem Information temporarily unavailable Ulcer of right lower extremity with fat layer exposed (L97.912) Active confirmed Vital Signs Heart Rate 54 /min 05/22/2025 Blood pressure diastolic 70 mm Hg 05/22/2025 Height 65 in 05/22/2025 Blood pressure systolic 130 mm Hg 05/22/2025 Weight 211.8 lbs 05/22/2025 BMI 35.24 kg/m2 05/22/2025 Encounters Encounter Location Date Provider Diagnosis [facility] [address] [place] [id number] 11/20/2024 Canelo Peter Dysuria R30.0 ; Poor ly controlled type 2 diabetes mellitus E11.65 ; Unspecified cirrhosis of liver K74.60 ; 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 ; Chronic kidney disease, stage 4 (severe) N18.4 ; Anemia of chronic disease D63.8 ; Current use of insulin Z79.4 and Primary insomnia F51.01 [facility] [address] [place] [id number] 12/29/2024 Canelo Peter Type 2 diabetes with complication E11.8 ; Current use of insulin Z79.4 ; Renal failure N19 ; Chronic kidney disease, stage 4 (severe) N18.4 ; Anemia of chronic disease D63.8 and Chronic pain syndrome G89.4 [facility] [address] [place] [id number] 02/23/2025 Canelo Peter Type 2 diabetes with complication E11.8 ; Current use of insulin Z79.4 ; Renal failure N19 ; Chronic kidney disease, stage 4 (severe) N18.4 and 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 [facility] [address] [facility] [address] [place], [place] [id number] 04/30/2025 Canelo Peter Type 2 diabetes mellitus without complication E11.9 ; Essential hypertension I10 ; Chronic kidney disease, stage 4 (severe) N18.4 and Current use of insulin Z79.4 [facility] [address] [facility] [address] [place], [place] [id number] 05/22/2025 Canelo Peter Left hip pain M25.55 2 ; Status post left hip replacement Z96.642 ; Type 2 diabetes with complication E11.8 ; Chronic kidney disease, stage 4 (severe) N18.4 ; 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 ; Essential (primary) hypertension I10 ; Depression with anxiety F41.8 and Stented coronary artery Z95.5 [facility] [address] [facility] [address] [place], [place] [id number] 08/27/2024 Umesh [place] Chronic pain syndrom e G89.4 [facility] [address] [facility] [address] [place], [place] [id number] 08/28/2024 R Ti Mcdonald Primary insomnia F51 .01 [facility] [address] [facility] [address] [place] [id number] 09/15/2024 Canelo Peter [facility] [address] [facility] [address] [place], [place] [id number] 09/23/2024 Canelo Peter Poorly controlled ty pe 2 diabetes mellitus E11.65 [facility] [address] [facility] [address] [place] [id number] 09/29/2024 Umesh [place] Primary insomnia F51 .01 and Chronic pain syndrome G89.4 [facility] [address] [facility] [address] [place], [place] [id number] 10/06/2024 Canelo Peter Poorly controlled ty pe 2 diabetes mellitus E11.65 [facility] [address] [place], [place] [id number] 10/16/2024 J Joshua Peter Poorly controlled ty pe 2 diabetes mellitus E11.65 [facility] [address] [place], [place] [id number] 10/28/2024 J Joshua Peter Depression with anxi ety F41.8 [facility] [address] [place] [id number] 10/29/2024 J Joshua Peter Primary insomnia F51 .01 and Chronic pain syndrome G89.4 [facility] [address] [place] [id number] 11/14/2024 J Joshua Peter [facility] [address] [place] [id number] 11/23/2024 J Joshua Peter [facility] [address] [place] [id number] 11/24/2024 J Joshua Peter [facility] [address] [place] [id number] 11/25/2024 J Joshua Peter [facility] [address] [place] [id number] 11/26/2024 J Joshua Peter Essential hypertensi on I10 [facility] [address] [place] [id number] 11/27/2024 J Joshua Peter [facility] [address] [place] [id number] 11/28/2024 Canelo Peter Chronic pain syndrom e G89.4 [facility] [address] [place] [id number] 12/15/2024 J Joshua Peter [facility] [address] [place] [id number] 12/29/2024 J Joshua Peter [facility] [address] [place] [id number] 12/30/2024 Canelo Peter [facility] [address] [place] [id number] 12/30/2024 J Joshua Peter [facility] [address] [place], [place] [id number] 12/31/2024 J Joshua Peter Type 2 diabetes with complication E11.8 and Poorly controlled type 2 diabetes mellitus E11.65 [facility] [address] [place] [id number] 01/06/2025 J Joshua Peter [facility] [address] [place] [id number] 01/07/2025 J Joshua Peter [facility] [address] [place] [id number] 01/26/2025 J Joshua ePter Depression with anxi ety F41.8 [facility] [address] [place] [id number] 01/26/2025 Umesh [place] Chronic pain syndrom e G89.4 and Primary insomnia F51.01 [facility] [address] [place] [id number] 02/10/2025 J Joshua Peter [facility] [address] [place] [id number] 02/26/2025 J Joshua Peter Chronic pain syndrom e G89.4 [facility] [address] [place] [id number] 03/06/2025 J Joshua Peter [facility] [address] [place] [id number] 03/31/2025 J Joshua Peter Chronic pain syndrom e G89.4 [facility] [address] [place] [id number] 05/04/2025 Umesh [place] Chronic pain syndrom e G89.4 [facility] [address] [place] [id number] 05/19/2025 J Joshua Peter [facility] [address] [place] [id number] 06/16/2025 J Joshua Peter Left hip pain M25.55 2 [facility] [address] [place] [id number] 07/17/2025 Umesh [place] Left hip pain M25.55 2 [facility] [address] [facility] [address] [facility] [address] [place] [id number] 07/24/2025 Canelo Peter Depression with anxi ety F41.8 [facility] [address] [facility] [address] [facility] [address] [place] [id number] 08/11/2025 Canelo Peter Assessments Encounter Date Diagnosis (ICD Code) Assessment Notes Treatment Notes Treatment Clinical Notes Section Notes 08/27/2024 Chronic pain syndrome (ICD-10 - G89.4) 08/28/2024 Primary insomnia (ICD-10 - F51.01) 09/23/2024 Poorly controlled type 2 diabetes mellitus (ICD-10 - E11.65) 09/29/2024 Primary insomnia (ICD-10 - F51.01) 10/06/2024 Poorly controlled type 2 diabetes mellitus (ICD-10 - E11.65) 10/16/2024 Poorly controlled type 2 diabetes mellitus (ICD-10 - E11.65) 10/28/2024 Depression with anxiety (ICD-10 - F41.8) 10/29/2024 Primary insomnia (ICD-10 - F51.01) 11/20/2024 Dysuria (ICD-10 - R30.0) 11/20/2024 Poorly controlled type 2 diabetes mellitus (ICD-10 - E11.65) 11/26/2024 Essential hypertension (ICD-10 - I10) 11/28/2024 [...] 06/16/2025 Left hip pain (ICD-10 - M25.552) 07/17/2025 Left hip pain (ICD-10 - M25.552) 07/24/2025 Depression with anxiety (ICD-10 - F41.8) 05/22/2025 Type 2 diabetes with complication (ICD-10 - E11.8) 04/30/2025 Chronic kidney disease, stage 4 (severe) (ICD-10 - N18.4) 02/23/2025 Renal failure (ICD-10 - N19) 01/26/2025 Primary insomnia (ICD-10 - F51.01) 12/31/2024 Poorly controlled type 2 diabetes mellitus (ICD-10 - E11.65) 12/29/2024 Renal failure (ICD-10 - N19) 11/20/2024 Unspecified cirrhosis of liver (ICD-10 - K74.60) 10/29/2024 Chronic pain syndrome (ICD-10 - G89.4) 09/29/2024 Chronic pain syndrome (ICD-10 - G89.4) 11/20/2024 Status post nephrectomy (ICD-10 - Z90.5) 02/23/2025 Chronic kidney disease, stage 4 (severe) (ICD-10 - N18.4) 12/29/2024 Chronic kidney disease, stage 4 (severe) (ICD-10 - N18.4) 05/22/2025 Chronic kidney disease, stage 4 (severe) (ICD-10 - N18.4) 04/30/2025 Current use of insulin (ICD-10 - Z79.4) 02/23/2025 Status post nephrectomy (ICD-10 - Z90.5) 05/22/2025 Status post nephrectomy (ICD-10 - Z90.5) 12/29/2024 Anemia of chronic disease (ICD-10 - D63.8) 11/20/2024 Chronic kidney disease, stage 4 (severe) (ICD-10 - N18.4) 11/20/2024 Anemia of chronic disease (ICD-10 - D63.8) 12/29/2024 Chronic pain syndrome (ICD-10 - G89.4) 05/22/2025 Essential (primary) hypertension (ICD-10 - I10) 05/22/2025 Depression with anxiety (ICD-10 - F41.8) 11/20/2024 Current use of insulin (ICD-10 - Z79.4) 11/20/2024 Primary insomnia (ICD-10 - F51.01) 05/22/2025 Stented coronary artery (ICD-10 - Z95.5) Plan Of Treatment Next Appt Details Provider Name:Canelo Rojas , 08/31/2025 02:30:00 PM, [facility] [address] [facility], [address], [place], [place], [id number], Insurance Providers Payer Name Payer Address Payer Phone Subscriber Number Group Number Insured Name Patient Relationship to Insured Coverage Start Date Coverage End Date [facility] [employer] [facility] Kayla O GABRIELA [id number] TASHA MCGUIRE [id number] [phone] [id number] FRANCIS LAN Self - patient is [...] Stent Placed x2 in LAD, by Dr. Hiutron 02/28/2017 [facility] History Reason Date(Month/Year) [facility] ER 02/19/2021
--- OUTSIDE RECORDS SUMMARY | 2025-08-14 12:22 | XMS_ITS | Clinical Summary ---
Author Organization [facility] [address] Care Team Providers Care Content Management Consultant Name Role Phone Unavailable Primary Care Provider [...] Density Screening 2018 COVID-19 Vaccine ( - 2024-2 6 season) 2025 Influenza Vaccine (#1) 2025 Hepatitis B Vaccine Aged Out No longe r eligible based on patient's age to complete this topic Meningococcal B Vaccine Aged Out No l onger eligible based on patient's age to complete this topic
[2025-08-14 12:39] LABS: Hematocrit 39.0 % (37.0-47.0); Hemoglobin 12.4 g/dL (12.2-16.2); Immature Granulocytes % 0.7 %; Mean Corpuscular HGB Conc 31.8 g/dL (31.8-35.4); Mean Corpuscular Hemoglobin 30.0 pg (27.0-31.2); Mean Corpuscular Volume 94.2 fl (81-99); Nucleated Red Blood Cells % 0 %; Platelet Count 124 K/mm3 (142-424); Red Blood Count 4.14 M/mm3 (4.20-5.40); Red Cell Distribution Width-SD 50.9 fL; White Blood Count 6.0 K/mm3 (4.8-10.8)
[2025-08-14 13:00] LABS: Albumin Level 4.1 g/dl (3.5-5.0); Chloride 98 mmol/L (98-107); Sodium 134 mmol/L (136-145)
[2025-08-14 13:01] LABS: Potassium 5.1 mmoL/L (3.5-5.1)
[2025-08-14 13:03] LABS: Anion Gap 13.1 mEq/L (5-15); Blood Urea Nitrogen 46 mg/dl (7-17); Carbon Dioxide 28 mmol/L (22.0-30.0); Creatinine,Serum 2.60 mg/dl (0.52-1.04); Estimated Glomerular Filt Rate 18 ml/min (>60); GFR (African American) 22 ML/MIN (>60)
[2025-08-14 13:04] LABS: Calcium 9.4 mg/dl (8.4-10.2); Glucose 277 mg/dl (74-100); Phosphorous 3.9 mg/dl (2.5-4.5)
== END 2025-08-14 23:59 | disposition home or self-care (01) ==
LOC: LAB 12:20
PROVIDERS: PCP Family Medicine; Visit Provider Nurse Practitioner
DX: C64.9 Malignant neoplasm of unspecified kidney, except renal pelvis (principal); N18.9 Chronic kidney disease, unspecified
CPT/HCPCS: 36415; 80048; 80069; 84156; 85025